=== PATIENT | female | born 1935 | race Caucasian/White ===

== ENCOUNTER 2022-11-02 18:20 | Inpatient (IN) | payer MEDICARE, MEDICAID, SELFPAY ==
--- NOTE | ~2022-11-02 | XR_ITS ---
EXAMINATION: XR CHEST CLINICAL INFORMATION: Mental status change. Elevated white blood cell count. COMPARISON: None available. TECHNIQUE: Frontal view of the chest was obtained. FINDINGS: The cardiac and mediastinal contours are normal. There is biapical pleural thickening and calcification. Increased density projecting over the right upper lobe. Probably related to right first rib costochondral cartilage. The lungs are otherwise clear. No evidence of pneumonia. No pleural effusion or pneumothorax. Old left proximal humerus fracture. XR/XR chest 1V IMPRESSION: No evidence of pneumonia.
--- NOTE | ~2022-11-02 | CT_ITS ---
EXAMINATION: CT ABDOMEN AND PELVIS WITHOUT CONTRAST CLINICAL INFORMATION: Fever. Recent urinary tract infection. Rule out pyelonephritis. COMPARISON: None available. TECHNIQUE: Multidetector volumetric imaging was performed from the superior aspect of the liver through the pubic symphysis. Sagittal and coronal reformatted images were obtained on the technologist's workstation. This CT examination was performed using dose optimization techniques as appropriate, variously including the following: *Automated exposure control *Adjustment of mA and/or kV according to patient size (this includes techniques or standardized protocols for targeted exams where dose is matched to indication/reason for exam; i.e. extremities or head) *Use of iterative reconstruction technique DLP: 646 mGy-cm FINDINGS: LUNG BASES: The visualized lung bases are unremarkable. LIVER, GALLBLADDER, AND BILIARY TREE: The liver is normal in size, shape, and attenuation. No focal hepatic lesion or biliary ductal dilatation is present. The gallbladder is unremarkable with no evidence of radiopaque gallstones, gallbladder wall thickening, or obvious pericholecystic inflammatory changes. PANCREAS: Unremarkable. SPLEEN: Unremarkable. ADRENAL GLANDS: Unremarkable. KIDNEYS AND URETERS: The kidneys are normal in size, shape, and attenuation. No hydronephrosis, hydroureter, or calculi seen. No perinephric stranding. 1.5 x 2.5 cm cyst in the upper pole of the right kidney. No imaging follow-up recommended BLADDER: Not optimally distended and not well evaluated. GASTROINTESTINAL TRACT: Stool throughout the colon suggestive of constipation. Diverticulosis. No evidence of diverticulitis. Small and large bowel are otherwise normal. Normal appendix. Small hiatal hernia. ABDOMINAL WALL: No significant hernia is appreciated. Left suprapubic bulge containing small bowel. LYMPH NODES: Shotty small bowel mesentery lymphadenopathy and fat stranding. No enlarged lymph nodes. VASCULAR: Atherosclerotic disease. No aneurysm. PELVIC VISCERA: Uterus may been removed. No pelvic mass. OSSEOUS STRUCTURES: Degenerative changes of the spine. Intramedullary william and compression/lag screw transfixing a old right femoral intertrochanteric fracture. CT/CT abdomen pelvis wo IV con IMPRESSION: No renal stone or hydronephrosis. Pyelonephritis difficult to assess without IV contrast. Bladder underdistended and difficult to evaluate. Constipation. Diverticulosis. Shotty small bowel mesentery lymphadenopathy in fat stranding. This probably represents mesenteritis. Fleischner guidelines were followed.
[2022-11-02 18:27] VITALS: BP 134/76; BP 141/54; PULSE 102; PULSE 98; RESP 18; O2SAT 96; O2SAT 97; BMI 25.5
--- NOTE | 2022-11-02 18:44 | ED_ITS ---
HPI - Altered Mental Status General Chief Complaint: Altered Mental Status Stated Complaint: Weakness & AMS Time Seen by Provider: 11/02/22 18:43 Source: family and RN notes reviewed Mode of arrival: EMS Limitations: altered mental status History of Present Illness HPI narrative: Patient with history of severe dementia came from group home for increased lethargy and weakness for last few days apparently patient had UTI 2 weeks ago was admitted in [facility] received IV antibiotics for 3 days and 7 days of p.o. antibiotics patient went back to group home and was at her baseline for few days and then started having increased weakness and more lethargic last 2 days patient noted to have fever of 101.7 rectally in the ER no vomiting Related Data Home Medications Medication Instructions Recorded Confirmed budesonide 90 mcg/actuation breath 2 inh inhalation BID 11/02/22 activated powder inhaler (Pulmicort Flexhaler) fluticasone 500 mcg-salmeterol 50 1 ea inhalation BID 11/02/22 mcg/dose blistr powdr for inhalation (Advair Diskus) ipratropium 0.5 mg-albuterol 3 mg 3 ml inhalation QID 11/02/22 (2.5 mg base)/3 mL nebulization soln montelukast 10 mg tablet 10 mg PO DAILY 11/02/22 nystatin 100,000 unit/gram topical 1 appl topical BID 11/02/22 cream sertraline 50 mg tablet 50 mg PO DAILY 11/02/22 Allergies Allergy/AdvReac Type Severity Reaction Status Date / Time No Known Allergies Allergy Verified 11/02/22 18:48 Review of Systems 2 Review of Systems: Yes all other systems are reviewed and are negative PMFSH Past Medical History Medical History GERD (gastroesophageal reflux disease) Cholelithiasis Vitamin D deficiency Mild persistent asthma Unspecified dementia, unspecified severity, with mood disturbance Chronic kidney disease, stage 3 Chronic anemia Social History Social History Advance Directives: No Advance Directives Information Provided: No Physical Exam ED Vital Signs: Vital Signs - 24 hr 11/02/22 18:27 11/02/22 18:48 11/02/22 20:47 Temperature 101.7 F H 100 F Pulse Rate 102 H 93 Respiratory Rate 18 17 Blood Pressure 141/54 H 132/53 L Pulse Oximetry 96 Oxygen Delivery Method Room Air BMI result Body Mass Index 25.5 Appearance: Lethargic demented Eyes: PERRLA, No Nystagmus ENT: Pharynx normal. Oral Mucosa moist Neck: Normal inspection. Neck supple. CVS: Normal heart rate and rhythm. Pulses normal. Respiratory: No respiratory distress. Equal air entry bilateral, no wheezing/rales/rhonchi Abdomen: Soft and nontender. Bowel sounds are present, no mass palpable, no CVA tenderness Skin: Skin warm and dry. Normal skin color. Normal skin turgor. Extremities: No lower extremity edema. No calf tenderness Neuro: Significant dementia no focal deficit Medications Administered Generic Name Dose Route Start Last Admin Trade Name Freq PRN Reason Stop Dose Admin Enoxaparin Sodium 40 mg 11/02/22 22:00 11/02/22 22:07 Enoxaparin Sodium 40 Mg/0.4 Ml Syringe SUBCUT 40 mg Q24H PADMAJA Administration Cefepime HCl 2 gm/ Sodium 50 mls @ 100 mls/hr 11/02/22 23:00 11/02/22 23:52 Chloride IV Infused Q12H PADMAJA Infusion Discontinued Medications Generic Name Dose Route Start Last Admin Trade Name Freq PRN Reason Stop Dose Admin Acetaminophen 650 mg 11/02/22 18:52 11/02/22 19:18 Acetaminophen 325 Mg Tablet PO 11/02/22 18:53 650 mg ONCE ONE Administration Sodium Chloride 1,000 mls @ 999 mls/hr 11/02/22 18:52 11/02/22 20:48 Ns IV 11/02/22 19:52 Infused .Q1H1M ONE Infusion Ceftriaxone Sodium 1 gm/ 50 mls @ 100 mls/hr 11/02/22 21:09 11/02/22 22:02 Sodium Chloride IV 11/02/22 21:38 Infused ONCE ONE Infusion Vancomycin HCl 1,500 mg/ 500 mls @ 333.333 mls/hr 11/02/22 22:15 11/02/22 23:41 Sodium Chloride IV 11/02/22 23:44 333.33 mls/hr ONCE ONE Administration Medical Decision Making Medical Decision Making [facility] Narrative: Patient with fever elevated white count etiology not very kidney chest x-ray negative COVID negative urine is negative for UTI no signs of meningitis, will admit patient and give empirically Rocephin Differential Diagnosis Differential Diagnoses: The differential diagnosis associated with the presentation includes Metabolic encephalopathy/sepsis/UTI/pneumonia Admission/Observation Consideration of admission/observation: Escalation of care including admission/observation considered Consult Healthcare Provider Management of the patient was discussed with: Hospitalist Lab Data [facility] Lab Attestation statement: I reviewed the patient's lab results. 11/02/22 19:11 11/02/22 20:02 Labs: Lab Results 11/02/22 11/02/22 11/02/22 Range/Units 19:11 19:30 20:02 WBC 19.7 H (4.8-10.8) X10*3/uL RBC 4.80 (4.20-5.50) X10*6/uL Hgb 13.0 (12.0-16.0) g/dl Hct 40.1 (37.0-47.0) % MCV 83.5 (80.0-98.0) fL MCH 27.1 (27.0-33.0) pg MCHC 32.4 (31.0-35.0) g/dl RDW 15.1 (11.0-16.0) % Plt Count 371 (160-400) X10*3/uL MPV 9.7 (9.4-12.3) fL Immature Gran % (Auto) 0.5 H (0.0-0.4) % Neut % (Auto) 88.0 H (45-73) % Lymph % (Auto) 5.9 L (20-40) % [place] % (Auto) 4.5 (2-11) % Eos % (Auto) 0.8 (0-4) % Baso % (Auto) 0.3 (0-2) % Lymph # (Auto) 1.2 (1.2-4.9) X10*3/uL [place] # (Auto) 0.9 (0.1-1.2) X10*3/uL Eos # (Auto) 0.2 (0.0-0.4) X10*3/uL Baso # (Auto) 0.1 (0.0-0.2) X10*3/uL Abs Immat Gran (auto) 0.09 H (0.00-0.03) X10*3/uL Absolute Neuts (auto) 17.4 H (2.0-8.3) x10*3/uL Absolute Nucleated RBC 0.000 (0.0-0.012) X10*3/uL Nucleated RBC % (auto) 0.0 (0.0-0.2) /100WBC Sodium 135 (135-145) mmol/L Potassium 4.1 (3.3-5.1) mmol/L Chloride 103 (96-108) mmol/L Carbon Dioxide 24 (22-29) mmol/L Anion Gap 12 (12-20) BUN 17 H (9-16) mg/dL Creatinine 0.82 (0.5-1.4) mg/dL Estim Creat Clear Calc 44.7 Estimated GFR > 60 Random Glucose 140 H (60-115) mg/dL Lactic Acid 1.1 (0.5-2.0) mmol/L Calcium 9.2 (8.4-10.2) mg/dL Total Bilirubin 0.4 (0.0-1.0) mg/dL AST 14 (5-31) U/L ALT 13 (0-31) U/L Alkaline Phosphatase 70 (39-117) U/L Total Protein 6.9 (6.5-8.0) g/dL Albumin 3.3 L (3.5-5.0) g/dL Urine Color Yellow Urine Appearance Clear Urine pH 5.5 (5.0-9.0) Ur Specific [place] 1.020 (1.005-1.025) Urine Protein Negative (Neg-Trace) mg/dL Urine Glucose (UA) Negative (Negative) mg/dL Urine Ketones Negative (Negative) mg/dL Urine Blood Negative (Negative) Urine Nitrite Negative (Negative) Ur Leukocyte Esterase Negative (Negative) COVID-19 (ELOISE) Negative (Negative) COVID-19 Clin Com See Note Independent Interpretation I performed an independent interpretation of an: CT Scan Interpretation: RDER #: [id number] CT/CT abdomen pelvis wo IV con IMPRESSION: No renal stone or hydronephrosis. Pyelonephritis difficult to assess without IV contrast. Bladder underdistended and difficult to evaluate. Constipation. Diverticulosis. Shotty small bowel mesentery lymphadenopathy in fat stranding. This probably represents mesenteritis. Fleischner guidelines were followed. Discharge Plan Discharge Clinical Impression: Fever of unknown origin, SIRS (systemic inflammatory response syndrome) Patient Disposition: Admitted As Inpatient
[2022-11-02 18:48] VITALS: TEMP 38.7
--- NOTE | 2022-11-02 18:52 | PC.NURSE ---
Kay daughter contact [phone]
--- NOTE | 2022-11-02 18:57 | ECG_ITS ---
Test Reason : AMS Blood Pressure : / mmHG Vent. Rate : 100 BPM Atrial Rate : 100 BPM P-R Int : 160 ms QRS Dur : 076 ms QT Int : 348 ms P-R-T Axes : 061 -49 060 degrees QTc Int : 448 ms Normal sinus rhythm Left anterior fascicular block Cannot rule out Anterior infarct , age undetermined Abnormal ECG No previous ECGs available Referred By: Dylon Holder Electronically Signed By:RUBI SOOD
[2022-11-02 19:17] LABS: MANUAL DIFF FLAG NO
[2022-11-02] MEDS: Acetaminophen 325 MG TABLET 650 MG PO (19:18)
[2022-11-02] MEDS: 0.9 % Sodium Chloride 1,000 ML 999 ML IV (19:18)
[2022-11-02 19:25] LABS: Basophils Absolute Auto 0.1 X10*3/uL (0.0-0.2); Basophils Percent Auto 0.3 % (0-2); Eosinophils Absolute Auto 0.2 X10*3/uL (0.0-0.4); Eosinophils Percent Auto 0.8 % (0-4); Hematocrit 40.1 % (37.0-47.0); Imm Gran Abs Auto 0.09 X10*3/uL (0.00-0.03); Imm Gran Pct Auto 0.5 % (0.0-0.4); Lymphocytes Absolute Auto 1.2 X10*3/uL (1.2-4.9); Lymphocytes Percent Auto 5.9 % (20-40); Mean Corpuscular HGB Conc 32.4 g/dl (31.0-35.0); Mean Corpuscular Hemoglobin 27.1 pg (27.0-33.0); Mean Corpuscular Volume 83.5 fL (80.0-98.0); Mean Platelet Volume 9.7 fL (9.4-12.3); Monocytes Absolute Auto 0.9 X10*3/uL (0.1-1.2); Monocytes Percent Auto 4.5 % (2-11); Neutrophils Absolute Auto 17.4 x10*3/uL (2.0-8.3); Platelet Count 371 X10*3/uL (160-400); Red Cell Distribution Width 15.1 % (11.0-16.0); White Blood Count 19.7 X10*3/uL (4.8-10.8)
[2022-11-02 19:30] LABS: Lactic Acid 1.1 mmol/L (0.5-2.0)
[2022-11-02 19:32] LABS: COVID-19 Test Negative (Negative); IDNOW Serial# 08D9AD1C
[2022-11-02 19:48] LABS: Appearance Urine Clear; Color Urine Yellow; Glucose Urine UA Negative (Negative); Leukocyte Esterase Urine Negative (Negative); Nitrite Urine Negative (Negative); PH 5.5 (5.0-9.0); Urine Blood Negative (Negative); Urine Ketones Negative (Negative); Urine Protein Negative (Neg-Trace)
[2022-11-02 20:23] LABS: Anion Gap 12 (12-20)
[2022-11-02 20:27] LABS: Alanine Aminotransferase 13 U/L (0-31); Albumin Level 3.3 g/dL (3.5-5.0); Alkaline Phosphatase 70 U/L (39-117); Aspartate Amino Transferase 14 U/L (5-31); Bilirubin Total 0.4 mg/dL (0.0-1.0); Blood Urea Nitrogen 17 mg/dL (9-16); Calcium 9.2 mg/dL (8.4-10.2); Carbon Dioxide 24 mmol/L (22-29); Chloride 103 mmol/L (96-108); Creatinine Clr Calc Pharmacy 44.7; Estimated Glomerular Filt Rate > 60; Glucose Random 140 mg/dL (60-115); Potassium 4.1 mmol/L (3.3-5.1); Sodium 135 mmol/L (135-145); Total Protein 6.9 g/dL (6.5-8.0)
[2022-11-02 20:47] VITALS: BP 132/53; PULSE 93; RESP 17; TEMP 37.7
[2022-11-02] MEDS: cefTRIAXone sodium 1 GM in 0.9 % Sodium Chloride 50 ML IV (21:20)
--- NOTE | 2022-11-02 22:02 | P.HPHOSP_ITS ---
History of Present Illness Date of Service: 11/02/22 Attending physician on admission: Joel Santana Chief Complaint: weakness, lethargy 87-year-old female with history of chronic normocytic anemia, COPD, transaminitis, unspecified dementia with mood disturbance, mild persistent asthma, vitamin-D deficiency, cholelithiasis, GERD, hyperlipidemia presented to the ED earlier today from [facility] where she resides for evaluation of weakness and lethargy. Apparently, the patient was admitted to [facility] about 2 weeks ago treated with IV antibiotics for UTI and discharged back to [facility]. For the last 2 days, nursing staff has noted increased weakness and lethargy as well as fevers of 101.7 rectally. The patient is not a good historian secondary to her dementia at baseline. However there is no reported diarrhea, nausea, vomiting, hematuria, malodorous urine, abdominal pain, flank pain, shortness of breath, chest pain, near syncope. On arrival, patient febrile to 101.7, tachycardic to 102, vitals otherwise stable, no hypotension. She has a leukocytosis of 19.7 with left shift. Creatinine and BUN unremarkable, electrolyte levels normal. Urinalysis negative. Respiratory pathogen panel pending. Chest x-ray negative for pneumonia. CT abdomen pelvis negative for any renal stone or hydronephrosis. No perinephric fat stranding noted but per Radiology, pyelonephritis difficult to assess without IV contrast. Bladder is nondistended in difficult to evaluate. There is also constipation and shotty small bowel mesentery lymphadenopathy in fat stranding likely representing mesenteritis. Review of Systems 2 Review of Systems: Yes Unobtainable due to mental status [facility] Medical History GERD (gastroesophageal reflux disease) Cholelithiasis Vitamin D deficiency Mild persistent asthma Unspecified dementia, unspecified severity, with mood disturbance Chronic kidney disease, stage 3 Chronic anemia Social History Advance Directives: No Advance Directives Information Provided: No Meds Allergies Allergy/AdvReac Type Severity Reaction Status Date / Time No Known Allergies Allergy Verified 11/02/22 18:48 Active Medications: Current Medications Acetaminophen (Acetaminophen Supp 650 Mg Supp.Rect) 650 mg [place] Q6H PRN PRN Reason: Pain, Mild, fever Docusate Sodium (Docusate Sodium 100 Mg Capsule) 100 mg PO DAILY PRN PRN Reason: Constipation Enoxaparin Sodium (Enoxaparin Sodium 40 Mg/0.4 Ml Syringe) 40 mg SUBCUT Q24H PADMAJA Ondansetron HCl (Ondansetron Hcl 4 Mg/2 Ml Vial) 4 mg IVPUSH Q8H PRN PRN Reason: Nausea and Vomiting Sodium Chloride (0.9 % Sodium Chloride Flush 3 Ml Syringe) 3 ml IVFLUSH QSHIFT PADMAJA Physical Exam 2 Vital Signs and Narrative: Vital Signs: Last Vital Signs Temp 100 F 11/02/22 20:47 Pulse 93 11/02/22 20:47 Resp 17 11/02/22 20:47 BP 132/53 L 11/02/22 20:47 Pulse Ox 96 11/02/22 18:27 O2 Del Method Room Air 11/02/22 18:27 BMI result Body Mass Index 25.5 Constitutional - Awake and Alert, No apparent distress Eyes - PERRLA, EOMI Cardiovascular - S1S2, RRR, No edema Respiratory - Normal lung expansion, Normal respiratory effort, No respiratory distress, CTA bilaterally Gastrointestinal - NT / ND; +BS; No rebound or guarding Extremities - no calf tenderness bilaterally, no swelling Skin - Warm/Dry. Cutaneous candidiasis bilateral buttock Neurological - Alert & oriented to self only, answering simple questions selectively, CN II-XII in tact, 4/5 strength BUE and BLE Results Labs 11/02/22 19:11 11/02/22 20:02 Labs: Laboratory Results - last 24 hr 11/02/22 11/02/22 11/02/22 19:11 19:30 20:02 MCV 83.5 MCH 27.1 MCHC 32.4 RDW 15.1 Plt Count 371 MPV 9.7 Immature Gran % (Auto) 0.5 H Neut % (Auto) 88.0 H Lymph % (Auto) 5.9 L [place] % (Auto) 4.5 Eos % (Auto) 0.8 Baso % (Auto) 0.3 Lymph # (Auto) 1.2 [place] # (Auto) 0.9 Eos # (Auto) 0.2 Baso # (Auto) 0.1 Abs Immat Gran (auto) 0.09 H Absolute Neuts (auto) 17.4 H Absolute Nucleated RBC 0.000 Nucleated RBC % (auto) 0.0 Anion Gap 12 Estim Creat Clear Calc 44.7 Estimated GFR > 60 Random Glucose 140 H Lactic Acid 1.1 Calcium 9.2 Total Bilirubin 0.4 AST 14 ALT 13 Alkaline Phosphatase 70 Total Protein 6.9 Albumin 3.3 L Urine Color Yellow Urine Appearance Clear Urine pH 5.5 Ur Specific [place] 1.020 Urine Protein Negative Urine Glucose (UA) Negative Urine Ketones Negative Urine Blood Negative Urine Nitrite Negative Ur Leukocyte Esterase Negative COVID-19 (ELOISE) Negative COVID-19 Clin Com See Note Imaging Radiologist's Impressions: Impressions Chest X-Ray 11/02/22 20:14 IMPRESSION: No evidence of pneumonia. Abdomen/Pelvis CT 11/02/22 20:44 IMPRESSION: No renal stone or hydronephrosis. Pyelonephritis difficult to assess without IV contrast. Bladder underdistended and difficult to evaluate. Constipation. Diverticulosis. Shotty small bowel mesentery lymphadenopathy in fat stranding. This probably represents mesenteritis. Fleischner guidelines were followed. Assessment and Plan (1) SIRS (systemic inflammatory response syndrome): Status: Acute (2) Fever of unknown origin: Status: Acute Plan 87-year-old female with history of chronic normocytic anemia, COPD, transaminitis, unspecified dementia with mood disturbance, mild persistent asthma, vitamin-D deficiency, cholelithiasis, GERD, hyperlipidemia admitted for fever of known origin. #Fever unknown origin with SIRS criteria -febrile to 101.7, tachycardic, leukocytosis 19.7 -Recent hospitalization at [facility] for UTI treated with IV antibiotics -UA unremarkable. Urine culture ordered -CXR negative -CT abdomen/pelvis negative for any acute intra-abdominal abnormality except for shoddy lymphadenopathy suggestive of mesenteritis. Pyelonephritis cannot be excluded given absence of IV contrast. However, UA unremarkable -no evidence of cellulitis -given recent hospitalization, IV vancomycin and cefepime (initiated 11/02) -consider lumbar puncture if indicated a.m. -infectious disease consult -follow CBC, urine culture, blood cultures # asthma/COPD -no acute exacerbation -continue maintenance inhalers, albuterol p.r.n. # cutaneous candidiasis -buttock and groin -continue weekly fluconazole and nystatin # unspecified dementia with mood disturbance -mentation baseline -continue home meds # GERD -continue PPI DVT prophylaxis-Lovenox DNR/DNI Patient requires inpatient stay at least 2 midnights for management of the fever of unknown origin with SIRS criteria, infection suspected with unclear source requiring broad-spectrum antibiotics and dex for consultation Time Spent With Patient Time: Total time managing care of this patient today ____ minutes. Quality Stroke Does the patient have a stroke diagnosis?: No VTE Prior VTE?: No VTE Risk Level:: Medical - moderate - high VTE Device Contraindication: Treatment Not Indicated VTE Drug Contraindication: N/A - Med Ordered
[2022-11-02] MEDS: Enoxaparin Sodium 40 MG/0.4 ML SYRINGE SUBCUT (22:07)
[2022-11-02 22:08] VITALS: BP 122/80; PULSE 93; RESP 14; TEMP 37.2; O2SAT 95
[2022-11-02] MEDS: cefEPime HCl 2 GM in 0.9 % Sodium Chloride 50 ML IV (22:46)
[2022-11-02] MEDS: vancomycin HCL 1,500 MG in 0.9 % Sodium Chloride 500 ML 333.33 MG IV (23:41)
[2022-11-03] VITALS (8 sets, daily range): BP systolic 115–145; BP diastolic 44–74; PULSE 83–108; RESP 15–20; TEMP 36.5–38.4; O2SAT 94–98; BMI 25.5
[2022-11-03] MEDS: Acetaminophen Supp 650 MG SUPP.RECT PR (01:22)
[2022-11-03 05:56] LABS: Basophils Absolute Auto 0.1 X10*3/uL (0.0-0.2); Basophils Percent Auto 0.3 % (0-2); Eosinophils Absolute Auto 0.1 X10*3/uL (0.0-0.4); Eosinophils Percent Auto 0.3 % (0-4); Hematocrit 38.8 % (37.0-47.0); Hemoglobin 12.5 g/dl (12.0-16.0); Imm Gran Abs Auto 0.17 X10*3/uL (0.00-0.03); Imm Gran Pct Auto 0.7 % (0.0-0.4); Lymphocytes Absolute Auto 0.8 X10*3/uL (1.2-4.9); Lymphocytes Percent Auto 3.3 % (20-40); MANUAL DIFF FLAG SCAN; Mean Corpuscular HGB Conc 32.2 g/dl (31.0-35.0); Mean Corpuscular Hemoglobin 27.4 pg (27.0-33.0); Mean Corpuscular Volume 85.1 fL (80.0-98.0); Mean Platelet Volume 9.7 fL (9.4-12.3); Monocytes Absolute Auto 1.1 X10*3/uL (0.1-1.2); Monocytes Percent Auto 4.9 % (2-11); Neutrophils Absolute Auto 20.9 x10*3/uL (2.0-8.3); Neutrophils Percent Auto 90.5 % (45-73); Platelet Count 296 X10*3/uL (160-400); Red Blood Count 4.56 X10*6/uL (4.20-5.50); Red Cell Distribution Width 15.1 % (11.0-16.0); SCAN SMEAR FLAG 1; White Blood Count 23.1 X10*3/uL (4.8-10.8)
[2022-11-03 06:15] LABS: Anion Gap 15 (12-20); Blood Urea Nitrogen 15 mg/dL (9-16); Calcium 9.3 mg/dL (8.4-10.2); Carbon Dioxide 21 mmol/L (22-29); Chloride 103 mmol/L (96-108); Creatinine Clr Calc Pharmacy 47.6; Estimated Glomerular Filt Rate > 60; Glucose Random 122 mg/dL (60-115); Potassium 4.5 mmol/L (3.3-5.1); Sodium 134 mmol/L (135-145)
[2022-11-03 06:21] LABS: SLIDE REVIEW VERIFIED
--- NOTE | 2022-11-03 07:11 | PC.NURSE ---
Assumed care of patient at 0700. Patient resting quietly in bed at this time. No acute distress noted.
--- NOTE | 2022-11-03 07:43 | MHC.CM.PN ---
PATIENT IS IN FROM [facility] SHE IS NOT RESPONDING TO ATTEMPTS TO ROUSE FOR ASSESSMENT. REFERRAL PLACED TO FACILITY TO FOLLOW FOR HER RETURN. HCP FOUND IN FOUND IN EMS PACKET. SUZANNE, (DAUGHTER) SUZANNE STATES THAT RECENTLY THE PATIENT HAS BEEN HAVING DIFFICULTY FINDING WORDS. SHE IS PRIMARILY BED BOUND. CASE MANAGEMENT FOLLOWING. IMM 11/03 IN CHART.
[2022-11-03] MEDS: 0.9 % Sodium Chloride Flush 3 ML SYRINGE IVFLUSH ×3 (09:07→22:25)
--- NOTE | 2022-11-03 09:28 | PC.NURSE ---
Resting quietly in bed. easily arousable. bedside monitor remains on pt. No apparent distress.
--- NOTE | 2022-11-03 09:32 | PHA.MEDREC ---
Pharmacy Consult ? Medication Reconciliation Pharmacy has completed the medication reconciliation. Patient with list from [facility]
[2022-11-03] MEDS: cefEPime HCl 2 GM in 0.9 % Sodium Chloride 50 ML IV ×2 (11:33→22:25)
[2022-11-03] MEDS: vancomycin HCL 750 MG in 0.9 % Sodium Chloride 250 ML 265 MG IV (12:37)
[2022-11-03 13:13] LABS: Adenovirus PCR Not Detected (Not Detect.); Bordetella parapertussis PCR Not Detected (Not Detect.); Bordetella pertussis PCR Not Detected (Not Detect.); Chlamydia pneumoniae PCR Not Detected (Not Detect.); Coronavirus 229E PCR Not Detected (Not Detect.); Coronavirus HKU1 PCR Not Detected (Not Detect.); Coronavirus NL63 PCR Not Detected (Not Detect.); Coronavirus OC43 PCR Not Detected (Not Detect.); Human metapneumovirus PCR Not Detected (Not Detect.); Influenza A PCR Not Detected (Not Detect.); Influenza B PCR Not Detected (Not Detect.); Mycoplasma pneumoniae PCR Not Detected (Not Detect.); Parainfluenza 1 PCR Not Detected (Not Detect.); Parainfluenza 2 PCR Not Detected (Not Detect.); Parainfluenza 3 PCR Not Detected (Not Detect.); Parainfluenza 4 PCR Not Detected (Not Detect.); RSV PCR Not Detected (Not Detect.); Rhino/Enterovirus PCR Not Detected (Not Detect.); SARS-CoV-2 PCR Not Detected (Not Detect.)
--- NOTE | 2022-11-03 14:28 | P.PNIM_ITS ---
Subjective Subjective Date of Service: 11/03/22 Interval History: No acute issues overnight per staff Review of Systems Unable to obtain Physical Exam 2 Vital Signs: Vital Signs: Last Vital Signs Temp 98.7 F 11/03/22 11:31 Pulse 95 11/03/22 11:31 Resp 16 11/03/22 11:31 BP 131/58 L 11/03/22 11:31 Pulse Ox 94 11/03/22 11:31 O2 Del Method Room Air 11/03/22 11:31 BMI result Body Mass Index 25.5 Const: Other: Awake nonverbal Resp: Other: Clear to auscultation bilaterally no rales rhonchi or wheezes Cardio: Other: No S4; positive S1-S2; no S3 murmurs rubs or gallops GI: Other: Soft nontender nondistended normoactive bowel sounds Extrem: Other: No edema bilaterally Objective Data Active Medications Acetaminophen (Acetaminophen Supp 650 Mg Supp.Rect) 650 mg [place] Q6H PRN PRN Reason: Pain, Mild, fever Last Admin: 11/03/22 01:22 Dose: 650 mg Documented By: ANKUSH Docusate Sodium (Docusate Sodium 100 Mg Capsule) 100 mg PO DAILY PRN PRN Reason: Constipation Enoxaparin Sodium (Enoxaparin Sodium 40 Mg/0.4 Ml Syringe) 40 mg SUBCUT Q24H [facility] Last Admin: 11/02/22 22:07 Dose: 40 mg Documented By: ANKUSH Cefepime HCl 2 gm/ Sodium (Chloride) 50 mls @ 100 mls/hr IV Q12H [facility] Last Infusion: 11/03/22 12:37 Dose: Infused Documented By: RENAE Vancomycin HCl 750 mg/ Sodium (Chloride) 265 mls @ 265 mls/hr IV Q12H [facility] Last Admin: 11/03/22 12:37 Dose: 265 mls/hr Documented By: RENAE Ondansetron HCl (Ondansetron Hcl 4 Mg/2 Ml Vial) 4 mg IVPUSH Q8H PRN PRN Reason: Nausea and Vomiting Pharmacy Consult (Consult Rx Vancomycin Dosing) 1 each MISCELLANE DAILY PRN PRN Reason: Consult order Sodium Chloride (0.9 % Sodium Chloride Flush 3 Ml Syringe) 3 ml IVFLUSH QSHIFT [facility] Last Admin: 11/03/22 09:07 Dose: 3 ml Documented By: WHITLYE Labs 11/03/22 05:35 11/03/22 05:35 Labs: Laboratory Results - last 24 hr 11/02/22 11/02/22 11/02/22 19:11 19:30 20:02 MCV 83.5 MCH 27.1 MCHC 32.4 RDW 15.1 Plt Count 371 MPV 9.7 Immature Gran % (Auto) 0.5 H Neut % (Auto) 88.0 H Lymph % (Auto) 5.9 L [place] % (Auto) 4.5 Eos % (Auto) 0.8 Baso % (Auto) 0.3 Lymph # (Auto) 1.2 [place] # (Auto) 0.9 Eos # (Auto) 0.2 Baso # (Auto) 0.1 Abs Immat Gran (auto) 0.09 H Absolute Neuts (auto) 17.4 H Absolute Nucleated RBC 0.000 Nucleated RBC % (auto) 0.0 Smear Tech's Comments Anion Gap 12 Estim Creat Clear Calc 44.7 Estimated GFR > 60 Random Glucose 140 H Lactic Acid 1.1 Calcium 9.2 Total Bilirubin 0.4 AST 14 ALT 13 Alkaline Phosphatase 70 Total Protein 6.9 Albumin 3.3 L Urine Color Yellow Urine Appearance Clear Urine pH 5.5 Ur Specific [place] 1.020 Urine Protein Negative Urine Glucose (UA) Negative Urine Ketones Negative Urine Blood Negative Urine Nitrite Negative Ur Leukocyte Esterase Negative Respiratory Panel [place] Adenovirus (Rapid PCR) B.pert (TEM-PCR) B.parapertussis DNA PCR C. pneumoniae DNA (PCR) Coronavirus OC43 (PCR) Coronavirus HKU1 (PCR) Coronavirus 229E (PCR) COVID-19 (ELOISE) Negative COVID-19 Clin Com See Note Coronavirus NL63 (PCR) Human Metapneumovir PCR Influenza A (RT-PCR) Influenza B (RT-PCR) M. pneumoniae (PCR) Parainfluenza 1 (PCR) Parainfluenza 2 (PCR) Parainfluenza 3 (PCR) Parainfluenza 4 (PCR) RSV (PCR) Entero/Rhino (PCR) SARS-CoV-2 RNA (RT-PCR) 11/02/22 11/03/22 21:58 05:35 MCV 85.1 MCH 27.4 MCHC 32.2 RDW 15.1 Plt Count 296 MPV 9.7 Immature Gran % (Auto) 0.7 H Neut % (Auto) 90.5 H Lymph % (Auto) 3.3 L [place] % (Auto) 4.9 Eos % (Auto) 0.3 Baso % (Auto) 0.3 Lymph # (Auto) 0.8 L [place] # (Auto) 1.1 Eos # (Auto) 0.1 Baso # (Auto) 0.1 Abs Immat Gran (auto) 0.17 H Absolute Neuts (auto) 20.9 H Absolute Nucleated RBC 0.000 Nucleated RBC % (auto) 0.0 Smear Tech's Comments VERIFIED Anion Gap 15 Estim Creat Clear Calc 47.6 Estimated GFR > 60 Random Glucose 122 H Lactic Acid Calcium 9.3 Total Bilirubin AST ALT Alkaline Phosphatase Total Protein Albumin Urine Color Urine Appearance Urine pH Ur Specific [place] Urine Protein Urine Glucose (UA) Urine Ketones Urine Blood Urine Nitrite Ur Leukocyte Esterase Respiratory Panel [place] See Note Adenovirus (Rapid PCR) Not Detected B.pert (TEM-PCR) Not Detected B.parapertussis DNA PCR Not Detected C. pneumoniae DNA (PCR) Not Detected Coronavirus OC43 (PCR) Not Detected Coronavirus HKU1 (PCR) Not Detected Coronavirus 229E (PCR) Not Detected COVID-19 (ELOISE) COVID-19 Clin Com Coronavirus NL63 (PCR) Not Detected Human Metapneumovir PCR Not Detected Influenza A (RT-PCR) Not Detected Influenza B (RT-PCR) Not Detected M. pneumoniae (PCR) Not Detected Parainfluenza 1 (PCR) Not Detected Parainfluenza 2 (PCR) Not Detected Parainfluenza 3 (PCR) Not Detected Parainfluenza 4 (PCR) Not Detected RSV (PCR) Not Detected Entero/Rhino (PCR) Not Detected SARS-CoV-2 RNA (RT-PCR) Not Detected Assessment and Plan (1) Fever of unknown origin: Status: Acute Plan 87-year-old female with history of chronic normocytic anemia, COPD, transaminitis, unspecified dementia with mood disturbance, mild persistent asthma, vitamin-D deficiency, cholelithiasis, GERD, hyperlipidemia admitted for fever of known origin. 1.Fever unknown origin with SIRS criteria -Tmax 101.1 -recent hospitalization, IV vancomycin and cefepime (initiated 11/02); history of UTI. We culture -infectious disease consult -follow CBC, urine culture, blood cultures 2.Asthma/COPD -no acute exacerbation -continue maintenance inhalers, albuterol p.r.n. 3.Cutaneous candidiasis -buttock and groin -continue weekly fluconazole and nystatin 4.Unspecified dementia with mood disturbance -mentation baseline -continue home meds Lovenox DNR/DNI Requires ongoing hospitalization for IV antibiotics pending urine culture/id consult Time Spent With Patient Time: Total time managing care of this patient today ____ minutes. Quality Stroke Does the patient have a stroke diagnosis?: No VTE Prior VTE?: No VTE Risk Level:: Medical - moderate - high VTE Device Contraindication: Treatment Not Indicated VTE Drug Contraindication: N/A - Med Ordered
--- NOTE | 2022-11-03 15:33 | W.PM.IDCN ---
History of Present Illness Data of Consult Service Date: 11/03/22 Requesting physician: Himanshu Chiang Primary Care Provider: Isaias Canela MD [facility] Reason for consult: FUO [place] from [place] with fever to 101 and has this here with tachycardia. She was hospitalized at [facility] three weeks ago and felt to have urinary infection. She has no definite obstruction on CT scan abdomen and pelvis here. Review of Systems Review of Systems: Yes Unobtainable due to mental condition PMFSH Past Medical History Medical History GERD (gastroesophageal reflux disease) Cholelithiasis Vitamin D deficiency Mild persistent asthma Unspecified dementia, unspecified severity, with mood disturbance Chronic kidney disease, stage 3 Chronic anemia Family History Family history: reviewed and not pertinent Social History Social History Advance Directives: No Advance Directives Information Provided: No service: No Meds Allergies Allergy/AdvReac Type Severity Reaction Status Date / Time No Known Allergies Allergy Verified 11/02/22 18:48 Active Medications: Current Medications Acetaminophen (Acetaminophen Supp 650 Mg Supp.Rect) 650 mg [place] Q6H PRN PRN Reason: Pain, Mild, fever Last Admin: 11/03/22 01:22 Dose: 650 mg Docusate Sodium (Docusate Sodium 100 Mg Capsule) 100 mg PO DAILY PRN PRN Reason: Constipation Enoxaparin Sodium (Enoxaparin Sodium 40 Mg/0.4 Ml Syringe) 40 mg SUBCUT Q24H [facility] Last Admin: 11/02/22 22:07 Dose: 40 mg Cefepime HCl 2 gm/ Sodium (Chloride) 50 mls @ 100 mls/hr IV Q12H [facility] Last Infusion: 11/03/22 12:37 Dose: Infused Vancomycin HCl 750 mg/ Sodium (Chloride) 265 mls @ 265 mls/hr IV Q12H [facility] Last Infusion: 11/03/22 14:57 Dose: Infused Ondansetron HCl (Ondansetron Hcl 4 Mg/2 Ml Vial) 4 mg IVPUSH Q8H PRN PRN Reason: Nausea and Vomiting Pharmacy Consult (Consult Rx Vancomycin Dosing) 1 each MISCELLANE DAILY PRN PRN Reason: Consult order Sodium Chloride (0.9 % Sodium Chloride Flush 3 Ml Syringe) 3 ml IVFLUSH QSHIFT [facility] Last Admin: 11/03/22 09:07 Dose: 3 ml Home Medications Medication Instructions Recorded Confirmed Last Taken Type budesonide 90 mcg/actuation breath 2 inh inhalation BID 11/02/22 11/03/22 Unknown History activated powder inhaler (Pulmicort Flexhaler) fluticasone 500 mcg-salmeterol 50 1 ea inhalation BID 11/02/22 11/03/22 Unknown History mcg/dose blistr powdr for inhalation (Advair Diskus) ipratropium 0.5 mg-albuterol 3 mg 3 ml inhalation Q4H 11/02/22 11/03/22 Unknown History (2.5 mg base)/3 mL nebulization soln nystatin 100,000 unit/gram topical 1 appl topical BID PRN Rash 11/02/22 11/03/22 Unknown History cream sertraline 50 mg tablet 50 mg PO BEDTIME 11/02/22 11/03/22 Unknown History acetaminophen 325 mg tablet 650 mg PO Q6H PRN Pain 11/03/22 11/03/22 Unknown History acetaminophen 650 mg rectal 650 mg NC Q6H 11/03/22 11/03/22 Unknown History suppository bisacodyl 10 mg rectal suppository 10 mg NC DAILY PRN Constipation 11/03/22 11/03/22 Unknown History cholecalciferol (vitamin D3) 25 25 mcg PO DAILY 11/03/22 11/03/22 Unknown History mcg (1,000 unit) tablet (Vitamin D3) ferrous sulfate 325 mg (65 mg 325 mg PO DAILY 11/03/22 11/03/22 Unknown History iron) tablet fluconazole 200 mg tablet 200 mg PO DAILY 11/03/22 11/03/22 Unknown History ipratropium 20 mcg-albuterol 100 2 puff inhalation Q4H PRN 11/03/22 11/03/22 Unknown History mcg/actuation mist for inhalation Shortness Of Breath (Combivent Respimat) melatonin 10 mg tablet 10 mg PO BEDTIME PRN Insomnia 11/03/22 11/03/22 Unknown History montelukast 10 mg tablet 10 mg PO BEDTIME Allergy Symptoms 11/03/22 11/03/22 Unknown History nystatin 100,000 unit/gram topical 1 appl topical BID PRN Rash 11/03/22 11/03/22 Unknown History powder omeprazole 20 mg capsule,delayed 20 mg PO DAILY@0630 11/03/22 11/03/22 Unknown History release Physical Exam Vital Signs: Vital Signs: Last Vital Signs Temp 97.7 F 11/03/22 15:19 Pulse 83 11/03/22 15:19 Resp 20 11/03/22 15:19 BP 122/64 11/03/22 15:19 Pulse Ox 98 11/03/22 15:19 O2 Del Method Room Air 11/03/22 15:19 BMI result Body Mass Index 25.5 Const: General: cooperative HEENT: Head: Yes normal to inspection Face and sinus: Yes normal facial exam Mouth: Normal oral and palatal mucosa present Teeth and gingiva: dentition normal Eyes: General: appearance normal, both eyes and all related structures Pupils: Equal, round and reactive pupils present Resp: Effort & Inspection: normal respiratory effort Cardio: Rate: regular rate Rhythm: regular rhythm GI: Palpation (GI): Soft to palpation and nontender : General: Yes no CVA tenderness Back/Spine/Pelvis: Back: no CVA tenderness Skin: General skin exam: no rashes or lesions noted Neuro: General: moves all extremities Cranial nerves: Yes Equal, round and reactive pupils present Extrem: General: Yes normal to inspection Psych: Appearance: grossly normal Results Labs 11/03/22 05:35 11/03/22 05:35 Labs: Short CBC 11/02/22 11/03/22 Range/Units 19:11 05:35 WBC 19.7 H 23.1 H (4.8-10.8) X10*3/uL Hgb 13.0 12.5 (12.0-16.0) g/dl Hct 40.1 38.8 (37.0-47.0) % Plt Count 371 296 (160-400) X10*3/uL BMP 11/02/22 11/03/22 20:02 05:35 Sodium 135 134 L Potassium 4.1 4.5 Chloride 103 103 Carbon Dioxide 24 21 L BUN 17 H 15 Creatinine 0.82 0.77 Calcium 9.2 9.3 Liver Function 11/02/22 Range/Units 20:02 Total Bilirubin 0.4 (0.0-1.0) mg/dL AST 14 (5-31) U/L ALT 13 (0-31) U/L Alkaline Phosphatase 70 (39-117) U/L Albumin 3.3 L (3.5-5.0) g/dL Urine 11/02/22 Range/Units 19:30 Urine Color Yellow Urine Appearance Clear Urine pH 5.5 (5.0-9.0) Ur Specific [place] 1.020 (1.005-1.025) Urine Protein Negative (Neg-Trace) mg/dL Urine Glucose (UA) Negative (Negative) mg/dL Assessment and Plan (1) SIRS (systemic inflammatory response syndrome): Status: Acute (2) Fever of unknown origin: Status: Acute There is concern over recurrent urinary infection. Urinalysis is unremarkable and also has some mesenteric stranding on CT. There is no obvious neurologic signs Plan Await blood cultures. Continue Cefepime and Vancomycin for now. Consider further abdominal imaging such as U/S if not improving evaluate obstruction. Concern over collagen vascular disease such as vasculitis if not improving on antibiotics. Time Spent With Patient Time: Total time managing care of this patient today ____ minutes.
--- NOTE | 2022-11-03 16:24 | HO.SKINPHOTO ---
Location: perineal/ buttocks Category: Stage: Length: Width: Depth: cm
[2022-11-03 21:47] LABS: Vancomycin Random 16.2 mcg/mL (15-20)
--- NOTE | 2022-11-03 21:58 | HE.PHANOTE ---
RE: VANCO Patients level came back this evening at 16.2. This was after an appropriate loading dose and 1 dose of 750 mg. Will decrease dose as dose is showing to be supratherpeutic. Decreased dose to 500 mg Q12H. Next draw is 11/04 @2100.
[2022-11-03] MEDS: Enoxaparin Sodium 40 MG/0.4 ML SYRINGE SUBCUT (22:25)
[2022-11-03] MEDS: vancomycin HCL 500 MG in 0.9 % Sodium Chloride 100 ML 110 MG IV (23:33)
[2022-11-04 04:00] VITALS: BP 102/63; PULSE 84; RESP 18; TEMP 36.1; O2SAT 96
[2022-11-04 07:40] LABS: MANUAL DIFF FLAG NO
[2022-11-04 07:52] LABS: Basophils Absolute Auto 0.1 X10*3/uL (0.0-0.2); Basophils Percent Auto 0.4 % (0-2); Eosinophils Absolute Auto 0.2 X10*3/uL (0.0-0.4); Hematocrit 39.3 % (37.0-47.0); Hemoglobin 12.5 g/dl (12.0-16.0); Imm Gran Pct Auto 0.6 % (0.0-0.4); Lymphocytes Absolute Auto 0.8 X10*3/uL (1.2-4.9); Lymphocytes Percent Auto 5.3 % (20-40); Mean Corpuscular HGB Conc 31.8 g/dl (31.0-35.0); Mean Corpuscular Hemoglobin 27.1 pg (27.0-33.0); Mean Corpuscular Volume 85.1 fL (80.0-98.0); Mean Platelet Volume 10.3 fL (9.4-12.3); Monocytes Absolute Auto 0.6 X10*3/uL (0.1-1.2); Monocytes Percent Auto 3.8 % (2-11); Neutrophils Absolute Auto 13.9 x10*3/uL (2.0-8.3); Neutrophils Percent Auto 88.9 % (45-73); Platelet Count 278 X10*3/uL (160-400); Red Blood Count 4.62 X10*6/uL (4.20-5.50); Red Cell Distribution Width 15.3 % (11.0-16.0); White Blood Count 15.7 X10*3/uL (4.8-10.8)
[2022-11-04 08:00] VITALS: BP 113/54; PULSE 80; RESP 16; TEMP 36.6; O2SAT 95
[2022-11-04 08:03] LABS: Alanine Aminotransferase 15 U/L (0-31); Albumin Level 3.1 g/dL (3.5-5.0); Alkaline Phosphatase 68 U/L (39-117); Anion Gap 14 (12-20); Aspartate Amino Transferase 18 U/L (5-31); Bilirubin Total 0.2 mg/dL (0.0-1.0); Blood Urea Nitrogen 14 mg/dL (9-16); Calcium 9.3 mg/dL (8.4-10.2); Carbon Dioxide 22 mmol/L (22-29); Chloride 106 mmol/L (96-108); Creatinine Clr Calc Pharmacy 50.2; Estimated Glomerular Filt Rate > 60; Glucose Fasting 81 mg/dL (60-99); Potassium 3.8 mmol/L (3.3-5.1); Sodium 138 mmol/L (135-145); Total Protein 6.8 g/dL (6.5-8.0)
[2022-11-04] MEDS: 0.9 % Sodium Chloride Flush 3 ML SYRINGE IVFLUSH (09:38)
[2022-11-04] MEDS: cefEPime HCl 2 GM in 0.9 % Sodium Chloride 50 ML IV (11:29)
--- NOTE | 2022-11-04 11:40 | MHC.CM.PN ---
Pt is not yet medically cleared for d/c r/t 2 IV A/B, and pending lab results. Goal is to return to LTC at [place] [facility] to continue to follow.
[2022-11-04 12:00] VITALS: BP 135/61; PULSE 75; RESP 19; TEMP 36.7; O2SAT 97
[2022-11-04] MEDS: vancomycin HCL 500 MG in 0.9 % Sodium Chloride 100 ML 110 MG IV (14:08)
--- NOTE | 2022-11-04 15:23 | HO.PM.IMPN ---
Subjective Subjective Date of Service: 11/04/22 Interval History: Remains essentially nonverbal Review of Systems Unable to obtain Physical Exam Vital Signs: Vital Signs: Last Vital Signs Temp 98.0 F 11/04/22 12:00 Pulse 75 11/04/22 12:00 Resp 19 11/04/22 12:00 BP 135/61 11/04/22 12:00 Pulse Ox 97 11/04/22 12:00 O2 Del Method Room Air 11/04/22 12:00 BMI result Body Mass Index 25.5 Const: Other: Awake nonverbal Resp: Other: Clear to auscultation bilaterally no rales rhonchi or wheezes Cardio: Other: No S4; positive S1-S2; no S3 murmurs rubs or gallops GI: Other: Soft nontender nondistended normoactive bowel sounds Extrem: Other: No edema bilaterally Objective Data Active Medications Acetaminophen (Acetaminophen Supp 650 Mg Supp.Rect) 650 mg [place] Q6H PRN PRN Reason: Pain, Mild, fever Last Admin: 11/03/22 01:22 Dose: 650 mg Documented By: ANKUSH Bisacodyl (Bisacodyl 10 Mg Supp.Rect) 10 mg PA DAILY PRN PRN Reason: Constipation Docusate Sodium (Docusate Sodium 100 Mg Capsule) 100 mg PO DAILY PRN PRN Reason: Constipation Enoxaparin Sodium (Enoxaparin Sodium 40 Mg/0.4 Ml Syringe) 40 mg SUBCUT Q24H [facility] Last Admin: 11/03/22 22:25 Dose: 40 mg Documented By: ZOFIA Cefepime HCl 2 gm/ Sodium (Chloride) 50 mls @ 100 mls/hr IV Q12H [facility] Last Infusion: 11/04/22 13:58 Dose: Infused Documented By: KENYON Vancomycin HCl 500 mg/ Sodium (Chloride) 110 mls @ 110 mls/hr IV Q12H [facility] Last Infusion: 11/04/22 15:09 Dose: Infused Documented By: KENYON Montelukast Sodium (Montelukast Sodium 10 Mg Tablet) 10 mg PO BEDTIME PADMAJA Omeprazole (Omeprazole 20 Mg Capsule.Dr) 20 mg PO DAILY@0630 [facility] Ondansetron HCl (Ondansetron Hcl 4 Mg/2 Ml Vial) 4 mg IVPUSH Q8H PRN PRN Reason: Nausea and Vomiting Pharmacy Consult (Consult Rx Vancomycin Dosing) 1 each MISCELLANE DAILY PRN PRN Reason: Consult order Sertraline HCl (Sertraline Hcl 50 Mg Tablet) 50 mg PO BEDTIME [facility] Sodium Chloride (0.9 % Sodium Chloride Flush 3 Ml Syringe) 3 ml IVFLUSH QSHIFT [facility] Last Admin: 11/04/22 09:38 Dose: 3 ml Documented By: CTORRBarbara Vitamin D (Cholecalciferol (Vitamin D3) 25 Mcg Tablet) 25 mcg PO DAILY [facility] Labs 11/04/22 06:56 11/04/22 06:56 Labs: Laboratory Results - last 24 hr 11/03/22 11/04/22 21:20 06:56 MCV 85.1 MCH 27.1 MCHC 31.8 RDW 15.3 Plt Count 278 MPV 10.3 Immature Gran % (Auto) 0.6 H Neut % (Auto) 88.9 H Lymph % (Auto) 5.3 L [place] % (Auto) 3.8 Eos % (Auto) 1.0 Baso % (Auto) 0.4 Lymph # (Auto) 0.8 L [place] # (Auto) 0.6 Eos # (Auto) 0.2 Baso # (Auto) 0.1 Abs Immat Gran (auto) 0.10 H Absolute Neuts (auto) 13.9 H Absolute Nucleated RBC 0.000 Nucleated RBC % (auto) 0.0 Anion Gap 14 Estim Creat Clear Calc 50.2 Estimated GFR > 60 Fasting Glucose 81 Calcium 9.3 Total Bilirubin 0.2 AST 18 ALT 15 Alkaline Phosphatase 68 Total Protein 6.8 Albumin 3.1 L Random Vancomycin 16.2 Microbiology Microbiology Results: Microbiology 11/02/22 19:11 Blood Culture - Preliminary Blood - Venous No growth after 24 hours. 11/02/22 19:11 Blood Culture - Preliminary Blood - Venous No growth after 24 hours. Assessment and Plan (1) Fever of unknown origin: Status: Acute (2) Mild persistent asthma: Status: Acute Plan 87-year-old female with history of chronic normocytic anemia, COPD, transaminitis, unspecified dementia with mood disturbance, mild persistent asthma, vitamin-D deficiency, cholelithiasis, GERD, hyperlipidemia admitted for fever of known origin. 1.Fever unknown origin -Tmax 99 -vancomycin/cefepime(3); -infectious disease consult -blood cultures negative thus far -no IV access; will recheck white count in a.m. and discuss with ID then discuss with family 2.Asthma/COPD -no acute exacerbation -continue maintenance inhalers, albuterol p.r.n. 3.Cutaneous candidiasis -buttock and groin -continue weekly fluconazole and nystatin 4.Unspecified dementia with mood disturbance -mentation baseline -continue home meds Lovenox DNR/DNI Requires ongoing hospitalization for IV antibiotics pending urine culture/id consult Time Spent With Patient Time: Total time managing care of this patient today ____ minutes. Quality Stroke Does the patient have a stroke diagnosis?: No VTE Prior VTE?: No VTE Risk Level:: Medical - moderate - high VTE Device Contraindication: Treatment Not Indicated VTE Drug Contraindication: N/A - Med Ordered
[2022-11-04 15:52] VITALS: BP 116/57; PULSE 83; RESP 16; TEMP 36.3; O2SAT 97
--- NOTE | 2022-11-04 18:33 | PC.NURSE ---
Pt lost IV access. 3 Rns tried to get an IV access unsuccessfully. notified. Per Md orders hold Iv Abx.
--- NOTE | 2022-11-04 19:32 | PC.NURSE ---
Assumed care of patient @ 19:15, 11/04. Called pharmacy for newer order of nystatin. Per polysom tech hospital is currently out of nystatin. Covering MD notified.
[2022-11-04 20:00] VITALS: BP 129/69; PULSE 81; RESP 14; TEMP 36.1; O2SAT 96
[2022-11-04 21:29] LABS: Vancomycin Random 17.2 mcg/mL (15-20)
[2022-11-04] MEDS: Enoxaparin Sodium 40 MG/0.4 ML SYRINGE SUBCUT (21:30)
[2022-11-04] MEDS: Montelukast Sodium 10 MG TABLET PO (21:30)
[2022-11-04] MEDS: Sertraline HCL 50 MG TABLET PO (21:30)
--- NOTE | 2022-11-04 21:35 | HE.PHANOTE ---
RE: Thaoo Patients level came back this evening at 17.2. I did notice that the dose due for 1100 this morning was given at 1400. This could have caused a falsely high level. regardless, will keep dose the same as 750 mg Q12H will be supra therapeutic and 1000 mg Q24H will only produce a level of around 12. Will continue with this dose for 2 more doses and see what level is tomorrow. Next draw tomorrow 11/05 @2100. Predicted AUC 425, renal function improved today.
[2022-11-04 23:24] VITALS: BP 135/68; PULSE 85; RESP 18; TEMP 36.7; O2SAT 97
[2022-11-05] MEDS: 0.9 % Sodium Chloride Flush 3 ML SYRINGE IVFLUSH ×3 (00:55→20:02)
[2022-11-05] MEDS: cefEPime HCl 2 GM in 0.9 % Sodium Chloride 50 ML IV ×3 (00:57→22:04)
[2022-11-05] MEDS: vancomycin HCL 500 MG in 0.9 % Sodium Chloride 100 ML 110 MG IV ×3 (02:27→22:43)
[2022-11-05 04:00] VITALS: BP 122/82; PULSE 91; RESP 18; TEMP 36.5; O2SAT 95
[2022-11-05] MEDS: Omeprazole 20 MG CAPSULE.DR PO (05:19)
[2022-11-05 06:58] LABS: MANUAL DIFF FLAG NO
[2022-11-05 07:02] LABS: Basophils Absolute Auto 0.1 X10*3/uL (0.0-0.2); Basophils Percent Auto 0.5 % (0-2); Eosinophils Absolute Auto 0.3 X10*3/uL (0.0-0.4); Eosinophils Percent Auto 2.6 % (0-4); Hematocrit 37.4 % (37.0-47.0); Hemoglobin 12.2 g/dl (12.0-16.0); Imm Gran Abs Auto 0.09 X10*3/uL (0.00-0.03); Imm Gran Pct Auto 0.8 % (0.0-0.4); Lymphocytes Absolute Auto 1.2 X10*3/uL (1.2-4.9); Lymphocytes Percent Auto 10.6 % (20-40); Mean Corpuscular HGB Conc 32.6 g/dl (31.0-35.0); Mean Corpuscular Hemoglobin 27.1 pg (27.0-33.0); Mean Corpuscular Volume 82.9 fL (80.0-98.0); Mean Platelet Volume 9.9 fL (9.4-12.3); Monocytes Absolute Auto 0.8 X10*3/uL (0.1-1.2); Monocytes Percent Auto 6.8 % (2-11); Neutrophils Percent Auto 78.7 % (45-73); Platelet Count 273 X10*3/uL (160-400); Red Blood Count 4.51 X10*6/uL (4.20-5.50); White Blood Count 11.5 X10*3/uL (4.8-10.8)
[2022-11-05 07:31] VITALS: BP 141/63; PULSE 89; RESP 16; TEMP 36.2; O2SAT 97
[2022-11-05 07:43] LABS: Alanine Aminotransferase 19 U/L (0-31); Albumin Level 2.9 g/dL (3.5-5.0); Alkaline Phosphatase 70 U/L (39-117); Anion Gap 15 (12-20); Aspartate Amino Transferase 34 U/L (5-31); Bilirubin Total 0.2 mg/dL (0.0-1.0); Blood Urea Nitrogen 18 mg/dL (9-16); Calcium 8.9 mg/dL (8.4-10.2); Carbon Dioxide 17 mmol/L (22-29); Chloride 108 mmol/L (96-108); Creatinine Clr Calc Pharmacy 47.6; Estimated Glomerular Filt Rate > 60; Glucose Fasting 83 mg/dL (60-99); Potassium 4.9 mmol/L (3.3-5.1); Sodium 135 mmol/L (135-145); Total Protein 6.8 g/dL (6.5-8.0)
[2022-11-05] MEDS: Cholecalciferol (Vitamin D3) 25 MCG TABLET PO (08:52)
[2022-11-05 11:17] VITALS: BP 131/70; PULSE 74; RESP 20; TEMP 36.4; O2SAT 96
--- NOTE | 2022-11-05 15:42 | HO.PM.IMPN ---
Subjective Subjective Date of Service: 11/05/22 Interval History: Much more alert this a.m.. Taking p.o. when fed Review of Systems Unable to obtain Physical Exam Vital Signs: Vital Signs: Last Vital Signs Temp 97.6 F 11/05/22 11:17 Pulse 74 11/05/22 11:17 Resp 20 11/05/22 11:17 BP 131/70 11/05/22 11:17 Pulse Ox 96 11/05/22 11:17 O2 Del Method Room Air 11/05/22 11:17 BMI result Body Mass Index 25.5 Const: Other: Awake nonverbal Resp: Other: Clear to auscultation bilaterally no rales rhonchi or wheezes Cardio: Other: No S4; positive S1-S2; no S3 murmurs rubs or gallops GI: Other: Soft nontender nondistended normoactive bowel sounds Extrem: Other: No edema bilaterally Objective Data Active Medications Acetaminophen (Acetaminophen Supp 650 Mg Supp.Rect) 650 mg [place] Q6H PRN PRN Reason: Pain, Mild, fever Last Admin: 11/03/22 01:22 Dose: 650 mg Documented By: ANKUSH Bisacodyl (Bisacodyl 10 Mg Supp.Rect) 10 mg [place] DAILY PRN PRN Reason: Constipation Docusate Sodium (Docusate Sodium 100 Mg Capsule) 100 mg PO DAILY PRN PRN Reason: Constipation Enoxaparin Sodium (Enoxaparin Sodium 40 Mg/0.4 Ml Syringe) 40 mg SUBCUT Q24H [facility] Last Admin: 11/04/22 21:30 Dose: 40 mg Documented By: DOUGLAS Cefepime HCl 2 gm/ Sodium (Chloride) 50 mls @ 100 mls/hr IV Q12H [facility] Last Infusion: 11/05/22 12:51 Dose: Infused Documented By: ESTUARDO Vancomycin HCl 500 mg/ Sodium (Chloride) 110 mls @ 110 mls/hr IV Q12H [facility] Last Infusion: 11/05/22 14:15 Dose: Infused Documented By: ESTUARDO Montelukast Sodium (Montelukast Sodium 10 Mg Tablet) 10 mg PO BEDTIME [facility] Last Admin: 11/04/22 21:30 Dose: 10 mg Documented By: DOUGLAS Nystatin (Nystatin Powder 15 Gm Bottle) 1 appl TOPICAL TID [facility]; Protocol Last Admin: 11/05/22 14:59 Dose: Not Given Documented By: ESTUARDO Non-Admin Reason: Med Not Available Omeprazole (Omeprazole 20 Mg Maria G.) 20 mg PO DAILY@0630 [facility] Last Admin: 11/05/22 05:19 Dose: 20 mg Documented By: DOUGLAS Ondansetron HCl (Ondansetron Hcl 4 Mg/2 Ml Vial) 4 mg IVPUSH Q8H PRN PRN Reason: Nausea and Vomiting Pharmacy Consult (Consult Rx Vancomycin Dosing) 1 each MISCELLANE DAILY PRN PRN Reason: Consult order Sertraline HCl (Sertraline Hcl 50 Mg Tablet) 50 mg PO BEDTIME [facility] Last Admin: 11/04/22 21:30 Dose: 50 mg Documented By: DOUGLAS Sodium Chloride (0.9 % Sodium Chloride Flush 3 Ml Syringe) 3 ml IVFLUSH QSHIFT [facility] Last Admin: 11/05/22 08:53 Dose: 3 ml Documented By: ESTUARDO Vitamin D (Cholecalciferol (Vitamin D3) 25 Mcg Tablet) 25 mcg PO DAILY [facility] Last Admin: 11/05/22 08:52 Dose: 25 mcg Documented By: ESTUARDO Labs 11/05/22 06:39 11/05/22 06:39 Labs: Laboratory Results - last 24 hr 11/04/22 11/05/22 21:12 06:39 MCV 82.9 MCH 27.1 MCHC 32.6 RDW 15.0 Plt Count 273 MPV 9.9 Immature Gran % (Auto) 0.8 H Neut % (Auto) 78.7 H Lymph % (Auto) 10.6 L [place] % (Auto) 6.8 Eos % (Auto) 2.6 Baso % (Auto) 0.5 Lymph # (Auto) 1.2 [place] # (Auto) 0.8 Eos # (Auto) 0.3 Baso # (Auto) 0.1 Abs Immat Gran (auto) 0.09 H Absolute Neuts (auto) 9.0 H Absolute Nucleated RBC 0.000 Nucleated RBC % (auto) 0.0 Anion Gap 15 Estim Creat Clear Calc 47.6 Estimated GFR > 60 Fasting Glucose 83 Calcium 8.9 Total Bilirubin 0.2 AST 34 H ALT 19 Alkaline Phosphatase 70 Total Protein 6.8 Albumin 2.9 L Random Vancomycin 17.2 Microbiology Microbiology Results: Microbiology 11/02/22 19:11 Blood Culture - Preliminary Blood - Venous No growth after 48 hours. 11/02/22 19:11 Blood Culture - Preliminary Blood - Venous No growth after 48 hours. Assessment and Plan (1) Fever of unknown origin: Status: Acute (2) Mild persistent asthma: Status: Acute Plan 87-year-old female with history of chronic normocytic anemia, COPD, transaminitis, unspecified dementia with mood disturbance, mild persistent asthma, vitamin-D deficiency, cholelithiasis, GERD, hyperlipidemia admitted for fever of known origin. 1.Fever unknown origin -afebrile greater than 24 hours -vancomycin/cefepime(4); -infectious disease consult -blood cultures negative thus far -will continue antibiotics IV 24 hrs -check CBC in a.m.. .. If white count has normalized DC back to [facility] 2.Asthma/COPD -no acute exacerbation -continue maintenance inhalers, albuterol p.r.n. 3.Cutaneous candidiasis -buttock and groin -continue weekly fluconazole and nystatin 4.Unspecified dementia with mood disturbance -mentation baseline -continue home meds Lovenox DNR/DNI Requires ongoing hospitalization for IV antibiotics pending urine culture/id consult Time Spent With Patient Time: Total time managing care of this patient today ____ minutes. Quality Stroke Does the patient have a stroke diagnosis?: No VTE Prior VTE?: No VTE Risk Level:: Medical - moderate - high VTE Device Contraindication: Treatment Not Indicated VTE Drug Contraindication: N/A - Med Ordered
[2022-11-05 16:00] VITALS: BP 122/54; PULSE 69; RESP 16; TEMP 36.3; O2SAT 97
[2022-11-05 19:45] VITALS: BP 136/61; PULSE 75; RESP 18; TEMP 36.2; O2SAT 97
[2022-11-05] MEDS: Montelukast Sodium 10 MG TABLET PO (20:02)
[2022-11-05] MEDS: Sertraline HCL 50 MG TABLET PO (20:02)
[2022-11-05 21:51] LABS: Vancomycin Random 15.3 mcg/mL (15-20)
[2022-11-05] MEDS: Enoxaparin Sodium 40 MG/0.4 ML SYRINGE SUBCUT (22:11)
[2022-11-06] VITALS: BP 134/60; PULSE 77; RESP 18; TEMP 36.2; O2SAT 96
[2022-11-06 04:00] VITALS: BP 139/63; PULSE 74; RESP 18; TEMP 36.1; O2SAT 98
[2022-11-06 07:15] LABS: MANUAL DIFF FLAG NO
[2022-11-06 07:24] LABS: Basophils Percent Auto 0.4 % (0-2); Eosinophils Absolute Auto 0.3 X10*3/uL (0.0-0.4); Eosinophils Percent Auto 3.4 % (0-4); Hematocrit 37.1 % (37.0-47.0); Hemoglobin 12.1 g/dl (12.0-16.0); Imm Gran Abs Auto 0.11 X10*3/uL (0.00-0.03); Imm Gran Pct Auto 1.5 % (0.0-0.4); Lymphocytes Absolute Auto 1.1 X10*3/uL (1.2-4.9); Lymphocytes Percent Auto 15.6 % (20-40); Mean Corpuscular HGB Conc 32.6 g/dl (31.0-35.0); Mean Corpuscular Hemoglobin 27.1 pg (27.0-33.0); Mean Corpuscular Volume 83.2 fL (80.0-98.0); Mean Platelet Volume 10.3 fL (9.4-12.3); Monocytes Absolute Auto 0.6 X10*3/uL (0.1-1.2); Monocytes Percent Auto 8.4 % (2-11); Neutrophils Absolute Auto 5.2 x10*3/uL (2.0-8.3); Neutrophils Percent Auto 70.7 % (45-73); Platelet Count 302 X10*3/uL (160-400); Red Blood Count 4.46 X10*6/uL (4.20-5.50); Red Cell Distribution Width 14.8 % (11.0-16.0); White Blood Count 7.3 X10*3/uL (4.8-10.8)
[2022-11-06 07:27] VITALS: BP 134/61; PULSE 71; RESP 16; TEMP 36.4; O2SAT 98
--- NOTE | 2022-11-06 07:28 | PC.NURSE ---
Assumed care of patient at this time.
[2022-11-06 08:11] LABS: Alanine Aminotransferase 16 U/L (0-31); Albumin Level 3.1 g/dL (3.5-5.0); Alkaline Phosphatase 67 U/L (39-117); Anion Gap 14 (12-20); Aspartate Amino Transferase 20 U/L (5-31); Bilirubin Total 0.2 mg/dL (0.0-1.0); Blood Urea Nitrogen 18 mg/dL (9-16); Carbon Dioxide 19 mmol/L (22-29); Chloride 107 mmol/L (96-108); Creatinine Clr Calc Pharmacy 50.2; Estimated Glomerular Filt Rate > 60; Glucose Fasting 102 mg/dL (60-99); Potassium 3.2 mmol/L (3.3-5.1); Sodium 137 mmol/L (135-145); Total Protein 6.7 g/dL (6.5-8.0)
--- NOTE | 2022-11-06 08:40 | HE.PHANOTE ---
JHONY DIXON CONTINUE CURRENT DOSE, NEXT LEVEL DUE 11/07 @0900 [facility]
[2022-11-06] MEDS: 0.9 % Sodium Chloride Flush 3 ML SYRINGE IVFLUSH (09:27)
[2022-11-06] MEDS: Cholecalciferol (Vitamin D3) 25 MCG TABLET PO (09:28)
[2022-11-06] MEDS: cefEPime HCl 2 GM in 0.9 % Sodium Chloride 50 ML IV (10:49)
[2022-11-06 11:14] VITALS: BP 133/58; PULSE 73; RESP 16; TEMP 36.9; O2SAT 97
[2022-11-06] MEDS: vancomycin HCL 500 MG in 0.9 % Sodium Chloride 100 ML 110 MG IV (11:39)
--- NOTE | 2022-11-06 13:16 | PM.DS ---
DS: Providers Provider Date of Service: 11/06/22 Date of admission: 11/02/22 21:52 Date of discharge: 11/06/22 Primary care physician: Isaias Canela MD Consults: 11/02/22 21:55 Consult to Infectious Diseases Routine Consulting Provider: [facility] Infectious Disease Reason for consultation: fever unknown origin DS: Diagnosis Discharge Diagnosis (1) Fever of unknown origin: Status: Acute (2) Mild persistent asthma: Status: Acute DS: Summary Hospital Course Hospital Course: 87-year-old female with history of chronic normocytic anemia, COPD, transaminitis, unspecified dementia with mood disturbance, mild persistent asthma, vitamin-D deficiency, cholelithiasis, GERD, hyperlipidemia presented to the ED earlier today from [facility] where she resides for evaluation of weakness and lethargy. Apparently, the patient was admitted to [facility] about 2 weeks ago treated with IV antibiotics for UTI and discharged back to [facility]. For the last 2 days, nursing staff has noted increased weakness and lethargy as well as fevers of 101.7 rectally. The patient is not a good historian secondary to her dementia at baseline. However there is no reported diarrhea, nausea, vomiting, hematuria, malodorous urine, abdominal pain, flank pain, shortness of breath, chest pain, near syncope. On arrival, patient febrile to 101.7, tachycardic to 102, vitals otherwise stable, no hypotension. She has a leukocytosis of 19.7 with left shift. Creatinine and BUN unremarkable, electrolyte levels normal. Urinalysis negative. Respiratory pathogen panel pending. Chest x-ray negative for pneumonia. [facility] Admitted to general medical floor and started on cefepime and vancomycin. Initial urine without active sediment and was not cultured. Blood cultures ultimately negative for pathogens. Infectious Disease consult placed; based on CT scan this was likely degree of pyelonephritis. Patient's white count initially 19.7 and tim to 23.1 however on the day of discharge was 7.3. The patient has remained afebrile times 72 hours. At this point in time she is medically acceptable to return to review care and complete oral course of Ceftin Time Spent with Patient Time attestation: Total time managing care of this patient today ____ minutes. Discharge coordination time: Greater than 30 minutes Quality: Safe Use of Opioids Does Pt have an Active Cancer Diagnosis on the Problem List?: No Quality: Stroke Does the patient have a stroke diagnosis?: No Physical Exam Vital Signs: Vital Signs: Last Vital Signs Temp 98.5 F 11/06/22 11:14 Pulse 73 11/06/22 11:14 Resp 16 11/06/22 11:14 BP 133/58 L 11/06/22 11:14 Pulse Ox 97 11/06/22 11:14 O2 Del Method Room Air 11/06/22 11:14 BMI result Body Mass Index 25.5 Const: Other: Awake nonverbal Resp: Other: Clear to auscultation bilaterally no rales rhonchi or wheezes Cardio: Other: No S4; positive S1-S2; no S3 murmurs rubs or gallops GI: Other: Soft nontender nondistended normoactive bowel sounds Extrem: Other: No edema bilaterally DS: Data Data Completed and Pending Labs on day of discharge: Laboratory Results - last 24 hr 11/05/22 11/06/22 21:20 06:18 WBC 7.3 RBC 4.46 Hgb 12.1 Hct 37.1 MCV 83.2 MCH 27.1 MCHC 32.6 RDW 14.8 Plt Count 302 MPV 10.3 Immature Gran % (Auto) 1.5 H Neut % (Auto) 70.7 Lymph % (Auto) 15.6 L [place] % (Auto) 8.4 Eos % (Auto) 3.4 Baso % (Auto) 0.4 Lymph # (Auto) 1.1 L [place] # (Auto) 0.6 Eos # (Auto) 0.3 Baso # (Auto) 0.0 Abs Immat Gran (auto) 0.11 H Absolute Neuts (auto) 5.2 Absolute Nucleated RBC 0.000 Nucleated RBC % (auto) 0.0 Sodium 137 Potassium 3.2 L D Chloride 107 Carbon Dioxide 19 L Anion Gap 14 BUN 18 H Creatinine 0.73 Estim Creat Clear Calc 50.2 Estimated GFR > 60 Fasting Glucose 102 H Calcium 9.0 Total Bilirubin 0.2 AST 20 ALT 16 Alkaline Phosphatase 67 Total Protein 6.7 Albumin 3.1 L Random Vancomycin 15.3 Preliminary micro results at discharge 11/02/22 19:11 Blood Culture - Preliminary Blood - Venous No growth after 48 hours. 11/02/22 19:11 Blood Culture - Preliminary Blood - Venous No growth after 48 hours. Discharge Plan Discharge Anticipated Discharge Date/Time: 11/06/22 13:13 Patient Disposition: Xfer [facility] Discharge Diagnosis: UTI Referrals: [facility] [Outside] - 1 Week Isaias Canela MD [Primary Care Provider] - 1 Week Discharge Medications: New cefuroxime axetil 250 mg tablet 250 mg PO Q12H 10 Days Qty: 20 0RF Continued ipratropium-albuterol 0.5 mg-3 mg(2.5 mg base)/3 mL solution for nebulization 3 ml inhalation Q4H nystatin 100,000 unit/gram cream 1 appl topical BID PRN (Reason: Rash) Rx Instructions: to buttocks fluticasone propion-salmeterol [Advair Diskus] 500-50 mcg/dose blister with device 1 ea inhalation BID sertraline 50 mg tablet 50 mg PO BEDTIME Pulmicort Flexhaler 90 mcg/actuation aerosol powdr breath activated 2 inh inhalation BID acetaminophen 325 mg Tablet 650 mg PO Q6H PRN (Reason: Pain) acetaminophen 650 mg Suppository 650 mg MA Q6H fluconazole 200 mg tablet 200 mg PO DAILY Rx Instructions: ENDING DATE- 11/09/2022 bisacodyl 10 mg Suppository 10 mg MA DAILY PRN (Reason: Constipation) Rx Instructions: daily for no BM if M.O.M INEFFECTIVE ferrous sulfate 325 mg (65 mg iron) Tablet 325 mg PO DAILY omeprazole 20 mg capsule,delayed release(DR/EC) 20 mg PO DAILY@0630 Rx Instructions: GIVE ONE TABLET BY MOUTH IN AM FOR PP1 montelukast 10 mg tablet 10 mg PO BEDTIME cholecalciferol (vitamin D3) [Vitamin D3] 25 mcg (1,000 unit) Tablet 25 mcg PO DAILY melatonin 10 mg Tablet 10 mg PO BEDTIME PRN (Reason: Insomnia) Combivent Respimat 20-100 mcg/actuation mist 2 puff inhalation Q4H PRN (Reason: Shortness Of Breath) nystatin 100,000 unit/gram Powder 1 appl TOPICAL BID PRN (Reason: Rash) Rx Instructions: to groin folds Discharge Orders: Discharge Order (Routine); Ordered 11/06/22 Ordered By: Himanshu Chiang Diet: Advance to usual diet Activity on Discharge: As tolerated Stand Alone Forms: Patient Portal Discharge page Care Plan Goals: Resume all previous medications and treatments Health Concerns: Ceftin 250 mg twice daily for 10 days Plan of Treatment: Further plans as per receiving facility Assessment: See discharge summary
--- NOTE | 2022-11-06 13:20 | MHC.CM.PN ---
Patient has been medically cleared for dc to SNF/LTC today. Patient will return to LTC @ [facility] today at 4 PM, via [facility]. IMM addressed.RAMONA spoke with Daughter/Kay @ [phone], who has been made aware of today's dc.
== END 2022-11-06 16:22 | DRG 690 ==
LOC: HO.ED 19:10 → HO.EDOVER 22:29 → HO.IMC 11-03 12:51
PROVIDERS: Admitting Provider Physician Assistant; Emergency Provider Internal Medicine; PCP Family Medicine; Visit Provider Hospitalist
DX: N12 Tubulo-interstitial nephritis, not specified as acute or chronic (principal); F03.93 Unspecified dementia, unspecified severity, with mood disturbance; J45.20 Mild intermittent asthma, uncomplicated; K21.9 Gastro-esophageal reflux disease without esophagitis; Z66 Do not resuscitate; J44.9 Chronic obstructive pulmonary disease, unspecified; D63.1 Anemia in chronic kidney disease; N18.30 Chronic kidney disease, stage 3 unspecified; B37.2 Candidiasis of skin and nail; Z20.822 Contact with and (suspected) exposure to COVID-19; Z87.440 Personal history of urinary (tract) infections; Z23 Encounter for immunization; Z79.51 Long term (current) use of inhaled steroids; Z79.899 Other long term (current) drug therapy
CPT/HCPCS: 36415; 71045; 74176; 80048; 80053; 80202; 81003; 83605; 85025; 87040; 87633; 87635; 90686; 93005; 99285; J0692; J0696; J1650; J3370; J3371

== ENCOUNTER → 2022-11-02 19:09 | Outpatient (BNV) | payer BC, MEDICAID, SELFPAY | PROVIDERS: Emergency Provider Internal Medicine; PCP Family Medicine; Visit Provider Physician Assistant | DX: J45.30 Mild persistent asthma, uncomplicated (principal); R50.9 Fever, unspecified | CPT/HCPCS: 99223; 99233; 99239 ==

== ENCOUNTER → 2022-11-02 21:52 | Outpatient (BNV) | payer MEDICARE, MEDICAID, SELFPAY | PROVIDERS: Admitting Provider Physician Assistant; Emergency Provider Internal Medicine; PCP Family Medicine; Visit Provider Internal Medicine | DX: R65.10 Systemic inflammatory response syndrome (SIRS) of non-infectious origin without acute organ dysfunction (principal); R50.9 Fever, unspecified | CPT/HCPCS: 99222 ==

== ENCOUNTER 2023-01-06 13:17 | Inpatient (IN) | payer MEDICARE, MEDICAID, SELFPAY ==
[2023-01-06] VITALS (8 sets, daily range): BP systolic 114–132; BP diastolic 44–74; PULSE 96–110; RESP 12–24; TEMP 36.7–37.3; O2SAT 87–97; BMI 23.8
--- NOTE | ~2023-01-06 | XR_ITS ---
EXAMINATION: XR CHEST CLINICAL INFORMATION: Hypoxia and sepsis COMPARISON: 11/02/2022 TECHNIQUE: Frontal view of the chest was obtained. FINDINGS: Biapical pleural thickening and calcification and slight nodularity is stable finding. Lungs otherwise clear. Heart and pulmonary vessels normal. No congestive change. Old left proximal humeral fracture again seen. XR/XR chest 1V IMPRESSION: Stable chronic changes.
--- NOTE | ~2023-01-06 | CT_ITS ---
EXAMINATION: CT HEAD WITHOUT CONTRAST CLINICAL INFORMATION: Constricted pupil. Rule out stroke. Rule out Marvin syndrome. COMPARISON: None available. TECHNIQUE: Contiguous axial imaging was performed from the skull base to vertex without intravenous administration of contrast. This CT examination was performed using dose optimization techniques as appropriate, variously including the following: *Automated exposure control *Adjustment of mA and/or kV according to patient size (this includes techniques or standardized protocols for targeted exams where dose is matched to indication/reason for exam; i.e. extremities or head) *Use of iterative reconstruction technique DLP: 686 mGy-cm FINDINGS: The brain parenchyma, the ventricles, cisterns and sulci are unremarkable. Mild diffuse prominent ventricles are however present with the bilateral near symmetric deep periventricular white matter hypodensities. Subtle focal hypodensities within the occipital lobes are also noted. Specifically, no evidence of any large territorial edema producing infarction or acute intraparenchymal hemorrhage, mass or mass effect is identified. Incidental note is made of bilateral large air-fluid level within the maxillary sinuses, may represent acute sinusitis versus intrasinus hemorrhage. Mild mucoperiosteal thickening of the ethmoidal and sphenoidal sinuses is also present, consistent with sinusitis. Bilateral mastoid air cells are partially opacified, consistent with mastoiditis. CT/CT head/brain wo IV con IMPRESSION: 1. No CT evidence of any acute intracranial pathology. Please note that neither stroke nor Marvin syndrome can be excluded based on this CT appearance. Alternative imaging modality as appropriate may be considered for further clarification. 2. Incidental note is made of pansinusitis except for relative sparing of the frontal sinuses. Presence of large air-fluid level within both maxillary sinuses likely represent acute sinusitis. In the presence of trauma, intrasinus hemorrhage may also have similar appearance and cannot be further differentiated.
--- NOTE | ~2023-01-06 | CT_ITS ---
EXAMINATION: CT CHEST WITHOUT CONTRAST CLINICAL INFORMATION: Fever, hypoxia and cough COMPARISON: Chest radiograph 01/06/2023 TECHNIQUE: Multidetector volumetric CT imaging of the chest was done. Axial MIP volume rendering provided. Sagittal and coronal reformatted images were obtained. This CT examination was performed using dose optimization techniques as appropriate, variously including the following: *Automated exposure control *Adjustment of mA and/or kV according to patient size (this includes techniques or standardized protocols for targeted exams where dose is matched to indication/reason for exam; i.e. extremities or head) *Use of iterative reconstruction technique DLP: 375 mGy-cm FINDINGS: LUNGS AND PLEURA: Biapical pleural-parenchymal scarring is present with peripheral calcification. Bilateral lower lobe atelectasis/infiltrates are present with small bilateral pleural effusions and associated lower lobe bronchial wall thickening with impaction and occlusion. No suspicious lung masses are seen. MEDIASTINUM: Small mediastinal lymph nodes are present but there is no adenopathy. Heart size is normal. No pericardial effusion. CORONARY ARTERY CALCIFICATION: Minimal AXILLA: No lymphadenopathy. UPPER ABDOMEN: A benign right upper pole Bosniak class I renal cyst is noted which requires no additional imaging or follow up. No other abnormality is seen. OSSEOUS STRUCTURES: Unremarkable. CT/CT chest wo IV con IMPRESSION: 1. Bilateral lower lobe atelectasis/infiltrate with small bilateral pleural effusions and associated lower lobe bronchial wall thickening with impaction and occlusion. Infection cannot be excluded. 2. Biapical pleural-parenchymal scarring. 3. Other incidental findings as described above. Fleischner guidelines were followed.
--- NOTE | 2023-01-06 13:52 | ECG_ITS ---
Test Reason : SEPSIS Blood Pressure : / mmHG Vent. Rate : 095 BPM Atrial Rate : 095 BPM P-R Int : 148 ms QRS Dur : 082 ms QT Int : 362 ms P-R-T Axes : 068 -29 052 degrees QTc Int : 454 ms Normal sinus rhythm Low voltage QRS Left axis deviation Abnormal ECG When compared with ECG of 02-NOV-2022 19:05, No significant change was found Referred By: Adrien Doev Electronically Signed By:CYNDEE RG MD
--- NOTE | 2023-01-06 13:54 | ED.GENADULT ---
HPI - General Adult General Chief complaint: Dyspnea Stated complaint: LOW SAT 86%,DUONEB 93% FROM SNF PER EMS Time Seen by Provider: 01/06/23 13:48 Source: patient, EMS and old records reviewed Mode of arrival: EMS Limitations: altered mental status History of Present Illness HPI narrative: 87-year-old female came in from a residential for evaluation of shortness of breath and hypoxia. Patient with a known history of COPD normally use supplemental oxygen if needed, patient found it to have difficulty breathing and becoming hypoxic 82% with no improvement after applying OxyMask with 4 L oxygen. Patient is a limited historian secondary to known history of dementia of unclear etiology. Patient met criteria for sepsis and sepsis protocol was activated. Related Data Home Medications Medication Instructions Recorded Confirmed budesonide 90 mcg/actuation breath 2 inh inhalation BID 11/02/22 11/03/22 activated powder inhaler (Pulmicort Flexhaler) fluticasone 500 mcg-salmeterol 50 1 ea inhalation BID 11/02/22 11/03/22 mcg/dose blistr powdr for inhalation (Advair Diskus) ipratropium 0.5 mg-albuterol 3 mg 3 ml inhalation Q4H 11/02/22 11/03/22 (2.5 mg base)/3 mL nebulization soln nystatin 100,000 unit/gram topical 1 appl topical BID PRN Rash 11/02/22 11/03/22 cream sertraline 50 mg tablet 50 mg PO BEDTIME 11/02/22 11/03/22 acetaminophen 325 mg tablet 650 mg PO Q6H PRN Pain 11/03/22 11/03/22 acetaminophen 650 mg rectal 650 mg CO Q6H 11/03/22 11/03/22 suppository bisacodyl 10 mg rectal suppository 10 mg CO DAILY PRN Constipation 11/03/22 11/03/22 cholecalciferol (vitamin D3) 25 25 mcg PO DAILY 11/03/22 11/03/22 mcg (1,000 unit) tablet (Vitamin D3) ferrous sulfate 325 mg (65 mg 325 mg PO DAILY 11/03/22 11/03/22 iron) tablet fluconazole 200 mg tablet 200 mg PO DAILY 11/03/22 11/03/22 ipratropium 20 mcg-albuterol 100 2 puff inhalation Q4H PRN 11/03/22 11/03/22 mcg/actuation mist for inhalation Shortness Of Breath (Combivent Respimat) melatonin 10 mg tablet 10 mg PO BEDTIME PRN Insomnia 11/03/22 11/03/22 montelukast 10 mg tablet 10 mg PO BEDTIME Allergy Symptoms 11/03/22 11/03/22 nystatin 100,000 unit/gram topical 1 appl topical BID PRN Rash 11/03/22 11/03/22 powder omeprazole 20 mg capsule,delayed 20 mg PO DAILY@0630 11/03/22 11/03/22 release Previous Rx's Medication Instructions Recorded cefuroxime axetil 250 mg tablet 250 mg PO Q12H 10 days #20 tabs 11/06/22 Allergies Allergy/AdvReac Type Severity Reaction Status Date / Time No Known Allergies Allergy Verified 01/06/23 13:36 Review of Systems Review of Systems: Yes Unobtainable due to mental condition PMFSH Past Medical History Medical History GERD (gastroesophageal reflux disease) Cholelithiasis Vitamin D deficiency Mild persistent asthma Unspecified dementia, unspecified severity, with mood disturbance Chronic kidney disease, stage 3 Chronic anemia Social History Household Members: Other Housing: Shelter Unable to assess alcohol history related to: Unknown Alcohol intake: never Patient Tobacco Use Status: Tobacco use Unknown Smoked in Last 30 Days: No Use of substances other than those prescribed or required for medical reasons: No Advance Directives: Yes Advance Directives on File: Yes Advance Directives Date on File: 11/09/22 service: No Physical Exam ED Vital Signs: Vital Signs - 24 hr 01/06/23 13:28 01/06/23 15:08 01/06/23 15:12 Temperature 99.2 F 99.2 F Pulse Rate 101 H 98 Respiratory Rate 24 H 20 24 H Blood Pressure 121/66 132/51 L Pulse Oximetry 89 L 87 L Oxygen Delivery Method Oxymask Oxymask Oxygen Flow Rate 4 BMI result Body Mass Index 23.8 Vital signs have been reviewed and appear to be correct. Blood pressure elevated. Heart rate elevated. Respiratory rate normal. Temperature normal. Oxygen saturation normal. Appearance: awake, alert, disoriented x3.. No acute distress. Head: Normal external exam. Normocephalic. Atraumatic. No Ambriz signs noted. No raccoon eyes noted Eyes: PERRLA. EOMI. Conjunctiva and sclera normal. Eyelids normal. ENT: TM's Normal. Pharynx normal. Uvula midline. Moist mucous membranes. No trismus noted. No drooling noted. No muffled voice noted. Neck: Normal inspection. Neck supple. FROM. No adenopathy. Thyroid Normal. No meningeal signs. No neck mass noted. CVS: Normal heart rate and rhythm. Heart sound normal. No murmurs noted. Pulses normal throughout. Respiratory: No respiratory distress. Painless inspiration. Breath sounds normal. No wheezes/rales/rhonchi noted. Chest nontender. No accessory muscle usage noted or decreased air movement noted. Abdomen: Soft and nontender. Bowel sounds normal in all 4 quadrants. No distention noted. No organomegaly noted. No visible injury noted. Back: No CVA tenderness. Full range of motion noted. Skin: Skin warm and dry. Normal skin color. Normal skin turgor. No rashes/lesions/lacerations noted. Extremities: No lower extremity edema. Extremities exhibit normal range of motion. Extremities nontender. Neuro: Disoriented x3. Cranial nerve exam: II-XII are grossly intact No motor deficit. No sensory deficit. Reflexes normal. Course Reevaluation(s) Reevaluation #1: 87-year-old female came in from residential for evaluation of shortness of breath, patient found to meet criteria for sepsis and COPD exacerbation patient was treated with Solu-Medrol/bronchodilator/ magnesium and a dose of Zosyn, patient is meeting criteria for SIRS. Awaiting for UA, labs, chest x-ray, case signed out to Dr. Collins. Time: 15:53 Medications Administered Discontinued Medications Generic Name Dose Route Start Last Admin Trade Name Freq PRN Reason Stop Dose Admin Sodium Chloride 1,000 mls @ 999 mls/hr 01/06/23 13:51 01/06/23 15:01 Ns IV 01/06/23 14:51 999 mls/hr .Q1H1M ONE Administration Piperacillin Sod/Tazobactam 50 mls @ 100 mls/hr 01/06/23 13:54 01/06/23 15:00 Sod 3.375 gm/ Sodium Chloride IV 01/06/23 14:23 100 mls/hr ONCE ONE Administration Medical Decision Making Differential Diagnosis Differential Diagnoses: The differential diagnosis associated with the presentation includes ( COPD exacerbation, pneumonia, UTI, sepsis, electrolyte abnormality, severe anemia.) Admission/Observation Consideration of admission/observation: Escalation of care including admission/observation considered Lab Data Labs: Lab Results 01/06/23 01/06/23 Range/Units 14:11 14:55 Lactic Acid 2.0 (0.5-2.0) mmol/L Influenza Type A (PCR) NEGATIVE (Negative) Influenza Type B (PCR) NEGATIVE (Negative) RSV RNA Qual (PCR) NEGATIVE (Negative) SARS-CoV-2 RNA (RT-PCR) NEGATIVE (Negative) Discharge Plan Discharge Clinical Impression: Acute exacerbation of chronic obstructive airways disease Patient Disposition: Admitted As Inpatient
--- NOTE | 2023-01-06 14:18 | PC.NURSE ---
waiting on second set of cultures to be drawn for abx admin.
[2023-01-06] MEDS: Piperacillin Sodium/Tazobactam 3.375 GM in 0.9 % Sodium Chloride 50 ML IV ×2 (15:00→22:33)
--- NOTE | 2023-01-06 15:00 | PC.NURSE ---
phleb called d/t multiple staff members attempting to get lab work, only able to get blood cultures, unable to get other labs at this time, phleb said they would try their best to come up to room
[2023-01-06] MEDS: 0.9 % Sodium Chloride 1,000 ML 999 ML IV (15:01)
[2023-01-06 15:43] LABS: Influenza A PCR NEGATIVE (Negative); Influenza B PCR NEGATIVE (Negative); Resp Syncy Virus RNA Qual PCR NEGATIVE (Negative); SARS COV2 PCR INHOUSE NEGATIVE (Negative)
[2023-01-06] MEDS: Magnesium Sulfate/H2O 2 GM/50 ML PIGGYBACK IV (16:30)
[2023-01-06] MEDS: methylPREDNISolone Sod Succ 125 MG/2 ML VIAL IVPUSH (16:30)
[2023-01-06 16:33] LABS: Appearance Urine Clear; Color Urine Yellow; Glucose Urine UA Negative (Negative); Leukocyte Esterase Urine Negative (Negative); Nitrite Urine Negative (Negative); PH 5.5 (5.0-9.0); Specific Gravity - Urine 1.025 (1.005-1.025); UMIC TRIGGER UACC YES; Urine Blood Negative (Negative); Urine Ketones Trace mg/dL (Negative); Urine Protein 30 (1+) mg/dL (Neg-Trace)
[2023-01-06] MEDS: Albuterol Sulfate 2.5 MG, Albuterol/Iprat 2.5/0.5MG 3 ML 3 ML INHALE (16:39)
[2023-01-06 17:02] LABS: Basophils Absolute Auto 0.1 X10*3/uL (0.0-0.2); Basophils Percent Auto 0.3 % (0-2); Eosinophils Percent Auto 0.2 % (0-4); Hematocrit 35.6 % (37.0-47.0); Hemoglobin 11.2 g/dl (12.0-16.0); Imm Gran Abs Auto 0.14 X10*3/uL (0.00-0.03); Imm Gran Pct Auto 0.7 % (0.0-0.4); Lymphocytes Absolute Auto 1.3 X10*3/uL (1.2-4.9); Lymphocytes Percent Auto 6.9 % (20-40); MANUAL DIFF FLAG SCAN; Mean Corpuscular HGB Conc 31.5 g/dl (31.0-35.0); Mean Corpuscular Volume 85.8 fL (80.0-98.0); Mean Platelet Volume 9.9 fL (9.4-12.3); Monocytes Absolute Auto 1.5 X10*3/uL (0.1-1.2); Monocytes Percent Auto 7.8 % (2-11); Neutrophils Absolute Auto 16.5 x10*3/uL (2.0-8.3); Neutrophils Percent Auto 84.1 % (45-73); Platelet Count 283 X10*3/uL (160-400); Red Blood Count 4.15 X10*6/uL (4.20-5.50); SCAN SMEAR FLAG 1; White Blood Count 19.5 X10*3/uL (4.8-10.8)
[2023-01-06 17:15] LABS: Bacteria Urine None Seen (None Seen); Hyaline Casts Urine 0-2 /LPF (0-2); RBC Urine 0-2 /HPF (0-2); Squamous Epithelial Cell Urine 0-2 /HPF (0-2); WBC Urine 0-5 /HPF (0-5)
--- NOTE | 2023-01-06 17:18 | PC.NURSE ---
PT NOW SATTING AT 95% RA S/P MAG, ABX, SOLUMEDROL, AND UPDRAFT TX.
[2023-01-06 17:20] LABS: Alanine Aminotransferase 20 U/L (0-31); Albumin Level 3.3 g/dL (3.5-5.0); Alkaline Phosphatase 77 U/L (39-117); Anion Gap 16 (12-20); Aspartate Amino Transferase 24 U/L (5-31); Bilirubin Direct 0.3 mg/dL (0.0-0.5); Bilirubin Total 0.7 mg/dL (0.0-1.0); Blood Urea Nitrogen 25 mg/dL (9-16); Calcium 9.2 mg/dL (8.4-10.2); Carbon Dioxide 17 mmol/L (22-29); Chloride 107 mmol/L (96-108); Creatinine Clr Calc Pharmacy 35.3; Estimated Glomerular Filt Rate 51; Glucose Random 132 mg/dL (60-115); Lipase 8 U/L (8-78); Potassium 3.8 mmol/L (3.3-5.1); Sodium 136 mmol/L (135-145); Total Protein 7.6 g/dL (6.5-8.0)
[2023-01-06 17:22] LABS: SLIDE REVIEW VERIFIED
[2023-01-06 17:24] LABS: B Type Natriuretic Peptide 44 pg/mL (<100)
[2023-01-06 17:30] LABS: Troponin-I High Sensitivity < 2.7 ng/L (<3.5-17.0)
[2023-01-06] MEDS: Albuterol/Iprat 2.5/0.5MG 3 ML AMPUL.NEB INHALE (17:37)
--- NOTE | 2023-01-06 19:38 | PC.NURSE ---
Pt resting comfortably in bed, no signs of distress. Plan of care ongoing.
[2023-01-06] MEDS: vancomycin HCL 1,000 MG, vancomycin HCL 750 MG in 0.9 % Sodium Chloride 500 ML 267.5 MG IV (20:06)
--- NOTE | 2023-01-06 20:19 | P.HPHOSP_ITS ---
History of Present Illness Date of Service: 01/06/23 Attending physician on admission: Gagandeep Estrada Chief Complaint: Hypoxia, dyspnea Pt is an 87-year-old female with a PMH significant for?COPD on home O2 prn, mild persistent asthma, unspecified dementia with mood disturbance, vitamin-D deficiency, cholelithiasis, GERD, and HLD who presents to the ED from SNF evaluation shortness of breath and hypoxia. Patient with dementia at baseline, incapable of providing accurate HPI, which is instead obtained from chart and provider review. According to SNF staff, patient has been having difficulty breathing the past few 1-2 days. She is not chronically on supplemental O2, but?was found at the facility to be satting at 82% on RA with little improvement after being placed on supplemental O2. Patient was then sent to ED for further evaluation. In the ED pt had low-grade fever 99.2, was tachycardic up to 110, tachypneic up to 22, with soft BP as low as 114/50, satting at 87% on 4 L OxyMask. Labs were significant for leukocytosis 19.5, H&H 11.2/35.6, BUN 25, creatinine 1.03. Electrolytes largely WNL. Hepatic function WNL. Troponin negative. BNP WNL at 44. UA negative for UTI. Patient tested negative for influenza type a and B, RSV, COVID. CXR showed stable chronic changes. CT?of chest with bilateral lower lobe atelectasis/infiltrate with small bilateral pleural effusions and associated lower lobe bronchial wall thickening with impaction and occlusion. EKG demonstrated normal sinus rhythm without evidence of ST elevations or depressions. Pt was treated with Zosyn and vancomycin, IVF, Solu-Medrol, Mag sulfate, and DuoNebs. Pt will be admitted to the hospital for treatment further evaluation of acute hypoxic respiratory failure in the setting of likely aspiration pneumonia. Review of Systems 2 Review of Systems: Unable to obtain due to patient's mentation [facility] Medical History (Updated 01/06/23 @ 21:27 by MARCI Santos) GERD (gastroesophageal reflux disease) Cholelithiasis Vitamin D deficiency Mild persistent asthma Unspecified dementia, unspecified severity, with mood disturbance Chronic kidney disease, stage 3 Chronic anemia Household Members: Other Household Members Other:: SNF Housing: Residential Do you presently have visiting nurse or other home services: No Unable to assess alcohol history related to: Unknown Alcohol intake: never Patient Tobacco Use Status: Tobacco use Unknown Smoked in Last 30 Days: No Use of substances other than those prescribed or required for medical reasons: Unknown Advance Directives: Yes Advance Directives on File: Yes Advance Directives Date on File: 11/09/22 Do you have thoughts of harming others: None Do you have a plan to hurt others: No Plan Recently lost weight without trying: Unsure How much weight loss: Unsure Nutrition Risks: On aspiration precautions Patient : No : No Poor oral hygiene: No service: No Meds Allergies Allergy/AdvReac Type Severity Reaction Status Date / Time No Known Allergies Allergy Verified 01/06/23 13:36 Active Medications: Current Medications Vancomycin HCl 1,000 mg/Vancomycin HCl 750 mg/ Sodium Chloride 535 mls @ 267.5 mls/hr IV ONCE ONE Stop: 01/06/23 21:15 Last Admin: 01/06/23 20:06 Dose: 267.5 mls/hr Home Medications Medication Instructions Recorded Confirmed Last Taken Type budesonide 90 mcg/actuation breath 2 inh inhalation BID 11/02/22 01/06/23 Unknown History activated powder inhaler (Pulmicort Flexhaler) fluticasone 500 mcg-salmeterol 50 1 ea inhalation BID 11/02/22 01/06/23 Unknown History mcg/dose blistr powdr for inhalation (Advair Diskus) ipratropium 0.5 mg-albuterol 3 mg 3 ml inhalation Q4H 11/02/22 01/06/23 Unknown History (2.5 mg base)/3 mL nebulization soln nystatin 100,000 unit/gram topical 1 appl topical BID 11/02/22 01/06/23 Unknown History cream sertraline 50 mg tablet 50 mg PO BEDTIME 11/02/22 01/06/23 Unknown History acetaminophen 325 mg tablet 650 mg PO Q6H PRN Pain 11/03/22 11/03/22 Unknown History acetaminophen 650 mg rectal 650 mg UT Q6H 11/03/22 01/06/23 Unknown History suppository bisacodyl 10 mg rectal suppository 10 mg UT DAILY PRN Constipation 11/03/22 01/06/23 Unknown History cholecalciferol (vitamin D3) 25 25 mcg PO DAILY 11/03/22 01/06/23 Unknown History mcg (1,000 unit) tablet (Vitamin D3) ferrous sulfate 325 mg (65 mg 325 mg PO DAILY 11/03/22 01/06/23 Unknown History iron) tablet ipratropium 20 mcg-albuterol 100 2 puff inhalation Q4H PRN 11/03/22 01/06/23 Unknown History mcg/actuation mist for inhalation Shortness Of Breath (Combivent Respimat) montelukast 10 mg tablet 10 mg PO BEDTIME Allergy Symptoms 11/03/22 01/06/23 Unknown History nystatin 100,000 unit/gram topical 1 appl topical BID PRN Rash 11/03/22 01/06/23 Unknown History powder omeprazole 20 mg capsule,delayed 20 mg PO DAILY@0630 11/03/22 01/06/23 Unknown History release mirtazapine 7.5 mg tablet 15 mg PO BEDTIME 01/06/23 01/06/23 Unknown History Physical Exam 2 Vital Signs and Narrative: Vital Signs: Last Vital Signs Temp 98.1 F 01/06/23 19:34 Pulse 110 H 01/06/23 19:34 Resp 22 H 01/06/23 19:34 BP 127/53 L 01/06/23 19:34 Pulse Ox 92 01/06/23 19:34 O2 Del Method Room Air 01/06/23 19:34 O2 Flow Rate 4 01/06/23 15:08 Oxygen Flow Rate 4 01/06/23 13:28 BMI result Body Mass Index 23.8 Constitutional: Somnolent, opens eyes to verbal stimuli but immediately goes back to sleep. Nonverbal, unable to follow commands. In no acute distress. Mental Status: Nonverbal. Eyes: Pupils are equal, round, and reactive to light. Ear, Nose, and Throat: Oropharynx clear, mucous membranes dry. Ears and nose without deformities. Trachea midline. Respiratory: Audibly rhonchorous. Diffuse rhonchi bilaterally. Cardiovascular: S1, S2, tachy. Gastrointestinal: Abdomen soft, non-tender, non-distended. Normal bowel sounds. Neurologic: Cranial nerves II-XII are grossly intact bilaterally. Moves all extremities spontaneously. Skin: Warm, dry. Musculoskeletal: No cyanosis or clubbing. Extremities: Trace bilateral pitting edema. Results Labs 01/06/23 16:56 01/06/23 16:56 Labs: Laboratory Results - last 24 hr 01/06/23 01/06/23 01/06/23 14:11 14:55 16:23 MCV MCH MCHC RDW Plt Count MPV Immature Gran % (Auto) Neut % (Auto) Lymph % (Auto) [place] % (Auto) Eos % (Auto) Baso % (Auto) Lymph # (Auto) [place] # (Auto) Eos # (Auto) Baso # (Auto) Abs Immat Gran (auto) Absolute Neuts (auto) Absolute Nucleated RBC Nucleated RBC % (auto) Smear Tech's Comments Anion Gap Estim Creat Clear Calc Estimated GFR Random Glucose Lactic Acid 2.0 Calcium Total Bilirubin Direct Bilirubin AST ALT Alkaline Phosphatase B-Natriuretic Peptide Total Protein Albumin Lipase Urine Color Yellow Urine Appearance Clear Urine pH 5.5 Ur Specific [place] 1.025 Urine Protein 30 (1+) H Urine Glucose (UA) Negative Urine Ketones Trace Urine Blood Negative Urine Nitrite Negative Ur Leukocyte Esterase Negative Urine RBC 0-2 Urine WBC 0-5 Ur Squamous Epith Cells 0-2 Urine Bacteria None Seen Hyaline Casts 0-2 Influenza Type A (PCR) NEGATIVE Influenza Type B (PCR) NEGATIVE RSV RNA Qual (PCR) NEGATIVE SARS-CoV-2 RNA (RT-PCR) NEGATIVE 01/06/23 16:56 MCV 85.8 MCH 27.0 MCHC 31.5 RDW 18.0 H Plt Count 283 MPV 9.9 Immature Gran % (Auto) 0.7 H Neut % (Auto) 84.1 H Lymph % (Auto) 6.9 L [place] % (Auto) 7.8 Eos % (Auto) 0.2 Baso % (Auto) 0.3 Lymph # (Auto) 1.3 [place] # (Auto) 1.5 H Eos # (Auto) 0.0 Baso # (Auto) 0.1 Abs Immat Gran (auto) 0.14 H Absolute Neuts (auto) 16.5 H Absolute Nucleated RBC 0.000 Nucleated RBC % (auto) 0.0 Smear Tech's Comments VERIFIED Anion Gap 16 Estim Creat Clear Calc 35.3 Estimated GFR 51 Random Glucose 132 H Lactic Acid Calcium 9.2 Total Bilirubin 0.7 Direct Bilirubin 0.3 AST 24 ALT 20 Alkaline Phosphatase 77 B-Natriuretic Peptide 44 Total Protein 7.6 Albumin 3.3 L Lipase 8 Urine Color Urine Appearance Urine pH Ur Specific [place] Urine Protein Urine Glucose (UA) Urine Ketones Urine Blood Urine Nitrite Ur Leukocyte Esterase Urine RBC Urine WBC Ur Squamous Epith Cells Urine Bacteria Hyaline Casts Influenza Type A (PCR) Influenza Type B (PCR) RSV RNA Qual (PCR) SARS-CoV-2 RNA (RT-PCR) Imaging Radiologist's Impressions: Impressions Chest X-Ray 01/06/23 15:37 IMPRESSION: Stable chronic changes. Chest CT 01/06/23 18:27 IMPRESSION: 1. Bilateral lower lobe atelectasis/infiltrate with small bilateral pleural effusions and associated lower lobe bronchial wall thickening with impaction and occlusion. Infection cannot be excluded. 2. Biapical pleural-parenchymal scarring. 3. Other incidental findings as described above. Fleischner guidelines were followed. Assessment and Plan (1) Aspiration pneumonia: Status: Acute Plan Pt is an 87-year-old female with a PMH significant for?COPD on home O2 prn, mild persistent asthma, unspecified dementia with mood disturbance, vitamin-D deficiency, cholelithiasis, and GERD who presents to the ED from SNF evaluation shortness of breath and hypoxia. Pt will be admitted to the hospital for treatment further evaluation of acute hypoxic respiratory failure in the setting of likely aspiration pneumonia. Acute hypoxic respiratory failure in the setting of likely aspiration pneumonia Patient desatting as low as 82% on RA at SNF, 84% on 4L OxyMask in ED Patient with SOB, dyspnea, diffusely rhonchorous on exam, CT of chest with evidence of possible bilateral lower lobe infiltrate Pt meets sepsis criteria: Pneumonia, tachycardia, tachypnea, leukocytosis; lactic acid WNL at 2.0 Received IVF and started on broad-spectrum antibiotics in ED Continue Zosyn 3.375g q6, started 01/06/2023 Solu-Medrol 40mg bid IVF: lactated ringers Titrate supplemental O2>92, wean as tolerated NPO pending swallow eval Aspiration precautions Follow blood cultures Monitor respiration Diet NPO pending nurse swallow screen Patient on chopped diet with thin liquids, supplemented with clear Ensure and Magic cup at SNF GERD Continue PPI Mood disorder Continue home meds DNR/DNI Attending:?Dr. Estrada DVT Prophylaxis: Lovenox Pt will require a hospitalization of at least two nights for treatment of?acute hypoxic respiratory failure in the setting of aspiration pneumonia with IV antibiotics, IV fluids, and close monitoring. Quality Stroke Does the patient have a stroke diagnosis?: No VTE Prior VTE?: No VTE Risk Level:: Medical - moderate - high VTE Device Contraindication: Treatment Not Indicated VTE Drug Contraindication: N/A - Med Ordered
--- NOTE | 2023-01-06 22:08 | PHA.MEDREC ---
Pharmacy Consult ? Medication Reconciliation Pharmacy has completed the medication reconciliation.
[2023-01-06] MEDS: Enoxaparin Sodium 40 MG/0.4 ML SYRINGE SUBCUT (22:33)
[2023-01-06] MEDS: Lactated Ringers 1,000 ML 100 ML IVCONT (22:41)
--- NOTE | 2023-01-06 23:10 | PC.NURSE ---
Pt medicated per apr. Plan of care ongoing.
[2023-01-07] VITALS (8 sets, daily range): BP systolic 105–123; BP diastolic 54–61; PULSE 63–89; RESP 16–20; TEMP 36–36.7; O2SAT 90–96; BMI 24.4
--- NOTE | 2023-01-07 00:51 | HO.SKINPHOTO ---
Location: right buttock Category: pressure injury Stage: I Length: Width: Depth: cm Location: Category: Stage: Length: Width: Depth: cm Location: Category: Stage: Length: Width: Depth: cm Location: Category: Stage: Length: Width: Depth: cm Location: Category: Stage: Length: Width: Depth: cm Location: Category: Stage: Length: Width: Depth: cm
[2023-01-07] MEDS: methylPREDNISolone Sod Succ 40 MG/ML VIAL IVPUSH ×2 (03:31→16:53)
[2023-01-07] MEDS: Piperacillin Sodium/Tazobactam 3.375 GM in 0.9 % Sodium Chloride 50 ML IV ×4 (03:35→21:07)
[2023-01-07 06:25] LABS: Hematocrit 29.5 % (37.0-47.0); Hemoglobin 9.6 g/dl (12.0-16.0); Mean Corpuscular HGB Conc 32.5 g/dl (31.0-35.0); Mean Corpuscular Hemoglobin 27.1 pg (27.0-33.0); Mean Corpuscular Volume 83.3 fL (80.0-98.0); Mean Platelet Volume 10.2 fL (9.4-12.3); Platelet Count 259 X10*3/uL (160-400); Red Blood Count 3.54 X10*6/uL (4.20-5.50); Red Cell Distribution Width 17.7 % (11.0-16.0); White Blood Count 17.1 X10*3/uL (4.8-10.8)
[2023-01-07 06:42] LABS: Anion Gap 15 (12-20); Blood Urea Nitrogen 21 mg/dL (9-16); Calcium 8.8 mg/dL (8.4-10.2); Carbon Dioxide 17 mmol/L (22-29); Chloride 111 mmol/L (96-108); Creatinine Clr Calc Pharmacy 41.8; Estimated Glomerular Filt Rate > 60; Glucose Random 176 mg/dL (60-115); Sodium 139 mmol/L (135-145)
[2023-01-07] MEDS: Lactated Ringers 1,000 ML 100 ML IVCONT ×2 (07:42→16:53)
[2023-01-07] MEDS: Albuterol/Iprat 2.5/0.5MG 3 ML AMPUL.NEB INHALE ×4 (08:09→19:49)
[2023-01-07] MEDS: Nystatin Cream 15 GM TUBE 1 APPL TOPICAL ×2 (10:26→21:11)
--- NOTE | 2023-01-07 11:25 | P.PNIM_ITS ---
Subjective Subjective Date of Service: 01/07/23 Interval History: seen and examined this morning follow up respiratory failure has underlying dementia, awake but confused, not able to provide any history, unable to obtain full ROS Neurologic Neurologic: Reports confusion Psychiatric Psychiatric: Reports confusion Physical Exam 2 Vital Signs: Vital Signs: Last Vital Signs Temp 96.8 F 01/07/23 00:38 Pulse 71 01/07/23 08:13 Resp 18 01/07/23 08:13 BP 118/56 L 01/07/23 07:56 Pulse Ox 91 L 01/07/23 07:56 O2 Del Method Nasal Cannula 01/07/23 07:56 O2 Flow Rate 2.0 01/07/23 07:56 Oxygen Flow Rate 4 01/06/23 13:28 BMI result Body Mass Index 24.4 Const: General: cooperative, comfortable, no acute distress, alert, awake and confusion Nutritional Appearance: average body habitus O rientation/consciousness: confusion Resp: Effort & Inspection: normal respiratory effort, able to speak in complete sentences, no respiratory distress and no use of accessory muscles Cardio: Rate: regular rate GI: Inspection: No distended Palpation (GI): Soft to palpation Neuro: Other: difficult to assess, not really following commands. resists both upper extremities General: confusion Extrem: General: Yes no pedal edema Objective Data Active Medications Acetaminophen (Acetaminophen 325 Mg Tablet) 650 mg PO Q6H PRN PRN Reason: Pain, Mild (Pain Scale 1-3) Albuterol/Ipratropium (Albuterol/Iprat 2.5/0.5mg 3 Ml Ampul.Neb) 3 ml INHALE RQ4H WHILE AWAKE [facility] Last Admin: 01/07/23 08:09 Dose: 3 ml Documented By: CORNELIUS Albuterol/Ipratropium (Albuterol/Iprat 2.5/0.5mg 3 Ml Ampul.Neb) 3 ml INHALE RQ4H WHILE AWAKE PRN PRN Reason: Shortness of Breath/Wheezing Bisacodyl (Bisacodyl 10 Mg Supp.Rect) 10 mg MA DAILY PRN PRN Reason: Constipation Budesonide (Budesonide 180 Mcg Aer.Pow.Ba) 1 puff INHALE RBID [facility] Last Admin: 01/07/23 08:26 Dose: Not Given Documented By: CORNELIUS Non-Admin Reason: See Note Docusate Sodium (Docusate Sodium 100 Mg Capsule) 100 mg PO DAILY PRN PRN Reason: Constipation Enoxaparin Sodium (Enoxaparin Sodium 40 Mg/0.4 Ml Syringe) 40 mg SUBCUT Q24H [facility] Last Admin: 01/06/23 22:33 Dose: 40 mg Documented By: GUERRERO Fluticasone/Vilanterol (Fluticasone/Vilanterol 200/25 Blst.W.Dev) 1 puff INHALE RDAILY [facility] Last Admin: 01/07/23 08:27 Dose: Not Given Documented By: CORNELIUS Non-Admin Reason: See Note Piperacillin Sod/Tazobactam (Sod 3.375 gm/ Sodium Chloride) 50 mls @ 100 mls/hr IV Q6H [facility] Last Infusion: 01/07/23 11:02 Dose: Infused Documented By: MICAELA Lactated Ringer's (Lr) 1,000 mls @ 100 mls/hr IVCONT .Q10H [facility] Last Admin: 01/07/23 07:42 Dose: 100 mls/hr Documented By: MICAELA Methylprednisolone Sodium Succinate (Methylprednisolone Sod Succ 40 Mg/Ml Vial) 40 mg IVPUSH Q12H [facility] Last Admin: 01/07/23 03:31 Dose: 40 mg Documented By: NORBERT Mirtazapine (Mirtazapine 15 Mg Tablet) 15 mg PO BEDTIME [facility] Nystatin (Nystatin Cream 15 Gm Tube) 1 appl TOPICAL BID [facility]; Protocol Last Admin: 01/07/23 10:26 Dose: 1 appl Documented By: MICAELA Omeprazole (Omeprazole 20 Mg Capsule.Dr) 20 mg PO DAILY@0630 [facility] Ondansetron HCl (Ondansetron Hcl 4 Mg/2 Ml Vial) 4 mg IVPUSH Q8H PRN PRN Reason: Nausea and Vomiting Sertraline HCl (Sertraline Hcl 50 Mg Tablet) 50 mg PO BEDTIME [facility] Sodium Chloride (0.9 % Sodium Chloride Flush 3 Ml Syringe) 3 ml IVFLUSH QSHIFT [facility] Last Admin: 01/07/23 07:37 Dose: Not Given Documented By: MICAELA Non-Admin Reason: IV Running Labs 01/07/23 06:01 01/07/23 06:01 Labs: Laboratory Results - last 24 hr 01/06/23 01/06/23 01/06/23 14:11 14:55 16:23 MCV MCH MCHC RDW Plt Count MPV Immature Gran % (Auto) Neut % (Auto) Lymph % (Auto) [place] % (Auto) Eos % (Auto) Baso % (Auto) Lymph # (Auto) [place] # (Auto) Eos # (Auto) Baso # (Auto) Abs Immat Gran (auto) Absolute Neuts (auto) Absolute Nucleated RBC Nucleated RBC % (auto) Smear Tech's Comments Anion Gap Estim Creat Clear Calc Estimated GFR Random Glucose Lactic Acid 2.0 Calcium Total Bilirubin Direct Bilirubin AST ALT Alkaline Phosphatase B-Natriuretic Peptide Total Protein Albumin Lipase Urine Color Yellow Urine Appearance Clear Urine pH 5.5 Ur Specific [place] 1.025 Urine Protein 30 (1+) H Urine Glucose (UA) Negative Urine Ketones Trace Urine Blood Negative Urine Nitrite Negative Ur Leukocyte Esterase Negative Urine RBC 0-2 Urine WBC 0-5 Ur Squamous Epith Cells 0-2 Urine Bacteria None Seen Hyaline Casts 0-2 Influenza Type A (PCR) NEGATIVE Influenza Type B (PCR) NEGATIVE RSV RNA Qual (PCR) NEGATIVE SARS-CoV-2 RNA (RT-PCR) NEGATIVE 01/06/23 01/07/23 16:56 06:01 MCV 85.8 83.3 MCH 27.0 27.1 MCHC 31.5 32.5 RDW 18.0 H 17.7 H Plt Count 283 259 MPV 9.9 10.2 Immature Gran % (Auto) 0.7 H Neut % (Auto) 84.1 H Lymph % (Auto) 6.9 L [place] % (Auto) 7.8 Eos % (Auto) 0.2 Baso % (Auto) 0.3 Lymph # (Auto) 1.3 [place] # (Auto) 1.5 H Eos # (Auto) 0.0 Baso # (Auto) 0.1 Abs Immat Gran (auto) 0.14 H Absolute Neuts (auto) 16.5 H Absolute Nucleated RBC 0.000 0.000 Nucleated RBC % (auto) 0.0 0.0 Smear Tech's Comments VERIFIED Anion Gap 16 15 Estim Creat Clear Calc 35.3 41.8 Estimated GFR 51 > 60 Random Glucose 132 H 176 H Lactic Acid Calcium 9.2 8.8 Total Bilirubin 0.7 Direct Bilirubin 0.3 AST 24 ALT 20 Alkaline Phosphatase 77 B-Natriuretic Peptide 44 Total Protein 7.6 Albumin 3.3 L Lipase 8 Urine Color Urine Appearance Urine pH Ur Specific [place] Urine Protein Urine Glucose (UA) Urine Ketones Urine Blood Urine Nitrite Ur Leukocyte Esterase Urine RBC Urine WBC Ur Squamous Epith Cells Urine Bacteria Hyaline Casts Influenza Type A (PCR) Influenza Type B (PCR) RSV RNA Qual (PCR) SARS-CoV-2 RNA (RT-PCR) Assessment and Plan (1) Aspiration pneumonia: Status: Acute (2) Acute exacerbation of chronic obstructive airways disease: Status: Acute Plan Pt is an 87-year-old female with a PMH significant for?COPD on home O2 prn, mild persistent asthma, unspecified dementia with mood disturbance, vitamin-D deficiency, cholelithiasis, and GERD who presents to the ED from SNF evaluation shortness of breath and hypoxia. Pt will be admitted to the hospital for treatment further evaluation of acute hypoxic respiratory failure in the setting of likely aspiration pneumonia. Acute hypoxic respiratory failure due to sepsis due to presumed aspiration pneumonia Patient desatting as low as 82% on RA at SNF, 84% on 4L OxyMask in ED met sepsis criteria with tachycardia, tachypnea, leukocytosis;improving Continue Zosyn 3.375g q6, started 01/06/2023 Solu-Medrol 40mg bid Titrate supplemental O2>92, wean as tolerated NPO pending swallow eval, speech consult pending Aspiration precautions Blood cultures pending pulm consult for ?impaction and occlusion on CT but given age and dementia likely not candidate for further workup Diet NPO pending speech eval Patient on chopped diet with thin liquids, supplemented with clear Ensure and Magic cup at SNF GERD Continue PPI Mood disorder Continue home meds DNR/DNI Attending:?Dr. Michel DVT Prophylaxis: Lovenox Requires ongoing inpatient stay due to acute hypoxic respiratory failure in the setting of aspiration pneumonia with IV antibiotics, IV fluids, and close monitoring. Quality Stroke Does the patient have a stroke diagnosis?: No VTE Prior VTE?: No VTE Risk Level:: Medical - moderate - high VTE Device Contraindication: Treatment Not Indicated VTE Drug Contraindication: N/A - Med Ordered
--- NOTE | 2023-01-07 11:40 | PM.CNPUL ---
History of Present Illness History of Present Illness Consult date: 01/07/23 Chief complaint: SOB,Aspiration,pneumonia Narrative: 87-year-old lady with underlying history of COPD on as needed supplemental oxygen at care home facility, dementia, GERD, in DNR DNI code status admitted on 01/06/2023 with worsening hypoxemia. On initial evaluation CT chest with bibasilar infiltrates consistent with chronic aspiration. Patient was started on empiric antibiotics and admitted to the inpatient service. On my examination, patient is significantly demented and is unable to provide additional history or appropriate review of symptoms. Review of Systems Review of Systems: Yes Unobtainable due to mental condition PMFSH Past Medical History Medical History (Updated 01/07/23 @ 11:46 by Fredi Barbour MD) GERD (gastroesophageal reflux disease) Cholelithiasis Vitamin D deficiency Mild persistent asthma Unspecified dementia, unspecified severity, with mood disturbance Chronic kidney disease, stage 3 Chronic anemia Social History Household Members: Other Household Members Other:: SNF Housing: Long-Term Do you presently have visiting nurse or other home services: No Unable to assess alcohol history related to: Unknown Alcohol intake: never Patient Tobacco Use Status: Tobacco use Unknown Smoked in Last 30 Days: No Use of substances other than those prescribed or required for medical reasons: Unknown Advance Directives: Yes Advance Directives on File: Yes Advance Directives Date on File: 11/09/22 Do you have thoughts of harming others: None Do you have a plan to hurt others: No Plan Recently lost weight without trying: Unsure How much weight loss: Unsure Nutrition Risks: On aspiration precautions Patient : No : No Poor oral hygiene: No service: No Meds Allergies Allergy/AdvReac Type Severity Reaction Status Date / Time No Known Allergies Allergy Verified 01/06/23 13:36 Active Medications: Current Medications Acetaminophen (Acetaminophen 325 Mg Tablet) 650 mg PO Q6H PRN PRN Reason: Pain, Mild (Pain Scale 1-3) Albuterol/Ipratropium (Albuterol/Iprat 2.5/0.5mg 3 Ml Ampul.Neb) 3 ml INHALE RQ4H WHILE AWAKE PADMAJA Last Admin: 01/07/23 08:09 Dose: 3 ml Albuterol/Ipratropium (Albuterol/Iprat 2.5/0.5mg 3 Ml Ampul.Neb) 3 ml INHALE RQ4H WHILE AWAKE PRN PRN Reason: Shortness of Breath/Wheezing Bisacodyl (Bisacodyl 10 Mg Supp.Rect) 10 mg SC DAILY PRN PRN Reason: Constipation Docusate Sodium (Docusate Sodium 100 Mg Capsule) 100 mg PO DAILY PRN PRN Reason: Constipation Enoxaparin Sodium (Enoxaparin Sodium 40 Mg/0.4 Ml Syringe) 40 mg SUBCUT Q24H [facility] Last Admin: 01/06/23 22:33 Dose: 40 mg Piperacillin Sod/Tazobactam (Sod 3.375 gm/ Sodium Chloride) 50 mls @ 100 mls/hr IV Q6H [facility] Last Infusion: 01/07/23 11:02 Dose: Infused Lactated Ringer's (Lr) 1,000 mls @ 100 mls/hr IVCONT .Q10H [facility] Last Admin: 01/07/23 07:42 Dose: 100 mls/hr Methylprednisolone Sodium Succinate (Methylprednisolone Sod Succ 40 Mg/Ml Vial) 40 mg IVPUSH Q12H [facility] Last Admin: 01/07/23 03:31 Dose: 40 mg Mirtazapine (Mirtazapine 15 Mg Tablet) 15 mg PO BEDTIME [facility] Nystatin (Nystatin Cream 15 Gm Tube) 1 appl TOPICAL BID [facility]; Protocol Last Admin: 01/07/23 10:26 Dose: 1 appl Omeprazole (Omeprazole 20 Mg Capsule.Dr) 20 mg PO DAILY@0630 [facility] Ondansetron HCl (Ondansetron Hcl 4 Mg/2 Ml Vial) 4 mg IVPUSH Q8H PRN PRN Reason: Nausea and Vomiting Sertraline HCl (Sertraline Hcl 50 Mg Tablet) 50 mg PO BEDTIME [facility] Sodium Chloride (0.9 % Sodium Chloride Flush 3 Ml Syringe) 3 ml IVFLUSH QSHIFT [facility] Last Admin: 01/07/23 07:37 Dose: Not Given Home Medications Medication Instructions Recorded Confirmed Last Taken Type budesonide 90 mcg/actuation breath 2 inh inhalation BID 11/02/22 01/06/23 Unknown History activated powder inhaler (Pulmicort Flexhaler) fluticasone 500 mcg-salmeterol 50 1 ea inhalation BID 11/02/22 01/06/23 Unknown History mcg/dose blistr powdr for inhalation (Advair Diskus) ipratropium 0.5 mg-albuterol 3 mg 3 ml inhalation Q4H 11/02/22 01/06/23 Unknown History (2.5 mg base)/3 mL nebulization soln nystatin 100,000 unit/gram topical 1 appl topical BID 11/02/22 01/06/23 Unknown History cream sertraline 50 mg tablet 50 mg PO BEDTIME 11/02/22 01/06/23 Unknown History acetaminophen 325 mg tablet 650 mg PO Q6H PRN Pain 11/03/22 11/03/22 Unknown History acetaminophen 650 mg rectal 650 mg SC Q6H 11/03/22 01/06/23 Unknown History suppository bisacodyl 10 mg rectal suppository 10 mg SC DAILY PRN Constipation 11/03/22 01/06/23 Unknown History cholecalciferol (vitamin D3) 25 25 mcg PO DAILY 11/03/22 01/06/23 Unknown History mcg (1,000 unit) tablet (Vitamin D3) ferrous sulfate 325 mg (65 mg 325 mg PO DAILY 11/03/22 01/06/23 Unknown History iron) tablet ipratropium 20 mcg-albuterol 100 2 puff inhalation Q4H PRN 11/03/22 01/06/23 Unknown History mcg/actuation mist for inhalation Shortness Of Breath (Combivent Respimat) montelukast 10 mg tablet 10 mg PO BEDTIME Allergy Symptoms 11/03/22 01/06/23 Unknown History nystatin 100,000 unit/gram topical 1 appl topical BID PRN Rash 11/03/22 01/06/23 Unknown History powder omeprazole 20 mg capsule,delayed 20 mg PO DAILY@0630 11/03/22 01/06/23 Unknown History release mirtazapine 7.5 mg tablet 15 mg PO BEDTIME 01/06/23 01/06/23 Unknown History Physical Exam Vital Signs: Vital Signs: Last Vital Signs Temp 96.8 F 01/07/23 00:38 Pulse 71 01/07/23 08:13 Resp 18 01/07/23 08:13 BP 118/56 L 01/07/23 07:56 Pulse Ox 91 L 01/07/23 07:56 O2 Del Method Nasal Cannula 01/07/23 07:56 O2 Flow Rate 2.0 01/07/23 07:56 Oxygen Flow Rate 4 01/06/23 13:28 BMI result Body Mass Index 24.4 Const: General: no acute distress, alert and awake Eyes: Sclerae: sclerae normal EOM: EOMs intact bilaterally Neck: Neck: Yes no lymphadenopathy, Yes trachea midline and Yes supple Resp: Effort & Inspection: normal respiratory effort and no respiratory distress Auscultation: rales (Bibasilar) Cardio: Rate: regular rate Rhythm: regular rhythm Heart sounds: no gallops, no murmurs and no rubs GI: Palpation (GI): Soft to palpation and Other GI palpation findings present ( Nontender) Auscultation: normal bowel sounds Extrem: General: No clubbing, No cyanosis and Yes edema (2+ bilateral) Results Laboratory Findings 01/07/23 06:01 01/07/23 06:01 Abnormal lab findings: Abnormal Labs 01/06/23 01/06/23 01/07/23 16:23 16:56 06:01 WBC 19.5 H 17.1 H RBC 4.15 L 3.54 L Hgb 11.2 L 9.6 L Hct 35.6 L 29.5 L RDW 18.0 H 17.7 H Immature Gran % (Auto) 0.7 H Neut % (Auto) 84.1 H Lymph % (Auto) 6.9 L Whitman # (Auto) 1.5 H Abs Immat Gran (auto) 0.14 H Absolute Neuts (auto) 16.5 H Chloride 111 H Carbon Dioxide 17 L 17 L BUN 25 H 21 H Random Glucose 132 H 176 H Albumin 3.3 L Urine Protein 30 (1+) H Assessment and Plan (1) Aspiration pneumonia: Status: Acute (2) Acute on chronic hypoxic respiratory failure: Status: Acute Plan Impression: 87-year-old lady with underlying dementia and COPD on as needed supplemental oxygen admitted with acute on chronic hypoxic respiratory failure secondary to acute on chronic pulmonary aspiration, now with aspiration pneumonia versus pneumonitis. Patient is in DNR/DNI code status. Recommendations: Suggest empiric coverage of aspiration pneumonia with Unasyn, swallow evaluation, and chest physiotherapy. No indication for bronchoscopy. Continue to titrate off supplemental oxygen as tolerated. Procedures Date of Service Date of Service: 01/07/23
--- NOTE | 2023-01-07 15:01 | MHC.CM.PN ---
CM CALLED PTS DAUGHTER/HCP, SUZANNE PENA [phone] SHE REPORTS THE PT IS A LTC RESIDENT OF [facility] SHE SAYS THE PT IS MOSTLY BED BOUND ALTHOUGH THEY OCCASIONALLY GET HER INTO A W/C PT HAS A HCP ON FILE SHE SEES THE PROVIDER AT [facility], CESAR PATEL IMM DELIVERED, COPY TO BE MAILED TO SUZANNE AT THE ADDRESS PROVIDED: [address] [facility] [id number] DCP: RETURN TO [facility] VIA BLS
--- NOTE | 2023-01-07 17:10 | PC.NURSE ---
Noticed pt had unequal pupils. Right larger than left. Right pupil is responsive. Did neuro check. Equal call center trainer strength. Positive pain response. I notified Dr. Brasher and had him come to bedside to assess patient. Dr. Brasher checked patient thoroughly at 1705. Physician to consult and will continue to monitor closely.
--- NOTE | 2023-01-07 18:27 | PM.EVENT ---
Event Note Date of Service: 01/07/23 Event Note: I was contacted by the nurse around 6 PM to evaluate the patient for abnormal pupil. The right pupil larger than the left but both were reactive to light , normal vision test and vision field. The patient had no complaints. cranial nerves 2-12 were tested and within normal because the patient very difficult to hear. Unclear if this is a new problem or chronic. patient has dementia and could not confirm any previous eye surgery. To get a CT scan to rule out Marvin syndrome Time Spent With Patient Time: Total time managing care of this patient today ____ minutes.
[2023-01-07] MEDS: 0.9 % Sodium Chloride Flush 3 ML SYRINGE IVFLUSH (21:07)
[2023-01-07] MEDS: Enoxaparin Sodium 40 MG/0.4 ML SYRINGE SUBCUT (21:07)
[2023-01-08] VITALS (7 sets, daily range): BP systolic 106–141; BP diastolic 53–82; PULSE 62–78; RESP 15–16; TEMP 36–37; O2SAT 90–96
[2023-01-08] MEDS: methylPREDNISolone Sod Succ 40 MG/ML VIAL IVPUSH (03:37)
[2023-01-08] MEDS: Lactated Ringers 1,000 ML 100 ML IVCONT (03:37)
[2023-01-08] MEDS: Piperacillin Sodium/Tazobactam 3.375 GM in 0.9 % Sodium Chloride 50 ML IV (03:37)
[2023-01-08 08:47] LABS: Hematocrit 28.8 % (37.0-47.0); Hemoglobin 9.4 g/dl (12.0-16.0); Mean Corpuscular HGB Conc 32.6 g/dl (31.0-35.0); Mean Corpuscular Hemoglobin 27.2 pg (27.0-33.0); Mean Corpuscular Volume 83.5 fL (80.0-98.0); PLT CLUMP 1; Red Blood Count 3.45 X10*6/uL (4.20-5.50)
[2023-01-08 09:02] LABS: Anion Gap 15 (12-20); Blood Urea Nitrogen 29 mg/dL (9-16); Calcium 8.7 mg/dL (8.4-10.2); Carbon Dioxide 18 mmol/L (22-29); Chloride 114 mmol/L (96-108); Creatinine Clr Calc Pharmacy 42.8; Estimated Glomerular Filt Rate > 60; Glucose Random 131 mg/dL (60-115); Potassium 3.6 mmol/L (3.3-5.1); Sodium 143 mmol/L (135-145)
[2023-01-08 09:08] LABS: Platelet Count 277 X10*3/uL (160-400)
[2023-01-08] MEDS: 0.9 % Sodium Chloride Flush 3 ML SYRINGE IVFLUSH (09:21)
[2023-01-08] MEDS: Nystatin Cream 15 GM TUBE 1 APPL TOPICAL ×2 (09:21→19:59)
[2023-01-08] MEDS: Albuterol/Iprat 2.5/0.5MG 3 ML AMPUL.NEB INHALE ×3 (11:11→19:13)
--- NOTE | 2023-01-08 12:16 | MHC.SL.SWA ---
Speech Pathologist Impression: Risk of Aspiration Due to: History of Pneumonia Reduced Cognition Dysphasia Diet Status: Liquid Consistency and Strategies for Safe Swallow: Liquid Intake Recommendation: Thin Liquid Intake Strategies: No Straws Solid Food Consistency: Dietary Recommendations: Grnd/Mech Altered (NDD2) Additional Modifications to Solid Foods: Patient can feed self, but requires full supervision at meals to assure safety, making sure patient is oriented to food items on tray, all containers are opened and available, and patient is progressing, due to level of confusion and HX aspiration. Due to hx GERD, Maintain patient in upright seated position for at leas 30 minutes after meal. Oral Medication Intake: Crushed with Puree Please contact the pharmacy regarding appropriate crushable or liquid drug formulations that are available whenever modified delivery is recommended. Compensatory Strategies and Precautions to be Taken for Safe Swallow: Sitting Upright (90 deg) No Straw Liquids from Cup Small Bites and Sips Alternate Liquids/Solids Supervision While Eating and Drinking for Safe Swallow: Total Supervision (1:1) Foods to Avoid: Mixed consistencies, difficult to chew solids. Swallowing Recommended Treatments: Compens. Strategy Educat. Recommendation for Speech: Inpatient Speech Therapy Comment: Patient presents with a mild to moderate oral pharyngeal dysphagia, due to involuntary oral movements (tongue is tremulous) and reduced laryngeal elevation on swallow. Patient additionally has HX GERD. Recommend START diet of Ground/Mechanical Altered (NDD2) with THIN liquids, pills crushed in puree. As patient tolerates diet, may likely be able to advance to baseline of Chopped/Advanced. SHILO IZAGUIRRE made aware of diet recommendation by secure text, RN in person, white board in room altered with diet recommendations. NURSE OB will continue to follow. Frequency/Duration: M-F while inpatient Date Range for Service Req: Timeline to reassess: Pad Hand Clinican/Clinical Fellow: No Supervisory Statement: I have reviewed and agree with the student/clinical fellow's documentation: N/A Speech Language Pathologist: Merly Jackson M.A., [facility]-NURSE OB
--- NOTE | 2023-01-08 13:09 | MHC.CLN ---
NUTRITION CONSULT FOR SKIN INTEGRITY. PATIENT WITH STAGE I TO RIGHT BUTTOCK AND REDNESS TO TIGHT HEEL. NO OPEN AREAS. SEEN BY SECURITY MANAGER. DIET=GROUND WITH THIN LIQUIDS. NO ADDITIONAL NUTRITION INTERVENTIONS AT THIS TIME.
--- NOTE | 2023-01-08 14:07 | P.PNIM_ITS ---
Subjective Subjective Date of Service: 01/08/23 Interval History: seen and examined this morning follow up for pneumonia last evening noted to have unequal pupils, brain CT negative for stroke. daughter states she has had cataract surgery more awake and alert this morning difficulty hearing - daughter says this is new. if you speak loudly she can hear you and is able to answer more questions today no sob, or abdominal pain Review of Systems Review of Systems: Yes all other systems are reviewed and are negative Constitutional Constitutional: Reports fever(s) Cardiovascular Cardiovascular: Denies chest pain Gastrointestinal Gastrointestinal: Denies abdominal pain Physical Exam 2 Vital Signs: Vital Signs: Last Vital Signs Temp 98.6 F 01/08/23 07:42 Pulse 64 01/08/23 11:15 Resp 16 01/08/23 11:15 BP 141/62 H 01/08/23 07:42 Pulse Ox 93 01/08/23 07:42 O2 Del Method Nasal Cannula 01/08/23 07:42 O2 Flow Rate 2 01/08/23 07:42 Oxygen Flow Rate 4 01/06/23 13:28 BMI result Body Mass Index 24.4 Const: General: cooperative, comfortable, no acute distress, alert and awake Nutritional Appearance: average body habitus Resp: Effort & Inspection: normal respiratory effort, able to speak in complete sentences, no respiratory distress and no use of accessory muscles Cardio: Rate: regular rate GI: Inspection: No distended Palpation (GI): Soft to palpation and nontender Neuro: Other: uneven pupils noted (daughter reports cataract surgery b/l in past) General: moves all extremities Extrem: General: Yes no pedal edema Objective Data Active Medications Acetaminophen (Acetaminophen 325 Mg Tablet) 650 mg PO Q6H PRN PRN Reason: Pain, Mild (Pain Scale 1-3) Albuterol/Ipratropium (Albuterol/Iprat 2.5/0.5mg 3 Ml Ampul.Neb) 3 ml INHALE RQ4H WHILE AWAKE PADMAJA Last Admin: 01/08/23 11:11 Dose: 3 ml Documented By: ANA Albuterol/Ipratropium (Albuterol/Iprat 2.5/0.5mg 3 Ml Ampul.Neb) 3 ml INHALE RQ4H WHILE AWAKE PRN PRN Reason: Shortness of Breath/Wheezing Bisacodyl (Bisacodyl 10 Mg Supp.Rect) 10 mg [place] DAILY PRN PRN Reason: Constipation Docusate Sodium (Docusate Sodium 100 Mg Capsule) 100 mg PO DAILY PRN PRN Reason: Constipation Enoxaparin Sodium (Enoxaparin Sodium 40 Mg/0.4 Ml Syringe) 40 mg SUBCUT Q24H [facility] Last Admin: 01/07/23 21:07 Dose: 40 mg Documented By: NORBERT Piperacillin Sod/Tazobactam (Sod 3.375 gm/ Sodium Chloride) 50 mls @ 100 mls/hr IV Q6H [facility] Last Admin: 01/08/23 13:34 Dose: Not Given Documented By: PATRICIA Non-Admin Reason: No Access Lactated Ringer's (Lr) 1,000 mls @ 100 mls/hr IVCONT .Q10H [facility] Last Infusion: 01/08/23 04:11 Dose: 100 mls/hr Documented By: NORBERT Methylprednisolone Sodium Succinate (Methylprednisolone Sod Succ 40 Mg/Ml Vial) 40 mg IVPUSH DAILY [facility] Mirtazapine (Mirtazapine 15 Mg Tablet) 15 mg PO BEDTIME [facility] Last Admin: 01/07/23 20:28 Dose: Not Given Documented By: NORBERT Non-Admin Reason: NPO Nystatin (Nystatin Cream 15 Gm Tube) 1 appl TOPICAL BID [facility]; Protocol Last Admin: 01/08/23 09:21 Dose: 1 appl Documented By: PATRICIA Omeprazole (Omeprazole 20 Mg Capsule.Dr) 20 mg PO DAILY@0630 [facility] Last Admin: 01/08/23 05:31 Dose: Not Given Documented By: NORBERT Non-Admin Reason: NPO Ondansetron HCl (Ondansetron Hcl 4 Mg/2 Ml Vial) 4 mg IVPUSH Q8H PRN PRN Reason: Nausea and Vomiting Sertraline HCl (Sertraline Hcl 50 Mg Tablet) 50 mg PO BEDTIME [facility] Last Admin: 01/07/23 20:28 Dose: Not Given Documented By: NORBERT Non-Admin Reason: NPO Sodium Chloride (0.9 % Sodium Chloride Flush 3 Ml Syringe) 3 ml IVFLUSH QSHIFT [facility] Last Admin: 01/08/23 09:21 Dose: 3 ml Documented By: PATRICIA Labs 01/08/23 08:24 01/08/23 08:24 Labs: Laboratory Results - last 24 hr 01/08/23 08:24 MCV 83.5 MCH 27.2 MCHC 32.6 RDW 18.0 H Plt Count 277 MPV 11.0 Absolute Nucleated RBC 0.000 Nucleated RBC % (auto) 0.0 Anion Gap 15 Estim Creat Clear Calc 42.8 Estimated GFR > 60 Random Glucose 131 H Calcium 8.7 Microbiology Microbiology Results: Microbiology 01/06/23 14:55 Blood Culture - Preliminary Blood - Venous No growth after 24 hours. 01/06/23 14:10 Blood Culture - Preliminary Blood - Venous No growth after 24 hours. Assessment and Plan (1) Acute on chronic hypoxic respiratory failure: Status: Acute (2) Aspiration pneumonia: Status: Acute Plan Pt is an 87-year-old female with a PMH significant for?COPD on home O2 prn, mild persistent asthma, unspecified dementia with mood disturbance, vitamin-D deficiency, cholelithiasis, and GERD who presents to the ED from SNF evaluation shortness of breath and hypoxia. Pt will be admitted to the hospital for treatment further evaluation of acute hypoxic respiratory failure in the setting of likely aspiration pneumonia. Acute hypoxic respiratory failure due to sepsis due to presumed aspiration pneumonia met sepsis criteria with tachycardia, tachypnea, leukocytosis;improving Continue Zosyn, started 01/06/2023 wean Solu-Medrol on 3L, wean as tolerated, goal to keep o2 above 90% seen by speech, rec NDD2 diet with 1;1 feeds Aspiration precautions Blood cultures negative pulm consult for ?impaction and occlusion on CT -given age and dementia likely not candidate for further workup; pulm rec chest PT and ongoing treatment decreased hearing exam c/w cerumen impaction will order debrox dementia awake, alert and confused at baseline mostly bedbound, sometimes gets up into wheelchair nearly back to baseline per daughter GERD Continue PPI Mood disorder Continue home meds DNR/DNI Attending:?Dr. 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
--- NOTE | 2023-01-08 15:00 | PC.NURSE ---
Pt IV infiltrated. Several attempts at IV access but no success. IR unavailable today. Provier aware. Antibiotics changed to PO.
[2023-01-08] MEDS: Amoxicillin/Potassium Clav 875 MG TABLET PO (18:14)
[2023-01-08] MEDS: Mirtazapine 15 MG TABLET PO (19:59)
[2023-01-08] MEDS: Sertraline HCL 50 MG TABLET PO (19:59)
[2023-01-08] MEDS: Carbamide Peroxide 6.5% Otic 15 ML DRPBTL 5 DROP EAR-BOTH (19:59)
[2023-01-08] MEDS: Enoxaparin Sodium 40 MG/0.4 ML SYRINGE SUBCUT (19:59)
[2023-01-09 04:05] VITALS: BP 123/57; PULSE 60; RESP 20; TEMP 36.6; O2SAT 95
[2023-01-09] MEDS: Amoxicillin/Potassium Clav 875 MG TABLET PO (06:37)
[2023-01-09] MEDS: Omeprazole 20 MG CAPSULE.DR PO (06:37)
[2023-01-09] MEDS: Carbamide Peroxide 6.5% Otic 15 ML DRPBTL 5 DROP EAR-BOTH (07:57)
[2023-01-09] MEDS: Nystatin Cream 15 GM TUBE 1 APPL TOPICAL (07:57)
[2023-01-09 08:00] VITALS: BP 133/62; PULSE 59; RESP 18; TEMP 36; O2SAT 97
--- NOTE | 2023-01-09 09:27 | PC.NURSE ---
NO IV Access, difficult stick, VEGETABLE HARVEST MACHINE OPERATOR notified, will switch steroids to PO
[2023-01-09 11:40] VITALS: PULSE 77; RESP 20; O2SAT 99
[2023-01-09] MEDS: Albuterol/Iprat 2.5/0.5MG 3 ML AMPUL.NEB INHALE (11:40)
--- NOTE | 2023-01-09 12:41 | P.DS_ITS ---
DS: Providers Provider Date of Service: 01/09/23 Date of admission: 01/06/23 21:09 Primary care physician: Unknown Physician Consults: 01/07/23 00:40 Consult to Wound Care Routine Reason for consultation: pressure injury to right buttock 01/07/23 08:05 Consult to Pulmonology Routine Consulting Provider: [facility] [place] Pulmonology Services Reason for consultation: respiratory failure, CT w/bronchial wall thicking, impaction/occlusion Has provider been notified: No DS: Diagnosis Discharge Diagnosis (1) Acute on chronic hypoxic respiratory failure: Status: Acute (2) Aspiration pneumonia: Status: Acute DS: Summary Hospital Course Hospital Course: Pt is an 87-year-old female with a PMH significant for?COPD on home O2 prn, mild persistent asthma, unspecified dementia with mood disturbance, vitamin-D deficiency, cholelithiasis, GERD, and HLD who presents to the ED from SNF evaluation shortness of breath and hypoxia. Patient with dementia at baseline, incapable of providing accurate HPI, which is instead obtained from chart and provider review. According to SNF staff, patient has been having difficulty breathing the past few 1-2 days. She is not chronically on supplemental O2, but?was found at the facility to be satting at 82% on RA with little improvement after being placed on supplemental O2. Patient was then sent to ED for further evaluation. In the ED pt had low-grade fever 99.2, was tachycardic up to 110, tachypneic up to 22, with soft BP as low as 114/50, satting at 87% on 4 L OxyMask. Labs were significant for leukocytosis 19.5, H&H 11.2/35.6, BUN 25, creatinine 1.03. Electrolytes largely WNL. Hepatic function WNL. Troponin negative. BNP WNL at 44. UA negative for UTI. Patient tested negative for influenza type a and B, RSV, COVID. CXR showed stable chronic changes. CT?of chest with bilateral lower lobe atelectasis/infiltrate with small bilateral pleural effusions and associated lower lobe bronchial wall thickening with i mpaction and occlusion. EKG demonstrated normal sinus rhythm without evidence of ST elevations or depressions. Pt was treated with Zosyn and vancomycin, IVF, Solu-Medrol, Mag sulfate, and DuoNebs. Pt will be admitted to the hospital for treatment further evaluation of acute hypoxic respiratory failure in the setting of likely aspiration pneumonia. 87 year old women treated for acute hypoxic respiratory failure secondary to aspiration pneumonia, initially treated with IV Zosyn then transition to Augmentin, will continue 2 more days to complete total of 5 day therapy. Also treated with IV Solu-Medrol, transitioned or prednisone to complete 4 more days. Weaned off of oxygen, seen by speech therapist who recommend ground diet with aspiration precautions. Blood cultures remain negative. Seen evaluated by pulmonology with recommendation for pulmonary chest PT in ongoing support as given patient's age and comorbidity she is likely not a candidate for more aggressive workup. She was also noted to have cerumen impaction in both ears and was started on Debrox, she can continue this twice daily for 4 days to help with dislodgement. Plan is to transfer back to long-term care facility. Dementia. Remained at baseline GERD. Continue PPI Mental health. Continue medications Time Attestation Discharge coordination time: Greater than 30 minutes Quality: Safe Use of Opioids Does Pt have an Active Cancer Diagnosis on the Problem List?: No Quality: Stroke Does the patient have a stroke diagnosis?: No Physical Exam Vital Signs: Vital Signs: Last Vital Signs Temp 96.8 F 01/09/23 08:00 Pulse 77 01/09/23 11:40 Resp 20 01/09/23 11:40 BP 133/62 01/09/23 08:00 Pulse Ox 97 01/09/23 08:00 O2 Del Method Nasal Cannula 01/09/23 08:00 O2 Flow Rate 3 01/09/23 08:00 Oxygen Flow Rate 4 01/06/23 13:28 BMI result Body Mass Index 24.4 Appearing in no acute distress, hard of hearing using assistive devices head is normocephalic atraumatic eyes pupils are PERRLA sclera is anicteric mouth throat mucous membranes are intact and moist neck is supple no lymphadenopathy, no JVD noted lung sounds are clear to auscultation heart regular rate rhythm, clear S1, S2 positive bowel sounds, abdomen is soft, nontender neuro patient is alert, confused DS: Data Data Completed and Pending Labs on day of discharge: Preliminary micro results at discharge 01/06/23 14:55 Blood Culture - Preliminary Blood - Venous No growth after 48 hours. 01/06/23 14:10 Blood Culture - Preliminary Blood - Venous No growth after 48 hours. Discharge Plan Discharge Anticipated Discharge Date/Time: 01/09/23 12:36 Patient Disposition: Xfer [facility] Discharge Diagnosis: Hypoxic respiratory failure Sepsis Aspiration pneumonia Discharge Medications: New Debrox 6.5 % drops 5 drp otic (ears) DAILY 4 Days Qty: 15 0RF prednisone 10 mg tablet 40 mg PO DIRECTED Qty: 4 0RF Rx Instructions: see taper instructions amoxicillin-pot clavulanate 875-125 mg tablet 1 tab PO BID Qty: 4 0RF Continued ipratropium-albuterol 0.5 mg-3 mg(2.5 mg base)/3 mL solution for nebulization 3 ml inhalation Q4H nystatin 100,000 unit/gram cream 1 appl topical BID Rx Instructions: to buttocks fluticasone propion-salmeterol [Advair Diskus] 500-50 mcg/dose blister with device 1 ea inhalation BID sertraline 50 mg tablet 50 mg PO BEDTIME Pulmicort Flexhaler 90 mcg/actuation aerosol powdr breath activated 2 inh inhalation BID acetaminophen 325 mg Tablet 650 mg PO Q6H PRN (Reason: Pain) acetaminophen 650 mg Suppository 650 mg [place] Q6H bisacodyl 10 mg Suppository 10 mg [place] DAILY PRN (Reason: Constipation) Rx Instructions: daily for no BM if M.O.M INEFFECTIVE ferrous sulfate 325 mg (65 mg iron) Tablet 325 mg PO DAILY omeprazole 20 mg capsule,delayed release(DR/EC) 20 mg PO DAILY@0630 Rx Instructions: GIVE ONE TABLET BY MOUTH IN AM FOR PP1 montelukast 10 mg tablet 10 mg PO BEDTIME cholecalciferol (vitamin D3) [Vitamin D3] 25 mcg (1,000 unit) Tablet 25 mcg PO DAILY Combivent Respimat 20-100 mcg/actuation mist 2 puff inhalation Q4H PRN (Reason: Shortness Of Breath) nystatin 100,000 unit/gram Powder 1 appl TOPICAL BID PRN (Reason: Rash) Rx Instructions: to groin folds mirtazapine 7.5 mg tablet 15 mg PO BEDTIME Discharge Orders: Discharge Order (Routine); Ordered 01/09/23 Ordered By: Farzana Bauer Diet: Ground mechanical soft Activity on Discharge: As tolerated Stand Alone Forms: Patient Portal Discharge page Care Plan Goals: Use Debrox for impacted cerumen Health Concerns: Hypoxic respiratory failure Sepsis Aspiration pneumonia Plan of Treatment: Follow-up with primary care as needed Take all medications as prescribed Assessment: See discharge summary
--- NOTE | 2023-01-09 13:12 | MHC.CM.PN ---
PT CLEARED TO RETURN TO LTC AT [facility] CM SPOKE TO [facility] LIAISON, DONATO [phone] PER DISCUSSION, BLS TRANSPORT WAS BOOKED WITH JOSE FOR 1500 HOURS CM CALLED PTS DAUGHTER, SUZANNE [phone], SHE IS AWARE OF DC PLAN/TIME, AND AGREEABLE DCS SENT TO [facility] VIA [facility]
[2023-01-09 14:12] VITALS: O2SAT 96
== END 2023-01-09 15:15 | DRG 871 ==
LOC: HO.ED 15:56 → HO.EDOVER 21:26 → HO.S3 23:11
PROVIDERS: Emergency Medicine; Admitting Provider Student in an Organized Health Care Education/Training Program; Emergency Provider Emergency Medicine; PCP Family Medicine; Visit Provider Nurse Practitioner Acute Care
DX: A41.9 Sepsis, unspecified organism (principal); J69.0 Pneumonitis due to inhalation of food and vomit; J96.01 Acute respiratory failure with hypoxia; J44.1 Chronic obstructive pulmonary disease with (acute) exacerbation; F03.90 Unspecified dementia, unspecified severity, without behavioral disturbance, psychotic disturbance, mood disturbance, and anxiety; H61.23 Impacted cerumen, bilateral; Z66 Do not resuscitate; F39 Unspecified mood [affective] disorder; J45.30 Mild persistent asthma, uncomplicated; Z20.822 Contact with and (suspected) exposure to COVID-19; Z99.81 Dependence on supplemental oxygen; Z79.51 Long term (current) use of inhaled steroids; Z79.899 Other long term (current) drug therapy
CPT/HCPCS: 0241U; 36415; 70450; 71045; 71250; 80048; 80076; 81001; 83605; 83690; 83880; 84484; 85025; 85027; 87040; 92610; 93005; 94640; 99285; J1650; J2543; J2920; J2930; J3370; J3475; J7120

== ENCOUNTER → 2023-01-06 21:09 | Outpatient (BNV) | payer MEDICARE, MEDICAID, SELFPAY | PROVIDERS: Admitting Provider Student in an Organized Health Care Education/Training Program; Emergency Provider Emergency Medicine; Visit Provider Internal Medicine Pulmonary Disease | DX: J69.0 Pneumonitis due to inhalation of food and vomit (principal); J96.21 Acute and chronic respiratory failure with hypoxia | CPT/HCPCS: 99232 ==

== ENCOUNTER → 2023-01-06 21:09 | Outpatient (BNV) | payer MEDICARE, MEDICAID, SELFPAY | PROVIDERS: Admitting Provider Student in an Organized Health Care Education/Training Program; Emergency Provider Emergency Medicine; Visit Provider Student in an Organized Health Care Education/Training Program | DX: J96.21 Acute and chronic respiratory failure with hypoxia (principal); J69.0 Pneumonitis due to inhalation of food and vomit | CPT/HCPCS: 99223; 99232; 99239; 99499 ==

== ENCOUNTER 2023-01-25 14:53 | Emergency (ER) | payer MEDICARE, MEDICAID, SELFPAY ==
--- NOTE | ~2023-01-25 | XR_ITS ---
EXAMINATION: XR HAND, RIGHT CLINICAL INFORMATION: Evaluate for fifth finger fracture. COMPARISON: None available. TECHNIQUE: PA, lateral, and oblique views of the right hand. FINDINGS: Chronic-appearing deformity at the distal aspect of the fourth and fifth metacarpals which could represent remote, healed fractures. Mild osteopenia. Evaluation for a nondisplaced fracture is somewhat limited. No dislocation. Normal carpal alignment. Joint space narrowing with marginal osteophytes at the triscaphe and first carpometacarpal joint as well as scattered throughout the metacarpophalangeal and interphalangeal joints. Findings are most prominent at the second and third proximal and distal interphalangeal joints. No osseous erosion. No abnormal soft tissue calcification. XR/XR hand RT 2V IMPRESSION: 1. Chronic-appearing deformity at the distal aspect of the fourth and fifth metacarpals which could represent remote, healed fractures. Evaluation for a nondisplaced fracture is somewhat limited due to osteopenia. No dislocation. 2. 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
[2023-01-25 14:58] VITALS: BP 148/68; PULSE 84; O2SAT 94
--- NOTE | 2023-01-25 15:00 | ED.GENADULT ---
HPI - General Adult General Chief complaint: Extremity Injury, Upper Stated complaint: R PINKY FINGER FX,NEEDS SPINTING FROM SNF PER EMS Time Seen by Provider: 01/25/23 14:54 Source: patient and EMS Mode of arrival: EMS Limitations: other (Dementia) History of Present Illness HPI narrative: Patient comes to the emergency room via ambulance from a assisted facility. Chief complaint is that the patient has a fracture of her 5th digit on the left hand. EMS crew reports that the staff at the assisted facility reported that the patient had a 5th digit fracture 4 days ago on the left hand which occurred while they were helping transfer the patient. Patient states that her finger looks purple but it does not hurt. Per EMS, they took x-ray 4 days ago and patient was diagnosed with a fracture. Unclear why 4 days went by before they decided to send the patient to the ED. patient states her finger does not hurt and declines any pain medication. Related Data Home Medications Medication Instructions Recorded Confirmed budesonide 90 mcg/actuation breath 2 inh inhalation BID 11/02/22 01/06/23 activated powder inhaler (Pulmicort Flexhaler) fluticasone 500 mcg-salmeterol 50 1 ea inhalation BID 11/02/22 01/06/23 mcg/dose blistr powdr for inhalation (Advair Diskus) ipratropium 0.5 mg-albuterol 3 mg 3 ml inhalation Q4H 11/02/22 01/06/23 (2.5 mg base)/3 mL nebulization soln nystatin 100,000 unit/gram topical 1 appl topical BID 11/02/22 01/06/23 cream sertraline 50 mg tablet 50 mg PO BEDTIME 11/02/22 01/06/23 acetaminophen 325 mg tablet 650 mg PO Q6H PRN Pain 11/03/22 11/03/22 acetaminophen 650 mg rectal 650 mg [place] Q6H 11/03/22 01/06/23 suppository bisacodyl 10 mg rectal suppository 10 mg [place] DAILY PRN Constipation 11/03/22 01/06/23 cholecalciferol (vitamin D3) 25 25 mcg PO DAILY 11/03/22 01/06/23 mcg (1,000 unit) tablet (Vitamin D3) ferrous sulfate 325 mg (65 mg 325 mg PO DAILY 11/03/22 01/06/23 iron) tablet ipratropium 20 mcg-albuterol 100 2 puff inhalation Q4H PRN 11/03/22 01/06/23 mcg/actuation mist for inhalation Shortness Of Breath (Combivent Respimat) montelukast 10 mg tablet 10 mg PO BEDTIME Allergy Symptoms 11/03/22 01/06/23 nystatin 100,000 unit/gram topical 1 appl topical BID PRN Rash 11/03/22 01/06/23 powder omeprazole 20 mg capsule,delayed 20 mg PO DAILY@0630 11/03/22 01/06/23 release mirtazapine 7.5 mg tablet 15 mg PO BEDTIME 01/06/23 01/06/23 Previous Rx's Medication Instructions Recorded amoxicillin 875 mg-potassium 1 tab PO BID #4 tabs 01/09/23 clavulanate 125 mg tablet carbamide peroxide 6.5 % ear drops 5 drp otic (ears) DAILY 4 days #15 01/09/23 (Debrox) mL prednisone 10 mg tablet 40 mg (4 x 10 mg) PO DIRECTED 01/09/23 #4 tabs Allergies Allergy/AdvReac Type Severity Reaction Status Date / Time No Known Allergies Allergy Verified 01/25/23 15:34 Review of Systems Review of Systems: Constitutional : No Weight loss, No Fever, No Chills, No Night Sweats, No Fatigue, No Malaise ENT/Mouth : No Hearing loss, No Ear Pain, No Nasal Congestion, No Sinus Pain, No Hoarseness, No sore throat, No Rhinorrhea, No Swallowing Difficulty Eyes: No Eye Pain, No Swelling, No Redness, No Foreign Body, No Discharge, No Vision Changes Cardiovascular : No Chest Pain, No SOB, No Dyspnea on Exertion, No Orthopnea, No Edema, No Palpitations Respiratory : No Cough, No Sputum, No Wheezing, No Smoke Exposure, No Dyspnea Gastrointestinal : No Nausea, No Vomiting, No Diarrhea, No Constipation, No abdominal Pain, No Hematochezia, No Melena Genitourinary : no irregular bleeding, No Dysuria, No Urinary Frequency, No Hematuria, No Urinary Incontinence, No Urgency, No Flank Pain, No Urinary Flow Changes, No Hesitancy Musculoskeletal : No joint pain, No Myalgias, No Joint Swelling Skin : Complaining of right hand ecchymosis, no pain Neuro : No Weakness, No Numbness, No Paresthesias, No Loss of Consciousness, No Dizziness, No Headache Psych : No Anxiety/Panic, No Depression, No SI/HI/AH/VH, No Social Issues, Heme/Lymph: No Bruising, No Bleeding,No Lymphadenopathy Endocrine : No Polyuria, No Polydipsia, No Temperature Intolerance [facility] Past Medical History Medical History (Updated 01/25/23 @ 15:44 by Jessenia Marin MD) GERD (gastroesophageal reflux disease) Cholelithiasis Vitamin D deficiency Mild persistent asthma Unspecified dementia, unspecified severity, with mood disturbance Chronic kidney disease, stage 3 Chronic anemia Social History Social History Household Members: Other Household Members Other:: SNF Housing: Care Home Do you presently have visiting nurse or other home services: No Unable to assess alcohol history related to: Unknown Alcohol intake: never Patient Tobacco Use Status: Tobacco use Unknown Advance Directives: Yes Advance Directives on File: Yes Advance Directives Date on File: 11/09/22 service: No Physical Exam ED Vital Signs: Vital Signs - 24 hr 01/25/23 15:28 Temperature 98.9 F Pulse Rate 78 Respiratory Rate 16 Blood Pressure 136/56 L Pulse Oximetry 92 Oxygen Delivery Method Room Air BMI result Body Mass Index 25.7 Const Other: Appearance: Alert. Oriented X3. No acute distress. Eyes: Pupils equal, round and reactive to light. ENT: Pharynx normal. Neck: Normal inspection. Neck supple. No lymph nodes noted. No crepitus CVS: Normal heart rate and rhythm. Pulses normal. Normal S1 and S2 Respiratory: No respiratory distress. Breath sounds normal. No Wheezing. No rales Abdomen: Soft and nontender. No rigidity. No distention. Skin: Skin warm and dry. Normal skin color. Normal skin turgor. Extremities: No lower extremity edema. No Lacerations. No Rash. On the right hand, patient has ecchymosis on the dorsum of the hand above the 4th and 5th digits. Patient able to flex and extend all fingers. Patient states this is painless. Neuro: Oriented X 3. No motor deficit. No sensory deficit. Moving all extremities. No slurred speech. CN 2 through 12 grossly intact Psych: calm, cooperative, normal affect Course Course Course Narrative: -per EMS, patient was already diagnosed with a fracture. We will go ahead and repeat overall on x-rays. Medical Decision Making Medical Decision Making [facility] Narrative: -my interpretation of x-ray: No obvious fracture -radiology report, chronic healing fractures, no obvious acute fractures. -patient has full flexion and extension of all fingers, no pain. At this time, there is no indication for splinting/taya taping Differential Diagnosis Differential Diagnoses: The differential diagnosis associated with the presentation includes (Hand contusion, finger fracture, dislocation) Discharge Plan Discharge Clinical Impression: Contusion of hand Patient Disposition: Home, Self-Care Instructions: Contusion in Adults (ED) Additional Instructions: Patient's hand/finger x-rays do not show any acute fracture, only remote, healed fractures. Patient has full range of motion with all the fingers in her hand and no pain. Splinting/taya-taping not indicated. Prescriptions: No Action ipratropium-albuterol 0.5 mg-3 mg(2.5 mg base)/3 mL solution for nebulization 3 ml inhalation Q4H nystatin 100,000 unit/gram cream 1 appl topical BID Rx Instructions: to buttocks fluticasone propion-salmeterol [Advair Diskus] 500-50 mcg/dose blister with device 1 ea inhalation BID sertraline 50 mg tablet 50 mg PO BEDTIME Pulmicort Flexhaler 90 mcg/actuation aerosol powdr breath activated 2 inh inhalation BID acetaminophen 325 mg Tablet 650 mg PO Q6H PRN (Reason: Pain) acetaminophen 650 mg Suppository 650 mg [place] Q6H bisacodyl 10 mg Suppository 10 mg [place] DAILY PRN (Reason: Constipation) Rx Instructions: daily for no BM if M.O.M INEFFECTIVE ferrous sulfate 325 mg (65 mg iron) Tablet 325 mg PO DAILY omeprazole 20 mg capsule,delayed release(DR/EC) 20 mg PO DAILY@0630 Rx Instructions: GIVE ONE TABLET BY MOUTH IN AM FOR PP1 montelukast 10 mg tablet 10 mg PO BEDTIME cholecalciferol (vitamin D3) [Vitamin D3] 25 mcg (1,000 unit) Tablet 25 mcg PO DAILY Combivent Respimat 20-100 mcg/actuation mist 2 puff inhalation Q4H PRN (Reason: Shortness Of Breath) nystatin 100,000 unit/gram Powder 1 appl TOPICAL BID PRN (Reason: Rash) Rx Instructions: to groin folds mirtazapine 7.5 mg tablet 15 mg PO BEDTIME Debrox 6.5 % drops 5 drp otic (ears) DAILY 4 Days Qty: 15 0RF prednisone 10 mg tablet 40 mg PO DIRECTED Qty: 4 0RF Rx Instructions: see taper instructions amoxicillin-pot clavulanate 875-125 mg tablet 1 tab PO BID Qty: 4 0RF
[2023-01-25 15:28] VITALS: BP 136/56; PULSE 78; RESP 16; TEMP 37.2; O2SAT 92; BMI 25.7
--- NOTE | 2023-01-25 16:24 | PC.NURSE ---
report given to RHONDA Hui at [facility]
== END 2023-01-25 20:36 | disposition home or self-care (01) ==
PROVIDERS: Emergency Provider Emergency Medicine; PCP Family Medicine
DX: S60.221A Contusion of right hand, initial encounter (principal); S67.196A Crushing injury of right little finger, initial encounter; X58.XXXA Exposure to other specified factors, initial encounter; Y93.9 Activity, unspecified; Y92.129 Unspecified place in nursing home as the place of occurrence of the external cause; Y99.9 Unspecified external cause status
CPT/HCPCS: 73120; 99281; 99283

== ENCOUNTER 2023-02-12 21:53 | Inpatient (IN) | payer MEDICARE, MEDICAID, SELFPAY ==
--- NOTE | ~2023-02-12 | CT_ITS ---
EXAMINATION: CT CHEST WITHOUT CONTRAST CLINICAL INFORMATION: Fever and cough. COMPARISON: 02/05/2023 TECHNIQUE: Multidetector volumetric CT imaging of the chest was done. Axial MIP volume rendering provided. Sagittal and coronal reformatted images were obtained. This CT examination was performed using dose optimization techniques as appropriate, variously including the following: *Automated exposure control *Adjustment of mA and/or kV according to patient size (this includes techniques or standardized protocols for targeted exams where dose is matched to indication/reason for exam; i.e. extremities or head) *Use of iterative reconstruction technique DLP: 301 mGy-cm FINDINGS: SPOOLER: Unremarkable. LUNGS: Minimal dependent atelectatic change and/or scarring at the lung bases. The lungs are otherwise clear. MEDIASTINUM: The mediastinum is normal. CORONARY ARTERY CALCIFICATION: Minimal. PLEURA: There is no pleural effusion. No pleural mass or thickening. AXILLA: No lymphadenopathy. UPPER ABDOMEN: Unremarkable. OSSEOUS STRUCTURES: Unremarkable. CT/CT chest wo IV con IMPRESSION: Minimal dependent atelectatic change and/or scarring at the lung bases improved compared to prior. The lungs are otherwise clear. Fleischner guidelines were followed.
--- NOTE | ~2023-02-12 | XR_ITS ---
EXAMINATION: XR CHEST CLINICAL INFORMATION: Fever. Rhonchi. COMPARISON: 01/06/2023. TECHNIQUE: Frontal view of the chest was obtained. FINDINGS: The cardiomediastinal silhouette is stable. There is no focal lung consolidation or pleural effusion. The bony structures and soft tissues are unremarkable. XR/XR chest 1V IMPRESSION: No evidence for active cardiopulmonary disease
[2023-02-12 22:02] VITALS: BP 118/57; BP 130/72; PULSE 102; PULSE 107; RESP 20; TEMP 38.1; O2SAT 95; BMI 32.1
--- NOTE | 2023-02-12 22:07 | PHA.MEDREC ---
Pharmacy Consult ? Medication Reconciliation Pharmacy has completed the medication reconciliation. Patient came from [facility] with med list. Ranjana Cordero, DipeshD
--- NOTE | 2023-02-12 22:16 | ECG_ITS ---
Test Reason : AMS Blood Pressure : / mmHG Vent. Rate : 098 BPM Atrial Rate : 098 BPM P-R Int : 158 ms QRS Dur : 080 ms QT Int : 344 ms P-R-T Axes : 052 -26 059 degrees QTc Int : 439 ms Normal sinus rhythm Possible Anterior infarct (cited on or before 12-FEB-2023) Abnormal ECG When compared with ECG of 06-JAN-2023 14:14, No significant change was found Referred By: Jessenia Marin Electronically Signed By:SHAYY DIAMOND
[2023-02-12 22:18] VITALS: TEMP 39.4
--- NOTE | 2023-02-12 22:21 | ED_ITS ---
HPI - Altered Mental Status General Chief Complaint: Altered Mental Status Stated Complaint: failure to thrive, dementia, refusing to take meds Time Seen by Provider: 02/12/23 22:08 Source: EMS Mode of arrival: EMS Limitations: altered mental status History of Present Illness HPI narrative: Patient comes to the emergency room from [facility]. According to EMS, the staff reported that they have never work with the patient before, they know what her baseline is, they do know her past medical history and day on think she is not at baseline although they do not know the patient in additionally feels warm to touch. Patient seems to have history of dementia. Patient is awake and alert but is unable to speak, cannot give any history. Related Data Home Medications Medication Instructions Recorded Confirmed budesonide 90 mcg/actuation breath 2 inh inhalation BID 11/02/22 02/12/23 activated powder inhaler (Pulmicort Flexhaler) fluticasone 500 mcg-salmeterol 50 1 ea inhalation BID 11/02/22 02/12/23 mcg/dose blistr powdr for inhalation (Advair Diskus) ipratropium 0.5 mg-albuterol 3 mg 3 ml inhalation Q4H PRN SOB 11/02/22 02/12/23 (2.5 mg base)/3 mL nebulization soln nystatin 100,000 unit/gram topical 1 appl topical BID 11/02/22 02/12/23 cream sertraline 50 mg tablet 50 mg PO BEDTIME 11/02/22 02/12/23 acetaminophen 650 mg rectal 650 mg MT Q6H 11/03/22 02/12/23 suppository bisacodyl 10 mg rectal suppository 10 mg MT DAILY PRN Constipation 11/03/22 02/12/23 cholecalciferol (vitamin D3) 25 25 mcg PO DAILY 11/03/22 02/12/23 mcg (1,000 unit) tablet (Vitamin D3) ferrous sulfate 325 mg (65 mg 325 mg PO DAILY 11/03/22 02/12/23 iron) tablet ipratropium 20 mcg-albuterol 100 2 puff inhalation Q4H PRN 11/03/22 02/12/23 mcg/actuation mist for inhalation Shortness Of Breath (Combivent Respimat) montelukast 10 mg tablet 10 mg PO BEDTIME Allergy Symptoms 11/03/22 02/12/23 nystatin 100,000 unit/gram topical 1 appl topical BID Rash 11/03/22 02/12/23 powder omeprazole 20 mg capsule,delayed 20 mg PO DAILY@0630 11/03/22 02/12/23 release mirtazapine 7.5 mg tablet 15 mg PO BEDTIME 01/06/23 02/12/23 acetaminophen 500 mg tablet 500 mg PO BID 02/12/23 02/12/23 diclofenac sodium 1 % topical gel 4 g topical TID NECK PAIN 02/12/23 02/12/23 (Voltaren Arthritis Pain) Allergies Allergy/AdvReac Type Severity Reaction Status Date / Time No Known Allergies Allergy Verified 01/25/23 15:34 Review of Systems 2 Review of Systems: Yes Unobtainable due to mental status and Other (Dementia) [facility]LY [facility] Past Medical History Medical History (Updated 02/13/23 @ 01:09 by Jessenia Marin MD) COPD (chronic obstructive pulmonary disease) Dementia GERD (gastroesophageal reflux disease) Cholelithiasis Vitamin D deficiency Mild persistent asthma Unspecified dementia, unspecified severity, with mood disturbance Chronic kidney disease, stage 3 Chronic anemia Social History Social History Household Members: Other Household Members Other:: SNF Housing: Longterm Do you presently have visiting nurse or other home services: No Unable to assess alcohol history related to: Unknown Alcohol intake: never Patient Tobacco Use Status: Tobacco use Unknown Advance Directives: Yes Advance Directives on File: Yes Advance Directives Date on File: 11/09/22 service: No Physical Exam ED Vital Signs: Vital Signs - 24 hr 02/12/23 22:02 02/12/23 22:18 02/13/23 00:00 Temperature 100.6 F H 102.9 F H Pulse Rate 102 H 91 Respiratory Rate 20 27 H Blood Pressure 118/57 L 105/37 L Pulse Oximetry 95 92 Oxygen Delivery Method Nasal Cannula Room Air 02/13/23 01:02 Temperature Pulse Rate 86 Respiratory Rate 27 H Blood Pressure 106/42 L Pulse Oximetry Oxygen Delivery Method BMI result Body Mass Index 32.1 Const Other: Appearance: Alert. Awake, no acute distress Eyes: Pupils equal, round and reactive to light. ENT: Pharynx normal. Neck: Normal inspection. Neck supple. No lymph nodes noted. No crepitus CVS: Normal heart rate and rhythm. Pulses normal. Normal S1 and S2 Respiratory: No respiratory distress. Rales and pleuritic rub sounds on the left, no wheezing Abdomen: Soft and nontender. No rigidity. No distention. Skin: Very warm to touch Extremities: No lower extremity edema. No Lacerations. No Rash Neuro: Unable to participating cranial nerve assessment Psych: calm, cooperative Course Course Course Narrative: -patient is very warm to touch, we did a rectal temperature on arrival, it is 102.9. Patient receiving per rectum Tylenol, patient does not seem to be able to swallow. Patient is receiving IV fluids based on ideal weight of 48 kg, patient is obese. Patient has a strong UTI urine smell. Also, it was noted patient is coughing. At this time of arrival, all of patient's labs and imaging are pending. Patient is empirically being treated with IV fluids as mentioned above and levofloxacin to cover both respiratory and UTI Medications Administered Discontinued Medications Generic Name Dose Route Start Last Admin Trade Name Freq PRN Reason Stop Dose Admin Acetaminophen 650 mg 02/12/23 22:30 02/12/23 22:44 Acetaminophen Supp 650 Mg Supp.Rect MT 02/12/23 22:31 650 mg ONCE ONE Administration Sodium Chloride 2,000 mls @ 999 mls/hr 02/12/23 22:15 02/13/23 01:01 Ns IVCONT 02/13/23 00:15 Infused .Q2H1M ONE Infusion Levofloxacin 500 mg in 100 mls @ 100 mls/hr 02/12/23 22:15 02/13/23 01:01 Levaquin IV 02/12/23 23:14 Infused ONCE ONE Infusion Sodium Chloride 2,000 mls @ 999 mls/hr 02/12/23 22:42 02/12/23 22:57 Ns IVCONT 02/13/23 00:42 Not Given .Q2H1M ONE Medical Decision Making Medical Decision Making [facility] Narrative: -my interpretation of labs, patient's white blood cell count 12, patient has chronic leukocytosis. Chemistry at baseline, urine negative for UTI, serology negative -patient's temperature 102.9 degrees, patient's blood pressure 105/37 -my interpretation of chest x-ray: No obvious signs of pneumonia -source of infection unclear, patient is coughing quite a bit, likely to be pneumonia Differential Diagnosis Differential Diagnoses: The differential diagnosis associated with the presentation includes (Pneumonia, COPD, COVID, viral illness) Admission/Observation Consideration of admission/observation: Escalation of care including admission/observation considered Consult Healthcare Provider Management of the patient was discussed with: Hospitalist Lab Data MDM Lab Attestation statement: I reviewed the patient's lab results. 02/12/23 22:27 02/12/23 22:27 Labs: Lab Results 02/12/23 02/12/23 02/12/23 Range/Units 22:27 22:51 23:09 WBC 12.0 H (4.8-10.8) X10*3/uL RBC 4.08 L (4.20-5.50) X10*6/uL Hgb 11.4 L D (12.0-16.0) g/dl Hct 34.6 L D (37.0-47.0) % MCV 84.8 (80.0-98.0) fL MCH 27.9 (27.0-33.0) pg MCHC 32.9 (31.0-35.0) g/dl RDW 18.0 H (11.0-16.0) % Plt Count 179 D (160-400) X10*3/uL MPV 9.0 L (9.4-12.3) fL Immature Gran % (Auto) 2.2 H (0.0-0.4) % Neut % (Auto) 81.0 H (45-73) % Lymph % (Auto) 7.6 L (20-40) % [place] % (Auto) 8.6 (2-11) % Eos % (Auto) 0.4 (0-4) % Baso % (Auto) 0.2 (0-2) % Lymph # (Auto) 0.9 L (1.2-4.9) X10*3/uL [place] # (Auto) 1.0 (0.1-1.2) X10*3/uL Eos # (Auto) 0.1 (0.0-0.4) X10*3/uL Baso # (Auto) 0.0 (0.0-0.2) X10*3/uL Abs Immat Gran (auto) 0.26 H (0.00-0.03) X10*3/uL Absolute Neuts (auto) 9.7 H (2.0-8.3) x10*3/uL Absolute Nucleated RBC 0.000 (0.0-0.012) X10*3/uL Nucleated RBC % (auto) 0.0 (0.0-0.2) /100WBC PT 12.9 (11.1-13.3) SEC INR 1.1 (0.9-1.1) Sodium 139 (135-145) mmol/L Potassium 4.1 (3.3-5.1) mmol/L Chloride 106 (96-108) mmol/L Carbon Dioxide 23 (22-29) mmol/L Anion Gap 14 (12-20) BUN 17 H (9-16) mg/dL Creatinine 0.90 (0.5-1.4) mg/dL Estim Creat Clear Calc 40.5 Estimated GFR 59 Random Glucose 129 H (60-115) mg/dL Lactic Acid 1.0 (0.5-2.0) mmol/L Calcium 9.2 (8.4-10.2) mg/dL Total Bilirubin 0.3 (0.0-1.0) mg/dL Direct Bilirubin 0.1 (0.0-0.5) mg/dL AST 20 (5-31) U/L ALT 17 (0-31) U/L Alkaline Phosphatase 69 (39-117) U/L Troponin I High Sens 20.7 H D (<3.5-17.0) ng/L Total Protein 7.0 (6.5-8.0) g/dL Albumin 3.5 (3.5-5.0) g/dL Urine Color Yellow Urine Appearance Clear Urine pH 5.5 (5.0-9.0) Ur Specific [place] 1.025 (1.005-1.025) Urine Protein 30 (1+) H (Neg-Trace) mg/dL Urine Glucose (UA) Negative (Negative) mg/dL Urine Ketones Negative (Negative) mg/dL Urine Blood Negative (Negative) Urine Nitrite Negative (Negative) Ur Leukocyte Esterase Negative (Negative) Urine RBC 0-2 (0-2) /HPF Urine WBC 0-5 (0-5) /HPF Ur Squamous Epith Cells 0-2 (0-2) /HPF Urine Bacteria None Seen (None Seen) Hyaline Casts 0-2 (0-2) /LPF Influenza Type A (PCR) NEGATIVE (Negative) Influenza Type B (PCR) NEGATIVE (Negative) RSV RNA Qual (PCR) NEGATIVE (Negative) SARS-CoV-2 RNA (RT-PCR) NEGATIVE (Negative) Independent Interpretation I performed an independent interpretation of an: Plain X-Ray Radiology Impression Discussion of test interpretation with radiology: I have reviewed the radiologist's reading. Radiologist Impression: The cardiomediastinal silhouette is stable. There is no focal lung consolidation or pleural effusion. The bony structures and soft tissues are unremarkable. XR/XR chest 1V IMPRESSION: No evidence for active cardiopulmonary disease Independent Historian Clinical information obtained from an independent historian. History obtained from or confirmed by: EMS Critical Care Time Critical Care Time Critical Care Time: Yes Total Critical Care Time: 60 Attestation: I have personally provided critical care time. Time includes review of lab data, radiology results, discussion with consultants, and monitoring for potential decompensation. Intervention performed as documented. Discharge Plan Discharge Clinical Impression: Altered mental status, Pneumonia Patient Disposition: Admitted As Inpatient Prescriptions: No Action ipratropium-albuterol 0.5 mg-3 mg(2.5 mg base)/3 mL solution for nebulization 3 ml inhalation Q4H PRN (Reason: SOB) nystatin 100,000 unit/gram cream 1 appl topical BID Rx Instructions: to buttocks fluticasone propion-salmeterol [Advair Diskus] 500-50 mcg/dose blister with device 1 ea inhalation BID sertraline 50 mg tablet 50 mg PO BEDTIME Pulmicort Flexhaler 90 mcg/actuation aerosol powdr breath activated 2 inh inhalation BID acetaminophen 650 mg Suppository 650 mg MT Q6H bisacodyl 10 mg Suppository 10 mg MT DAILY PRN (Reason: Constipation) Rx Instructions: daily for no BM if M.O.M INEFFECTIVE ferrous sulfate 325 mg (65 mg iron) Tablet 325 mg PO DAILY omeprazole 20 mg capsule,delayed release(DR/EC) 20 mg PO DAILY@0630 Rx Instructions: GIVE ONE TABLET BY MOUTH IN AM FOR PP1 montelukast 10 mg tablet 10 mg PO BEDTIME cholecalciferol (vitamin D3) [Vitamin D3] 25 mcg (1,000 unit) Tablet 25 mcg PO DAILY Combivent Respimat 20-100 mcg/actuation mist 2 puff inhalation Q4H PRN (Reason: Shortness Of Breath) nystatin 100,000 unit/gram Powder 1 appl TOPICAL BID Rx Instructions: to groin folds mirtazapine 7.5 mg tablet 15 mg PO BEDTIME acetaminophen 500 mg Tablet 500 mg PO BID diclofenac sodium [Voltaren Arthritis Pain] 1 % Gel 4 g TOPICAL TID
[2023-02-12 22:34] LABS: MANUAL DIFF FLAG NO
[2023-02-12 22:36] LABS: Basophils Percent Auto 0.2 % (0-2); Eosinophils Absolute Auto 0.1 X10*3/uL (0.0-0.4); Eosinophils Percent Auto 0.4 % (0-4); Hematocrit 34.6 % (37.0-47.0); Hemoglobin 11.4 g/dl (12.0-16.0); Imm Gran Abs Auto 0.26 X10*3/uL (0.00-0.03); Imm Gran Pct Auto 2.2 % (0.0-0.4); Lymphocytes Absolute Auto 0.9 X10*3/uL (1.2-4.9); Lymphocytes Percent Auto 7.6 % (20-40); Mean Corpuscular HGB Conc 32.9 g/dl (31.0-35.0); Mean Corpuscular Hemoglobin 27.9 pg (27.0-33.0); Mean Corpuscular Volume 84.8 fL (80.0-98.0); Monocytes Percent Auto 8.6 % (2-11); Neutrophils Absolute Auto 9.7 x10*3/uL (2.0-8.3); Platelet Count 179 X10*3/uL (160-400); Red Blood Count 4.08 X10*6/uL (4.20-5.50)
[2023-02-12 22:42] LABS: INTERNATIONAL NORM RATIO 1.1 (0.9-1.1); Prothrombin Time 12.9 SEC (11.1-13.3)
[2023-02-12] MEDS: Acetaminophen Supp 650 MG SUPP.RECT PR (22:44)
[2023-02-12] MEDS: levoFLOXacin/D5W 500 MG/100 ML PIGGYBACK 100 MG IV (22:44)
[2023-02-12 22:50] LABS: Alanine Aminotransferase 17 U/L (0-31); Albumin Level 3.5 g/dL (3.5-5.0); Alkaline Phosphatase 69 U/L (39-117); Anion Gap 14 (12-20); Aspartate Amino Transferase 20 U/L (5-31); Bilirubin Direct 0.1 mg/dL (0.0-0.5); Bilirubin Total 0.3 mg/dL (0.0-1.0); Blood Urea Nitrogen 17 mg/dL (9-16); Calcium 9.2 mg/dL (8.4-10.2); Carbon Dioxide 23 mmol/L (22-29); Chloride 106 mmol/L (96-108); Creatinine Clr Calc Pharmacy 40.5; Estimated Glomerular Filt Rate 59; Glucose Random 129 mg/dL (60-115); Potassium 4.1 mmol/L (3.3-5.1); Sodium 139 mmol/L (135-145)
[2023-02-12] MEDS: 0.9 % Sodium Chloride 2,000 ML 999 ML IVCONT (22:55)
[2023-02-12 22:58] LABS: Troponin-I High Sensitivity 20.7 ng/L (<3.5-17.0)
--- NOTE | 2023-02-12 23:15 | PC.NURSE ---
this rn assumed care of pt from ems. dr beverly to bedside rectal temp taken. pt placed on hospital monitor line placed labs obtained this rn and two ed techs attempts to get second set of blood cultures per dr beverly pt okay to receive iv antibiotics with only 1 set of blood cultures. straight cath placed urine sample sent down to lab pt tolerated well
[2023-02-12 23:18] LABS: Appearance Urine Clear; Color Urine Yellow; Glucose Urine UA Negative (Negative); Leukocyte Esterase Urine Negative (Negative); Nitrite Urine Negative (Negative); PH 5.5 (5.0-9.0); Specific Gravity - Urine 1.025 (1.005-1.025); UMIC TRIGGER UACC YES; Urine Blood Negative (Negative); Urine Ketones Negative (Negative); Urine Protein 30 (1+) mg/dL (Neg-Trace)
[2023-02-12 23:20] LABS: Bacteria Urine None Seen (None Seen); Hyaline Casts Urine 0-2 /LPF (0-2); RBC Urine 0-2 /HPF (0-2); Squamous Epithelial Cell Urine 0-2 /HPF (0-2); WBC Urine 0-5 /HPF (0-5)
--- NOTE | 2023-02-12 23:20 | PC.NURSE ---
per dr beverly will not be calling sepsis alert on pt. pt medicated according to mar supercharge repair supervisor made aware
[2023-02-12 23:34] LABS: Influenza A PCR NEGATIVE (Negative); Influenza B PCR NEGATIVE (Negative); Resp Syncy Virus RNA Qual PCR NEGATIVE (Negative); SARS COV2 PCR INHOUSE NEGATIVE (Negative)
[2023-02-13] VITALS (9 sets, daily range): BP systolic 100–128; BP diastolic 37–60; PULSE 80–91; RESP 14–27; TEMP 36.6–37.7; O2SAT 91–94
--- NOTE | 2023-02-13 01:05 | PC.NURSE ---
bp 106/[address] beverly aware of low bp. no new orders at this time per md
[2023-02-13 02:52] LABS: Troponin-I High Sensitivity 16.4 ng/L (<3.5-17.0)
[2023-02-13] MEDS: Heparin Sodium,Porcine 5,000 UNIT/ML VIAL 5000 UNIT SUBCUT ×3 (03:06→22:00)
[2023-02-13] MEDS: Piperacillin Sodium/Tazobactam 3.375 GM in 0.9 % Sodium Chloride 50 ML IV ×4 (03:06→23:56)
--- NOTE | 2023-02-13 05:44 | PM.IMHP ---
History of Present Illness Date of Service: 02/13/23 Attending physician on admission: Tevin Mcclure Chief Complaint: Altered mental status 87 year old white female resident of [facility] who has a history of of dementia and asthma/COPD was brought to the emergency room by ambulance for evaluation of altered mental status. I am not able to obtain any history from her right now since she is not answering my questions and I could not reach staff at the facility. However, on review of the triage nurse notes, she (patient) was reportedly not acting like her usual self plus was refusing medications prompting the staff there to send her in. She also reportedly had a junky dry cough and her SpO2 was low at 89-90% on room air. However since arrival to the emergency room, her SpO2 has been fairly stable at >93 on room air but she was noted to be febrile with a temperature of 102.9 F, tachycardic at 102 bpm and tachypneic at 27 br/min. Blood work done was notable for a leukocytosis of 12.0 k/mm3 and mildly elevated HSTnI at 20.7 ng/L. a CXR and CT chest were both unremarkable. Urinalysis was clean. A clear foci of infection could not be identified at this time. Review of Systems Review of Systems: Yes Unobtainable due to mental status PMFSH Medical History COPD (chronic obstructive pulmonary disease) Dementia GERD (gastroesophageal reflux disease) Cholelithiasis Vitamin D deficiency Mild persistent asthma Unspecified dementia, unspecified severity, with mood disturbance Chronic kidney disease, stage 3 Chronic anemia Social History Household Members: Other Household Members Other:: SNF Housing: [facility] Do you presently have visiting nurse or other home services: No Unable to assess alcohol history related to: Unknown Alcohol intake: never Patient Tobacco Use Status: Tobacco use Unknown Smoked in Last 30 Days: No Use of substances other than those prescribed or required for medical reasons: No Advance Directives: Yes Advance Directives on File: Yes Advance Directives Date on File: 11/09/22 service: No Meds Allergies Allergy/AdvReac Type Severity Reaction Status Date / Time No Known Allergies Allergy Verified 01/25/23 15:34 Active Medications: Home Medications Medication Instructions Recorded Confirmed Last Taken Type budesonide 90 mcg/actuation breath 2 inh inhalation BID 11/02/22 02/12/23 Unknown History activated powder inhaler (Pulmicort Flexhaler) fluticasone 500 mcg-salmeterol 50 1 ea inhalation BID 11/02/22 02/12/23 Unknown History mcg/dose blistr powdr for inhalation (Advair Diskus) ipratropium 0.5 mg-albuterol 3 mg 3 ml inhalation Q4H PRN SOB 11/02/22 02/12/23 Unknown History (2.5 mg base)/3 mL nebulization soln nystatin 100,000 unit/gram topical 1 appl topical BID 11/02/22 02/12/23 Unknown History cream sertraline 50 mg tablet 50 mg PO BEDTIME 11/02/22 02/12/23 Unknown History acetaminophen 650 mg rectal 650 mg ME Q6H 11/03/22 02/12/23 Unknown History suppository bisacodyl 10 mg rectal suppository 10 mg ME DAILY PRN Constipation 11/03/22 02/12/23 Unknown History cholecalciferol (vitamin D3) 25 25 mcg PO DAILY 11/03/22 02/12/23 Unknown History mcg (1,000 unit) tablet (Vitamin D3) ferrous sulfate 325 mg (65 mg 325 mg PO DAILY 11/03/22 02/12/23 Unknown History iron) tablet ipratropium 20 mcg-albuterol 100 2 puff inhalation Q4H PRN 11/03/22 02/12/23 Unknown History mcg/actuation mist for inhalation Shortness Of Breath (Combivent Respimat) montelukast 10 mg tablet 10 mg PO BEDTIME Allergy Symptoms 11/03/22 02/12/23 Unknown History nystatin 100,000 unit/gram topical 1 appl topical BID Rash 11/03/22 02/12/23 Unknown History powder omeprazole 20 mg capsule,delayed 20 mg PO DAILY@0630 11/03/22 02/12/23 Unknown History release mirtazapine 7.5 mg tablet 15 mg PO BEDTIME 01/06/23 02/12/23 Unknown History acetaminophen 500 mg tablet 500 mg PO BID 02/12/23 02/12/23 Unknown History diclofenac sodium 1 % topical gel 4 g topical TID NECK PAIN 02/12/23 02/12/23 Unknown History (Voltaren Arthritis Pain) Physical Exam Vital Signs and Narrative: Vital Signs: Last Vital Signs Temp 98.2 F 02/13/23 03:09 Pulse 80 02/13/23 03:09 Resp 24 H 02/13/23 03:09 BP 106/44 L 02/13/23 03:09 Pulse Ox 93 02/13/23 03:09 O2 Del Method Room Air 02/13/23 03:09 Oxygen Flow Rate 2 02/12/23 22:02 BMI result Body Mass Index 32.1 General: Well nourished elderly WF in bed. Awake, alert but non-verbal. In no apparent distress Eyes: No pallor or jaundice. PERRLA, EOMI HENT: Moist oral mucus membranes. No oropharyngeal lesions.Neck is supple. Neck: Supple. No cervical adenopathy. No JVD Cardiovascular: Regular rate and rhythm. Normal heart sounds. No murmurs, rubs or gallops. No JVD. No peripheral edema. Respiratory: Normal respiratory effort with no accessory muscle use. CTAB. , CTA bilaterally Gastrointestinal: Abdomen is soft, non-tender, non-distended. NABS. No hepatosplenomegaly Genitourinary: Deferred Extremities: No edema. No calf tenderness. Good peripheral pulses Skin: Warm/Dry. No rashes. No mottling. Capillary refill is < 2 seconds Neurological: AAOx4. Intact speech & cognition. Normal gait & balance. CN II - XII grossly intact but not individually tested. No motor or sensory deficits Hematologic: No bleeding. No ecchymosis. No swollen or tender lymph nodes. Psychiatric: Cooperative. Appropriate mood and affect . Results Labs 02/12/23 22:27 02/12/23 22:27 Labs: Laboratory Results - last 24 hr 02/12/23 02/12/23 02/12/23 22:27 22:51 23:09 MCV 84.8 MCH 27.9 MCHC 32.9 RDW 18.0 H Plt Count 179 D MPV 9.0 L Immature Gran % (Auto) 2.2 H Neut % (Auto) 81.0 H Lymph % (Auto) 7.6 L [place] % (Auto) 8.6 Eos % (Auto) 0.4 Baso % (Auto) 0.2 Lymph # (Auto) 0.9 L [place] # (Auto) 1.0 Eos # (Auto) 0.1 Baso # (Auto) 0.0 Abs Immat Gran (auto) 0.26 H Absolute Neuts (auto) 9.7 H Absolute Nucleated RBC 0.000 Nucleated RBC % (auto) 0.0 PT 12.9 INR 1.1 Anion Gap 14 Estim Creat Clear Calc 40.5 Estimated GFR 59 Random Glucose 129 H Lactic Acid 1.0 Calcium 9.2 Total Bilirubin 0.3 Direct Bilirubin 0.1 AST 20 ALT 17 Alkaline Phosphatase 69 Total Protein 7.0 Albumin 3.5 Urine Color Yellow Urine Appearance Clear Urine pH 5.5 Ur Specific [place] 1.025 Urine Protein 30 (1+) H Urine Glucose (UA) Negative Urine Ketones Negative Urine Blood Negative Urine Nitrite Negative Ur Leukocyte Esterase Negative Urine RBC 0-2 Urine WBC 0-5 Ur Squamous Epith Cells 0-2 Urine Bacteria None Seen Hyaline Casts 0-2 Influenza Type A (PCR) NEGATIVE Influenza Type B (PCR) NEGATIVE RSV RNA Qual (PCR) NEGATIVE SARS-CoV-2 RNA (RT-PCR) NEGATIVE Imaging Radiologist's Impressions: Impressions Chest X-Ray 02/12/23 23:27 No evidence for active cardiopulmonary disease Chest CT 02/13/23 01:54 Minimal dependent atelectatic change and/or scarring at the lung bases improved compared to prior. The lungs are otherwise clear. Assessment and Plan (1) SIRS (systemic inflammatory response syndrome): Status: Resolved (2) Altered mental status: Qualifiers: Altered mental status type: delirium Qualified Code(s): R41.0 - Disorientation, unspecified Status: Acute Plan 87 year old white female resident of [facility] who has a history of of dementia and asthma/COPD here with 1. SIRS - she meets criteria for SIRS - however, no clear foci of infection - CT chest does not show any infiltrate and urinalysis is clean - Will cover empirically for possible bacteremia given very high fevers with no obvious foci of infection - follow up on blood cultures 2. Encephalopathy - Per SNF staff, patient was altered and was refusing her medications - I am not aware of her baseline mental status so difficult to determine if indeed altered - will continue to closely monitor - treat empirically as above. will resume the rest of her outpatient medications pending med reconciliation. DVT: SC Lovenox CODE STATUS: Full code Admission for at least 2 midnights for management of possible bacteremia. She has a high fever and leucocytosis and is still undergoing work up to determine foci of infection. She is currently on empiric broad spectrum antibiotics. Total time managing care of this patient today: 75 minutes. Quality Stroke Does the patient have a stroke diagnosis?: No VTE Prior VTE?: No VTE Risk Level:: Medical - moderate - high VTE Device Contraindication: N/A - Device Ordered VTE Drug Contraindication: N/A - Med Ordered
[2023-02-13 06:16] LABS: Procalcitonin 0.25 ng/mL
--- NOTE | 2023-02-13 06:48 | PC.NURSE ---
this rn contacted pharmacy regarding zosyn dose. last dose completed at 0350. per lead pharmacy technician pharmacist to retime med
--- NOTE | 2023-02-13 07:28 | PC.NURSE ---
Resumed care of patient, she is currently sleeping, call crowley within reach. All safety measures in place. Awaiting bed placement at this time
--- NOTE | 2023-02-13 09:09 | P.EN_ITS ---
Event Note Date of Service: 02/13/23 Event Note: 87 year old white female resident of [facility] who has a history of of dementia and asthma/COPD was brought to the emergency room by ambulance for evaluation of altered mental status. I am not able to obtain any history from her right now since she is not answering my questions and I could not reach staff at the facility. However, on review of the triage nurse notes, she (patient) was reportedly not acting like her usual self plus was refusing medications prompting the staff there to send her in. She also reportedly had a junky dry cough and her SpO2 was low at 89-90% on room air. However since arrival to the emergency room, her SpO2 has been fairly stable at >93 on room air but she was noted to be febrile with a temperature of 102.9 F, tachycardic at 102 bpm and tachypneic at 27 br/min. Blood work done was notable for a leukocytosis of 12.0 k/mm3 and mildly elevated HSTnI at 20.7 ng/L. a CXR and CT chest were both unremarkable. Urinalysis was clean. A clear foci of infection could not be identified at this time. [place] [id number] Internal Med History&Physical Signed Patient: Siobhan Souza MR#: [id number] : 1935 Acct:[id number] Age/Sex: 87 / F Loc: [place] [address]: Tevin Mcclure MD cc: Tevin Mcclure MD~ History of Present Illness Date of Service: 02/13/23 Attending physician on admission: Tevin Mcclure Chief Complaint: Altered mental status 87 year old white female resident of [facility] who has a history of of dementia and asthma/COPD was brought to the emergency room by ambulance for evaluation of altered mental status. I am not able to obtain any history from her right now since she is not answering my questions and I could not reach staff at the facility. However, on review of the triage nurse notes, she (patient) was reportedly not acting like her usual self plus was refusing medications prompting the staff there to send her in. She also reportedly had a junky dry cough and her SpO2 was low at 89-90% on room air. However since arrival to the emergency room, her SpO2 has been fairly stable at >93 on room air but she was noted to be febrile with a temperature of 102.9 F, tachycardic at 102 bpm and tachypneic at 27 br/min. Blood work done was notable for a leukocytosis of 12.0 k/mm3 and mildly elevated HSTnI at 20.7 ng/L. a CXR and CT chest were both unremarkable. Urinalysis was clean. A clear foci of infection could not be identified at this time. Meds Allergies Allergy/AdvReac Type Severity Reaction Status Date / Time No Known Allergies Allergy Verified 01/25/23 15:34 Active Medications: Home Medications Medication Instructions Recorded Confirmed Last Taken Type budesonide 90 mcg/actuation breath 2 inh inhalation BID 11/02/22 02/12/23 Unknown History activated powder inhaler (Pulmicort Flexhaler) fluticasone 500 mcg-salmeterol 50 1 ea inhalation BID 11/02/22 02/12/23 Unknown History mcg/dose blistr powdr for inhalation (Advair Diskus) ipratropium 0.5 mg-albuterol 3 mg 3 ml inhalation Q4H PRN SOB 11/02/22 02/12/23 Unknown History (2.5 mg base)/3 mL nebulization soln nystatin 100,000 unit/gram topical 1 appl topical BID 11/02/22 02/12/23 Unknown History cream sertraline 50 mg tablet 50 mg PO BEDTIME 11/02/22 02/12/23 Unknown History acetaminophen 650 mg rectal 650 mg OH Q6H 11/03/22 02/12/23 Unknown History suppository bisacodyl 10 mg rectal suppository 10 mg OH DAILY PRN Constipation 11/03/22 02/12/23 Unknown History cholecalciferol (vitamin D3) 25 25 mcg PO DAILY 11/03/22 02/12/23 Unknown History mcg (1,000 unit) tablet (Vitamin D3) ferrous sulfate 325 mg (65 mg 325 mg PO DAILY 11/03/22 02/12/23 Unknown History iron) tablet ipratropium 20 mcg-albuterol 100 2 puff inhalation Q4H PRN 11/03/22 02/12/23 Unknown History mcg/actuation mist for inhalation Shortness Of Breath (Combivent Respimat) montelukast 10 mg tablet 10 mg PO BEDTIME Allergy Symptoms 11/03/22 02/12/23 Unknown History nystatin 100,000 unit/gram topical 1 appl topical BID Rash 11/03/22 02/12/23 Unknown History powder omeprazole 20 mg capsule,delayed 20 mg PO DAILY@0630 11/03/22 02/12/23 Unknown History release mirtazapine 7.5 mg tablet 15 mg PO BEDTIME 01/06/23 02/12/23 Unknown History acetaminophen 500 mg tablet 500 mg PO BID 02/12/23 02/12/23 Unknown History diclofenac sodium 1 % topical gel 4 g topical TID NECK PAIN 02/12/23 02/12/23 Unknown History (Voltaren Arthritis Pain) Physical Exam Vital Signs and Narrative: Vital Signs: Last Vital Signs Temp 98.2 F 02/13/23 03:09 Pulse 80 02/13/23 03:09 Resp 24 H 02/13/23 03:09 BP 106/44 L 02/13/23 03:09 Pulse Ox 93 02/13/23 03:09 O2 Del Method Room Air 02/13/23 03:09 Oxygen Flow Rate 2 02/12/23 22:02 BMI result Body Mass Index 32.1 General: Well nourished elderly WF in bed. Awake, alert but non-verbal. In no apparent distress Eyes: No pallor or jaundice. PERRLA, EOMI HENT: Moist oral mucus membranes. No oropharyngeal lesions.Neck is supple. Neck: Supple. No cervical adenopathy. No JVD Cardiovascular: Regular rate and rhythm. Normal heart sounds. No murmurs, rubs or gallops. No JVD. No peripheral edema. Respiratory: Normal respiratory effort with no accessory muscle use. CTAB. , CTA bilaterally Gastrointestinal: Abdomen is soft, non-tender, non-distended. NABS. No hepatosplenomegaly Genitourinary: Deferred Extremities: No edema. No calf tenderness. Good peripheral pulses Skin: Warm/Dry. No rashes. No mottling. Capillary refill is < 2 seconds Neurological: AAOx4. Intact speech & cognition. Normal gait & balance. CN II - XII grossly intact but not individually tested. No motor or sensory deficits Hematologic: No bleeding. No ecchymosis. No swollen or tender lymph nodes. Psychiatric: Cooperative. Appropriate mood and affect . Results Labs 02/12/23 22:27 02/12/23 22:27 Labs: Laboratory Results - last 24 hr 02/12/23 02/12/23 02/12/23 22:27 22:51 23:09 MCV 84.8 MCH 27.9 MCHC 32.9 RDW 18.0 H Plt Count 179 D MPV 9.0 L Immature Gran % (Auto) 2.2 H Neut % (Auto) 81.0 H Lymph % (Auto) 7.6 L [place] % (Auto) 8.6 Eos % (Auto) 0.4 Baso % (Auto) 0.2 Lymph # (Auto) 0.9 L [place] # (Auto) 1.0 Eos # (Auto) 0.1 Baso # (Auto) 0.0 Abs Immat Gran (auto) 0.26 H Absolute Neuts (auto) 9.7 H Absolute Nucleated RBC 0.000 Nucleated RBC % (auto) 0.0 PT 12.9 INR 1.1 Anion Gap 14 Estim Creat Clear Calc 40.5 Estimated GFR 59 Random Glucose 129 H Lactic Acid 1.0 Calcium 9.2 Total Bilirubin 0.3 Direct Bilirubin 0.1 AST 20 ALT 17 Alkaline Phosphatase 69 Total Protein 7.0 Albumin 3.5 Urine Color Yellow Urine Appearance Clear Urine pH 5.5 Ur Specific [place] 1.025 Urine Protein 30 (1+) H Urine Glucose (UA) Negative Urine Ketones Negative Urine Blood Negative Urine Nitrite Negative Ur Leukocyte Esterase Negative Urine RBC 0-2 Urine WBC 0-5 Ur Squamous Epith Cells 0-2 Urine Bacteria None Seen Hyaline Casts 0-2 Influenza Type A (PCR) NEGATIVE Influenza Type B (PCR) NEGATIVE RSV RNA Qual (PCR) NEGATIVE SARS-CoV-2 RNA (RT-PCR) NEGATIVE Imaging Radiologist's Impressions: Impressions Chest X-Ray 02/12/23 23:27 No evidence for active cardiopulmonary disease Chest CT 02/13/23 01:54 Minimal dependent atelectatic change and/or scarring at the lung bases improved compared to prior. The lungs are otherwise clear. 1. SIRS - she meets criteria for SIRS - however, no clear foci of infection - CT chest does not show any infiltrate and urinalysis is clean - Will cover empirically for possible bacteremia given very high fevers with no obvious foci of infection - follow up on blood cultures 2. Encephalopathy - Per SNF staff, patient was altered and was refusing her medications - I am not aware of her baseline mental status so difficult to determine if indeed altered - will continue to closely monitor - treat empirically as above. will resume the rest of her outpatient medications pending med reconciliation. DVT: SC Lovenox CODE STATUS: Full code Admission for at least 2 midnights for management of possible bacteremia. She has a high fever and leucocytosis and is still undergoing work up to determine foci of infection. She is currently on empiric broad spectrum antibiotics. Time Spent With Patient Time: Total time managing care of this patient today ____ minutes.
[2023-02-13] MEDS: vancomycin HCL 1,000 MG, vancomycin HCL 750 MG in 0.9 % Sodium Chloride 500 ML 267.5 MG IV (09:19)
[2023-02-13] MEDS: 0.9 % Sodium Chloride Flush 3 ML SYRINGE IVFLUSH ×3 (09:20→23:56)
[2023-02-13 10:47] LABS: Creatinine Clr Calc Pharmacy 46.2; Estimated Glomerular Filt Rate > 60
--- NOTE | 2023-02-13 12:19 | PC.NURSE ---
Alert and responsive but slow to respond. incont of urine, changed and repositioned, daughter at bedside
--- NOTE | 2023-02-13 13:30 | PC.NURSE ---
Daughter updated on pending transfer to room 364
--- NOTE | 2023-02-13 16:06 | PM.EVENT ---
Event Note Date of Service: 02/13/23 Event Note: 87 year old white female resident of [facility] who has a history of of dementia and asthma/COPD here with on fluid mental status refusing medications 1. SIRS - she meets criteria for SIRS with leukocytosis, fever, no clear foci of infection - CT chest does not show any infiltrate and urinalysis is clean - on IV Zosyn empirically for possible bacteremia given very high fevers with no obvious foci of infection - follow up on blood cultures, WBC trending down 2. Acute toxic metabolic encephalopathy . - Per SNF staff, patient was altered and was refusing her medications, patient with baseline history of dementia - at present patient is answering questions awake, alert, I am not aware of her baseline mental status - will continue to closely monitor - treat empirically as above. 3. Unspecified dementia 4. Mood disorder will resume home mirtazapine and sertraline 5. GERD continue Prilosec DVT: SC heparin CODE STATUS: Full code Admission for at least 2 midnights for management of possible bacteremia. She has a high fever and leucocytosis and is still undergoing work up to determine foci of infection. She is currently on empiric broad spectrum antibiotics. Time Spent With Patient Time: Total time managing care of this patient today ____ minutes.
[2023-02-13] MEDS: Montelukast Sodium 10 MG TABLET PO (21:59)
[2023-02-13] MEDS: Sertraline HCL 50 MG TABLET PO (21:59)
[2023-02-13] MEDS: Mirtazapine 15 MG TABLET PO (21:59)
[2023-02-14 03:44] VITALS: BP 134/60; PULSE 77; RESP 16; TEMP 37; O2SAT 94
[2023-02-14] MEDS: Omeprazole 20 MG CAPSULE.DR PO (06:39)
[2023-02-14] MEDS: Piperacillin Sodium/Tazobactam 3.375 GM in 0.9 % Sodium Chloride 50 ML IV ×2 (06:40→12:39)
[2023-02-14 06:58] LABS: MANUAL DIFF FLAG NO
[2023-02-14] MEDS: 0.9 % Sodium Chloride Flush 3 ML SYRINGE IVFLUSH ×2 (07:22→15:57)
[2023-02-14 07:29] LABS: Basophils Percent Auto 0.6 % (0-2); Eosinophils Absolute Auto 0.1 X10*3/uL (0.0-0.4); Eosinophils Percent Auto 1.6 % (0-4); Hematocrit 36.9 % (37.0-47.0); Hemoglobin 11.8 g/dl (12.0-16.0); Imm Gran Abs Auto 0.16 X10*3/uL (0.00-0.03); Imm Gran Pct Auto 2.6 % (0.0-0.4); Lymphocytes Absolute Auto 0.9 X10*3/uL (1.2-4.9); Lymphocytes Percent Auto 14.4 % (20-40); Mean Corpuscular Hemoglobin 27.8 pg (27.0-33.0); Mean Corpuscular Volume 86.8 fL (80.0-98.0); Mean Platelet Volume 9.7 fL (9.4-12.3); Monocytes Absolute Auto 0.5 X10*3/uL (0.1-1.2); Monocytes Percent Auto 7.2 % (2-11); Neutrophils Absolute Auto 4.6 x10*3/uL (2.0-8.3); Neutrophils Percent Auto 73.6 % (45-73); Platelet Count 192 X10*3/uL (160-400); Red Blood Count 4.25 X10*6/uL (4.20-5.50); Red Cell Distribution Width 17.9 % (11.0-16.0); White Blood Count 6.2 X10*3/uL (4.8-10.8)
[2023-02-14 07:35] LABS: Anion Gap 16 (12-20); Blood Urea Nitrogen 15 mg/dL (9-16); Calcium 8.9 mg/dL (8.4-10.2); Carbon Dioxide 20 mmol/L (22-29); Chloride 109 mmol/L (96-108); Creatinine Clr Calc Pharmacy 43.4; Creatinine Clr Calc Pharmacy 43.9; Estimated Glomerular Filt Rate > 60; Glucose Random 74 mg/dL (60-115); Potassium 4.1 mmol/L (3.3-5.1); Sodium 141 mmol/L (135-145)
[2023-02-14 07:55] VITALS: BP 129/61; PULSE 78; RESP 18; TEMP 36.1; O2SAT 92
[2023-02-14] MEDS: Heparin Sodium,Porcine 5,000 UNIT/ML VIAL 5000 UNIT SUBCUT (08:34)
[2023-02-14] MEDS: Cholecalciferol (Vitamin D3) 25 MCG TABLET PO (08:34)
[2023-02-14] MEDS: Ferrous Sulfate 324 MG TABLET.DR PO (08:34)
[2023-02-14] MEDS: vancomycin HCL 1,250 MG in 0.9 % Sodium Chloride 250 ML 166.67 MG IV (08:34)
[2023-02-14] MEDS: Budesonide 180 MCG AER.POW.BA 1 PUFF INHALE (08:50)
[2023-02-14 08:52] VITALS: PULSE 64; RESP 16; O2SAT 93
--- NOTE | 2023-02-14 12:46 | MHC.CM.PN ---
Addendum entered by Lalita Jaramillo 02/14/23 13:10: SUZANNE IS AWARE OF DC TIME SHE ALSO INFORMED CM SHE TOOK THE PTS BELONGINGS (CLOTHES AND BLANKET) WITH HER TO ENSURE THEY WERE NOT LOST IN TRANSIT Original Note: CM MET WITH PT AND DAUGHTER/HCP, SUZANNE, AT BEDSIDE PT IS A LTC RESIDENT OF [facility] [place] PT IS MOSTLY BED BOUND, HOWEVER THEY DO GET HER TO A W/C OCCASIONALLY PT HAS A HCP ON FILE PCP: CESAR PATEL IMM DELIVERED PT WILL DC TODAY, BACK TO [facility] VIA BLS
--- NOTE | 2023-02-14 13:09 | PM.DS ---
DS: Providers Provider Date of Service: 02/14/23 Date of admission: 02/13/23 02:31 Primary care physician: Isaias Canela MD DS: Diagnosis Discharge Diagnosis (1) SIRS (systemic inflammatory response syndrome): Status: Resolved (2) Altered mental status: Status: Acute DS: Summary Hospital Course Hospital Course: Date of Service: 02/13/23 Attending physician on admission: Tevin Mcclure Chief Complaint: Altered mental status 87 year old white female resident of [facility] who has a history of of dementia and asthma/COPD was brought to the emergency room by ambulance for evaluation of altered mental status. I am not able to obtain any history from her right now since she is not answering my questions and I could not reach staff at the facility. However, on review of the triage nurse notes, she (patient) was reportedly not acting like her usual self plus was refusing medications prompting the staff there to send her in. She also reportedly had a junky dry cough and her SpO2 was low at 89-90% on room air. However since arrival to the emergency room, her SpO2 has been fairly stable at >93 on room air but she was noted to be febrile with a temperature of 102.9 F, tachycardic at 102 bpm and tachypneic at 27 br/min. Blood work done was notable for a leukocytosis of 12.0 k/mm3 and mildly elevated HSTnI at 20.7 ng/L. a CXR and CT chest were both unremarkable. Urinalysis was clean. A clear foci of infection could not be identified at this time. Hospital course: 87 year old white female resident of [facility] with history of of dementia and asthma/COPD admitted to medical floor due to mental status change, refusing medications, decreased by mouth intake and noted to have junky dry cough at nursing facility , patient diagnosed to have sirs with leukocytosis, fever no clear focus of infection was found CT chest showed no acute infiltrate, urinalysis was unremarkable, patient was empirically treated with IV Zosyn IV vancomycin, blood cultures x2 came back negative, patient remains afebrile since admission, and all studies are negative ,will DC antibiotics and will discharge patient back to nursing facility, since acute toxic metabolic encephalopathy has resolved, patient seems to be at baseline answering questions appropriately, daughter at bedside agreed that patient is at baseline mental status, patient will be continued on nectar thick liquids and mechanical altered diet recommend continued speech therapy follow-up, in regard to cough , use as needed cough medication oxygenation stable on room air.. 1. SIRS all features of SIRS including leukocytosis and fever resolved 2. Acute toxic metabolic encephalopathy . Question related to fever resolved 3. Unspecified dementia 4. Mood disorder continue home medications mirtazapine and sertraline 5. GERD continue Prilosec Time Attestation Discharge coordination time: Greater than 30 minutes Quality: Safe Use of Opioids Does Pt have an Active Cancer Diagnosis on the Problem List?: No Quality: Stroke Does the patient have a stroke diagnosis?: No Physical Exam Vital Signs: Vital Signs: Last Vital Signs Temp 97.0 F 02/14/23 07:55 Pulse 64 02/14/23 08:52 Resp 16 02/14/23 08:52 BP 129/61 02/14/23 07:55 Pulse Ox 92 02/14/23 07:55 O2 Del Method Room Air 02/14/23 07:55 Oxygen Flow Rate 2 02/12/23 22:02 BMI result Body Mass Index 32.1 Const: Other: General awake alert , resting comfortably in no acute distress. Neck no JVD. CVS regular rate rhythm, Respiratory lungs clear to auscultation, no respiratory distress, no wheeze, no rhonchi. Gastrointestinal abdomen soft, non tender, bowel sounds audible, no guarding , no rigidity. Extremities no edema. Neuro nonfocal , moving all 4 extremity speech clear. Skin no rash Psych appropriate affect DS: Data Data Completed and Pending Labs on day of discharge: Laboratory Results - last 24 hr 02/14/23 02/14/23 02/14/23 06:20 06:20 06:20 WBC 6.2 RBC 4.25 Hgb 11.8 L Hct 36.9 L MCV 86.8 MCH 27.8 MCHC 32.0 RDW 17.9 H Plt Count 192 MPV 9.7 Immature Gran % (Auto) 2.6 H Neut % (Auto) 73.6 H Lymph % (Auto) 14.4 L [place] % (Auto) 7.2 Eos % (Auto) 1.6 Baso % (Auto) 0.6 Lymph # (Auto) 0.9 L [place] # (Auto) 0.5 Eos # (Auto) 0.1 Baso # (Auto) 0.0 Abs Immat Gran (auto) 0.16 H Absolute Neuts (auto) 4.6 Absolute Nucleated RBC 0.000 Nucleated RBC % (auto) 0.0 Sodium 141 Potassium 4.1 Chloride 109 H Carbon Dioxide 20 L Anion Gap 16 BUN 15 Creatinine 0.83 0.84 Estim Creat Clear Calc 43.9 43.4 Estimated GFR > 60 Random Glucose Calcium 02/14/23 06:20 WBC RBC Hgb Hct MCV MCH MCHC RDW Plt Count MPV Immature Gran % (Auto) Neut % (Auto) Lymph % (Auto) [place] % (Auto) Eos % (Auto) Baso % (Auto) Lymph # (Auto) [place] # (Auto) Eos # (Auto) Baso # (Auto) Abs Immat Gran (auto) Absolute Neuts (auto) Absolute Nucleated RBC Nucleated RBC % (auto) Sodium Potassium Chloride Carbon Dioxide Anion Gap BUN Creatinine Estim Creat Clear Calc Estimated GFR > 60 Random Glucose 74 Calcium 8.9 Preliminary micro results at discharge 02/13/23 03:49 Blood Culture - Preliminary Blood - Venous No growth after 24 hours. 02/12/23 22:27 Blood Culture - Preliminary Blood - Venous No growth after 24 hours. Discharge Plan Discharge Anticipated Discharge Date/Time: 02/14/23 12:58 Patient Disposition: Xfer [facility] Discharge Diagnosis: Acute toxic metabolic encephalopathy Sirs with no source of infection [facility] Isaias Canela MD [Primary Care Provider] - 1 Week Discharge Medications: New dextromethorphan-guaifenesin 10-100 mg/5 mL syrup 10 ml PO Q6H PRN (Reason: cough) Qty: 237 0RF Continued ipratropium-albuterol 0.5 mg-3 mg(2.5 mg base)/3 mL solution for nebulization 3 ml inhalation Q4H PRN (Reason: SOB) nystatin 100,000 unit/gram cream 1 appl topical BID Rx Instructions: to buttocks fluticasone propion-salmeterol [Advair Diskus] 500-50 mcg/dose blister with device 1 ea inhalation BID sertraline 50 mg tablet 50 mg PO BEDTIME Pulmicort Flexhaler 90 mcg/actuation aerosol powdr breath activated 2 inh inhalation BID acetaminophen 650 mg Suppository [address] Q6H bisacodyl 10 mg Suppository [address] DAILY PRN (Reason: Constipation) Rx Instructions: daily for no BM if M.O.M INEFFECTIVE ferrous sulfate 325 mg (65 mg iron) Tablet 325 mg PO DAILY omeprazole 20 mg capsule,delayed release(DR/EC) 20 mg PO DAILY@0630 Rx Instructions: GIVE ONE TABLET BY MOUTH IN AM FOR PP1 montelukast 10 mg tablet 10 mg PO BEDTIME cholecalciferol (vitamin D3) [Vitamin D3] 25 mcg (1,000 unit) Tablet 25 mcg PO DAILY Combivent Respimat 20-100 mcg/actuation mist 2 puff inhalation Q4H PRN (Reason: Shortness Of Breath) nystatin 100,000 unit/gram Powder 1 appl TOPICAL BID Rx Instructions: to groin folds mirtazapine 7.5 mg tablet 15 mg PO BEDTIME acetaminophen 500 mg Tablet 500 mg PO BID diclofenac sodium [Voltaren Arthritis Pain] 1 % Gel 4 g TOPICAL TID Discharge Orders: Discharge Order (Routine); Ordered 02/14/23 Ordered By: Paul Biggs Diet: Regular diet Activity on Discharge: As tolerated Stand Alone Forms: Patient Portal Discharge page Care Plan Goals: Sirs resolved no source of infection found, no further antibiotic recommended Confusion resolved Diet ground mechanical/nectar thick liquids Follow speech therapy eval Cough medication as needed Health Concerns: Continue all home medication Plan of Treatment: Follow-up with primary care physician Assessment: as above
== END 2023-02-14 16:55 | disposition skilled nursing facility (03) | DRG 864 ==
LOC: HO.ED 02-13 01:09 → HO.EDOVER 02-13 02:49 → HO.S3 02-13 13:18
PROVIDERS: Admitting Provider Internal Medicine; Emergency Provider Emergency Medicine; PCP Family Medicine; Visit Provider Hospitalist
DX: R50.9 Fever, unspecified (principal); G92.8 Other toxic encephalopathy; R65.10 Systemic inflammatory response syndrome (SIRS) of non-infectious origin without acute organ dysfunction; F03.90 Unspecified dementia, unspecified severity, without behavioral disturbance, psychotic disturbance, mood disturbance, and anxiety; K21.9 Gastro-esophageal reflux disease without esophagitis; F39 Unspecified mood [affective] disorder; J45.30 Mild persistent asthma, uncomplicated; J44.9 Chronic obstructive pulmonary disease, unspecified; Z91.148 Patient's other noncompliance with medication regimen for other reason; Z20.822 Contact with and (suspected) exposure to COVID-19; Z79.51 Long term (current) use of inhaled steroids; Z79.899 Other long term (current) drug therapy
CPT/HCPCS: 0241U; 36415; 71045; 71250; 80048; 80076; 81001; 82565; 83605; 84145; 84484; 85025; 85610; 87040; 93005; 94640; 99285; J1644; J1956; J2543; J3370; J3371

== ENCOUNTER → 2023-02-12 22:16 | Outpatient (BNV) | payer MEDICARE, MEDICAID, SELFPAY | PROVIDERS: Admitting Provider Internal Medicine; Emergency Provider Emergency Medicine; PCP Family Medicine; Visit Provider Internal Medicine | DX: R41.82 Altered mental status, unspecified (principal) | CPT/HCPCS: 93010 ==

== ENCOUNTER → 2023-02-13 02:31 | Outpatient (BNV) | payer MEDICARE, MEDICAID, SELFPAY | PROVIDERS: Admitting Provider Internal Medicine; Emergency Provider Emergency Medicine; PCP Family Medicine; Visit Provider Internal Medicine | DX: R65.10 Systemic inflammatory response syndrome (SIRS) of non-infectious origin without acute organ dysfunction (principal); R41.0 Disorientation, unspecified | CPT/HCPCS: 99223; 99239; 99499 ==

== ENCOUNTER 2023-06-02 11:01 | Inpatient (IN) | payer MEDICARE, MEDICAID, SELFPAY ==
[2023-06-02] VITALS (7 sets, daily range): BP systolic 120–139; BP diastolic 53–70; PULSE 85–98; RESP 16–20; TEMP 36.8; O2SAT 85–95; BMI 28.8
--- NOTE | ~2023-06-02 | XR_ITS ---
EXAMINATION: XR chest 1V CLINICAL INFORMATION: Wheezing COMPARISON: No prior chest x-ray available in our system for comparison at the time of this dictation. TECHNIQUE: XR chest 1V, 2 Views Lungs and Kaur: Mild diffuse bilateral peribronchial cuffing chronic or recurrent suggests probably small airway disease such as bronchiolitis. No dense focal consolidation focal infiltrates pneumonia. Pleura: Blunting of left costophrenic angle suggesting small effusion. Heart: The heart is normal in size. Mediastinum: The mediastinum is within normal limits.. Bones: Skeletal structures included are normal for patient's age. XR/XR chest 1V IMPRESSION: * Mild diffuse bilateral peribronchial cuffing suggesting small airway disease such as bronchiolitis. * No dense focal consolidation pneumonia. * Blunting of left costophrenic angle suggesting small effusion.
--- NOTE | 2023-06-02 11:31 | ECG_ITS ---
Test Reason : DYSPNEA Blood Pressure : / mmHG Vent. Rate : 089 BPM Atrial Rate : 089 BPM P-R Int : 174 ms QRS Dur : 078 ms QT Int : 374 ms P-R-T Axes : 065 -62 068 degrees QTc Int : 455 ms Normal sinus rhythm Left axis deviation Low voltage QRS Inferior infarct , age undetermined Cannot rule out Anterior infarct (cited on or before 12-FEB-2023) Abnormal ECG When compared with ECG of 12-FEB-2023 23:11, No significant changes seen Referred By: Nighat Collins Electronically Signed By:SHAYY DIAMOND
--- NOTE | 2023-06-02 11:38 | ED.SOB ---
HPI - SOB/Dyspnea General Chief Complaint: Dyspnea Stated Complaint: INCR WHEEZING FROM SNF PER EMS Time Seen by Provider: 06/02/23 11:32 Source: patient and old records reviewed Mode of arrival: EMS Limitations: other (dementia) History of Present Illness HPI Narrative: 87 yo female with PMH of COPD not on home O2, dementia, GERD, asthma, CKD, anemia coming from [facility] DNR/DNI here with c/o cough and wheezing this AM - was reportedly 86% prior to arrival and given 2 duonebs by EMS. Some relief. The patient has no complaints and thinks she is at [facility]. She thinks she might remember feeling short of breath this AM. MD elicited complaint: shortness of breath and asthma attack Pertinent past history: asthma Onset (ago): hour(s) (few hours this AM ) Timing: improved Severity: moderate Exacerbating factors: nothing Relieving factors: oxygen and bronchodilators Known history of: COPD Associated symptoms: cough, wheezing and sputum production Treatment prior to arrival: oxygen and bronchodilator Related Data Home Medications ?Medication ?Instructions ?Recorded ?Confirmed budesonide 90 mcg/actuation breath 2 inh inhalation BID 11/02/22 02/12/23 activated powder inhaler (Pulmicort Flexhaler) fluticasone 500 mcg-salmeterol 50 1 ea inhalation BID 11/02/22 02/12/23 mcg/dose blistr powdr for inhalation (Advair Diskus) ipratropium 0.5 mg-albuterol 3 mg 3 ml inhalation Q4H PRN SOB 11/02/22 02/12/23 (2.5 mg base)/3 mL nebulization soln nystatin 100,000 unit/gram topical 1 appl topical BID 11/02/22 02/12/23 cream sertraline 50 mg tablet 50 mg PO BEDTIME 11/02/22 02/12/23 acetaminophen 650 mg rectal 650 mg NV Q6H 11/03/22 02/12/23 suppository bisacodyl 10 mg rectal suppository 10 mg NV DAILY PRN Constipation 11/03/22 02/12/23 cholecalciferol (vitamin D3) 25 25 mcg PO DAILY 11/03/22 02/12/23 mcg (1,000 unit) tablet (Vitamin D3) ferrous sulfate 325 mg (65 mg 325 mg PO DAILY 11/03/22 02/12/23 iron) tablet ipratropium 20 mcg-albuterol 100 2 puff inhalation Q4H PRN 11/03/22 02/12/23 mcg/actuation mist for inhalation Shortness Of Breath (Combivent Respimat) montelukast 10 mg tablet 10 mg PO BEDTIME Allergy Symptoms 11/03/22 02/12/23 nystatin 100,000 unit/gram topical 1 appl topical BID Rash 11/03/22 02/12/23 powder omeprazole 20 mg capsule,delayed 20 mg PO DAILY@0630 11/03/22 02/12/23 release mirtazapine 7.5 mg tablet 15 mg PO BEDTIME 01/06/23 02/12/23 acetaminophen 500 mg tablet 500 mg PO BID 02/12/23 02/12/23 diclofenac sodium 1 % topical gel 4 g topical TID NECK PAIN 02/12/23 02/12/23 (Voltaren Arthritis Pain) Previous Rx's ?Medication ?Instructions ?Recorded dextromethorphan-guaifenesin 10 10 ml PO Q6H PRN cough #237 mL 02/14/23 mg-100 mg/5 mL oral syrup Allergies Allergy/AdvReac Type Severity Reaction Status Date / Time No Known Allergies Allergy Verified 06/02/23 11:16 Review of Systems Review of Systems: Constitutional : No Fever, No Chills ENT/Mouth : No sore throat, No Rhinorrhea, No Swallowing Difficulty Eyes: No Eye Pain, No Swelling, No Redness Cardiovascular : No Chest Pain, positive SOB, No Orthopnea, positive Edema Respiratory : pos Cough, No Sputum, pos Wheezing, positive dyspnea Gastrointestinal : No Nausea, No Vomiting, No Diarrhea, No abdominal Pain, No Hematochezia, No Melena Genitourinary : No Dysuria, No Urinary Frequency, No Hematuria Musculoskeletal : No joint pain, No Myalgias Skin : No Skin Lesions, No rash Neuro : No Weakness, No Numbness, No Dizziness, No Headache Psych : No Anxiety/Panic, No Depression All other systems reviewed and are negative PMFSH Past Medical History Source: old records reviewed Medical History COPD (chronic obstructive pulmonary disease) Dementia GERD (gastroesophageal reflux disease) Cholelithiasis Vitamin D deficiency Mild persistent asthma Unspecified dementia, unspecified severity, with mood disturbance Chronic kidney disease, stage 3 Chronic anemia Social History Social History Household Members: Unknown / Unable to assess Household Members Other:: From [facility] Housing: [facility] Unable to assess alcohol history related to: Unknown Alcohol intake: never Patient Tobacco Use Status: Tobacco use Unknown Advance Directives: Yes Advance Directives on File: Yes Advance Directives Date on File: 11/09/22 service: No Physical Exam Vital Signs: Vital Signs: Last Vital Signs Temp 98.2 F 06/02/23 11:14 Pulse 98 06/02/23 11:14 Resp 18 06/02/23 11:14 BP 139/53 L 06/02/23 11:14 Pulse Ox 86 L 06/02/23 12:51 O2 Del Method Room Air 06/02/23 12:51 Oxygen Flow Rate 2 06/02/23 11:14 BMI result Body Mass Index 28.8 Appearance: Alert. Oriented x 2. No acute distress. Eyes: Pupils equal, round and reactive to light. ENT: Pharynx normal. Neck: Normal inspection. Neck supple. CVS: Normal heart rate and rhythm. Pulses normal. Respiratory: No respiratory distress. Breath sounds mild exp wheezes heard rhonchi noted anteriorly as well Abdomen: Soft and nontender. Skin: Skin warm and dry. Normal skin color. Normal skin turgor. Extremities: No lower extremity edema. No calf ttp Neuro: Oriented X 2. No motor deficit. No sensory deficit. Course Course Course Narrative: + desaturation off O2 will admit for COPD Medications Administered Discontinued Medications Generic Name Dose Route Start Last Admin Trade Name Freq PRN Reason Stop Dose Admin Ceftriaxone Sodium 1 gm/ 50 mls @ 100 mls/hr 06/02/23 11:32 06/02/23 12:14 Sodium Chloride IV 06/02/23 12:01 100 mls/hr ONCE ONE Administration Methylprednisolone Sodium Succinate 60 mg 06/02/23 11:31 06/02/23 12:14 Methylprednisolone Sod Succ 125 Mg/2 Ml Vial IVPUSH 06/02/23 11:32 60 mg ONCE ONE Administration Medical Decision Making Medical Decision Making MDM Narrative: 87 yo female with PMH of COPD not on home O2, dementia, GERD, asthma, CKD, anemia coming from [facility] DNR/DNI here with cough wheezing reportedly 86% at [facility] at this time will obtain labs, VBG, CXR, viral panel - give IV steroids, start on IV ceftriaxone if she still needs O2 will need admission. Differential Diagnosis Differential Diagnoses: The differential diagnosis associated with the presentation includes viral syndrome, COPD exacerbation Admission/Observation Consideration of admission/observation: Escalation of care including admission/observation considered will admit given hypoxia Consult Healthcare Provider Management of the patient was discussed with: Hospitalist (will admit) Lab Data MDM Lab Attestation statement: I reviewed the patient's lab results. 06/02/23 12:04 06/02/23 12:04 Labs: Lab Results 06/02/23 06/02/23 06/02/23 Range/Units 11:25 12:04 12:07 WBC 11.5 H (4.8-10.8) X10*3/uL RBC 4.92 (4.20-5.50) X10*6/uL Hgb 13.5 (12.0-16.0) g/dl Hct 42.1 (37.0-47.0) % MCV 85.6 (80.0-98.0) fL MCH 27.4 (27.0-33.0) pg MCHC 32.1 (31.0-35.0) g/dl RDW 15.7 (11.0-16.0) % Plt Count 309 D (160-400) X10*3/uL MPV 10.2 (9.4-12.3) fL Immature Gran % (Auto) 0.5 H (0.0-0.4) % Neut % (Auto) 68.9 (45-73) % Lymph % (Auto) 16.3 L (20-40) % [place] % (Auto) 6.0 (2-11) % Eos % (Auto) 7.6 H (0-4) % Baso % (Auto) 0.7 (0-2) % Lymph # (Auto) 1.9 (1.2-4.9) X10*3/uL [place] # (Auto) 0.7 (0.1-1.2) X10*3/uL Eos # (Auto) 0.9 H (0.0-0.4) X10*3/uL Baso # (Auto) 0.1 (0.0-0.2) X10*3/uL Abs Immat Gran (auto) 0.06 H (0.00-0.03) X10*3/uL Absolute Neuts (auto) 7.9 (2.0-8.3) x10*3/uL Absolute Nucleated RBC 0.000 (0.0-0.012) X10*3/uL Nucleated RBC % (auto) 0.0 (0.0-0.2) /100WBC VBG pH 7.50 H (7.32-7.43) VBG pCO2 28 mmHg VBG pO2 64 mmHg VBG HCO3 22 (22-26) mmol/L VBG O2 Saturation 94.0 % VBG Base Excess 0.7 mmol/L Sodium 138 (135-145) mmol/L Potassium 4.4 (3.3-5.1) mmol/L Chloride 109 H (96-108) mmol/L Carbon Dioxide 19 L (22-29) mmol/L Anion Gap 14 (12-20) BUN 20 H (9-16) mg/dL Creatinine 0.90 (0.5-1.4) mg/dL Estim Creat Clear Calc 43.1 Estimated GFR 59 Random Glucose 116 H (60-115) mg/dL Lactic Acid 1.2 (0.5-2.0) mmol/L Calcium 10.0 D (8.4-10.2) mg/dL Magnesium 2.0 (1.6-2.6) mg/dL Total Bilirubin 0.3 (0.0-1.0) mg/dL Direct Bilirubin 0.1 (0.0-0.5) mg/dL AST 22 (5-31) U/L ALT 14 (0-31) U/L Alkaline Phosphatase 65 (39-117) U/L Troponin I High Sens < 2.7 D (<3.5-17.0) ng/L B-Natriuretic Peptide 11 (<100) pg/mL Total Protein 7.8 (6.5-8.0) g/dL Albumin 3.7 (3.5-5.0) g/dL Lipase 12 (8-78) U/L Procalcitonin 0.04 ng/mL Influenza Type A (PCR) NEGATIVE (Negative) Influenza Type B (PCR) NEGATIVE (Negative) RSV RNA Qual (PCR) NEGATIVE (Negative) SARS-CoV-2 RNA (RT-PCR) NEGATIVE (Negative) ABG Data Attestation ABG: I personally reviewed and interpreted this ABG as follows: Interpretation: no retention Independent Interpretation I performed an independent interpretation of an: EKG and Plain X-Ray (no pneumonia) Interpretation: Rate: 89 Rhythm: NSR Shubert: left Normal P waves. Normal JUWAN. Normal QRS complex. Poor R wave progression ST T wave : no FILIBERTO, flat t waves aVL qTC: 455 prior studies: no acute ischemia The study has been interpreted contemporaneously by me. . Radiology Impression Discussion of test interpretation with radiology: I have reviewed the radiologist's reading. Independent Historian Clinical information obtained from an independent historian. History obtained from or confirmed by: EMS External Record Review External record reviewed: Inpatient record Discharge Plan Discharge Clinical Impression: Acute exacerbation of chronic obstructive pulmonary disease, Hypoxia Patient Disposition: Admitted As Inpatient Print Language: Kosovan
[2023-06-02 12:09] LABS: MANUAL DIFF FLAG NO
[2023-06-02 12:11] LABS: Basophils Absolute Auto 0.1 X10*3/uL (0.0-0.2); Basophils Percent Auto 0.7 % (0-2); Eosinophils Absolute Auto 0.9 X10*3/uL (0.0-0.4); Eosinophils Percent Auto 7.6 % (0-4); Hematocrit 42.1 % (37.0-47.0); Hemoglobin 13.5 g/dl (12.0-16.0); Imm Gran Abs Auto 0.06 X10*3/uL (0.00-0.03); Imm Gran Pct Auto 0.5 % (0.0-0.4); Lymphocytes Absolute Auto 1.9 X10*3/uL (1.2-4.9); Lymphocytes Percent Auto 16.3 % (20-40); Mean Corpuscular HGB Conc 32.1 g/dl (31.0-35.0); Mean Corpuscular Hemoglobin 27.4 pg (27.0-33.0); Mean Corpuscular Volume 85.6 fL (80.0-98.0); Mean Platelet Volume 10.2 fL (9.4-12.3); Monocytes Absolute Auto 0.7 X10*3/uL (0.1-1.2); Neutrophils Absolute Auto 7.9 x10*3/uL (2.0-8.3); Neutrophils Percent Auto 68.9 % (45-73); Platelet Count 309 X10*3/uL (160-400); Red Blood Count 4.92 X10*6/uL (4.20-5.50); Red Cell Distribution Width 15.7 % (11.0-16.0); White Blood Count 11.5 X10*3/uL (4.8-10.8)
[2023-06-02 12:13] LABS: VBG Base Excess 0.7 mmol/L; VBG HCO3 22 mmol/L (22-26); VBG pCO2 28 mmHg; VBG pO2 64 mmHg
[2023-06-02] MEDS: methylPREDNISolone Sod Succ 125 MG/2 ML VIAL 60 MG IVPUSH (12:14)
[2023-06-02] MEDS: cefTRIAXone sodium 1 GM in 0.9 % Sodium Chloride 50 ML IV (12:14)
[2023-06-02 12:17] LABS: Venous Blood Gas Refer to POC result
[2023-06-02 12:24] LABS: Lactic Acid 1.2 mmol/L (0.5-2.0)
--- NOTE | 2023-06-02 12:24 | PC.NURSE ---
Portable Xray complete.
[2023-06-02 12:32] LABS: B Type Natriuretic Peptide 11 pg/mL (<100)
[2023-06-02 12:37] LABS: Troponin-I High Sensitivity < 2.7 ng/L (<3.5-17.0)
[2023-06-02 12:50] LABS: Alanine Aminotransferase 14 U/L (0-31); Albumin Level 3.7 g/dL (3.5-5.0); Alkaline Phosphatase 65 U/L (39-117); Anion Gap 14 (12-20); Aspartate Amino Transferase 22 U/L (5-31); Bilirubin Direct 0.1 mg/dL (0.0-0.5); Bilirubin Total 0.3 mg/dL (0.0-1.0); Blood Urea Nitrogen 20 mg/dL (9-16); Carbon Dioxide 19 mmol/L (22-29); Chloride 109 mmol/L (96-108); Creatinine Clr Calc Pharmacy 43.1; Estimated Glomerular Filt Rate 59; Glucose Random 116 mg/dL (60-115); Lipase 12 U/L (8-78); Potassium 4.4 mmol/L (3.3-5.1); Sodium 138 mmol/L (135-145); Total Protein 7.8 g/dL (6.5-8.0)
[2023-06-02 12:53] LABS: Procalcitonin 0.04 ng/mL
[2023-06-02 13:07] LABS: Influenza A PCR NEGATIVE (Negative); Influenza B PCR NEGATIVE (Negative); Resp Syncy Virus RNA Qual PCR NEGATIVE (Negative); SARS COV2 PCR INHOUSE NEGATIVE (Negative)
[2023-06-02] MEDS: Azithromycin 500 MG in 0.9 % Sodium Chloride 250 ML 125 MG IV (13:45)
--- NOTE | 2023-06-02 14:15 | P.HPHOSP_ITS ---
History of Present Illness Date of Service: 06/02/23 Attending physician on admission: Zackary Pulido Chief Complaint: SOB Pt is an 87-year-old female with a PMH significant for?the COPD and home O2 p.r.n., mild persistent asthma, unspecified dementia with mood disturbance, GERD, CKD 3, and HLD who presents to the ED from [facility] for evaluation of SOB and hypoxia at facility. EMS reports patient was satting at 86% on RA, was given 2 DuoNebs by EMS patient is alert and oriented to person and place, but not to time or situation. Patient states that she overall feels fine in his uncertain why she is in the hospital. Denies shortness of breath, but states she has been coughing for an unknown period of time. Denies any pain. In the ED pt was tachycardic up to 98, and hypoxic as low as 86% on RA. Labs were significant for leukocytosis 11.5, otherwise grossly unremarkable. Stable H& H. No significant electrolyte. Renal and hepatic function baseline. Troponin negative. BNP negative. Procalcitonin 0.04. CXR showed mild diffuse bilateral peribronchial cuffing suggestive of small airway disease such as bronchiolitis and possible small left pleural effusion. Did not find any dense focal consolidations or pneumonia. EKG demonstrated normal sinus rhythm without evidence of significant ST elevations. Pt was treated with Solu-Medrol, ceftriaxone, and azithromycin. Pt will be admitted to the hospital for acute hypoxic respiratory failure in the setting of COPD exacerbation. Review of Systems 2 Review of Systems: Unable to obtain due to patient's mentation [facility] Medical History COPD (chronic obstructive pulmonary disease) Dementia GERD (gastroesophageal reflux disease) Cholelithiasis Vitamin D deficiency Mild persistent asthma Unspecified dementia, unspecified severity, with mood disturbance Chronic kidney disease, stage 3 Chronic anemia Social History Household Members: Unknown / Unable to assess Household Members Other:: From [facility] Housing: Long Term Unable to assess alcohol history related to: Unknown Alcohol intake: never Patient Tobacco Use Status: Tobacco use Unknown Advance Directives: Yes Advance Directives on File: Yes Advance Directives Date on File: 11/09/22 Nutrition Risks: No Nutritional Risk service: No Meds Allergies Allergy/AdvReac Type Severity Reaction Status Date / Time No Known Allergies Allergy Verified 06/02/23 11:16 Active Medications: Current Medications Azithromycin 500 mg/ Sodium (Chloride) 250 mls @ 125 mls/hr IV ONCE ONE Stop: 06/02/23 15:03 Last Admin: 06/02/23 13:45 Dose: 125 mls/hr Home Medications ?Medication ?Instructions ?Recorded ?Confirmed ?Last Taken ?Type budesonide 90 mcg/actuation breath 2 inh inhalation BID 11/02/22 06/02/23 Unknown History activated powder inhaler (Pulmicort Flexhaler) fluticasone 500 mcg-salmeterol 50 1 ea inhalation BID 11/02/22 06/02/23 Unknown History mcg/dose blistr powdr for inhalation (Advair Diskus) ipratropium 0.5 mg-albuterol 3 mg 3 ml inhalation Q4H PRN SOB 11/02/22 06/02/23 Unknown History (2.5 mg base)/3 mL nebulization soln sertraline 50 mg tablet 50 mg PO BEDTIME 11/02/22 06/02/23 Unknown History acetaminophen 650 mg rectal 650 mg [place] Q6H PRN pain or fever 11/03/22 06/02/23 Unknown History suppository bisacodyl 10 mg rectal suppository 10 mg [place] DAILY PRN Constipation 11/03/22 06/02/23 Unknown History cholecalciferol (vitamin D3) 25 25 mcg PO DAILY 11/03/22 06/02/23 Unknown History mcg (1,000 unit) tablet (Vitamin D3) ferrous sulfate 325 mg (65 mg 325 mg PO DAILY 11/03/22 06/02/23 Unknown History iron) tablet montelukast 10 mg tablet 10 mg PO BEDTIME Allergy Symptoms 11/03/22 06/02/23 Unknown History omeprazole 20 mg capsule,delayed 20 mg PO DAILY@0630 11/03/22 06/02/23 Unknown History release mirtazapine 7.5 mg tablet 15 mg PO BEDTIME 01/06/23 06/02/23 Unknown History acetaminophen 500 mg tablet 500 mg PO BID 02/12/23 06/02/23 Unknown History diclofenac sodium 1 % topical gel 4 g topical TID NECK PAIN 02/12/23 06/02/23 Unknown History (Voltaren Arthritis Pain) ipratropium 18 mcg-albuterol 103 2 spray inhalation Q4H PRN SOB 06/02/23 06/02/23 Unknown History mcg/actuation aerosol inhaler magnesium hydroxide 400 mg/5 mL 30 ml PO DAILY PRN Constipation 06/02/23 06/02/23 Unknown History oral suspension (Milk of Magnesia) Physical Exam 2 Vital Signs and Narrative: Vital Signs: Last Vital Signs Temp 98.2 F 06/02/23 11:14 Pulse 98 06/02/23 11:14 Resp 18 06/02/23 11:14 BP 139/53 L 06/02/23 11:14 Pulse Ox 94 06/02/23 13:45 O2 Del Method Nasal Cannula 06/02/23 13:45 O2 Flow Rate 2 06/02/23 13:45 Oxygen Flow Rate 2 06/02/23 11:14 BMI result Body Mass Index 28.8 Constitutional: Alert, pleasantly confused, in no acute distress. Mental Status: Oriented to person, place and time. Eyes: Pupils are equal, round, and reactive to light. Ear, Nose, and Throat: Oropharynx clear, mucous membranes moist. Ears and nose without deformities. Trachea midline. Respiratory: Diffuse wheezing and rhonchi. Cardiovascular: S1, S2, tachy No murmurs, rubs, or gallops. Gastrointestinal: Abdomen soft, non-tender, non-distended. Normal bowel sounds. Neurologic: Cranial nerves II-XII are grossly intact bilaterally. No focal neurological deficits. Moves all extremities spontaneously. Skin: Warm, dry. Musculoskeletal: No cyanosis or clubbing. Extremities: 1+ bilateral pitting edema. Psychiatric: Pleasantly confused. Results Labs 06/02/23 12:04 06/02/23 12:04 Labs: Laboratory Results - last 24 hr 06/02/23 06/02/23 06/02/23 11:25 12:04 12:07 MCV 85.6 MCH 27.4 MCHC 32.1 RDW 15.7 Plt Count 309 D MPV 10.2 Immature Gran % (Auto) 0.5 H Neut % (Auto) 68.9 Lymph % (Auto) 16.3 L [place] % (Auto) 6.0 Eos % (Auto) 7.6 H Baso % (Auto) 0.7 Lymph # (Auto) 1.9 [place] # (Auto) 0.7 Eos # (Auto) 0.9 H Baso # (Auto) 0.1 Abs Immat Gran (auto) 0.06 H Absolute Neuts (auto) 7.9 Absolute Nucleated RBC 0.000 Nucleated RBC % (auto) 0.0 VBG pH 7.50 H VBG pCO2 28 VBG pO2 64 VBG HCO3 22 VBG O2 Saturation 94.0 VBG Base Excess 0.7 Anion Gap 14 Estim Creat Clear Calc 43.1 Estimated GFR 59 Random Glucose 116 H Lactic Acid 1.2 Calcium 10.0 D Magnesium 2.0 Total Bilirubin 0.3 Direct Bilirubin 0.1 AST 22 ALT 14 Alkaline Phosphatase 65 Troponin I High Sens < 2.7 D B-Natriuretic Peptide 11 Total Protein 7.8 Albumin 3.7 Lipase 12 Procalcitonin 0.04 Influenza Type A (PCR) NEGATIVE Influenza Type B (PCR) NEGATIVE RSV RNA Qual (PCR) NEGATIVE SARS-CoV-2 RNA (RT-PCR) NEGATIVE Imaging Radiologist's Impressions: Impressions Chest X-Ray 06/02/23 12:23 IMPRESSION: * Mild diffuse bilateral peribronchial cuffing suggesting small airway disease such as bronchiolitis. * No dense focal consolidation pneumonia. * Blunting of left costophrenic angle suggesting small effusion. Assessment and Plan (1) Acute exacerbation of chronic obstructive pulmonary disease: Status: Acute (2) Hypoxia: Status: Acute Plan Pt is an 87-year-old female with a PMH significant for?the COPD and home O2 p.r.n., mild persistent asthma, unspecified dementia with mood disturbance, GERD, CKD 3, and HLD who presents to the ED from [facility] for evaluation of SOB and hypoxia at facility. Pt will be admitted to the hospital for acute hypoxic respiratory failure in the setting of COPD exacerbation. Acute hypoxic respiratory failure in the setting of COPD exacerbation Patient with SOB, cough, wheezing, and desatting to 86% on RA CXR with mild diffuse bilateral peribronchial cuffing but no dense focal consolidation/pneumonia Patient does not meet sepsis criteria: Tachycardia, but no tachypnea, fever, or leukocytosis; lactic acid WNL at 1.2 Will empirically treat with ceftriaxone and azithromycin, started 06/02/2023 Will treat with DuoNebs, Solu-Medrol, guaifenesin Continue home inhalers Titrate supplemental O2 >92, wean as tolerated Monitor respiratory status Fluid overload Patient with possible small pleural effusions on CXR, 1+ bilateral pitting edema BNP negative, no history of CHF Will give a 1 time dose of Lasix 20 mg IV HLD Statin GERD Omeprazole Dementia/mood disorder Continue home meds DNR/DNI Attending:?Dr. Pulido DVT Prophylaxis: Lovenox Pt will require a hospitalization of at least two nights for treatment further evaluation of acute hypoxic respiratory failure in the setting of COPD exacerbation. Patient will require hospitalization for administration of supplemental O2, IV steroids, breathing treatments, and IV antibiotics, as well as close monitoring of labs and respiratory status. Quality Stroke Does the patient have a stroke diagnosis?: No VTE Prior VTE?: No VTE Risk Level:: Medical - moderate - high VTE Device Contraindication: Treatment Not Indicated VTE Drug Contraindication: N/A - Med Ordered
--- NOTE | 2023-06-02 15:00 | PC.NURSE ---
Resumed care of patient at 1500, she is currently resting in bed 2L NC remains in place. Pt states she feels like she is still having a hard time breathing but it is not getting worse. Pt appears to be breathing evenly, no distress noted. Awaiting bed placement at this time
[2023-06-02] MEDS: Albuterol/Iprat 2.5/0.5MG 3 ML AMPUL.NEB INHALE ×2 (15:10→20:37)
[2023-06-02] MEDS: Furosemide 20 MG/2 ML VIAL IVPUSH (15:18)
[2023-06-02] MEDS: Enoxaparin Sodium 40 MG/0.4 ML SYRINGE SUBCUT (15:21)
[2023-06-02] MEDS: 0.9 % Sodium Chloride Flush 3 ML SYRINGE IVFLUSH (15:21)
[2023-06-02 16:04] LABS: Adenovirus PCR Not Detected (Not Detect.); Bordetella parapertussis PCR Not Detected (Not Detect.); Bordetella pertussis PCR Not Detected (Not Detect.); Chlamydia pneumoniae PCR Not Detected (Not Detect.); Coronavirus 229E PCR Not Detected (Not Detect.); Coronavirus HKU1 PCR Not Detected (Not Detect.); Coronavirus NL63 PCR Not Detected (Not Detect.); Coronavirus OC43 PCR Not Detected (Not Detect.); Human metapneumovirus PCR Not Detected (Not Detect.); Influenza A PCR Not Detected (Not Detect.); Influenza B PCR Not Detected (Not Detect.); Mycoplasma pneumoniae PCR Not Detected (Not Detect.); Parainfluenza 1 PCR Not Detected (Not Detect.); Parainfluenza 2 PCR Not Detected (Not Detect.); Parainfluenza 3 PCR Not Detected (Not Detect.); Parainfluenza 4 PCR Not Detected (Not Detect.); RSV PCR Not Detected (Not Detect.); Rhino/Enterovirus PCR Not Detected (Not Detect.)
[2023-06-02 16:38] LABS: Appearance Urine Clear; Color Urine Yellow; Glucose Urine UA Negative (Negative); Leukocyte Esterase Urine Moderate (2+) (Negative); Nitrite Urine Negative (Negative); PH 5.5 (5.0-9.0); UMIC TRIGGER UACC YES; Urine Blood Negative (Negative); Urine Ketones Negative (Negative); Urine Protein Negative (Neg-Trace)
[2023-06-02 16:40] LABS: Bacteria Urine Trace (None Seen); RBC Urine 0-2 /HPF (0-2); Squamous Epithelial Cell Urine 0-2 /HPF (0-2); UACC Culture Trigger YES; WBC Urine 21-50 /HPF (0-5)
[2023-06-02 17:01] LABS: SARS-CoV-2 PCR Not Detected (Not Detect.)
--- NOTE | 2023-06-02 17:50 | PHA.MEDREC ---
Pharmacy Consult ? Medication Reconciliation Pharmacy has completed the medication reconciliation, listed provided from Katty garcia [place].
--- NOTE | 2023-06-02 19:07 | PC.NURSE ---
Assumed care of pt. Pt lying on stretcher, no acute distress at this time. Pt pleasantly confused. Placed on O2 for desaturation on assessment. No other complaints at this time.
[2023-06-02] MEDS: methylPREDNISolone Sod Succ 40 MG/ML VIAL IVPUSH (23:14)
[2023-06-03] VITALS (10 sets, daily range): BP systolic 111–126; BP diastolic 50–64; PULSE 75–96; RESP 16–22; TEMP 36.4–36.8; O2SAT 92–97
--- NOTE | 2023-06-03 05:53 | MHC.EDTECH ---
Pt found to be incontinent of stool. Pt cleaned, repositioned and new purewick placed.
--- NOTE | 2023-06-03 07:15 | PC.NURSE ---
patient resting quietly in bed, appears to be sleeping off and on, patient VSS, breakfast at bedside, patient stated she is not hungry yet, patient fell back asleep. currently on 2l NC, skin dry and intact, IV in place.
[2023-06-03] MEDS: Albuterol/Iprat 2.5/0.5MG 3 ML AMPUL.NEB INHALE ×3 (07:30→14:55)
[2023-06-03] MEDS: methylPREDNISolone Sod Succ 40 MG/ML VIAL IVPUSH ×2 (11:10→23:00)
[2023-06-03] MEDS: Azithromycin 500 MG TABLET PO (14:14)
--- NOTE | 2023-06-03 14:15 | PC.NURSE ---
patient sitting up in bed, given lunch tray, patient not very hungry at moment, daughter gave her snack when she came to visit. patient encouraged to eat, this RN offering to feed her. patient medicated per APR, VSS.
--- NOTE | 2023-06-03 14:17 | PC.NURSE ---
patient now sitting up eating handheld turkey wrap.
--- NOTE | 2023-06-03 14:31 | P.PNIM_ITS ---
Subjective Subjective Date of Service: 06/03/23 Interval History: copd excerebation Review of Systems sob seems somewhat improving but still sob with excersion ? desat sec to she removed her oxygen generalised weak no fever or cough Physical Exam 2 Vital Signs: Vital Signs: Last Vital Signs Temp 98.1 F 06/03/23 14:12 Pulse 89 06/03/23 14:12 Resp 18 06/03/23 14:12 BP 126/51 L 06/03/23 14:12 Pulse Ox 94 06/03/23 14:12 O2 Del Method Nasal Cannula 06/03/23 14:12 O2 Flow Rate 2 06/03/23 14:12 Oxygen Flow Rate 2 06/02/23 11:14 BMI result Body Mass Index 28.8 Appearance: Alert.? Oriented X3.?sob cvs: rrr, [id number] , no murmur res: clear to auscultation ,no rhonchii or wheezing abd: no rebound or guarding ,nt, bs present. ext pulses present , no cyanosis ,Gait well balanced well coordinated. neuro: axo3 , nonfocal. Objective Data Active Medications Acetaminophen (Acetaminophen 325 Mg Tablet) 650 mg PO Q6H PRN PRN Reason: Pain, Mild (Pain Scale 1-3) Albuterol/Ipratropium (Albuterol/Iprat 2.5/0.5mg 3 Ml Ampul.Neb) 3 ml INHALE RQ4H WHILE AWAKE [facility] Last Admin: 06/03/23 10:41 Dose: 3 ml Documented By: CORNELIUS Azithromycin (Azithromycin 500 Mg Tablet) 500 mg PO Q24H [facility] Last Admin: 06/03/23 14:14 Dose: 500 mg Documented By: BRISA Docusate Sodium (Docusate Sodium 100 Mg Capsule) 100 mg PO DAILY PRN PRN Reason: Constipation Enoxaparin Sodium (Enoxaparin Sodium 40 Mg/0.4 Ml Syringe) 40 mg SUBCUT Q24H [facility] Last Admin: 06/02/23 15:21 Dose: 40 mg Documented By: DERRELL Guaifenesin/Dextromethorphan (Guaifenesin Dm 200/20/10 Ml 10 Ml Syrup) 10 ml PO Q4H PRN PRN Reason: Cough Ceftriaxone Sodium 1 gm/ (Sodium Chloride) 50 mls @ 100 mls/hr IV Q24H [facility] Melatonin (Melatonin 3 Mg Tablet) 6 mg PO BEDTIME PRN PRN Reason: Insomnia Methylprednisolone Sodium Succinate (Methylprednisolone Sod Succ 40 Mg/Ml Vial) 40 mg IVPUSH Q12H [facility] Last Admin: 06/03/23 11:10 Dose: 40 mg Documented By: BRISA Sodium Chloride (0.9 % Sodium Chloride Flush 3 Ml Syringe) 3 ml IVFLUSH QSHIFT [facility] Last Admin: 06/03/23 07:11 Dose: Not Given Documented By: BRISA Non-Admin Reason: See Note Labs 06/02/23 12:04 06/02/23 12:04 Labs: Laboratory Results - last 24 hr 06/02/23 06/02/23 14:42 16:32 Urine Color Yellow Urine Appearance Clear Urine pH 5.5 Ur Specific Friona 1.020 Urine Protein Negative Urine Glucose (UA) Negative Urine Ketones Negative Urine Blood Negative Urine Nitrite Negative Ur Leukocyte Esterase Moderate (2+) H Urine RBC 0-2 Urine WBC 21-50 H Ur Squamous Epith Cells 0-2 Urine Bacteria Trace Hyaline Casts 3-5 Respiratory Panel Greenberg See Note Adenovirus (Rapid PCR) Not Detected B.pert (TEM-PCR) Not Detected B.parapertussis DNA PCR Not Detected C. pneumoniae DNA (PCR) Not Detected Coronavirus OC43 (PCR) Not Detected Coronavirus HKU1 (PCR) Not Detected Coronavirus 229E (PCR) Not Detected Coronavirus NL63 (PCR) Not Detected Human Metapneumovir PCR Not Detected Influenza A (RT-PCR) Not Detected Influenza B (RT-PCR) Not Detected M. pneumoniae (PCR) Not Detected Parainfluenza 1 (PCR) Not Detected Parainfluenza 2 (PCR) Not Detected Parainfluenza 3 (PCR) Not Detected Parainfluenza 4 (PCR) Not Detected RSV (PCR) Not Detected Entero/Rhino (PCR) Not Detected SARS-CoV-2 RNA (RT-PCR) Not Detected Microbiology Microbiology Results: Microbiology 06/02/23 12:10 Blood Culture - Preliminary Blood - Venous No growth after 24 hours. 06/02/23 12:10 Blood Culture - Preliminary Blood - Venous No growth after 24 hours. 06/02/23 16:41 Urine Culture - Preliminary Urine clean catch - Urine mccracken top Culture too young to evaluate. Assessment and Plan (1) Hypoxia: Status: Acute (2) Acute exacerbation of chronic obstructive pulmonary disease: Status: Acute Assessment and Plan: 87-year-old female with a PMH significant for?the COPD and home O2 p.r.n., mild persistent asthma, unspecified dementia with mood disturbance, GERD, CKD 3, and HLD who presents to the ED from [facility] for evaluation of SOB and hypoxia at facility. Pt will be admitted to the hospital for acute hypoxic respiratory failure in the setting of COPD exacerbation. Acute hypoxic respiratory failure in the setting of COPD exacerbation sob some what improving ,still hypoxic Patient with SOB, cough, wheezing,CXR with mild diffuse bilateral peribronchial cuffing but no dense focal consolidation/pneumonia continue ceftriaxone and azithromycin, started 06/02/2023, DuoNebs, Solu-Medrol, guaifenesin,nebs Titrate supplemental O2 >92, wean as tolerated,Monitor respiratory status HLD Statin GERD Omeprazole Dementia/mood disorder Continue home meds. Generalised weak -added PT. DNR/DNI DVT Prophylaxis: Lovenox ongoing hospitlisation need for 48-72 hrs for treatment of acute hypoxic respiratory failure in the setting of COPD exacerbation. Patient will require hospitalization for administration of supplemental O2, IV steroids, breathing treatments, and IV antibiotics, as well as close monitoring of labs and respiratory status. Quality Stroke Does the patient have a stroke diagnosis?: No VTE Prior VTE?: No VTE Risk Level:: Medical - moderate - high VTE Device Contraindication: Treatment Not Indicated VTE Drug Contraindication: N/A - Med Ordered
--- NOTE | 2023-06-03 15:23 | MHC.CM.PN ---
CM CALLED PTS DAUGHTER, SUZANNE PENA [phone] SHE CONFIRMS PT IS LTC AT [facility] SHE SAYS PT IS BED BOUND AT [facility] SHE ALSO NOTES, PTS LEFT UE DOES NOT WORK WELL AND SHE HAS DIFFICULTY FEEDING HERSELF HCP ON FILE PCP: CESAR PATEL IMM DELIVERED, A COPY WILL BE MAILED TO SUZANNE AT THE ADDRESS PROVIDED: [address], [place] [facility] [address] DCP: RETURN TO [facility] [place] VIA BLS
[2023-06-03] MEDS: Enoxaparin Sodium 40 MG/0.4 ML SYRINGE SUBCUT (15:42)
[2023-06-03] MEDS: Omeprazole 20 MG CAPSULE.DR PO (15:43)
--- NOTE | 2023-06-03 15:50 | PC.NURSE ---
patient ate half of her turkey wrap, finished her pudding and juice. patient is now reading the news paper. shows no signs of distress
--- NOTE | 2023-06-03 19:05 | PC.NURSE ---
patient moved into hospital bed for comfort. patient sitting up in bed, given dinner trray, food cut into bite size pieces. patient did not like pork chop, requested tuna sandwich. patient given tuna sandwich with dinner.
--- NOTE | 2023-06-03 19:07 | PC.NURSE ---
assumed care of the pt at 1900.
[2023-06-03] MEDS: Acetaminophen 325 MG TABLET PO (21:13)
[2023-06-03] MEDS: Mirtazapine 15 MG TABLET PO (21:13)
[2023-06-03] MEDS: Sertraline HCL 50 MG TABLET PO (21:13)
[2023-06-03] MEDS: Montelukast Sodium 10 MG TABLET PO (21:13)
[2023-06-03] MEDS: cefTRIAXone sodium 1 GM in 0.9 % Sodium Chloride 50 ML IV (23:00)
[2023-06-04] VITALS (7 sets, daily range): BP systolic 123–150; BP diastolic 62–66; PULSE 81–94; RESP 16–19; TEMP 36–36.6; O2SAT 94–96; BMI 28.8
--- NOTE | 2023-06-04 01:39 | MHC.EDTECH ---
patient belongings list complete.
[2023-06-04] MEDS: Albuterol/Iprat 2.5/0.5MG 3 ML AMPUL.NEB INHALE ×4 (07:35→19:59)
[2023-06-04] MEDS: Ferrous Sulfate 324 MG TABLET.DR PO (07:49)
[2023-06-04] MEDS: Acetaminophen 325 MG TABLET PO ×2 (07:49→22:41)
[2023-06-04] MEDS: Cholecalciferol (Vitamin D3) 25 MCG TABLET PO (07:50)
[2023-06-04] MEDS: Omeprazole 20 MG CAPSULE.DR PO (07:50)
[2023-06-04] MEDS: 0.9 % Sodium Chloride Flush 3 ML SYRINGE IVFLUSH ×3 (07:53→22:42)
--- NOTE | 2023-06-04 08:17 | PC.NURSE ---
Alert and responsive, denies pain or discomfort, medicated per mar, denies pain or discomfort, states does not want to eat breakfast right now
[2023-06-04] MEDS: methylPREDNISolone Sod Succ 40 MG/ML VIAL IVPUSH ×2 (11:12→22:42)
--- NOTE | 2023-06-04 13:01 | HO.PM.IMPN ---
Subjective Subjective Date of Service: 06/04/23 Interval History: copd excerebation Review of Systems sob seems similar ,minimal improvement has cough no fever Physical Exam Vital Signs: Vital Signs: Last Vital Signs Temp 96.8 F 06/04/23 09:53 Pulse 94 06/04/23 11:43 Resp 18 06/04/23 11:43 BP 142/62 H 06/04/23 09:53 Pulse Ox 94 06/04/23 09:53 O2 Del Method Nasal Cannula 06/04/23 09:53 O2 Flow Rate 2 06/04/23 09:53 Oxygen Flow Rate 2 06/02/23 11:14 BMI result Body Mass Index 28.8 Appearance: Alert.? Oriented X3.?sob cvs: rrr, [id number] , no murmur res: air enrty dimished ,has b/l exp wheezing abd: no rebound or guarding ,nt, bs present. ext pulses present , no cyanosis . neuro: axo3 , nonfocal. Objective Data Active Medications Acetaminophen (Acetaminophen 325 Mg Tablet) 650 mg PO Q6H PRN PRN Reason: Pain, Mild (Pain Scale 1-3) Acetaminophen (Acetaminophen 325 Mg Tablet) 325 mg PO BID [facility] Last Admin: 06/04/23 07:49 Dose: 325 mg Documented By: KADEN Albuterol/Ipratropium (Albuterol/Iprat 2.5/0.5mg 3 Ml Ampul.Neb) 3 ml INHALE RQ4H WHILE AWAKE [facility] Last Admin: 06/04/23 11:42 Dose: 3 ml Documented By: ADY Azithromycin (Azithromycin 500 Mg Tablet) 500 mg PO Q24H [facility] Last Admin: 06/03/23 14:14 Dose: 500 mg Documented By: BRISA Bisacodyl (Bisacodyl 10 Mg Supp.Rect) 10 mg HI DAILY PRN PRN Reason: Constipation Docusate Sodium (Docusate Sodium 100 Mg Capsule) 100 mg PO DAILY PRN PRN Reason: Constipation Enoxaparin Sodium (Enoxaparin Sodium 40 Mg/0.4 Ml Syringe) 40 mg SUBCUT Q24H [facility] Last Admin: 06/03/23 15:42 Dose: 40 mg Documented By: BRISA Ferrous Sulfate (Ferrous Sulfate 324 Mg Tablet.Dr) 324 mg PO DAILY [facility] Last Admin: 06/04/23 07:49 Dose: 324 mg Documented By: KADEN Guaifenesin/Dextromethorphan (Guaifenesin Dm 200/20/10 Ml 10 Ml Syrup) 10 ml PO Q4H PRN PRN Reason: Cough Ceftriaxone Sodium 1 gm/ (Sodium Chloride) 50 mls @ 100 mls/hr IV Q24H [facility] Last Infusion: 06/03/23 23:37 Dose: Infused Documented By: FRANK Magnesium Hydroxide (Milk Of Magnesia 30 Ml Oral.Susp) 30 ml PO DAILY PRN PRN Reason: Constipation Melatonin (Melatonin 3 Mg Tablet) 6 mg PO BEDTIME PRN PRN Reason: Insomnia Methylprednisolone Sodium Succinate (Methylprednisolone Sod Succ 40 Mg/Ml Vial) 40 mg IVPUSH Q12H [facility] Last Admin: 06/04/23 11:12 Dose: 40 mg Documented By: JED Mirtazapine (Mirtazapine 15 Mg Tablet) 15 mg PO BEDTIME [facility] Last Admin: 06/03/23 21:13 Dose: 15 mg Documented By: FRANK Montelukast Sodium (Montelukast Sodium 10 Mg Tablet) 10 mg PO BEDTIME [facility] Last Admin: 06/03/23 21:13 Dose: 10 mg Documented By: FRANK Omeprazole (Omeprazole 20 Mg Capsule.) 20 mg PO DAILY@0630 [facility] Last Admin: 06/04/23 07:50 Dose: 20 mg Documented By: KADEN Sertraline HCl (Sertraline Hcl 50 Mg Tablet) 50 mg PO BEDTIME [facility] Last Admin: 06/03/23 21:13 Dose: 50 mg Documented By: FRANK Sodium Chloride (0.9 % Sodium Chloride Flush 3 Ml Syringe) 3 ml IVFLUSH QSHIFT [facility] Last Admin: 06/04/23 07:53 Dose: 3 ml Documented By: KADEN Vitamin D (Cholecalciferol (Vitamin D3) 25 Mcg Tablet) 25 mcg PO DAILY [facility] Last Admin: 06/04/23 07:50 Dose: 25 mcg Documented By: KADEN Labs 06/02/23 12:04 06/02/23 12:04 Microbiology Microbiology Results: Microbiology 06/02/23 16:41 Urine Culture - Final Urine clean catch - Urine mccracken top 06/02/23 12:10 Blood Culture - Preliminary Blood - Venous No growth after 24 hours. 06/02/23 12:10 Blood Culture - Preliminary Blood - Venous No growth after 24 hours. Assessment and Plan (1) Hypoxia: Status: Acute (2) Acute exacerbation of chronic obstructive pulmonary disease: Status: Acute Assessment and Plan: 87-year-old female with a PMH significant for?the COPD and home O2 p.r.n., mild persistent asthma, unspecified dementia with mood disturbance, GERD, CKD 3, and HLD who presents to the ED from [facility] for evaluation of SOB and hypoxia at facility. Pt will be admitted to the hospital for acute hypoxic respiratory failure in the setting of COPD exacerbation. Acute hypoxic respiratory failure in the setting of COPD exacerbation sob some what improving ,still hypoxic Patient with SOB, cough, wheezing,CXR with mild diffuse bilateral peribronchial cuffing but no dense focal consolidation/pneumonia continue ceftriaxone and azithromycin, started 06/02/2023, DuoNebs, Solu-Medrol, guaifenesin,nebs Titrate supplemental O2 >92, wean as tolerated,Monitor respiratory status HLD Statin GERD Omeprazole Dementia/mood disorder Continue home meds. Generalised weak -added PT. DNR/DNI DVT Prophylaxis: Lovenox ongoing hospitlisation need for 48-72 hrs for treatment of acute hypoxic respiratory failure in the setting of COPD exacerbation. Patient will require hospitalization for administration of supplemental O2, IV steroids, breathing treatments, and IV antibiotics, as well as close monitoring of labs and respiratory status. Quality Stroke Does the patient have a stroke diagnosis?: No VTE Prior VTE?: No VTE Risk Level:: Medical - moderate - high VTE Device Contraindication: Treatment Not Indicated VTE Drug Contraindication: N/A - Med Ordered
[2023-06-04] MEDS: Azithromycin 500 MG TABLET PO (13:35)
[2023-06-04] MEDS: Enoxaparin Sodium 40 MG/0.4 ML SYRINGE SUBCUT (14:37)
[2023-06-04] MEDS: Montelukast Sodium 10 MG TABLET PO (22:41)
[2023-06-04] MEDS: Sertraline HCL 50 MG TABLET PO (22:42)
[2023-06-04] MEDS: Mirtazapine 15 MG TABLET PO (22:42)
[2023-06-04] MEDS: cefTRIAXone sodium 1 GM in 0.9 % Sodium Chloride 50 ML IV (22:42)
[2023-06-05] VITALS (10 sets, daily range): BP systolic 118–143; BP diastolic 60–68; PULSE 67–93; RESP 14–18; TEMP 36.1–36.6; O2SAT 90–96
[2023-06-05] MEDS: guaiFENesin DM 200/20/10 ML 10 ML SYRUP PO (06:15)
[2023-06-05] MEDS: Omeprazole 20 MG CAPSULE.DR PO (06:16)
[2023-06-05] MEDS: Albuterol/Iprat 2.5/0.5MG 3 ML AMPUL.NEB INHALE ×4 (08:11→21:01)
[2023-06-05] MEDS: Acetaminophen 325 MG TABLET PO ×2 (10:19→20:49)
[2023-06-05] MEDS: Ferrous Sulfate 324 MG TABLET.DR PO (10:19)
[2023-06-05] MEDS: Cholecalciferol (Vitamin D3) 25 MCG TABLET PO (10:20)
[2023-06-05] MEDS: methylPREDNISolone Sod Succ 40 MG/ML VIAL IVPUSH ×2 (10:40→22:47)
--- NOTE | 2023-06-05 13:45 | HO.PM.IMPN ---
Subjective Subjective Date of Service: 06/05/23 Interval History: Acute hypoxic respiratory failure in the setting of COPD exacerbation Review of Systems sob somewhat improving no cough or fevers Physical Exam Vital Signs: Vital Signs: Last Vital Signs Temp 96.9 F 06/05/23 07:37 Pulse 74 06/05/23 11:35 Resp 16 06/05/23 11:35 BP 132/62 06/05/23 07:37 Pulse Ox 93 06/05/23 09:36 O2 Del Method Room Air 06/05/23 09:36 O2 Flow Rate 2 06/05/23 03:12 Oxygen Flow Rate 2 06/02/23 11:14 BMI result Body Mass Index 28.8 Appearance: Alert.? Oriented X3.?sob cvs: rrr, [id number] , no murmur res: air enrty dimished ,has b/l exp wheezing abd: no rebound or guarding ,nt, bs present. ext pulses present , no cyanosis . neuro: axo3 , nonfocal. Objective Data Active Medications Acetaminophen (Acetaminophen 325 Mg Tablet) 650 mg PO Q6H PRN PRN Reason: Pain, Mild (Pain Scale 1-3) Acetaminophen (Acetaminophen 325 Mg Tablet) 325 mg PO BID [facility] Last Admin: 06/05/23 10:19 Dose: 325 mg Documented By: RAHEEM Albuterol/Ipratropium (Albuterol/Iprat 2.5/0.5mg 3 Ml Ampul.Neb) 3 ml INHALE RQ4H WHILE AWAKE [facility] Last Admin: 06/05/23 11:32 Dose: 3 ml Documented By: VENTURA Azithromycin (Azithromycin 500 Mg Tablet) 500 mg PO Q24H [facility] Last Admin: 06/04/23 13:35 Dose: 500 mg Documented By: JED Bisacodyl (Bisacodyl 10 Mg Supp.Rect) 10 mg AR DAILY PRN PRN Reason: Constipation Docusate Sodium (Docusate Sodium 100 Mg Capsule) 100 mg PO DAILY PRN PRN Reason: Constipation Enoxaparin Sodium (Enoxaparin Sodium 40 Mg/0.4 Ml Syringe) 40 mg SUBCUT Q24H [facility] Last Admin: 06/04/23 14:37 Dose: 40 mg Documented By: JED Ferrous Sulfate (Ferrous Sulfate 324 Mg Tablet.Dr) 324 mg PO DAILY [facility] Last Admin: 06/05/23 10:19 Dose: 324 mg Documented By: RAHEEM Guaifenesin/Dextromethorphan (Guaifenesin Dm 200/20/10 Ml 10 Ml Syrup) 10 ml PO Q4H PRN PRN Reason: Cough Last Admin: 06/05/23 06:15 Dose: 10 ml Documented By: LOUISE Comments: congested cough Ceftriaxone Sodium 1 gm/ (Sodium Chloride) 50 mls @ 100 mls/hr IV Q24H [facility] Last Infusion: 06/04/23 23:30 Dose: Infused Documented By: LOUISE Magnesium Hydroxide (Milk Of Magnesia 30 Ml Oral.Susp) 30 ml PO DAILY PRN PRN Reason: Constipation Melatonin (Melatonin 3 Mg Tablet) 6 mg PO BEDTIME PRN PRN Reason: Insomnia Methylprednisolone Sodium Succinate (Methylprednisolone Sod Succ 40 Mg/Ml Vial) 40 mg IVPUSH Q12H [facility] Last Admin: 06/05/23 10:40 Dose: 40 mg Documented By: ANDERSON Mirtazapine (Mirtazapine 15 Mg Tablet) 15 mg PO BEDTIME [facility] Last Admin: 06/04/23 22:42 Dose: 15 mg Documented By: LOUISE Montelukast Sodium (Montelukast Sodium 10 Mg Tablet) 10 mg PO BEDTIME [facility] Last Admin: 06/04/23 22:41 Dose: 10 mg Documented By: LOUISE Omeprazole (Omeprazole 20 Mg Capsule.Dr) 20 mg PO DAILY@0630 [facility] Last Admin: 06/05/23 06:16 Dose: 20 mg Documented By: LOUISE Sertraline HCl (Sertraline Hcl 50 Mg Tablet) 50 mg PO BEDTIME [facility] Last Admin: 06/04/23 22:42 Dose: 50 mg Documented By: LOUISE Sodium Chloride (0.9 % Sodium Chloride Flush 3 Ml Syringe) 3 ml IVFLUSH QSHIFT [facility] Last Admin: 06/05/23 10:10 Dose: Not Given Documented By: ANDERSON Non-Admin Reason: Previously Administered Vitamin D (Cholecalciferol (Vitamin D3) 25 Mcg Tablet) 25 mcg PO DAILY [facility] Last Admin: 06/05/23 10:20 Dose: 25 mcg Documented By: RAHEEM Labs 06/02/23 12:04 06/02/23 12:04 Microbiology Microbiology Results: Microbiology 06/02/23 12:10 Blood Culture - Preliminary Blood - Venous No growth after 48 hours. 06/02/23 12:10 Blood Culture - Preliminary Blood - Venous No growth after 48 hours. Assessment and Plan (1) Hypoxia: Status: Acute (2) Acute exacerbation of chronic obstructive pulmonary disease: Status: Acute Assessment and Plan: 87-year-old female with a PMH significant for?the COPD and home O2 p.r.n., mild persistent asthma, unspecified dementia with mood disturbance, GERD, CKD 3, and HLD who presents to the ED from [facility] for evaluation of SOB and hypoxia at facility. Pt will be admitted to the hospital for acute hypoxic respiratory failure in the setting of COPD exacerbation. Acute hypoxic respiratory failure in the setting of COPD exacerbation sob some what improving ,still hypoxic Patient with SOB, cough, wheezing,CXR with mild diffuse bilateral peribronchial cuffing but no dense focal consolidation/pneumonia continue ceftriaxone and azithromycin, started 06/02/2023, DuoNebs, Solu-Medrol, guaifenesin,nebs Titrate supplemental O2 >92, wean as tolerated,Monitor respiratory status HLD Statin GERD Omeprazole Dementia/mood disorder Continue home meds. Generalised weak -added PT. DNR/DNI DVT Prophylaxis: Lovenox ongoing hospitlisation need for treatment of acute hypoxic respiratory failure in the setting of COPD exacerbation. Patient will require hospitalization for administration of supplemental O2, IV steroids, breathing treatments, and IV antibiotics, as well as close monitoring of labs and respiratory status. Quality Stroke Does the patient have a stroke diagnosis?: No VTE Prior VTE?: No VTE Risk Level:: Medical - moderate - high VTE Device Contraindication: Treatment Not Indicated VTE Drug Contraindication: N/A - Med Ordered
[2023-06-05] MEDS: Azithromycin 500 MG TABLET PO (13:52)
[2023-06-05] MEDS: Enoxaparin Sodium 40 MG/0.4 ML SYRINGE SUBCUT (13:53)
[2023-06-05] MEDS: 0.9 % Sodium Chloride Flush 3 ML SYRINGE IVFLUSH ×2 (15:14→20:50)
[2023-06-05] MEDS: Docusate Sodium 100 MG CAPSULE PO (20:49)
[2023-06-05] MEDS: Sertraline HCL 50 MG TABLET PO (20:49)
[2023-06-05] MEDS: Montelukast Sodium 10 MG TABLET PO (20:50)
[2023-06-05] MEDS: Mirtazapine 15 MG TABLET PO (20:50)
[2023-06-05] MEDS: cefTRIAXone sodium 1 GM in 0.9 % Sodium Chloride 50 ML IV (22:47)
[2023-06-06] MEDS: guaiFENesin DM 200/20/10 ML 10 ML SYRUP PO (02:54)
[2023-06-06 04:00] VITALS: BP 148/67; PULSE 84; RESP 18; TEMP 36.1; O2SAT 93
[2023-06-06] MEDS: Omeprazole 20 MG CAPSULE.DR PO (05:46)
[2023-06-06 07:48] VITALS: BP 142/65; PULSE 81; PULSE 82; RESP 18; TEMP 36.1; O2SAT 90
[2023-06-06] MEDS: Albuterol/Iprat 2.5/0.5MG 3 ML AMPUL.NEB INHALE ×2 (07:48→11:19)
[2023-06-06] MEDS: 0.9 % Sodium Chloride Flush 3 ML SYRINGE IVFLUSH (08:11)
[2023-06-06] MEDS: Ferrous Sulfate 324 MG TABLET.DR PO (08:12)
[2023-06-06] MEDS: Cholecalciferol (Vitamin D3) 25 MCG TABLET PO (08:12)
[2023-06-06] MEDS: Acetaminophen 325 MG TABLET PO (08:12)
--- NOTE | 2023-06-06 10:38 | PM.DS ---
DS: Providers Provider Date of Service: 06/06/23 Date of admission: 06/02/23 14:47 Date of discharge: 06/06/23 Primary care physician: Isaias Canela MD Consults: 06/05/23 09:49 Consult to Wound Care Routine Reason for consultation: stg 1 R buttocks Attending physician on discharge: Zackary Pulido Discharging clinician: Zackary Pulido DS: Diagnosis Discharge Diagnosis (1) Hypoxia: Status: Acute (2) Acute exacerbation of chronic obstructive pulmonary disease: Status: Acute DS: Summary Hospital Course Hospital Course: Hospital course: Patient was admitted for acute hypoxemic respiratory failure secondary to COPD exacerbation, possible component of acute bronchiolitis: cxr -no pneumonia , Started on nebs, steroids, antibiotics seems to be improved significantly, off oxygen sats are in 90s on room air, shortness of breaths resolved. Patient will complete prednisone 40 mg for 2 more days, also azithromycin 500 mg p.o. daily,ceftin 500 mg po bid for 3 days. Further management outpatient. plan: complete prednisone 40 mg for 2 more days, also azithromycin 500 mg p.o. daily,ceftin 500 mg po bid for 3 days. Repeat chest imaging in 3-4 weeks to see resolution of bronchiolitis. follow up outpatient with pcp. Assessment plan coordination time spent 40 minute. Time Attestation Total time managing care of this patient today: 40 mintues. Discharge Coordination Time (in mins): 40 minute Quality: Safe Use of Opioids Does Pt have an Active Cancer Diagnosis on the Problem List?: No Quality: Stroke Does the patient have a stroke diagnosis?: No Physical Exam Vital Signs: Vital Signs: Last Vital Signs Temp 97.0 F 06/06/23 07:48 Pulse 81 06/06/23 07:48 Resp 18 06/06/23 07:48 BP 142/65 H 06/06/23 07:48 Pulse Ox 90 L 06/06/23 07:48 O2 Del Method Room Air 06/06/23 07:48 O2 Flow Rate 2 06/05/23 03:12 Oxygen Flow Rate 2 06/02/23 11:14 BMI result Body Mass Index 28.8 Appearance: Alert.? Oriented X3. cvs: rrr, [id number] , no murmur res: clear to auscultation ,no rhonchii or wheezing abd: no rebound or guarding ,nt, bs present. ext pulses present , no cyanosis . neuro: axo3 , nonfocal. DS: Data Data Completed and Pending Labs on day of discharge: Preliminary micro results at discharge 06/02/23 12:10 Blood Culture - Preliminary Blood - Venous No growth after 48 hours. 06/02/23 12:10 Blood Culture - Preliminary Blood - Venous No growth after 48 hours. Imaging Chest x-ray: Radiologist's impression: ITS Impressions Chest X-Ray 06/02/23 12:23 IMPRESSION: * Mild diffuse bilateral peribronchial cuffing suggesting small airway disease such as bronchiolitis. * No dense focal consolidation pneumonia. * Blunting of left costophrenic angle suggesting small effusion. Discharge Plan Discharge Anticipated Discharge Date/Time: 06/06/23 10:28 Patient Disposition: er [facility] Discharge Diagnosis: copd excerebation Referrals: Isaias Canela MD [Primary Care Provider] - 1 Week Discharge Medications: New docusate sodium 100 mg Capsule 100 mg PO DAILY PRN (Reason: Constipation) Qty: 30 0RF prednisone 20 mg Tablet 40 mg PO DAILY Qty: 4 0RF azithromycin 500 mg tablet 500 mg PO DAILY 3 Days Qty: 3 0RF cefuroxime axetil 500 mg tablet 500 mg PO BID Qty: 6 0RF Continued ipratropium-albuterol 0.5 mg-3 mg(2.5 mg base)/3 mL solution for nebulization 3 ml inhalation Q4H PRN (Reason: SOB) fluticasone propion-salmeterol [Advair Diskus] 500-50 mcg/dose blister with device 1 ea inhalation BID Rx Instructions: rinse mouth after use sertraline 50 mg tablet 50 mg PO BEDTIME Pulmicort Flexhaler 90 mcg/actuation aerosol powdr breath activated 2 inh inhalation BID acetaminophen 650 mg Suppository 650 mg TN Q6H PRN (Reason: pain or fever) bisacodyl 10 mg Suppository 10 mg TN DAILY PRN (Reason: Constipation) Rx Instructions: daily for no BM if M.O.M INEFFECTIVE ferrous sulfate 325 mg (65 mg iron) Tablet 325 mg PO DAILY omeprazole 20 mg capsule,delayed release(DR/EC) 20 mg PO DAILY@0630 Rx Instructions: GIVE ONE TABLET BY MOUTH IN AM FOR PP1 montelukast 10 mg tablet 10 mg PO BEDTIME cholecalciferol (vitamin D3) [Vitamin D3] 25 mcg (1,000 unit) Tablet 25 mcg PO DAILY magnesium hydroxide [Milk of Magnesia] 400 mg/5 mL Suspension 30 ml PO DAILY PRN (Reason: Constipation) Rx Instructions: prn for no BM in 9 shifts (3 days), do not administer with dialysis ipratropium-albuterol 18-103 mcg/actuation Aerosol 2 spray INHALATION Q4H PRN (Reason: SOB) Rx Instructions: rinse mouth with water and spit after treatment mirtazapine 7.5 mg tablet 15 mg PO BEDTIME acetaminophen 500 mg Tablet 500 mg PO BID diclofenac sodium [Voltaren Arthritis Pain] 1 % Gel 4 g TOPICAL TID Discharge Orders: Discharge Order (Routine); Ordered 06/06/23 Ordered By: Zackary Pulido Diet: Advance to usual diet Activity on Discharge: As tolerated Stand Alone Forms: Patient Portal Discharge page Print Language: Ghanaian Care Plan Goals: Patient was admitted for acute hypoxemic respiratory failure secondary to COPD exacerbation, possible component of acute bronchiolitis: cxr -no pneumonia , Started on nebs, steroids, antibiotics seems to be improved significantly, off oxygen sats are in 90s on room air, shortness of breaths resolved. Patient will complete prednisone 40 mg for 2 more days, also azithromycin 500 mg p.o. daily,ceftin 500 mg po bid for 3 days. Further management outpatient. Health Concerns: As above. Plan of Treatment: As above. Assessment: As above.
[2023-06-06] MEDS: predniSONE 20 MG TABLET 40 MG PO (10:54)
[2023-06-06] MEDS: Azithromycin 500 MG TABLET PO (10:54)
[2023-06-06 11:19] VITALS: PULSE 84; RESP 18; O2SAT 93
--- NOTE | 2023-06-06 11:23 | MHC.CM.PN ---
PATIENT IS DC BACK TO [facility] TODAY FOR 12:15 DAUGHTER, SUZANNE, AWARE OF PLAN. RN AND UNIT AWARE OF PLANS. IMM 06/05 IN CHART
== END 2023-06-06 12:39 | disposition skilled nursing facility (03) | DRG 190 ==
LOC: HO.ED 13:05 → HO.EDOVER 14:55 → HO.S3 06-04 08:32
PROVIDERS: Admitting Provider Student in an Organized Health Care Education/Training Program; Emergency Provider Emergency Medicine; PCP Family Medicine; Visit Provider Internal Medicine
DX: J44.1 Chronic obstructive pulmonary disease with (acute) exacerbation (principal); J96.01 Acute respiratory failure with hypoxia; J21.9 Acute bronchiolitis, unspecified; J44.0 Chronic obstructive pulmonary disease with (acute) lower respiratory infection; N18.30 Chronic kidney disease, stage 3 unspecified; Z66 Do not resuscitate; F03.90 Unspecified dementia, unspecified severity, without behavioral disturbance, psychotic disturbance, mood disturbance, and anxiety; E78.5 Hyperlipidemia, unspecified; K21.9 Gastro-esophageal reflux disease without esophagitis; Z20.822 Contact with and (suspected) exposure to COVID-19; Z79.51 Long term (current) use of inhaled steroids; Z79.899 Other long term (current) drug therapy
CPT/HCPCS: 0241U; 36415; 71045; 80048; 80076; 81001; 82803; 83605; 83690; 83735; 83880; 84145; 84484; 85025; 87040; 87086; 87633; 93005; 94640; 99285; J0456; J0696; J1650; J1940; J2919

== ENCOUNTER → 2023-06-02 11:31 | Outpatient (BNV) | payer MEDICARE, MEDICAID, SELFPAY | PROVIDERS: Admitting Provider Student in an Organized Health Care Education/Training Program; Emergency Provider Emergency Medicine; PCP Family Medicine; Visit Provider Internal Medicine | DX: R94.31 Abnormal electrocardiogram [ECG] [EKG] (principal) | CPT/HCPCS: 93010 ==

== ENCOUNTER → 2023-06-02 14:47 | Outpatient (BNV) | payer MEDICARE, MEDICAID, SELFPAY | PROVIDERS: Admitting Provider Student in an Organized Health Care Education/Training Program; Emergency Provider Emergency Medicine; PCP Family Medicine; Visit Provider Student in an Organized Health Care Education/Training Program | DX: J96.01 Acute respiratory failure with hypoxia (principal); J44.1 Chronic obstructive pulmonary disease with (acute) exacerbation | CPT/HCPCS: 99223; 99232; 99239 ==

== ENCOUNTER 2023-08-02 18:13 | Inpatient (IN) | payer MEDICARE, MEDICAID, SELFPAY ==
[2023-08-02] VITALS (12 sets, daily range): BP systolic 82–142; BP diastolic 28–72; PULSE 93–118; RESP 15–26; TEMP 37.7–38.8; O2SAT 85–96; BMI 25.6
--- NOTE | ~2023-08-02 | XR_ITS ---
EXAMINATION: XR CHEST CLINICAL INFORMATION: Shortness of breath COMPARISON: Chest x-ray June 02, 2023. CT chest February 13, 2023 TECHNIQUE: Frontal portable view of the chest was obtained. 1939 hours FINDINGS: Stable mild diffuse chronic peribronchial cuffing consistent with small airways disease. This remains similar prior chest x-ray. No acute abnormality. No focal consolidation. No pleural effusion. No pulmonary vascular congestion. Heart size is normal. Cardiac and mediastinal contours are normal. XR/XR chest 1V IMPRESSION: No acute abnormality of chest.
--- NOTE | ~2023-08-02 | XR_ITS ---
EXAMINATION: XR CHEST CLINICAL INFORMATION: Dyspnea. Hypoxia. COMPARISON: Chest radiograph 08/02/2023, CT chest 02/13/2023. TECHNIQUE: Frontal view of the chest was obtained. FINDINGS: Normal appearance of the cardiomediastinal structures. Mild blunting of the left right costophrenic sulci. Mild diffuse vascular indistinctness. No focal pulmonary consolidation. Diffuse osteopenia. 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 XR/XR chest 1V IMPRESSION: 1. Trace bilateral pleural effusions. 2. Pulmonary vascular congestion. No focal pulmonary consolidation.
--- NOTE | 2023-08-02 18:19 | ECG_ITS ---
Test Reason : TACHYCARDIA Blood Pressure : / mmHG Vent. Rate : 113 BPM Atrial Rate : 113 BPM P-R Int : 182 ms QRS Dur : 080 ms QT Int : 330 ms P-R-T Axes : 063 -45 049 degrees QTc Int : 452 ms Sinus tachycardia Low voltage QRS Left anterior fascicular block Cannot rule out Inferior infarct (cited on or before 12-FEB-2023) Cannot rule out Anterior infarct (cited on or before 12-FEB-2023) Abnormal ECG When compared with ECG of 02-JUN-2023 11:43, No significant change was found Referred By: Johanny Perry Electronically Signed By:Brian Martini
[2023-08-02] MEDS: levalbuterol HCL 3.75 MG, Ipratropium Bromide 0.5 MG INHALE (18:34)
--- NOTE | 2023-08-02 18:50 | ED.SOB ---
HPI - SOB/Dyspnea General Chief Complaint: Altered Mental Status Stated Complaint: LETHARGIC LOW O2 Time Seen by Provider: 08/02/23 18:15 Source: EMS Mode of arrival: EMS History of Present Illness ED Provider: Dr Perry HPI Narrative: 87-year-old female is brought in from [facility] by EMS for lethargy and low oxygen levels. She has an extensive past medical history of COPD and is on as-needed oxygen, unspecified dementia and mood disturbance as well as CKD. Patient is unable to provide any other history at this time. Related Data Home Medications ?Medication ?Instructions ?Recorded ?Confirmed budesonide 90 mcg/actuation breath 2 inh inhalation BID 11/02/22 06/02/23 activated powder inhaler (Pulmicort Flexhaler) fluticasone 500 mcg-salmeterol 50 1 ea inhalation BID 11/02/22 06/02/23 mcg/dose blistr powdr for inhalation (Advair Diskus) ipratropium 0.5 mg-albuterol 3 mg 3 ml inhalation Q4H PRN SOB 11/02/22 06/02/23 (2.5 mg base)/3 mL nebulization soln sertraline 50 mg tablet 50 mg PO BEDTIME 11/02/22 06/02/23 acetaminophen 650 mg rectal 650 mg RI Q6H PRN pain or fever 11/03/22 06/02/23 suppository bisacodyl 10 mg rectal suppository 10 mg RI DAILY PRN Constipation 11/03/22 06/02/23 cholecalciferol (vitamin D3) 25 25 mcg PO DAILY 11/03/22 06/02/23 mcg (1,000 unit) tablet (Vitamin D3) ferrous sulfate 325 mg (65 mg 325 mg PO DAILY 11/03/22 06/02/23 iron) tablet montelukast 10 mg tablet 10 mg PO BEDTIME Allergy Symptoms 11/03/22 06/02/23 omeprazole 20 mg capsule,delayed 20 mg PO DAILY@0630 11/03/22 06/02/23 release mirtazapine 7.5 mg tablet 15 mg PO BEDTIME 01/06/23 06/02/23 acetaminophen 500 mg tablet 500 mg PO BID 02/12/23 06/02/23 diclofenac sodium 1 % topical gel 4 g topical TID NECK PAIN 02/12/23 06/02/23 (Voltaren Arthritis Pain) ipratropium 18 mcg-albuterol 103 2 spray inhalation Q4H PRN SOB 06/02/23 06/02/23 mcg/actuation aerosol inhaler magnesium hydroxide 400 mg/5 mL 30 ml PO DAILY PRN Constipation 06/02/23 06/02/23 oral suspension (Milk of Magnesia) Previous Rx's ?Medication ?Instructions ?Recorded azithromycin 500 mg tablet 500 mg PO DAILY 3 days #3 tabs 06/06/23 cefuroxime axetil 500 mg tablet 500 mg PO BID #6 tabs 06/06/23 docusate sodium 100 mg capsule 100 mg PO DAILY PRN Constipation 06/06/23 #30 caps prednisone 20 mg tablet 40 mg (2 x 20 mg) PO DAILY #4 tabs 06/06/23 Allergies Allergy/AdvReac Type Severity Reaction Status Date / Time No Known Allergies Allergy Verified 08/02/23 18:58 Review of Systems Review of Systems: Yes Unobtainable due to mental condition PMFSH Past Medical History Source: nursing notes reviewed Medical History COPD (chronic obstructive pulmonary disease) Dementia GERD (gastroesophageal reflux disease) Cholelithiasis Vitamin D deficiency Mild persistent asthma Unspecified dementia, unspecified severity, with mood disturbance Chronic kidney disease, stage 3 Chronic anemia Social History Social History Household Members: None Household Members Other:: From [facility] Housing: Jail Do you presently have visiting nurse or other home services: No Unable to assess alcohol history related to: Unknown Alcohol intake: never Patient Tobacco Use Status: Tobacco use Unknown Advance Directives: Yes Advance Directives on File: Yes Advance Directives Date on File: 11/09/22 service: No Physical Exam Vital Signs: Vital Signs: Last Vital Signs Temp 99.8 F 08/02/23 21:44 Pulse 99 08/02/23 21:55 Resp 22 H 08/02/23 21:55 BP 90/32 L 08/02/23 21:55 Pulse Ox 96 08/02/23 21:55 O2 Del Method Nasal Cannula 08/02/23 21:55 O2 Flow Rate 4 08/02/23 21:55 BMI result Body Mass Index 25.6 VITAL SIGNS: Reviewed. GENERAL: Well developed, well nourished, in no acute distress. HEAD: Normocephalic/atraumatic EYES: PERRLA, EOMI EARS: Ext canals without abnormality NOSE: Nares patent bilateral OROPHARYNX: no oral lesions noted, posterior pharynx clear NECK: Supple, no adenopathy LUNGS: Tachypnea is present, increased work of breathing, bibasilar decreased breath sounds (left greater than right) with associated crackles SpO2<89> on 4 L via nasal cannula CARDIOVASCULAR: Regular rate and rhythm without noted murmurs, no JVD or lower extremity edema. ABDOMEN: Soft, non-tender, non-distended with bowel sounds. MUSCULOSKELETAL: No tenderness, deformities, or effusions noted on gross inspection. EXTREMITIES: No cyanosis, clubbing or edema. SKIN: Inspection of the skin reveals no rashes NEUROLOGIC: Drowsy but arousable, Strength and sensation to light touch were grossly intact x 4. Medications Administered Generic Name Dose Route Start Last Admin Trade Name Freq PRN Reason Stop Dose Admin Dexamethasone Sodium Phosphate 6 mg 08/02/23 20:15 08/02/23 20:30 Dexamethasone Sod Phosphate 4 Mg/Ml Vial IVPUSH 6 mg DAILY PADMAJA Administration Enoxaparin Sodium 40 mg 08/02/23 20:15 08/02/23 20:30 Enoxaparin Sodium 40 Mg/0.4 Ml Syringe SUBCUT 40 mg Q24H PADMAJA Administration Sodium Chloride 1,000 mls @ 100 mls/hr 08/02/23 20:15 08/02/23 20:29 Ns IVCONT 100 mls/hr .Q10H PADMAJA Administration Azithromycin 500 mg/ Sodium 250 mls @ 125 mls/hr 08/02/23 21:00 08/02/23 21:05 Chloride IV 125 mls/hr Q24H PADMAJA Administration Discontinued Medications Generic Name Dose Route Start Last Admin Trade Name Freq PRN Reason Stop Dose Admin Acetaminophen 650 mg 08/02/23 19:05 08/02/23 19:23 Acetaminophen Supp 650 Mg Supp.Rect RI 08/02/23 19:06 650 mg ONCE ONE Administration Levalbuterol HCl 3.75 mg/ 0 mg 08/02/23 18:32 08/02/23 18:34 Ipratropium [place] 0.5 mg INHALE 08/02/23 18:33 1 dose ONCE ONE Administration Sodium Chloride 500 mls @ 999 mls/hr 08/02/23 19:15 08/02/23 20:17 Ns IV 08/02/23 19:45 Infused .Q31M PADMAJA Infusion Cefepime HCl 2 gm/ Sodium 50 mls @ 100 mls/hr 08/02/23 19:06 08/02/23 20:17 Chloride IV 08/02/23 19:35 Infused ONCE ONE Infusion Ketorolac Tromethamine 15 mg 08/02/23 19:36 08/02/23 20:29 Ketorolac Tromethamine 30 Mg/Ml Vial IVPUSH 08/02/23 19:37 15 mg ONCE ONE Administration Medical Decision Making Medical Decision Making [facility] Narrative: 1814: 87-year-old female with history and clinical presentation, DDX: COPD bronchitis, pneumonia, lower clinical suspicion for ACS. 1904: Notified by nursing that patient stool is dark, will send stool guaiac. I reviewed all investigations and there is a noted leukocytosis with a left shift but no anemia or thrombocytopenia. Coagulation studies are within normal limits. VBG does not demonstrate any hypercapnia or evidence to suggest respiratory acidosis. Chemistry indices are negative for TRINA/electrolyte/liver enzyme derangements. Urinalysis is significant for urinary tract infection/pyelonephritis. Stool guaiac is negative. Viral testing is positive for COVID-19. Chest x-ray negative for infiltrate or venous congestion. My interpretation is that patient has sepsis secondary to urinary tract infection, no evidence to suggest acute exacerbation of underlying COPD urine suspect that the initial respiratory difficulty is secondary to patient's COVID-19. 1930: I discussed case with inpatient hospitalist who accepts admission. Differential Diagnosis Differential Diagnoses: The differential diagnosis associated with the presentation includes Please see the discussion Admission/Observation Consideration of admission/observation: Escalation of care including admission/observation considered Please see the discussion above Consult Healthcare Provider Management of the patient was discussed with: Hospitalist Please see the discussion above Lab Data [facility] Lab Attestation statement: I reviewed the patient's lab results. Please see the discussion above 08/02/23 18:50 08/02/23 18:50 Labs: Lab Results 08/02/23 08/02/23 08/02/23 Range/Units 18:50 18:56 19:12 WBC 16.4 H (4.8-10.8) X10*3/uL RBC 4.84 (4.20-5.50) X10*6/uL Hgb 13.5 (12.0-16.0) g/dl Hct 40.6 (37.0-47.0) % MCV 83.9 (80.0-98.0) fL MCH 27.9 (27.0-33.0) pg MCHC 33.3 (31.0-35.0) g/dl RDW 15.5 (11.0-16.0) % Plt Count 283 (160-400) X10*3/uL MPV 10.0 (9.4-12.3) fL Immature Gran % (Auto) 0.9 H (0.0-0.4) % Neut % (Auto) 91.3 H (45-73) % Lymph % (Auto) 2.6 L (20-40) % [place] % (Auto) 4.5 (2-11) % Eos % (Auto) 0.3 (0-4) % Baso % (Auto) 0.4 (0-2) % Lymph # (Auto) 0.4 L (1.2-4.9) X10*3/uL [place] # (Auto) 0.7 (0.1-1.2) X10*3/uL Eos # (Auto) 0.1 (0.0-0.4) X10*3/uL Baso # (Auto) 0.1 (0.0-0.2) X10*3/uL Abs Immat Gran (auto) 0.15 H (0.00-0.03) X10*3/uL Absolute Neuts (auto) 15.0 H (2.0-8.3) x10*3/uL Absolute Nucleated RBC 0.000 (0.0-0.012) X10*3/uL Nucleated RBC % (auto) 0.0 (0.0-0.2) /100WBC Smear Tech's Comments VERIFIED PT 13.3 (11.1-13.3) SEC INR 1.1 (0.9-1.1) VBG pH 7.49 H (7.32-7.43) VBG pCO2 26 mmHg VBG pO2 146 mmHg VBG HCO3 20 L (22-26) mmol/L VBG O2 Saturation 100.0 % VBG Base Excess -1.4 mmol/L Sodium 141 (135-145) mmol/L Potassium 4.0 (3.3-5.1) mmol/L Chloride 108 (96-108) mmol/L Carbon Dioxide 20 L (22-29) mmol/L Anion Gap 17 (12-20) BUN 20 H (9-16) mg/dL Creatinine 1.09 (0.5-1.4) mg/dL Estim Creat Clear Calc 37.2 Estimated GFR 47 Random Glucose 165 H (60-115) mg/dL Lactic Acid 1.6 (0.5-2.0) mmol/L Calcium 10.1 (8.4-10.2) mg/dL Total Bilirubin 0.3 (0.0-1.0) mg/dL AST 20 (5-31) U/L ALT 12 (0-31) U/L Alkaline Phosphatase 71 (39-117) U/L Total Protein 8.0 (6.5-8.0) g/dL Albumin 4.1 (3.5-5.0) g/dL Urine Color Dark Yellow Urine Appearance Cloudy Urine pH 5.0 (5.0-9.0) Ur Specific [place] >= 1.030 H (1.005-1.025) Urine Protein 30 (1+) H (Neg-Trace) mg/dL Urine Glucose (UA) Negative (Negative) mg/dL Urine Ketones 15 (Negative) mg/dL Urine Blood Trace H (Negative) Urine Nitrite Positive H (Negative) Ur Leukocyte Esterase Moderate (2+) H (Negative) Urine RBC 3-5 H (0-2) /HPF Urine WBC >50 H (0-5) /HPF Ur Squamous Epith Cells 6-10 (0-2) /HPF Urine Bacteria 1+ (None Seen) Hyaline Casts 6-10 (0-2) /LPF Stool Occult Blood NEGATIVE (NEGATIVE) Influenza Type A (PCR) NEGATIVE (Negative) Influenza Type B (PCR) NEGATIVE (Negative) RSV RNA Qual (PCR) NEGATIVE (Negative) SARS-CoV-2 RNA (RT-PCR) POSITIVE A (Negative) Independent Interpretation I performed an independent interpretation of an: EKG Interpretation: Sinus tachycardia, HR-113, no STEMI, RI/QRS/QTC is within normal limits. Radiology Impression Discussion of test interpretation with radiology: I have reviewed the radiologist's reading. Radiologist Impression: Please see the discussion above External Record Review External record reviewed: Inpatient record, Outpatient record, Prior outpatient labs and Prior outpatient radiology Chronic Conditions Patient?s care impacted by: Other COPD, dementia Critical Care Time Critical Care Time Critical Care Time: Yes Total Critical Care Time: 60 Attestation: I personally attest to this time spent taking care of the patient. Discharge Plan Discharge Clinical Impression: Acute hypoxemic respiratory failure, SIRS (systemic inflammatory response syndrome), Acute UTI, Lab test positive for detection of COVID-19 virus Patient Disposition: Admitted As Inpatient Interventions: Admission Worksheet (ED) Last Done: 08/02/23 21:09
[2023-08-02 19:05] LABS: Basophils Absolute Auto 0.1 X10*3/uL (0.0-0.2); Basophils Percent Auto 0.4 % (0-2); Eosinophils Absolute Auto 0.1 X10*3/uL (0.0-0.4); Eosinophils Percent Auto 0.3 % (0-4); Hematocrit 40.6 % (37.0-47.0); Hemoglobin 13.5 g/dl (12.0-16.0); Imm Gran Abs Auto 0.15 X10*3/uL (0.00-0.03); Imm Gran Pct Auto 0.9 % (0.0-0.4); Lymphocytes Absolute Auto 0.4 X10*3/uL (1.2-4.9); Lymphocytes Percent Auto 2.6 % (20-40); MANUAL DIFF FLAG SCAN; Mean Corpuscular HGB Conc 33.3 g/dl (31.0-35.0); Mean Corpuscular Hemoglobin 27.9 pg (27.0-33.0); Mean Corpuscular Volume 83.9 fL (80.0-98.0); Monocytes Absolute Auto 0.7 X10*3/uL (0.1-1.2); Monocytes Percent Auto 4.5 % (2-11); Neutrophils Percent Auto 91.3 % (45-73); Platelet Count 283 X10*3/uL (160-400); Red Blood Count 4.84 X10*6/uL (4.20-5.50); Red Cell Distribution Width 15.5 % (11.0-16.0); SCAN SMEAR FLAG 1
[2023-08-02 19:09] LABS: VBG Base Excess -1.4 mmol/L; VBG HCO3 20 mmol/L (22-26); VBG pCO2 26 mmHg; VBG pH 7.49 (7.32-7.43); VBG pO2 146 mmHg
[2023-08-02 19:11] LABS: INTERNATIONAL NORM RATIO 1.1 (0.9-1.1); Prothrombin Time 13.3 SEC (11.1-13.3); Venous Blood Gas Refer to POC result
[2023-08-02 19:17] LABS: Lactic Acid 1.6 mmol/L (0.5-2.0)
[2023-08-02 19:22] LABS: Alanine Aminotransferase 12 U/L (0-31); Albumin Level 4.1 g/dL (3.5-5.0); Alkaline Phosphatase 71 U/L (39-117); Anion Gap 17 (12-20); Aspartate Amino Transferase 20 U/L (5-31); Bilirubin Total 0.3 mg/dL (0.0-1.0); Blood Urea Nitrogen 20 mg/dL (9-16); Calcium 10.1 mg/dL (8.4-10.2); Carbon Dioxide 20 mmol/L (22-29); Chloride 108 mmol/L (96-108); Creatinine Clr Calc Pharmacy 37.2; Estimated Glomerular Filt Rate 47; Glucose Random 165 mg/dL (60-115); Sodium 141 mmol/L (135-145)
[2023-08-02] MEDS: 0.9 % Sodium Chloride 500 ML 999 ML IV (19:23)
[2023-08-02] MEDS: cefEPime HCl 2 GM in 0.9 % Sodium Chloride 50 ML IV (19:23)
[2023-08-02] MEDS: Acetaminophen Supp 650 MG SUPP.RECT PR (19:23)
[2023-08-02 19:26] LABS: OBS Int Ctl Valid YES; OBS1 NEGATIVE (NEGATIVE)
[2023-08-02 19:27] LABS: Appearance Urine Cloudy; Color Urine Dark Yellow; Glucose Urine UA Negative (Negative); Leukocyte Esterase Urine Moderate (2+) (Negative); Nitrite Urine Positive (Negative); Specific Gravity - Urine >= 1.030 (1.005-1.025); UMIC TRIGGER UACC YES; Urine Blood Trace (Negative); Urine Ketones 15 mg/dL (Negative); Urine Protein 30 (1+) mg/dL (Neg-Trace)
[2023-08-02 19:30] LABS: SLIDE REVIEW VERIFIED; White Blood Count 16.4 X10*3/uL (4.8-10.8)
[2023-08-02 19:38] LABS: Bacteria Urine 1+ (None Seen); UACC Culture Trigger YES; WBC Urine >50 /HPF (0-5)
[2023-08-02 20:06] LABS: Influenza A PCR NEGATIVE (Negative); Influenza B PCR NEGATIVE (Negative); Resp Syncy Virus RNA Qual PCR NEGATIVE (Negative); SARS COV2 PCR INHOUSE POSITIVE (Negative)
--- NOTE | 2023-08-02 20:09 | PM.IMHP ---
History of Present Illness Date of Service: 08/02/23 Attending physician on admission: Joel Santana Chief Complaint: lethargy, hypoxia 87-year-old female with a PMH significant for?the COPD and home O2 p.r.n., mild persistent asthma, unspecified dementia with mood disturbance, GERD, CKD 3, and HLD who presents to the ED from [facility] due to lethargy and hypoxia. The patient is disoriented at baseline, but is nonverbal at time of exam which is different from her baseline. Per triage nurse report, patient was COVID+ at facility and hypoxic (unknown sat at facility however arrived on 15L via nonrebreather). On arrival, febrile to 102, tachcyardic to 116, tachypneic, and 85% on room air placed on 5 L supplemental O2 maintain oximetry 92%. She has a leukocytosis of 16.4. Creatinine slightly increased from baseline at 1.09, baseline around 0.9, no TRINA. Electrolyte levels normal except for CO2 20. Subsequent VBG showed pH 7.49, pCO2 26, bicarb 20. Urinalysis significant for 2+ leukocytes, positive nitrites, trace blood, positive urinary sediment, 1+ bacteria. RN noted dark stool but stool occult blood was negative and there is no anemia. She is positive for COVID-19, negative for influenza and RSV. Chest x-ray radiology report pending but does appear to be negative for any focal consolidation. In the ED, given Tylenol, 2 g cefepime, 500 mL NS, and levalbuterol. Review of Systems Review of Systems: Yes Unobtainable due to mental status [facility] Medical History COPD (chronic obstructive pulmonary disease) Dementia GERD (gastroesophageal reflux disease) Cholelithiasis Vitamin D deficiency Mild persistent asthma Unspecified dementia, unspecified severity, with mood disturbance Chronic kidney disease, stage 3 Chronic anemia Social History Household Members: None Household Members Other:: From [facility] Housing: Alf Do you presently have visiting nurse or other home services: No Unable to assess alcohol history related to: Unknown Alcohol intake: never Patient Tobacco Use Status: Tobacco use Unknown Advance Directives: Yes Advance Directives on File: Yes Advance Directives Date on File: 11/09/22 service: No Meds Allergies Allergy/AdvReac Type Severity Reaction Status Date / Time No Known Allergies Allergy Verified 08/02/23 18:58 Active Medications: Current Medications Acetaminophen (Acetaminophen Supp 650 Mg Supp.Rect) 650 mg UT Q6H PRN PRN Reason: Pain, Mild (Pain Scale 1-3), fever or headache Albuterol/Ipratropium (Albuterol/Iprat 2.5/0.5mg 3 Ml Ampul.Neb) 3 ml INHALE RQ4H WHILE AWAKE PADMAJA Enoxaparin Sodium (Enoxaparin Sodium 40 Mg/0.4 Ml Syringe) 40 mg SUBCUT Q24H PADMAJA Sodium Chloride (Ns) 1,000 mls @ 100 mls/hr IVCONT .Q10H PADMAJA Ceftriaxone Sodium 1 gm/ (Sodium Chloride) 50 mls @ 100 mls/hr IV Q24H PADMAJA Magnesium Hydroxide (Milk Of Magnesia 30 Ml Oral.Susp) 30 ml PO DAILY PRN PRN Reason: Constipation Methylprednisolone Sodium Succinate (Methylprednisolone Sod Succ 40 Mg/Ml Vial) 40 mg IVPUSH Q12H PADMAJA Ondansetron HCl (Ondansetron Hcl 4 Mg/2 Ml Vial) 4 mg IVPUSH Q8H PRN PRN Reason: Nausea and Vomiting Home Medications ?Medication ?Instructions ?Recorded ?Confirmed ?Last Taken ?Type budesonide 90 mcg/actuation breath 2 inh inhalation BID 11/02/22 06/02/23 Unknown History activated powder inhaler (Pulmicort Flexhaler) fluticasone 500 mcg-salmeterol 50 1 ea inhalation BID 11/02/22 06/02/23 Unknown History mcg/dose blistr powdr for inhalation (Advair Diskus) ipratropium 0.5 mg-albuterol 3 mg 3 ml inhalation Q4H PRN SOB 11/02/22 06/02/23 Unknown History (2.5 mg base)/3 mL nebulization soln sertraline 50 mg tablet 50 mg PO BEDTIME 11/02/22 06/02/23 Unknown History acetaminophen 650 mg rectal 650 mg UT Q6H PRN pain or fever 11/03/22 06/02/23 Unknown History suppository bisacodyl 10 mg rectal suppository 10 mg UT DAILY PRN Constipation 11/03/22 06/02/23 Unknown History cholecalciferol (vitamin D3) 25 25 mcg PO DAILY 11/03/22 06/02/23 Unknown History mcg (1,000 unit) tablet (Vitamin D3) ferrous sulfate 325 mg (65 mg 325 mg PO DAILY 11/03/22 06/02/23 Unknown History iron) tablet montelukast 10 mg tablet 10 mg PO BEDTIME Allergy Symptoms 11/03/22 06/02/23 Unknown History omeprazole 20 mg capsule,delayed 20 mg PO DAILY@0630 11/03/22 06/02/23 Unknown History release mirtazapine 7.5 mg tablet 15 mg PO BEDTIME 01/06/23 06/02/23 Unknown History acetaminophen 500 mg tablet 500 mg PO BID 02/12/23 06/02/23 Unknown History diclofenac sodium 1 % topical gel 4 g topical TID NECK PAIN 02/12/23 06/02/23 Unknown History (Voltaren Arthritis Pain) ipratropium 18 mcg-albuterol 103 2 spray inhalation Q4H PRN SOB 06/02/23 06/02/23 Unknown History mcg/actuation aerosol inhaler magnesium hydroxide 400 mg/5 mL 30 ml PO DAILY PRN Constipation 06/02/23 06/02/23 Unknown History oral suspension (Milk of Magnesia) Physical Exam Vital Signs and Narrative: Vital Signs: Last Vital Signs Temp 102 F H 08/02/23 18:57 Pulse 116 H 08/02/23 18:57 Resp 24 H 08/02/23 18:57 BP 118/50 L 08/02/23 18:57 Pulse Ox 85 L 08/02/23 18:57 O2 Del Method Room Air 08/02/23 18:57 BMI result Body Mass Index 25.6 Constitutional - somnolent but arousable, No apparent distress Eyes - PERRLA, EOMI Cardiovascular - S1S2, RRR, No edema Respiratory - Normal lung expansion, Normal respiratory effort, No respiratory distress on 5L, bilateral rhonchi, scattered expiratory wheezes Gastrointestinal - NT / ND; +BS; No rebound or guarding Extremities - no calf tenderness bilaterally, no swelling Skin - Warm/Dry Neurological - somnolent but arousable, lethargic, nonverbal, not following commands Results Labs 08/02/23 18:50 08/02/23 18:50 Labs: Laboratory Results - last 24 hr 08/02/23 08/02/23 08/02/23 18:50 18:56 19:12 MCV 83.9 MCH 27.9 MCHC 33.3 RDW 15.5 Plt Count 283 MPV 10.0 Immature Gran % (Auto) 0.9 H Neut % (Auto) 91.3 H Lymph % (Auto) 2.6 L [place] % (Auto) 4.5 Eos % (Auto) 0.3 Baso % (Auto) 0.4 Lymph # (Auto) 0.4 L [place] # (Auto) 0.7 Eos # (Auto) 0.1 Baso # (Auto) 0.1 Abs Immat Gran (auto) 0.15 H Absolute Neuts (auto) 15.0 H Absolute Nucleated RBC 0.000 Nucleated RBC % (auto) 0.0 Smear Tech's Comments VERIFIED PT 13.3 INR 1.1 VBG pH 7.49 H VBG pCO2 26 VBG pO2 146 VBG HCO3 20 L VBG O2 Saturation 100.0 VBG Base Excess -1.4 Anion Gap 17 Estim Creat Clear Calc 37.2 Estimated GFR 47 Random Glucose 165 H Lactic Acid 1.6 Calcium 10.1 Total Bilirubin 0.3 AST 20 ALT 12 Alkaline Phosphatase 71 Total Protein 8.0 Albumin 4.1 Urine Color Dark Yellow Urine Appearance Cloudy Urine pH 5.0 Ur Specific [place] >= 1.030 H Urine Protein 30 (1+) H Urine Glucose (UA) Negative Urine Ketones 15 Urine Blood Trace H Urine Nitrite Positive H Ur Leukocyte Esterase Moderate (2+) H Urine RBC 3-5 H Urine WBC >50 H Ur Squamous Epith Cells 6-10 Urine Bacteria 1+ Hyaline Casts 6-10 Stool Occult Blood NEGATIVE Influenza Type A (PCR) NEGATIVE Influenza Type B (PCR) NEGATIVE RSV RNA Qual (PCR) NEGATIVE SARS-CoV-2 RNA (RT-PCR) POSITIVE A Assessment and Plan (1) Acute UTI: Status: Acute (2) COVID-19: Status: Acute (3) Sepsis: Status: Acute (4) Acute hypoxemic respiratory failure: Status: Acute (5) Acute exacerbation of chronic obstructive pulmonary disease: Status: Acute Plan 87-year-old female with a PMH significant for?the COPD and home O2 p.r.n., mild persistent asthma, unspecified dementia with mood disturbance, GERD, CKD 3, and HLD admitted for further management of UTI with sepsis and COVID-19 with acute hypoxic respiratory failure with acute metabolic encephalopathy. #Acute UTI with sepsis -leukocytosis, fevers, tachypnea, tachycardia. No lactic acidosis or end-organ damage. No severe sepsis or shock -UA with 3+ leukocytes, positive nitrites, trace blood, positive urinary sediment, 1+ bacteria -IV ceftriaxone (initiated 08/01) -monitor CBC, cultures # acute COVID-19 infection with acute hypoxemic respiratory failure -positive for COVID-19. Chest x-ray radiology report pending but appears negative for focal consolidation -IV Decadron (initiated 08/01) -continue supplemental O2 to maintain oximetry 90-92%, wean as tolerated per protocol -guaifenesin p.r.n. -DuoNebs q.4h, prn -airborne/contact precautions # acute metabolic encephalopathy -likely related to above -patient lethargic, falling asleep during exam. VBG reassuring without hypercapnia. Keep NPO for now, advance diet as mentation improves #COPD with acute exacerbation 2/2 covid 19 infection -decadron as above -duonebs as above -azithromycin for pleiotropic effect -continue home inhalers #HLD -statin #GERD -ppi #Unspecified dementia with behavioral disturbance -baseline mentation confused but verbal -continue home meds dvt prophylaxis- lovenox dnr/dni pt requires inpt stay at least 2 midnights for management of acute uti wtih sepsis necessitating IV antibiotics as well as acute COVID-19 infection with hypoxemic respiratory failure currently requiring 5 L supplemental O2 and IV Decadron and will require close monitoring of mentation and hemodynamics to monitor for and prevent decompensation Quality Stroke Does the patient have a stroke diagnosis?: No VTE Prior VTE?: No VTE Risk Level:: Medical - moderate - high VTE Device Contraindication: Treatment Not Indicated VTE Drug Contraindication: N/A - Med Ordered
[2023-08-02] MEDS: 0.9 % Sodium Chloride 1,000 ML 100 ML IVCONT (20:29)
[2023-08-02] MEDS: Ketorolac Tromethamine 30 MG/ML VIAL 15 MG IVPUSH (20:29)
[2023-08-02] MEDS: dexAMETHasone sod phosphate 4 MG/ML VIAL 6 MG IVPUSH (20:30)
[2023-08-02] MEDS: Enoxaparin Sodium 40 MG/0.4 ML SYRINGE SUBCUT (20:30)
[2023-08-02] MEDS: Azithromycin 500 MG in 0.9 % Sodium Chloride 250 ML 125 MG IV (21:05)
[2023-08-02] MEDS: Albumin Human 25 % 100 ML 133.33 ML IV (22:46)
[2023-08-02] MEDS: Albumin Human 25 % 100 ML 133 ML IV (23:09)
[2023-08-02] MEDS: 0.9 % Sodium Chloride 500 ML IV (23:10)
[2023-08-03] VITALS (13 sets, daily range): BP systolic 98–115; BP diastolic 51–67; PULSE 71–88; RESP 16–20; TEMP 36.2–37; O2SAT 93–95; BMI 27.0
--- NOTE | 2023-08-03 00:36 | PC.NURSE ---
Patient presented to the ED via EMS due to hypoxia and lethargy. Patient was initially in the mid 80s for EMS and is now 94% on 5L NC. Patient remains lethargic and unable to converse or respond to questions. She does respond to painful stimuli at this time. Diana catheter was placed for strict Intake and Output. Patient received 1L NS bolus, 2 bags of 25% albumin, azithromycin, tylenol for iniital rectal temp of 102, now currently down to 98.6 core via bladder temp., ketorlac, and dexamethasone. Patient has two patent IVs. 20g in Right Hand and 20g in Right upper extremity placed via ultrasound.
[2023-08-03] MEDS: 0.9 % Sodium Chloride 1,000 ML 100 ML IVCONT ×2 (06:09→20:35)
[2023-08-03 06:23] LABS: Basophils Percent Auto 0.2 % (0-2); Hematocrit 30.9 % (37.0-47.0); Lymphocytes Absolute Auto 0.6 X10*3/uL (1.2-4.9); Lymphocytes Percent Auto 6.2 % (20-40); MANUAL DIFF FLAG SCAN; Mean Corpuscular HGB Conc 32.4 g/dl (31.0-35.0); Mean Corpuscular Hemoglobin 28.2 pg (27.0-33.0); Mean Corpuscular Volume 87.3 fL (80.0-98.0); Mean Platelet Volume 10.1 fL (9.4-12.3); Monocytes Absolute Auto 0.2 X10*3/uL (0.1-1.2); Monocytes Percent Auto 1.8 % (2-11); Neutrophils Percent Auto 90.8 % (45-73); Platelet Count 198 X10*3/uL (160-400); Red Blood Count 3.54 X10*6/uL (4.20-5.50); Red Cell Distribution Width 15.5 % (11.0-16.0); SCAN SMEAR FLAG 1; White Blood Count 9.9 X10*3/uL (4.8-10.8)
[2023-08-03 06:26] LABS: Anion Gap 14 (12-20); Blood Urea Nitrogen 24 mg/dL (9-16); Calcium 8.9 mg/dL (8.4-10.2); Carbon Dioxide 20 mmol/L (22-29); Chloride 114 mmol/L (96-108); Creatinine Clr Calc Pharmacy 38.6; Estimated Glomerular Filt Rate 44; Glucose Random 158 mg/dL (60-115); Potassium 3.9 mmol/L (3.3-5.1); Sodium 144 mmol/L (135-145)
[2023-08-03 07:06] LABS: SLIDE REVIEW VERIFIED
[2023-08-03] MEDS: cefTRIAXone sodium 1 GM in 0.9 % Sodium Chloride 50 ML IV (07:35)
[2023-08-03] MEDS: dexAMETHasone sod phosphate 4 MG/ML VIAL 6 MG IVPUSH (07:35)
[2023-08-03] MEDS: Albuterol/Iprat 2.5/0.5MG 3 ML AMPUL.NEB INHALE ×4 (08:09→21:08)
--- NOTE | 2023-08-03 08:25 | PC.NURSE ---
buitrago cath removed at 08:25. pt tolerated well. Due to void at 14:25.
--- NOTE | 2023-08-03 09:18 | MHC.CM.PN ---
IMM 08/03/23, sent to HCP due to pt has Dementia, is confused at baseline. Pt resides nub card tender at [facility]. She will return there via BLS at [place]. HCP is daughter, Kay. PCP is Dr. Canela. CM to follow and assist with DC plans.
--- NOTE | 2023-08-03 09:33 | P.PNIM_ITS ---
Subjective Subjective Date of Service: 08/03/23 Interval History: lethargic Physical Exam 2 Vital Signs: Vital Signs: Last Vital Signs Temp 97.2 F 08/03/23 07:46 Pulse 71 08/03/23 08:14 Resp 20 08/03/23 08:14 BP 115/56 L 08/03/23 07:46 Pulse Ox 94 08/03/23 07:46 O2 Del Method Nasal Cannula 08/03/23 07:46 O2 Flow Rate 4 08/03/23 07:46 BMI result Body Mass Index 27.0 lethargic, ill appearing, lungs diminished Objective Data Active Medications Acetaminophen (Acetaminophen Supp 650 Mg Supp.Rect) 650 mg [place] Q6H PRN PRN Reason: Pain, Mild (Pain Scale 1-3), fever or headache Albuterol/Ipratropium (Albuterol/Iprat 2.5/0.5mg 3 Ml Ampul.Neb) 3 ml INHALE RQ4H WHILE AWAKE [facility] Last Admin: 08/03/23 08:09 Dose: 3 ml Documented By: CORNELIUS Albuterol/Ipratropium (Albuterol/Iprat 2.5/0.5mg 3 Ml Ampul.Neb) 3 ml INHALE RQ4H WHILE AWAKE PRN PRN Reason: Shortness of Breath/Wheezing Dexamethasone Sodium Phosphate (Dexamethasone Sod Phosphate 4 Mg/Ml Vial) 6 mg IVPUSH DAILY [facility] Last Admin: 08/03/23 07:35 Dose: 6 mg Documented By: JAYLEEN Enoxaparin Sodium (Enoxaparin Sodium 40 Mg/0.4 Ml Syringe) 40 mg SUBCUT Q24H [facility] Last Admin: 08/02/23 20:30 Dose: 40 mg Documented By: LIZZY Guaifenesin (Guaifenesin 200 Mg/10 Ml 10 Ml Liquid) 10 ml PO Q4H PRN PRN Reason: Cough Sodium Chloride (Ns) 1,000 mls @ 100 mls/hr IVCONT .Q10H [facility] Last Admin: 08/03/23 06:09 Dose: 100 mls/hr Documented By: ALLIE Ceftriaxone Sodium 1 gm/ (Sodium Chloride) 50 mls @ 100 mls/hr IV Q24H [facility] Last Admin: 08/03/23 07:35 Dose: 100 mls/hr Documented By: JAYLEEN Azithromycin 500 mg/ Sodium (Chloride) 250 mls @ 125 mls/hr IV Q24H [facility] Last Infusion: 08/02/23 23:10 Dose: Infused Documented By: LIZZY Magnesium Hydroxide (Milk Of Magnesia 30 Ml Oral.Susp) 30 ml PO DAILY PRN PRN Reason: Constipation Ondansetron HCl (Ondansetron Hcl 4 Mg/2 Ml Vial) 4 mg IVPUSH Q8H PRN PRN Reason: Nausea and Vomiting Labs 08/03/23 05:43 08/03/23 05:43 Labs: Laboratory Results - last 24 hr 08/02/23 08/02/23 08/02/23 18:50 18:56 19:12 MCV 83.9 MCH 27.9 MCHC 33.3 RDW 15.5 Plt Count 283 MPV 10.0 Immature Gran % (Auto) 0.9 H Neut % (Auto) 91.3 H Lymph % (Auto) 2.6 L Franklin % (Auto) 4.5 Eos % (Auto) 0.3 Baso % (Auto) 0.4 Lymph # (Auto) 0.4 L Franklin # (Auto) 0.7 Eos # (Auto) 0.1 Baso # (Auto) 0.1 Abs Immat Gran (auto) 0.15 H Absolute Neuts (auto) 15.0 H Absolute Nucleated RBC 0.000 Nucleated RBC % (auto) 0.0 Smear Tech's Comments VERIFIED PT 13.3 INR 1.1 VBG pH 7.49 H VBG pCO2 26 VBG pO2 146 VBG HCO3 20 L VBG O2 Saturation 100.0 VBG Base Excess -1.4 Anion Gap 17 Estim Creat Clear Calc 37.2 Estimated GFR 47 Random Glucose 165 H Lactic Acid 1.6 Calcium 10.1 Total Bilirubin 0.3 AST 20 ALT 12 Alkaline Phosphatase 71 Total Protein 8.0 Albumin 4.1 Urine Color Dark Yellow Urine Appearance Cloudy Urine pH 5.0 Ur Specific Leland >= 1.030 H Urine Protein 30 (1+) H Urine Glucose (UA) Negative Urine Ketones 15 Urine Blood Trace H Urine Nitrite Positive H Ur Leukocyte Esterase Moderate (2+) H Urine RBC 3-5 H Urine WBC >50 H Ur Squamous Epith Cells 6-10 Urine Bacteria 1+ Hyaline Casts 6-10 Stool Occult Blood NEGATIVE Influenza Type A (PCR) NEGATIVE Influenza Type B (PCR) NEGATIVE RSV RNA Qual (PCR) NEGATIVE SARS-CoV-2 RNA (RT-PCR) POSITIVE A 08/03/23 05:43 MCV 87.3 MCH 28.2 MCHC 32.4 RDW 15.5 Plt Count 198 D MPV 10.1 Immature Gran % (Auto) 1.0 H Neut % (Auto) 90.8 H Lymph % (Auto) 6.2 L Franklin % (Auto) 1.8 L Eos % (Auto) 0.0 Baso % (Auto) 0.2 Lymph # (Auto) 0.6 L Franklin # (Auto) 0.2 Eos # (Auto) 0.0 Baso # (Auto) 0.0 Abs Immat Gran (auto) 0.10 H Absolute Neuts (auto) 9.0 H Absolute Nucleated RBC 0.000 Nucleated RBC % (auto) 0.0 Smear Tech's Comments VERIFIED PT INR VBG pH VBG pCO2 VBG pO2 VBG HCO3 VBG O2 Saturation VBG Base Excess Anion Gap 14 Estim Creat Clear Calc 38.6 Estimated GFR 44 Random Glucose 158 H Lactic Acid Calcium 8.9 D Total Bilirubin AST ALT Alkaline Phosphatase Total Protein Albumin Urine Color Urine Appearance Urine pH Ur Specific Leland Urine Protein Urine Glucose (UA) Urine Ketones Urine Blood Urine Nitrite Ur Leukocyte Esterase Urine RBC Urine WBC Ur Squamous Epith Cells Urine Bacteria Hyaline Casts Stool Occult Blood Influenza Type A (PCR) Influenza Type B (PCR) RSV RNA Qual (PCR) SARS-CoV-2 RNA (RT-PCR) Assessment and Plan (1) Lab test positive for detection of COVID-19 virus: Status: Acute Plan 87F PMH chronic hypoxic respiratory failure, COPD, mild persistent asthma, unspecified dementia with mood disturbance, GERD, CKD 3, and HLD presented with altered mental status found to have UTI with sepsis and COVID-19 with acute hypoxic respiratory failure with acute metabolic encephalopathy. Sepsis and acute metabolic encephalopathy due to urinary tract infection and COVID complicated by COPD with acute decompensation and acute hypoxic respiratory failure Continue Rocephin, follow up cultures, IV Decadron, wean O2 as tolerated, bronchodilators NPO for now as still too lethargic to eat, can advance diet as patient wakes up HLD statin GERD -ppi Unspecified dementia with behavioral disturbance -baseline mentation confused but verbal dvt prophylaxis- lovenox dnr/dni reason for continued hospitalization: Lethargic, febrile Quality Stroke Does the patient have a stroke diagnosis?: No VTE Prior VTE?: No VTE Risk Level:: Medical - moderate - high VTE Device Contraindication: Treatment Not Indicated VTE Drug Contraindication: N/A - Med Ordered
--- NOTE | 2023-08-03 10:29 | PHA.MEDREC ---
Pharmacy Consult ? Medication Reconciliation Pharmacy has completed the medication reconciliation. List from [facility]
[2023-08-03] MEDS: Azithromycin 500 MG in 0.9 % Sodium Chloride 250 ML 125 MG IV (20:35)
[2023-08-03] MEDS: Enoxaparin Sodium 40 MG/0.4 ML SYRINGE SUBCUT (20:36)
[2023-08-04] VITALS (9 sets, daily range): BP systolic 100–126; BP diastolic 50–59; PULSE 67–98; RESP 18–22; TEMP 36.1–37.2; O2SAT 92–97
[2023-08-04] MEDS: 0.9 % Sodium Chloride 1,000 ML 100 ML IVCONT ×2 (06:00→16:30)
[2023-08-04] MEDS: Albuterol/Iprat 2.5/0.5MG 3 ML AMPUL.NEB INHALE ×4 (07:35→19:59)
[2023-08-04] MEDS: dexAMETHasone sod phosphate 4 MG/ML VIAL 6 MG IVPUSH (08:40)
[2023-08-04] MEDS: cefTRIAXone sodium 1 GM in 0.9 % Sodium Chloride 50 ML IV (08:40)
--- NOTE | 2023-08-04 10:17 | P.PNIM_ITS ---
Subjective Subjective Date of Service: 08/04/23 Interval History: improving Physical Exam 2 Vital Signs: Vital Signs: Last Vital Signs Temp 97.1 F 08/04/23 07:30 Pulse 67 08/04/23 07:38 Resp 18 08/04/23 07:38 BP 100/59 L 08/04/23 07:30 Pulse Ox 93 08/04/23 07:30 O2 Del Method Nasal Cannula 08/04/23 07:30 O2 Flow Rate 4 08/04/23 07:30 BMI result Body Mass Index 27.0 alert, no acute distress, bilateral crackles, abd soft non tender Objective Data Active Medications Acetaminophen (Acetaminophen Supp 650 Mg Supp.Rect) 650 mg [place] Q6H PRN PRN Reason: Pain, Mild (Pain Scale 1-3), fever or headache Albuterol/Ipratropium (Albuterol/Iprat 2.5/0.5mg 3 Ml Ampul.Neb) 3 ml INHALE RQ4H WHILE AWAKE [facility] Last Admin: 08/04/23 07:35 Dose: 3 ml Documented By: CORNELIUS Albuterol/Ipratropium (Albuterol/Iprat 2.5/0.5mg 3 Ml Ampul.Neb) 3 ml INHALE RQ4H WHILE AWAKE PRN PRN Reason: Shortness of Breath/Wheezing Dexamethasone Sodium Phosphate (Dexamethasone Sod Phosphate 4 Mg/Ml Vial) 6 mg IVPUSH DAILY [facility] Last Admin: 08/04/23 08:40 Dose: 6 mg Documented By: JAYSON Enoxaparin Sodium (Enoxaparin Sodium 40 Mg/0.4 Ml Syringe) 40 mg SUBCUT Q24H [facility] Last Admin: 08/03/23 20:36 Dose: 40 mg Documented By: NOEL Guaifenesin (Guaifenesin 200 Mg/10 Ml 10 Ml Liquid) 10 ml PO Q4H PRN PRN Reason: Cough Sodium Chloride (Ns) 1,000 mls @ 100 mls/hr IVCONT .Q10H [facility] Last Admin: 08/04/23 06:00 Dose: 100 mls/hr Documented By: ALLIE Ceftriaxone Sodium 1 gm/ (Sodium Chloride) 50 mls @ 100 mls/hr IV Q24H [facility] Last Infusion: 08/04/23 09:14 Dose: Infused Documented By: JAYSON Azithromycin 500 mg/ Sodium (Chloride) 250 mls @ 125 mls/hr IV Q24H [facility] Last Infusion: 08/03/23 22:51 Dose: Infused Documented By: NOEL Magnesium Hydroxide (Milk Of Magnesia 30 Ml Oral.Susp) 30 ml PO DAILY PRN PRN Reason: Constipation Ondansetron HCl (Ondansetron Hcl 4 Mg/2 Ml Vial) 4 mg IVPUSH Q8H PRN PRN Reason: Nausea and Vomiting Labs 08/03/23 05:43 08/03/23 05:43 Microbiology Microbiology Results: Microbiology 08/02/23 19:38 Urine Culture - Preliminary Urine Catheterized - Diana Catheter Escherichia coli 08/02/23 18:53 Blood Culture - Preliminary Blood - Venous No growth after 24 hours. 08/02/23 18:50 Blood Culture - Preliminary Blood - Venous No growth after 24 hours. Assessment and Plan (1) Lab test positive for detection of COVID-19 virus: Status: Acute Plan 87F PMH chronic hypoxic respiratory failure, COPD, mild persistent asthma, unspecified dementia with mood disturbance, GERD, CKD 3, and HLD presented with altered mental status found to have UTI with sepsis and COVID-19 with acute hypoxic respiratory failure with acute metabolic encephalopathy. Sepsis and acute metabolic encephalopathy due to urinary tract infection and COVID complicated by COPD with acute decompensation and acute hypoxic respiratory failure Continue Rocephin, follow up cultures, IV Decadron, now on room air, bronchodilators encephalopathy resolved HLD statin GERD -ppi Unspecified dementia with behavioral disturbance -baseline mentation confused but verbal dvt prophylaxis- lovenox dnr/dni reason for continued hospitalization: awaiting cultures Quality Stroke Does the patient have a stroke diagnosis?: No VTE Prior VTE?: No VTE Risk Level:: Medical - moderate - high VTE Device Contraindication: Treatment Not Indicated VTE Drug Contraindication: N/A - Med Ordered
--- NOTE | 2023-08-04 12:28 | MHC.CM.PN ---
EMR REVIEWED, PT W/SEPSIS/UTI/COPD EXAC, PT IMPROVING HOWEVER NOT READY FOR DC, PLAN FOR PT TO RETURN TO LTC AT [facility] ONCE MEDICALLY CLEARED, CM WILL CONT TO FOLLOW DC NEEDS.
[2023-08-04] MEDS: Enoxaparin Sodium 40 MG/0.4 ML SYRINGE SUBCUT (21:04)
--- NOTE | 2023-08-04 23:58 | P.CNID_ITS ---
History of Present Illness Data of Consult Service Date: 08/04/23 Requesting physician: Catracho Fischer Primary Care Provider: Isaias Canela MD HPI Reason for consult: hypoxia,sepsis resistant UTI She presents with lethargy and hypoxia from [facility] for a day. She has dementia and COPD. She has positive COVID test. Review of Systems 2 Review of Systems: Yes all other systems are reviewed and are negative [facility] Past Medical History Medical History (Updated 08/05/23 @ 00:05 by Shannon Negro MD) UTI (urinary tract infection) COVID COPD (chronic obstructive pulmonary disease) Dementia GERD (gastroesophageal reflux disease) Cholelithiasis Vitamin D deficiency Mild persistent asthma Unspecified dementia, unspecified severity, with mood disturbance Chronic kidney disease, stage 3 Chronic anemia Family History Family history: reviewed and not pertinent Social History Social History Household Members: Other Household Members Other:: From [facility] Housing: Longterm Do you presently have visiting nurse or other home services: No Unable to assess alcohol history related to: Unable to respond Alcohol intake: never Patient Tobacco Use Status: Tobacco use Unknown Advance Directives Date on File: 11/09/22 service: No Meds Allergies Allergy/AdvReac Type Severity Reaction Status Date / Time No Known Allergies Allergy Verified 08/02/23 18:58 Active Medications: Current Medications Acetaminophen (Acetaminophen Supp 650 Mg Supp.Rect) 650 mg [place] Q6H PRN PRN Reason: Pain, Mild (Pain Scale 1-3), fever or headache Albuterol/Ipratropium (Albuterol/Iprat 2.5/0.5mg 3 Ml Ampul.Neb) 3 ml INHALE RQ4H WHILE AWAKE [facility] Last Admin: 08/04/23 19:59 Dose: 3 ml Albuterol/Ipratropium (Albuterol/Iprat 2.5/0.5mg 3 Ml Ampul.Neb) 3 ml INHALE RQ4H WHILE AWAKE PRN PRN Reason: Shortness of Breath/Wheezing Dexamethasone Sodium Phosphate (Dexamethasone Sod Phosphate 4 Mg/Ml Vial) 6 mg IVPUSH DAILY [facility] Last Admin: 08/04/23 08:40 Dose: 6 mg Enoxaparin Sodium (Enoxaparin Sodium 40 Mg/0.4 Ml Syringe) 40 mg SUBCUT Q24H [facility] Last Admin: 08/04/23 21:04 Dose: 40 mg Guaifenesin (Guaifenesin 200 Mg/10 Ml 10 Ml Liquid) 10 ml PO Q4H PRN PRN Reason: Cough Meropenem 1 gm/ Sodium (Chloride) 100 mls @ 200 mls/hr IV Q8H [facility] Last Infusion: 08/04/23 16:58 Dose: Infused Magnesium Hydroxide (Milk Of Magnesia 30 Ml Oral.Susp) 30 ml PO DAILY PRN PRN Reason: Constipation Ondansetron HCl (Ondansetron Hcl 4 Mg/2 Ml Vial) 4 mg IVPUSH Q8H PRN PRN Reason: Nausea and Vomiting Home Medications ?Medication ?Instructions ?Recorded ?Confirmed ?Last Taken ?Type fluticasone 500 mcg-salmeterol 50 1 ea inhalation BID 11/02/22 08/03/23 Unknown History mcg/dose blistr powdr for inhalation (Advair Diskus) ipratropium 0.5 mg-albuterol 3 mg 3 ml inhalation Q4H PRN SOB 11/02/22 08/03/23 Unknown History (2.5 mg base)/3 mL nebulization soln sertraline 50 mg tablet 50 mg PO BEDTIME 11/02/22 08/03/23 Unknown History acetaminophen 650 mg rectal 650 mg MA Q6H PRN pain or fever 11/03/22 08/03/23 Unknown History suppository bisacodyl 10 mg rectal suppository 10 mg MA DAILY PRN Constipation 11/03/22 08/03/23 Unknown History cholecalciferol (vitamin D3) 25 25 mcg PO DAILY 11/03/22 08/03/23 Unknown History mcg (1,000 unit) tablet (Vitamin D3) ferrous sulfate 325 mg (65 mg 325 mg PO DAILY 11/03/22 08/03/23 Unknown History iron) tablet montelukast 10 mg tablet 10 mg PO BEDTIME Allergy Symptoms 11/03/22 08/03/23 Unknown History omeprazole 20 mg capsule,delayed 20 mg PO DAILY@0630 11/03/22 08/03/23 Unknown History release mirtazapine 7.5 mg tablet 15 mg PO BEDTIME 01/06/23 08/03/23 Unknown History acetaminophen 500 mg tablet 500 mg PO BID 02/12/23 08/03/23 Unknown History diclofenac sodium 1 % topical gel 4 g topical TID NECK PAIN 02/12/23 08/03/23 Unknown History (Voltaren Arthritis Pain) ipratropium 18 mcg-albuterol 103 2 spray inhalation Q4H PRN SOB 06/02/23 08/03/23 Unknown History mcg/actuation aerosol inhaler magnesium hydroxide 400 mg/5 mL 30 ml PO DAILY PRN Constipation 06/02/23 08/03/23 Unknown History oral suspension (Milk of Magnesia) budesonide 90 mcg/actuation breath 2 inh inhalation BID 08/02/23 08/03/23 Unknown History activated powder inhaler (Pulmicort Flexhaler) Physical Exam 2 Vital Signs: Vital Signs: Last Vital Signs Temp 98.9 F 08/04/23 20:00 Pulse 82 08/04/23 20:00 Resp 20 08/04/23 20:00 BP 110/53 L 08/04/23 20:00 Pulse Ox 95 08/04/23 20:00 O2 Del Method Nasal Cannula 08/04/23 20:00 O2 Flow Rate 4 08/04/23 20:00 BMI result Body Mass Index 27.0 Const: General: cooperative HEENT: Head: Yes normal to inspection Face and sinus: Yes normal facial exam Mouth: Normal oral and palatal mucosa present Teeth and gingiva: d entition normal Eyes: General: appearance normal, both eyes and all related structures P upils: Equal, round and reactive pupils present Resp: Other: shortness of breath, 2 liters Cardio: Rate: regular rate Rhythm: regular rhythm GI: Palpation (GI): Soft to palpation and nontender : General: Yes no CVA tenderness Back/Spine/Pelvis: Back: no CVA tenderness Skin: General skin exam: no rashes or lesions noted Neuro: General: moves all extremities Cranial nerves: Yes Equal, round and reactive pupils present Extrem: General: Yes normal to inspection Psych: Appearance: grossly normal Results Labs 08/03/23 05:43 08/03/23 05:43 Microbiology Microbiology Results: Microbiology 08/02/23 18:53 Blood - Venous Blood Culture - Preliminary No growth after 48 hours. 08/02/23 18:50 Blood - Venous Blood Culture - Preliminary No growth after 48 hours. 08/02/23 19:38 Urine Catheterized - Diana Catheter Urine Culture - Preliminary Escherichia coli Assessment and Plan (1) COVID: Status: Acute No idea how long patient had so no Remdesivir. Steroid Dexamethasone 6 mg daily until not hypoxic. (2) UTI (urinary tract infection): Status: Acute I think has resistant UTI Merem and then Ertapenem since leukocytosis for 10 days
[2023-08-05] VITALS (13 sets, daily range): BP systolic 114–161; BP diastolic 58–85; PULSE 73–96; RESP 18–20; TEMP 36.3–36.8; O2SAT 92–97
[2023-08-05] MEDS: Albuterol/Iprat 2.5/0.5MG 3 ML AMPUL.NEB INHALE ×4 (05:03→23:40)
--- NOTE | 2023-08-05 06:15 | PM.EVENT ---
Event Note Date of Service: 08/05/23 Event Note: Nurse reported dyspnea. Patient with expiratory wheezing. Respiratory to administer DuoNeb. Obtaining chest x-ray and VBG. Time Spent With Patient Time: Total time managing care of this patient today ____ minutes.
[2023-08-05 06:46] LABS: VBG Base Excess -4.8 mmol/L; VBG HCO3 18 mmol/L (22-26); VBG pCO2 27 mmHg; VBG pH 7.42 (7.32-7.43); VBG pO2 112 mmHg
[2023-08-05 06:50] LABS: Venous Blood Gas Refer to POC result
[2023-08-05 07:14] LABS: B Type Natriuretic Peptide 264 pg/mL (<100)
[2023-08-05] MEDS: Furosemide 40 MG/4 ML VIAL IVPUSH (09:18)
[2023-08-05] MEDS: dexAMETHasone sod phosphate 4 MG/ML VIAL 6 MG IVPUSH (09:18)
[2023-08-05 10:40] LABS: Hematocrit 37.4 % (37.0-47.0); Hemoglobin 11.9 g/dl (12.0-16.0); Mean Corpuscular HGB Conc 31.8 g/dl (31.0-35.0); Mean Corpuscular Hemoglobin 27.7 pg (27.0-33.0); Mean Corpuscular Volume 87.2 fL (80.0-98.0); Mean Platelet Volume 10.5 fL (9.4-12.3); Platelet Count 204 X10*3/uL (160-400); Red Blood Count 4.29 X10*6/uL (4.20-5.50); Red Cell Distribution Width 16.4 % (11.0-16.0); White Blood Count 10.2 X10*3/uL (4.8-10.8)
[2023-08-05 10:51] LABS: Anion Gap 12 (12-20); Blood Urea Nitrogen 21 mg/dL (9-16); Calcium 8.5 mg/dL (8.4-10.2); Carbon Dioxide 19 mmol/L (22-29); Chloride 117 mmol/L (96-108); Creatinine Clr Calc Pharmacy 58.8; Estimated Glomerular Filt Rate > 60; Glucose Random 84 mg/dL (60-115); Potassium 3.6 mmol/L (3.3-5.1); Sodium 144 mmol/L (135-145)
--- NOTE | 2023-08-05 11:40 | MHC.CM.PN ---
CM contacted pt.'s dtr at request of pt.'s nurse, to address dtr's concern that when her mother goes back to [facility], she may give her father (with whom she shares a room, COVID. CM encouraged dtr to address this with the SNF, and let her know that the message that we have received from the SNF is that they are finding out about the room which may mean that they have another room that pt can go in temporarily. Updates to be sent to SNF today, anticipate DC 08/06/23.
--- NOTE | 2023-08-05 13:03 | P.PNIM_ITS ---
Subjective Subjective Date of Service: 08/05/23 Interval History: seen and evaluated alert and interactive on O2 supplement, reporting dyspnea no other overnight events Review of Systems Review of Systems: Yes all other systems are reviewed and are negative Physical Exam 2 Vital Signs: Vital Signs: Last Vital Signs Temp 97.4 F 08/05/23 11:13 Pulse 90 08/05/23 11:13 Resp 20 08/05/23 11:13 BP 140/64 H 08/05/23 11:13 Pulse Ox 95 08/05/23 11:13 O2 Del Method Nasal Cannula 08/05/23 11:13 O2 Flow Rate 4 08/05/23 11:13 BMI result Body Mass Index 27.0 Const: Other: Constitutional : Awake, interactive, not in distress Neck : Normal inspection, Supple Cardiovascular : RRR, no JVP, trace bilateral lower extremity edema Respiratory : good bilateral air entry, no crackles, expiratory wheezes Gastrointestinal: soft, lax, Normal bowel sounds, Non tender Skin : Warm, Dry Neurological : Alert & oriented to self and place, No focal deficit Objective Data Active Medications Acetaminophen (Acetaminophen Supp 650 Mg Supp.Rect) 650 mg [place] Q6H PRN PRN Reason: Pain, Mild (Pain Scale 1-3), fever or headache Albuterol/Ipratropium (Albuterol/Iprat 2.5/0.5mg 3 Ml Ampul.Neb) 3 ml INHALE RQ4H WHILE AWAKE [facility] Last Admin: 08/05/23 11:12 Dose: 3 ml Documented By: ANA Albuterol/Ipratropium (Albuterol/Iprat 2.5/0.5mg 3 Ml Ampul.Neb) 3 ml INHALE RQ4H WHILE AWAKE PRN PRN Reason: Shortness of Breath/Wheezing Last Admin: 08/05/23 05:03 Dose: 3 ml Documented By: DINESH Dexamethasone Sodium Phosphate (Dexamethasone Sod Phosphate 4 Mg/Ml Vial) 6 mg IVPUSH DAILY [facility] Last Admin: 08/05/23 09:18 Dose: 6 mg Documented By: NEO Enoxaparin Sodium (Enoxaparin Sodium 40 Mg/0.4 Ml Syringe) 40 mg SUBCUT Q24H [facility] Last Admin: 08/04/23 21:04 Dose: 40 mg Documented By: PAT Furosemide (Furosemide 40 Mg/4 Ml Vial) 40 mg IVPUSH DAILY [facility]; Protocol Last Admin: 08/05/23 09:18 Dose: 40 mg Documented By: NEO Guaifenesin (Guaifenesin 200 Mg/10 Ml 10 Ml Liquid) 10 ml PO Q4H PRN PRN Reason: Cough Meropenem 1 gm/ Sodium (Chloride) 100 mls @ 200 mls/hr IV Q8H [facility] Last Infusion: 08/05/23 10:19 Dose: Infused Documented By: JAYSON Magnesium Hydroxide (Milk Of Magnesia 30 Ml Oral.Susp) 30 ml PO DAILY PRN PRN Reason: Constipation Ondansetron HCl (Ondansetron Hcl 4 Mg/2 Ml Vial) 4 mg IVPUSH Q8H PRN PRN Reason: Nausea and Vomiting Labs 08/05/23 10:24 08/05/23 09:28 Labs: Laboratory Results - last 24 hr 08/05/23 08/05/23 08/05/23 06:28 06:32 06:33 MCV MCH MCHC RDW Plt Count MPV Absolute Nucleated RBC Nucleated RBC % (auto) Hold Purple Top SEE NOTE VBG pH 7.42 VBG pCO2 27 VBG pO2 112 VBG HCO3 18 L VBG O2 Saturation 99.0 VBG Base Excess -4.8 Anion Gap Estim Creat Clear Calc Estimated GFR Random Glucose Calcium B-Natriuretic Peptide 264 H 08/05/23 08/05/23 09:28 10:24 MCV 87.2 MCH 27.7 MCHC 31.8 RDW 16.4 H Plt Count 204 MPV 10.5 Absolute Nucleated RBC 0.000 Nucleated RBC % (auto) 0.0 Hold Purple Top VBG pH VBG pCO2 VBG pO2 VBG HCO3 VBG O2 Saturation VBG Base Excess Anion Gap 12 Estim Creat Clear Calc 58.8 Estimated GFR > 60 Random Glucose 84 Calcium 8.5 B-Natriuretic Peptide Microbiology Microbiology Results: Microbiology 08/02/23 19:38 Urine Culture - Final Urine Catheterized - Diana Catheter Escherichia coli 08/02/23 18:53 Blood Culture - Preliminary Blood - Venous No growth after 48 hours. 08/02/23 18:50 Blood Culture - Preliminary Blood - Venous No growth after 48 hours. Assessment and Plan (1) UTI (urinary tract infection): Status: Acute (2) COVID: Status: Acute (3) Infection due to ESBL-producing Escherichia coli: Status: Acute Plan 87F PMH chronic hypoxic respiratory failure, COPD, mild persistent asthma, unspecified dementia with mood disturbance, GERD, CKD 3, and HLD presented with altered mental status found to have UTI with sepsis and COVID-19 with acute hypoxic respiratory failure with acute metabolic encephalopathy. Sepsis and acute metabolic encephalopathy due to ESBL E.Coli UTI Improving mentation Start Meropenem Place Midline Acute hypxic resp failure with acute COPD exacerbation 2/2 Covid19 infx Increase O2 supplement and dyspnea IV Decadrone Duonebs ATC and PRN ID input appreciated Wean down as tolerated HLD statin GERD ppi Unspecified dementia with behavioral disturbance baseline mentation confused but verbal dvt prophylaxis- lovenox dnr/dni reason for continued hospitalization: Pending clinical improvement Quality Stroke Does the patient have a stroke diagnosis?: No VTE Prior VTE?: No VTE Risk Level:: Medical - moderate - high VTE Device Contraindication: Treatment Not Indicated VTE Drug Contraindication: N/A - Med Ordered
--- NOTE | 2023-08-05 14:51 | HO.MIDLINE_ITS ---
Midline Insertion MIDLINE INSERTION Diagnosis: UTI Sepsis Hypoxia Indication: ABT x 10days Pertinent Labs: reviewed . Pt has hx of CKD; Dr Brasher cleared placement with nephrology Technique: Using sterile technique including cap and mask, glove and drape, the right arm was prepped and draped in the usual sterile fashion of full barrier technique with G. Using ultrasound guidance, right brachial vein access was obtained . 4Fr single lumen non PASV trimmed to 7cm was positioned. The procedure was performed in rm [id number]. Ultrasound was used to document vein patency and for needle entry. A formal ultrasound picture was recorded. Vascular Cogeneration Operator has released the line for use and it is currently dressed with a StatLock, Tegaderm, and CHG disc. Verification has been performed for blood return and line patency. Arm Circumference: 32 cm Equipment: [employer] PowerMidline catheter Catheter Type: 4 fr single lumen nonPASV midline catheter Lot #: [id number]
[2023-08-05] MEDS: Furosemide 20 MG/2 ML VIAL IVPUSH (17:44)
[2023-08-05] MEDS: Heparin Sodium,Porcine Flush 50 UNITS, 0.9 % Sodium Chloride Flush 5 ML IVFLUSH (17:44)
[2023-08-05] MEDS: Enoxaparin Sodium 40 MG/0.4 ML SYRINGE SUBCUT (22:49)
[2023-08-06] VITALS (8 sets, daily range): BP systolic 110–155; BP diastolic 60–87; PULSE 73–95; RESP 18–20; TEMP 36.2–37.1; O2SAT 89–96
[2023-08-06] MEDS: Albuterol/Iprat 2.5/0.5MG 3 ML AMPUL.NEB INHALE ×3 (05:39→11:28)
[2023-08-06 09:08] LABS: Anion Gap 17 (12-20); Blood Urea Nitrogen 21 mg/dL (9-16); Calcium 9.2 mg/dL (8.4-10.2); Carbon Dioxide 24 mmol/L (22-29); Chloride 107 mmol/L (96-108); Creatinine Clr Calc Pharmacy 55.9; Estimated Glomerular Filt Rate > 60; Glucose Random 82 mg/dL (60-115); Sodium 145 mmol/L (135-145)
[2023-08-06 09:14] LABS: B Type Natriuretic Peptide 51 pg/mL (<100)
[2023-08-06] MEDS: Furosemide 40 MG/4 ML VIAL IVPUSH (09:33)
[2023-08-06] MEDS: dexAMETHasone sod phosphate 4 MG/ML VIAL 6 MG IVPUSH (09:33)
--- NOTE | 2023-08-06 11:17 | P.DS_ITS ---
DS: Providers Provider Date of Service: 08/06/23 Date of admission: 08/02/23 20:03 Primary care physician: Isaias Canela MD Consults: 08/03/23 04:10 Consult to Wound Care Routine Reason for consultation: blanchable redness to buttobks Has provider been notified: No 08/04/23 14:38 Consult to Infectious Diseases Routine Consulting Provider: [facility] Reason for consultation: esbl uti DS: Diagnosis Discharge Diagnosis (1) UTI (urinary tract infection): Status: Acute (2) COVID: Status: Acute (3) Infection due to ESBL-producing Escherichia coli: Status: Acute (4) Sepsis: Status: Acute (5) Hypoxia: Status: Acute (6) Acute exacerbation of chronic obstructive pulmonary disease: Status: Acute DS: Summary Hospital Course Hospital Course: Admission note HPI 87-year-old female with a PMH significant for?the COPD and home O2 p.r.n., mild persistent asthma, unspecified dementia with mood disturbance, GERD, CKD 3, and HLD who presents to the ED from [facility] due to lethargy and hypoxia. The patient is disoriented at baseline, but is nonverbal at time of exam which is different from her baseline. Per triage nurse report, patient was COVID+ at facility and hypoxic (unknown sat at facility however arrived on 15L via nonrebreather). On arrival, febrile to 102, tachcyardic to 116, tachypneic, and 85% on room air placed on 5 L supplemental O2 maintain oximetry 92%. She has a leukocytosis of 16.4. Creatinine slightly increased from baseline at 1.09, baseline around 0.9, no TRINA. Electrolyte levels normal except for CO2 20. Subsequent VBG showed pH 7.49, pCO2 26, bicarb 20. Urinalysis significant for 2+ leukocytes, positive nitrites, trace blood, positive urinary sediment, 1+ bacteria. RN noted dark stool but stool occult blood was negative and there is no anemia. She is positive for COVID-19, negative for influenza and RSV. Chest x-ray radiology report pending but does appear to be negative for any focal consolidation. In the ED, given Tylenol, 2 g cefepime, 500 mL NS, and levalbuterol. Hospital course # Sepsis and acute metabolic encephalopathy due to ESBL E.Coli UTI She was treated primarly with Ceftriaxone until urine cultures grew ESBL E.Coli and she was Started on Meropenem with significant improvement in her mentation back to baseline. She was evaluated by ID who recommended 10 days of Antibiotics. Placed Midline to finish treatment at nursing facility. # Acute on chronic hypxic respiratory failure with acute COPD exacerbation secondary to Covid19 infx Treated mainly with IV Decadrone and Duonebs ATC and PRN as ID evaluated the patient and did not feel an antiviral is needed. she was weaned down to 2L of O2 which seems to be her baseline. Will continue Dexamethasone for 7 more days. Discharge plan Continue Ertapenem for 7 more days Continue Dexamethasone for 7 more days Wean O2 down as tolerated Increase physical activity as tolerated Time Attestation Discharge Coordination Time (in mins): 43 Quality: Safe Use of Opioids Does Pt have an Active Cancer Diagnosis on the Problem List?: No Quality: Stroke Does the patient have a stroke diagnosis?: No Physical Exam Vital Signs: Vital Signs: Last Vital Signs Temp 97.2 F 08/06/23 07:11 Pulse 82 08/06/23 07:36 Resp 18 08/06/23 07:36 BP 134/87 08/06/23 09:33 Pulse Ox 93 08/06/23 07:11 O2 Del Method Nasal Cannula 08/06/23 07:11 O2 Flow Rate 3 08/06/23 07:11 BMI result Body Mass Index 27.0 Const: Other: Constitutional : Awake, interactive, not in distress Neck : Normal inspection, Supple Cardiovascular : RRR, no JVP, no lower extremity edema Respiratory : good bilateral air entry, no crackles, no wheezes Gastrointestinal: soft, lax, Normal bowel sounds, Non tender Skin : Warm, Dry Neurological : Alert & oriented to self , No focal deficit DS: Data Data Completed and Pending Labs on day of discharge: Laboratory Results - last 24 hr 08/06/23 08:17 Sodium 145 Potassium 3.0 L Chloride 107 Carbon Dioxide 24 Anion Gap 17 BUN 21 H Creatinine 0.80 Estim Creat Clear Calc 55.9 Estimated GFR > 60 Random Glucose 82 Calcium 9.2 D B-Natriuretic Peptide 51 Preliminary micro results at discharge 08/02/23 18:53 Blood Culture - Preliminary Blood - Venous No growth after 48 hours. 08/02/23 18:50 Blood Culture - Preliminary Blood - Venous No growth after 48 hours. Imaging Chest x-ray: Radiologist's impression: ITS Impressions Chest X-Ray 08/02/23 19:40 IMPRESSION: No acute abnormality of chest. Chest X-Ray 08/05/23 05:23 IMPRESSION: 1. Trace bilateral pleural effusions. 2. Pulmonary vascular congestion. No focal pulmonary consolidation. Discharge Plan Discharge Anticipated Discharge Date/Time: 08/06/23 10:38 Patient Disposition: Home Health Service Discharge Diagnosis: E.Coli UTI Covid 19 infection Referrals: Isaias Canela MD [Primary Care Provider] - 1 Week Discharge Medications: New ertapenem 1 gram recon soln 1 g IV Q24H Qty: 7 0RF dexamethasone 4 mg tablet 4 mg PO DAILY Qty: 7 0RF Continued ipratropium-albuterol 0.5 mg-3 mg(2.5 mg base)/3 mL solution for nebulization 3 ml inhalation Q4H PRN (Reason: SOB) Rx Instructions: Rinse mouth with water and spit after treatment. fluticasone propion-salmeterol [Advair Diskus] 500-50 mcg/dose blister with device 1 ea inhalation BID Rx Instructions: rinse mouth after use sertraline 50 mg tablet 50 mg PO BEDTIME acetaminophen 650 mg Suppository 650 mg DC Q6H PRN (Reason: pain or fever) Rx Instructions: For general discomfort/ temp 101 or greater ( max daily dose not to exceed 3 gm daily bisacodyl 10 mg Suppository 10 mg DC DAILY PRN (Reason: Constipation) Rx Instructions: daily for no BM if M.O.M INEFFECTIVE ferrous sulfate 325 mg (65 mg iron) Tablet 325 mg PO DAILY omeprazole 20 mg capsule,delayed release(DR/EC) 20 mg PO DAILY@0630 Rx Instructions: GIVE ONE TABLET BY MOUTH IN AM FOR PP1 montelukast 10 mg tablet 10 mg PO BEDTIME cholecalciferol (vitamin D3) [Vitamin D3] 25 mcg (1,000 unit) Tablet 25 mcg PO DAILY magnesium hydroxide [Milk of Magnesia] 400 mg/5 mL Suspension 30 ml PO DAILY PRN (Reason: Constipation) Rx Instructions: prn for no BM in 9 shifts (3 days), do not administer with dialysis ipratropium-albuterol 18-103 mcg/actuation Aerosol 2 spray INHALATION Q4H PRN (Reason: SOB) Rx Instructions: rinse mouth with water and spit after treatment docusate sodium 100 mg Capsule 100 mg PO DAILY PRN (Reason: Constipation) Qty: 30 0RF Pulmicort Flexhaler 90 mcg/actuation aerosol powdr breath activated 2 inh inhalation BID Rx Instructions: Rinse mouth with water and spit after treatment. mirtazapine 7.5 mg tablet 15 mg PO BEDTIME acetaminophen 500 mg Tablet 500 mg PO BID Rx Instructions: do not exceed 3 gm in 24 hours diclofenac sodium [Voltaren Arthritis Pain] 1 % Gel 4 g TOPICAL TID Discharge Orders: Discharge Order (Routine); Ordered 08/06/23 Ordered By: Lisandra Brasher Diet: Low salt diet Activity on Discharge: As tolerated Stand Alone Forms: Patient Portal Discharge page Print Language: Azerbaijani Care Plan Goals: Continue Ertapenem for 7 more days Continue Dexamethasone for 7 more days Wean O2 down as tolerated Increase physical activity as tolerated Health Concerns: Read below Plan of Treatment: Read below Assessment: Read below
--- NOTE | 2023-08-06 11:35 | MHC.CM.PN ---
Second IMM sent to Dtr /HCP, pt has been medically cleared for DC, she will return to [facility] via BLS this afternoon.
[2023-08-06] MEDS: Ertapenem Sodium 1 GM in 0.9 % Sodium Chloride 50 ML IV (12:11)
== END 2023-08-06 15:49 | disposition skilled nursing facility (03) | DRG 871 ==
LOC: HO.ED 19:10 → HO.EDOVER 20:23 → HO.IMC 20:55
PROVIDERS: Internal Medicine; Student in an Organized Health Care Education/Training Program; Admitting Provider Physician Assistant; Emergency Provider Student in an Organized Health Care Education/Training Program; PCP Family Medicine; Visit Provider Student in an Organized Health Care Education/Training Program
DX: A41.9 Sepsis, unspecified organism (principal); G93.41 Metabolic encephalopathy; U07.1 COVID-19; J96.01 Acute respiratory failure with hypoxia; N39.0 Urinary tract infection, site not specified; F03.918 Unspecified dementia, unspecified severity, with other behavioral disturbance; J44.1 Chronic obstructive pulmonary disease with (acute) exacerbation; Z16.12 Extended spectrum beta lactamase (ESBL) resistance; Z66 Do not resuscitate; E78.5 Hyperlipidemia, unspecified; K21.9 Gastro-esophageal reflux disease without esophagitis; N18.30 Chronic kidney disease, stage 3 unspecified; B96.20 Unspecified Escherichia coli [E. coli] as the cause of diseases classified elsewhere; Z99.81 Dependence on supplemental oxygen; Z79.51 Long term (current) use of inhaled steroids; Z79.899 Other long term (current) drug therapy
CPT/HCPCS: 0241U; 36410; 36415; 71045; 80048; 80053; 81001; 82272; 82803; 83605; 83880; 85025; 85027; 85610; 87040; 87086; 87088; 87186; 92950; 93005; 94640; 99285; C1751; C1758; J0456; J0692; J0696; J1100; J1335; J1642; J1650; J1885; J1940; J2185; P9047

== ENCOUNTER → 2023-08-02 18:19 | Outpatient (BNV) | payer MEDICARE, MEDICAID, SELFPAY | PROVIDERS: Admitting Provider Physician Assistant; Emergency Provider Student in an Organized Health Care Education/Training Program; PCP Family Medicine; Visit Provider Internal Medicine Cardiovascular Disease | DX: R00.0 Tachycardia, unspecified (principal); R94.31 Abnormal electrocardiogram [ECG] [EKG] | CPT/HCPCS: 93010 ==

== ENCOUNTER → 2023-08-02 20:03 | Outpatient (BNV) | payer MEDICARE, MEDICAID, SELFPAY | PROVIDERS: Admitting Provider Physician Assistant; Emergency Provider Student in an Organized Health Care Education/Training Program; Visit Provider Physician Assistant | DX: U07.1 COVID-19 (principal) | CPT/HCPCS: 99223; 99232; 99233; 99239 ==

== ENCOUNTER → 2023-08-02 20:03 | Outpatient (BNV) | payer MEDICARE, MEDICAID, SELFPAY | PROVIDERS: Admitting Provider Physician Assistant; Emergency Provider Student in an Organized Health Care Education/Training Program; PCP Family Medicine; Visit Provider Internal Medicine | DX: U07.1 COVID-19 (principal); N39.0 Urinary tract infection, site not specified | CPT/HCPCS: 99222 ==

== ENCOUNTER 2023-10-06 12:13 | Inpatient (IN) | payer MEDICARE, MEDICAID, SELFPAY ==
--- NOTE | ~2023-10-06 | XR_ITS ---
EXAMINATION: XR CHEST CLINICAL INFORMATION: Fever COMPARISON: Chest x-ray on 08/05/2023 TECHNIQUE: Frontal view of the chest was obtained. FINDINGS: HEART & VASCULARITY: There are normal cardiac size and pulmonary vascularity. LUNGS: Asymmetric small flame-shaped airspace disease with air bronchograms is seen in the medial right upper lobe. Horizontal linear atelectasis is seen in the lateral left lung base.. No pneumothorax is seen. BONES: Bony skeleton is intact. Healed proximal left humeral shaft fracture with mild impaction is seen. XR/XR chest 1V IMPRESSION: 1. Interval resolution of small left pleural effusion and pulmonary venous congestion. 2. Interval development of small medial right upper lobe airspace disease. 3. Interval appearance of left lateral lung base horizontal plate like atelectasis. 4. Unchanged healed proximal left humeral shaft fracture with mild impaction. Electronically signed by: Stacey Panda MD 10/06/2023 04:55 PM EDT
--- NOTE | ~2023-10-06 | CT_ITS ---
EXAMINATION: CT HEAD WITHOUT CONTRAST CLINICAL INFORMATION: Altered mental status. COMPARISON: CT head from 01/07/2023. TECHNIQUE: Contiguous axial imaging was performed from the skull base to vertex without intravenous administration of contrast. This CT examination was performed using dose optimization techniques as appropriate, variously including the following: *Automated exposure control. *Adjustment of mA and/or kV according to patient size (this includes techniques or standardized protocols for targeted exams where dose is matched to indication/reason for exam; i.e. extremities or head). *Use of iterative reconstruction technique. DLP: 677 mGy-cm FINDINGS: There is no evidence of acute intracranial hemorrhage or edematous territorial infarction. Smith-white matter differentiation is preserved. Scattered and partially confluent hypoattenuation in the periventricular and deep white matter are consistent with moderate microangiopathy. There is a degree of generalized cerebral volume loss with prominence of both the ventricles and sulcal spaces. However, there appears to be mildly disproportionate prominence of the ventricles. The posterior callosal angle is decreased (46 degrees) when measured on a corrected coronal image, orthogonal to the anterior commissure-posterior commissure line. The third ventricle measures up to 1.3 cm in diameter. No abnormal mass effect or midline shift. No extra-axial fluid collections. Calcific atherosclerotic disease of the intracranial internal carotid arteries. No hyperdense vessel sign. No acute soft tissue or osseous abnormalities. Near-complete opacification of the visualized paranasal sinuses. Moderate bilateral mastoid effusions. Bilateral lens extractions. CT/CT head/brain wo IV con IMPRESSION: 1. No evidence of acute intracranial hemorrhage or edematous territorial infarction. 2. Moderate underlying microangiopathy. 3. There is a degree of generalized cerebral volume loss with prominence of both the ventricles and sulcal spaces. However, there appears to be mildly disproportionate prominence of the ventricles. This may be due to disproportionate central volume loss; however, correlation with symptoms of potential superimposed normal pressure hydrocephalus is recommended. 4. Extensive sinonasal disease. Moderate bilateral mastoid effusions. Electronically signed by: Allen Burns DO 10/06/2023 04:41 PM EDT
[2023-10-06 12:18] VITALS: BP 150/72; PULSE 88; O2SAT 94
[2023-10-06 12:20] VITALS: BP 153/73; PULSE 84; RESP 16; TEMP 37.8; O2SAT 89; BMI 28.1
[2023-10-06 12:35] LABS: Glucose, Whole Blood 88 mg/dL (60-115)
--- NOTE | 2023-10-06 12:42 | ECG_ITS ---
Test Reason : AMS Blood Pressure : / mmHG Vent. Rate : 085 BPM Atrial Rate : 085 BPM P-R Int : 170 ms QRS Dur : 078 ms QT Int : 378 ms P-R-T Axes : 029 -49 034 degrees QTc Int : 449 ms Normal sinus rhythm Low voltage QRS Left anterior fascicular block Cannot rule out Anterior infarct (cited on or before 12-FEB-2023) Abnormal ECG When compared with ECG of 02-AUG-2023 20:29, Heart rate has decreased Referred By: Generic ED Physician Electronically Signed By:RUBI SOOD
--- NOTE | 2023-10-06 12:55 | ED_ITS ---
HPI - General Adult General Chief complaint: General Medical Stated complaint: INCR AMS X2D,FEVER,NOT TALKING,FROM SNF PER EMS Time Seen by Provider: 10/06/23 12:55 History of Present Illness ED Provider: Alcides BOLANOS narrative: The patient is an 88-year-old woman who has been living at the [facility]. Over the last 2 days she has had a decreased level in her mentation and was apparently also found to have an elevated white count. Apparently the patient had a UA and a chest x-ray at the facility that were both negative. Today the patient seemed to be febrile and nonverbal. Apparently patient's mental status is usually much better. I attempted to reach staff at [facility] but could not get through to anybody. The patient is nonverbal and unable to give me any additional history. I spoke to the patient's daughter. The daughter says that she saw the patient 2 days ago on Wednesday. At that time the daughter already thought the patient seemed a little less responsive than she usually is. Allegedly outpatient labs at [facility] indicated an elevated white count but I do not have that information. Related Data Home Medications ?Medication ?Instructions ?Recorded ?Confirmed fluticasone 500 mcg-salmeterol 50 1 ea inhalation BID 11/02/22 10/06/23 mcg/dose blistr powdr for inhalation (Advair Diskus) ipratropium 0.5 mg-albuterol 3 mg 3 ml inhalation Q4H PRN SOB 11/02/22 10/06/23 (2.5 mg base)/3 mL nebulization soln sertraline 50 mg tablet 50 mg PO BEDTIME 11/02/22 10/06/23 acetaminophen 650 mg rectal 650 mg SD Q6H PRN pain or fever 11/03/22 10/06/23 suppository bisacodyl 10 mg rectal suppository 10 mg SD DAILY PRN Constipation 11/03/22 10/06/23 cholecalciferol (vitamin D3) 25 25 mcg PO DAILY 11/03/22 10/06/23 mcg (1,000 unit) tablet (Vitamin D3) ferrous sulfate 325 mg (65 mg 325 mg PO DAILY 11/03/22 10/06/23 iron) tablet montelukast 10 mg tablet 10 mg PO BEDTIME Allergy Symptoms 11/03/22 10/06/23 omeprazole 20 mg capsule,delayed 20 mg PO DAILY@0630 11/03/22 10/06/23 release mirtazapine 7.5 mg tablet 15 mg PO BEDTIME 01/06/23 10/06/23 acetaminophen 500 mg tablet 500 mg PO BID 02/12/23 10/06/23 diclofenac sodium 1 % topical gel 4 g topical TID NECK PAIN 02/12/23 10/06/23 (Voltaren Arthritis Pain) ipratropium 18 mcg-albuterol 103 2 spray inhalation Q4H PRN SOB 06/02/23 10/06/23 mcg/actuation aerosol inhaler magnesium hydroxide 400 mg/5 mL 30 ml PO DAILY PRN Constipation 06/02/23 10/06/23 oral suspension (Milk of Magnesia) budesonide 90 mcg/actuation breath 2 inh inhalation BID 08/02/23 10/06/23 activated powder inhaler (Pulmicort Flexhaler) Previous Rx's ?Medication ?Instructions ?Recorded docusate sodium 100 mg capsule 100 mg PO DAILY PRN Constipation 06/06/23 #30 caps Allergies Allergy/AdvReac Type Severity Reaction Status Date / Time No Known Allergies Allergy Verified 10/06/23 12:21 Review of Systems 2 Review of Systems: Yes Unobtainable due to mental status PMFSH Past Medical History Medical History (Updated 10/06/23 @ 18:31 by Tom Mcgrath MD) UTI (urinary tract infection) COVID COPD (chronic obstructive pulmonary disease) Dementia GERD (gastroesophageal reflux disease) Cholelithiasis Vitamin D deficiency Mild persistent asthma Unspecified dementia, unspecified severity, with mood disturbance Chronic kidney disease, stage 3 Chronic anemia Social History Social History Household Members: Other Household Members Other:: From [facility] Housing: Halfway Do you presently have visiting nurse or other home services: No Unable to assess alcohol history related to: Unable to respond Alcohol intake: never Patient Tobacco Use Status: Tobacco use Unknown Advance Directives: Yes Advance Directives on File: Yes Advance Directives Date on File: 11/09/22 service: No Physical Exam ED Vital Signs: Vital Signs - 24 hr 10/06/23 12:20 10/06/23 15:16 Temperature 100.1 F 99.1 F Pulse Rate 84 84 Respiratory Rate 16 16 Blood Pressure 153/73 H 122/50 L Pulse Oximetry 89 L 91 L Oxygen Delivery Method Nasal Cannula Room Air BMI result Body Mass Index 28.1 Const Other: The patient is an 88-year-old woman who looks chronically ill. She opened her eyes to loud verbal stimuli and made eye contact but would not speak. She moves her extremities very slightly in response to command. HENMT Other: Face is symmetrical. Mucous membranes not obviously dry. Eyes Other: Pupils are small, round, equal, conjunctivae are clear, extraocular movements seem intact. Neck Neck: Yes JVD Resp Effort & Inspection: normal respiratory effort Auscultation: clear to auscultation bilaterally Cardio Rate: regular rate Rhythm: regular rhythm Heart sounds: S1 normal heart sound present and S2 normal heart sound present Skin Other: Skin is pale and dry Neuro Other: Patient has a diminished level of consciousness and responsiveness. She lies on the stretcher with her eyes closed and doing little or nothing. When directly address with loud verbal stimuli she opens her eyes and makes eye contact but does not speak. She moves her extremities very slightly in response to commands. Extrem Other: No pitting edema of the legs Medical Decision Making Medical Decision Making MDM Narrative: The patient is an 88-year-old woman with a history of dementia. She is DNR/DNI according to her MOLST form. She lives at the [facility]. She was sent to the emergency room today because of a decreased level of alertness and a decrease in her usual interactivity that has come on over the last 2 days. Apparently this is behavior she has demonstrated in the past with UTIs and other infections. The patient is unable to give any history. The patient's exam is quite bland aside from her diminished level of alertness. Her abdomen is soft and seems nontender. Chest x-ray shows a question of airspace disease with air bronchograms in the medial right upper lobe. Urinalysis shows positive nitrites, 1+ leukocyte esterase and 6-10 white cells. Also 4+ bacteria. Last previous UTI had a culture that grew E coli with multiple resistances. White count is 11.2 with an unremarkable differential. CRP slightly elevated at 1.79. BUN slightly elevated at 25. I contacted the patient's daughter and discussed goals of care. The patient's daughter would like the patient to get antibiotics in case and infection is causing the patient's change in mental status. Since the patient had a fairly resistant E coli previously I have ordered 1 g of meropenem. The patient seems to have perked up slightly with IV fluids. Whether the primary problem today is a UTI or pneumonia is not entirely clear. The patient will be admitted to the hospitalist service. Lab Data 10/06/23 13:28 10/06/23 13:28 Labs: Lab Results 10/06/23 10/06/23 10/06/23 Range/Units 12:32 13:28 16:57 WBC 11.2 H (4.8-10.8) X10*3/uL RBC 4.44 (4.20-5.50) X10*6/uL Hgb 12.7 (12.0-16.0) g/dl Hct 38.6 (37.0-47.0) % MCV 86.9 (80.0-98.0) fL MCH 28.6 (27.0-33.0) pg MCHC 32.9 (31.0-35.0) g/dl RDW 15.3 (11.0-16.0) % Plt Count 278 D (160-400) X10*3/uL MPV 9.3 L (9.4-12.3) fL Immature Gran % (Auto) 0.6 H (0.0-0.4) % Neut % (Auto) 68.9 (45-73) % Lymph % (Auto) 14.5 L (20-40) % [place] % (Auto) 8.1 (2-11) % Eos % (Auto) 7.2 H (0-4) % Baso % (Auto) 0.7 (0-2) % Lymph # (Auto) 1.6 (1.2-4.9) X10*3/uL [place] # (Auto) 0.9 (0.1-1.2) X10*3/uL Eos # (Auto) 0.8 H (0.0-0.4) X10*3/uL Baso # (Auto) 0.1 (0.0-0.2) X10*3/uL Abs Immat Gran (auto) 0.07 H (0.00-0.03) X10*3/uL Absolute Neuts (auto) 7.7 (2.0-8.3) x10*3/uL Absolute Nucleated RBC 0.000 (0.0-0.012) X10*3/uL Nucleated RBC % (auto) 0.0 (0.0-0.2) /100WBC Sodium 137 (135-145) mmol/L Potassium 3.9 D (3.3-5.1) mmol/L Chloride 101 (96-108) mmol/L Carbon Dioxide 26 (22-29) mmol/L Anion Gap 14 (12-20) BUN 25 H (9-16) mg/dL Creatinine 0.94 (0.5-1.4) mg/dL Estim Creat Clear Calc 41.5 Estimated GFR 56 POC Glucose 88 (60-115) mg/dL Random Glucose 98 (60-115) mg/dL Lactic Acid 1.0 (0.5-2.0) mmol/L Calcium 9.8 D (8.4-10.2) mg/dL Total Bilirubin 0.4 (0.0-1.0) mg/dL AST 16 (5-31) U/L ALT 13 (0-31) U/L Alkaline Phosphatase 65 (39-117) U/L Troponin I High Sens 3.0 (<3.5-17.0) ng/L C-Reactive Protein 1.79 H (< or = 0.50) mg/dL B-Natriuretic Peptide 15 (<100) pg/mL Total Protein 7.9 (6.5-8.0) g/dL Albumin 4.1 (3.5-5.0) g/dL Urine Color Yellow Urine Appearance Clear Urine pH 5.5 (5.0-9.0) Ur Specific Carey 1.025 (1.005-1.025) Urine Protein Trace (Neg-Trace) mg/dL Urine Glucose (UA) Negative (Negative) mg/dL Urine Ketones 15 (Negative) mg/dL Urine Blood Negative (Negative) Urine Nitrite Positive H (Negative) Ur Leukocyte Esterase Small (1+) H (Negative) Urine RBC 0-2 (0-2) /HPF Urine WBC 6-10 H (0-5) /HPF Ur Squamous Epith Cells 0-2 (0-2) /HPF Urine Bacteria 4+ (None Seen) Hyaline Casts 0-2 (0-2) /LPF Discharge Plan Discharge Clinical Impression: Altered mental status, Urinary tract infection, Dementia Patient Disposition: Admitted As Inpatient Print Language: Irish
--- NOTE | 2023-10-06 13:00 | PC.NURSE ---
patient presented to ED only responsive to painful stimuli. patient will open eyes occasionally, jaw tremors. patient does not speak or answer questions. 22# placed in patient left hand by this RN, ems has #20 RAC.
[2023-10-06 13:35] LABS: Basophils Absolute Auto 0.1 X10*3/uL (0.0-0.2); Basophils Percent Auto 0.7 % (0-2); Eosinophils Absolute Auto 0.8 X10*3/uL (0.0-0.4); Eosinophils Percent Auto 7.2 % (0-4); Hematocrit 38.6 % (37.0-47.0); Hemoglobin 12.7 g/dl (12.0-16.0); Imm Gran Abs Auto 0.07 X10*3/uL (0.00-0.03); Imm Gran Pct Auto 0.6 % (0.0-0.4); Lymphocytes Absolute Auto 1.6 X10*3/uL (1.2-4.9); Lymphocytes Percent Auto 14.5 % (20-40); MANUAL DIFF FLAG NO; Mean Corpuscular HGB Conc 32.9 g/dl (31.0-35.0); Mean Corpuscular Hemoglobin 28.6 pg (27.0-33.0); Mean Corpuscular Volume 86.9 fL (80.0-98.0); Mean Platelet Volume 9.3 fL (9.4-12.3); Monocytes Absolute Auto 0.9 X10*3/uL (0.1-1.2); Monocytes Percent Auto 8.1 % (2-11); Neutrophils Absolute Auto 7.7 x10*3/uL (2.0-8.3); Neutrophils Percent Auto 68.9 % (45-73); Platelet Count 278 X10*3/uL (160-400); Red Blood Count 4.44 X10*6/uL (4.20-5.50); Red Cell Distribution Width 15.3 % (11.0-16.0); White Blood Count 11.2 X10*3/uL (4.8-10.8)
[2023-10-06 13:49] LABS: C Reactive Protein 1.79 mg/dL (< or = 0.50)
[2023-10-06 13:50] LABS: Alanine Aminotransferase 13 U/L (0-31); Albumin Level 4.1 g/dL (3.5-5.0); Alkaline Phosphatase 65 U/L (39-117); Anion Gap 14 (12-20); Aspartate Amino Transferase 16 U/L (5-31); Bilirubin Total 0.4 mg/dL (0.0-1.0); Blood Urea Nitrogen 25 mg/dL (9-16); Calcium 9.8 mg/dL (8.4-10.2); Carbon Dioxide 26 mmol/L (22-29); Chloride 101 mmol/L (96-108); Creatinine Clr Calc Pharmacy 41.5; Estimated Glomerular Filt Rate 56; Glucose Random 98 mg/dL (60-115); Potassium 3.9 mmol/L (3.3-5.1); Sodium 137 mmol/L (135-145); Total Protein 7.9 g/dL (6.5-8.0)
--- NOTE | 2023-10-06 14:47 | PHA.MEDREC ---
Pharmacy Consult ? Medication Reconciliation Pharmacy has completed the medication reconciliation. Med rec finished with list from Katty at [place].
[2023-10-06 15:15] LABS: B Type Natriuretic Peptide 15 pg/mL (<100)
[2023-10-06 15:16] VITALS: BP 122/50; PULSE 84; RESP 16; TEMP 37.3; O2SAT 91
--- NOTE | 2023-10-06 16:42 | PC.NURSE ---
straight cath done by this RN, patient tolerated well
[2023-10-06 17:07] LABS: Appearance Urine Clear; Color Urine Yellow; Glucose Urine UA Negative (Negative); Leukocyte Esterase Urine Small (1+) (Negative); Nitrite Urine Positive (Negative); PH 5.5 (5.0-9.0); Specific Gravity - Urine 1.025 (1.005-1.025); UMIC TRIGGER UACC YES; Urine Blood Negative (Negative); Urine Ketones 15 mg/dL (Negative); Urine Protein Trace mg/dL (Neg-Trace)
[2023-10-06 17:13] LABS: Bacteria Urine 4+ (None Seen); Hyaline Casts Urine 0-2 /LPF (0-2); RBC Urine 0-2 /HPF (0-2); Squamous Epithelial Cell Urine 0-2 /HPF (0-2); UACC Culture Trigger YES
[2023-10-06 19:03] VITALS: BP 130/41; PULSE 83; RESP 20; O2SAT 92
[2023-10-06] MEDS: Sodium Bicarbonate 8.4% 150 MEQ in Dextrose 5 % 850 ML 100 MEQ IV (19:28)
--- NOTE | 2023-10-06 19:39 | P.HPHOSP_ITS ---
History of Present Illness Date of Service: 10/06/23 Attending physician on admission: Joel Santana Chief Complaint: Altered mental status Pt is an 88-year-old female with a PMH significant for?COPD on home O2 p.r.n., mild persistent asthma, unspecified dementia with mood disturbance, GERD, CKD 3, and HLD who presents to the ED from [facility] for evaluation increasing AMS and lethargy x2 days. Patient apparently noted to have a fever and elevated white count at the facility. Also had UA and chest x-ray that were both negative. Patient apparently at baseline is fairly interactive, however has been mostly nonverbal the past few days. Staff at [facility] state this behavior consistent with previous UTIs. Patient seen and evaluated in her room where she is noted to be somnolent but arousable to verbal stimuli. Patient still nonverbal and unable to answer questions. Of note, patient previously admitted to the hospital on 08/01 for similar symptoms where urine culture was positive for E coli resistant to multiple antibiotics including ceftriaxone. Was susceptible to ertapenem and gentamicin. In the ED pt had elevated temp of 100.1, vitals otherwise WNL. Currently satting at 96% on RA. Labs were significant for leukocytosis of 11.2, otherwise grossly unremarkable and around baseline for patient. Stable H& H. No significant electrolyte abnormalities. Renal function around baseline. Hepatic function WNL. Troponin 3.0. C-reactive protein mildly elevated at 1.79. UA positive for nitrites, leukocyte esterase, and 6-10 wbc's with 4+ bacteria CXR showed interval resolution of small left pleural effusion and pulmonary venous congestion, but showed interval development of small right upper lobe airspace disease, and left lateral lung platelike atelectasis. CT?of head showed no acute intracranial hemorrhage or edematous territorial infarction, but showed moderate underlying microangiopathy. Also showed generalized cerebral volume loss. EKG demonstrated normal sinus rhythm without evidence of significant ST elevations or depressions. Pt was treated with 1 L IVF and meropenem. Pt will be admitted to the hospital for treatment and further evaluation of acute metabolic encephalopathy in the setting of acute UTI. Review of Systems 2 Review of Systems: Unable to obtain due to patient's mentation [facility] Medical History UTI (urinary tract infection) COVID COPD (chronic obstructive pulmonary disease) Dementia GERD (gastroesophageal reflux disease) Cholelithiasis Vitamin D deficiency Mild persistent asthma Unspecified dementia, unspecified severity, with mood disturbance Chronic kidney disease, stage 3 Chronic anemia Social History Household Members: Other Household Members Other:: From [place] Care Housing: Prison Do you presently have visiting nurse or other home services: No Unable to assess alcohol history related to: Unable to respond Alcohol intake: never Patient Tobacco Use Status: Tobacco use Unknown Advance Directives: Yes Advance Directives on File: Yes Advance Directives Date on File: 11/09/22 service: No Meds Allergies Allergy/AdvReac Type Severity Reaction Status Date / Time No Known Allergies Allergy Verified 10/06/23 12:21 Active Medications: Current Medications Acetaminophen (Acetaminophen 325 Mg Tablet) 650 mg PO Q6H PRN PRN Reason: Pain, Mild (Pain Scale 1-3), fever or headache Calcium Carbonate (Calcium Carbonate 750 Mg Tab.Chew) 750 mg PO Q4H PRN PRN Reason: Heartburn Enoxaparin Sodium (Enoxaparin Sodium 40 Mg/0.4 Ml Syringe) 40 mg SUBCUT Q24H [facility] Sodium Bicarbonate 150 meq/ (Dextrose) 1,000 mls @ 100 mls/hr IV .Q10H PADMAJA Last Admin: 10/06/23 19:28 Dose: 100 mls/hr Albumin Human (Kedbumin 25 %) 100 mls @ 100 mls/hr IV Q1H PADMAJA Stop: 10/06/23 20:44 Meropenem 1 gm/ Sodium (Chloride) 100 mls @ 200 mls/hr IV Q12H [facility] Magnesium Hydroxide (Milk Of Magnesia 30 Ml Oral.Susp) 30 ml PO DAILY PRN PRN Reason: Constipation Melatonin (Melatonin 3 Mg Tablet) 6 mg PO BEDTIME PRN PRN Reason: Insomnia Ondansetron HCl (Ondansetron Hcl 4 Mg/2 Ml Vial) 4 mg IVPUSH Q8H PRN PRN Reason: Nausea and Vomiting Sodium Chloride (0.9 % Sodium Chloride Flush 3 Ml Syringe) 3 ml IVFLUSH QSHIFT [facility] Home Medications ?Medication ?Instructions ?Recorded ?Confirmed ?Last Taken ?Type fluticasone 500 mcg-salmeterol 50 1 ea inhalation BID 11/02/22 10/06/23 Unknown History mcg/dose blistr powdr for inhalation (Advair Diskus) ipratropium 0.5 mg-albuterol 3 mg 3 ml inhalation Q4H PRN SOB 11/02/22 10/06/23 Unknown History (2.5 mg base)/3 mL nebulization soln sertraline 50 mg tablet 50 mg PO BEDTIME 11/02/22 10/06/23 Unknown History acetaminophen 650 mg rectal 650 mg [place] Q6H PRN pain or fever 11/03/22 10/06/23 Unknown History suppository bisacodyl 10 mg rectal suppository 10 mg [place] DAILY PRN Constipation 11/03/22 10/06/23 Unknown History cholecalciferol (vitamin D3) 25 25 mcg PO DAILY 11/03/22 10/06/23 Unknown History mcg (1,000 unit) tablet (Vitamin D3) ferrous sulfate 325 mg (65 mg 325 mg PO DAILY 11/03/22 10/06/23 Unknown History iron) tablet montelukast 10 mg tablet 10 mg PO BEDTIME Allergy Symptoms 11/03/22 10/06/23 Unknown History omeprazole 20 mg capsule,delayed 20 mg PO DAILY@0630 11/03/22 10/06/23 Unknown History release mirtazapine 7.5 mg tablet 15 mg PO BEDTIME 01/06/23 10/06/23 Unknown History acetaminophen 500 mg tablet 500 mg PO BID 02/12/23 10/06/23 Unknown History diclofenac sodium 1 % topical gel 4 g topical TID NECK PAIN 02/12/23 10/06/23 Unknown History (Voltaren Arthritis Pain) ipratropium 18 mcg-albuterol 103 2 spray inhalation Q4H PRN SOB 06/02/23 10/06/23 Unknown History mcg/actuation aerosol inhaler magnesium hydroxide 400 mg/5 mL 30 ml PO DAILY PRN Constipation 06/02/23 10/06/23 Unknown History oral suspension (Milk of Magnesia) budesonide 90 mcg/actuation breath 2 inh inhalation BID 08/02/23 10/06/23 Unknown History activated powder inhaler (Pulmicort Flexhaler) Physical Exam 2 Vital Signs and Narrative: Vital Signs: Last Vital Signs Temp 99.1 F 10/06/23 15:16 Pulse 83 10/06/23 19:03 Resp 20 10/06/23 19:03 BP 130/41 L 10/06/23 19:03 Pulse Ox 92 10/06/23 19:03 O2 Del Method Room Air 10/06/23 19:03 Oxygen Flow Rate 4 10/06/23 12:20 BMI result Body Mass Index 28.1 General: Somnolent but arousable to verbal stimuli, falling back asleep during exam, nonverbal. In no acute distress Resp: CTA bilaterally. No respiratory distress. CVS: S1, S2, RRR GI: +BS, NT, no distention Skin: Warm, dry Neuro: Cranial nerves II-XII grossly intact bilaterally. Motor grossly intact bilaterally Extremities: No edema Results Labs 10/06/23 13:28 10/06/23 13:28 Labs: Laboratory Results - last 24 hr 10/06/23 10/06/23 10/06/23 12:32 13:28 16:57 MCV 86.9 MCH 28.6 MCHC 32.9 RDW 15.3 Plt Count 278 D MPV 9.3 L Immature Gran % (Auto) 0.6 H Neut % (Auto) 68.9 Lymph % (Auto) 14.5 L [place] % (Auto) 8.1 Eos % (Auto) 7.2 H Baso % (Auto) 0.7 Lymph # (Auto) 1.6 [place] # (Auto) 0.9 Eos # (Auto) 0.8 H Baso # (Auto) 0.1 Abs Immat Gran (auto) 0.07 H Absolute Neuts (auto) 7.7 Absolute Nucleated RBC 0.000 Nucleated RBC % (auto) 0.0 Anion Gap 14 Estim Creat Clear Calc 41.5 Estimated GFR 56 POC Glucose 88 Random Glucose 98 Lactic Acid 1.0 Calcium 9.8 D Total Bilirubin 0.4 AST 16 ALT 13 Alkaline Phosphatase 65 Troponin I High Sens 3.0 C-Reactive Protein 1.79 H B-Natriuretic Peptide 15 Total Protein 7.9 Albumin 4.1 Urine Color Yellow Urine Appearance Clear Urine pH 5.5 Ur Specific [place] 1.025 Urine Protein Trace Urine Glucose (UA) Negative Urine Ketones 15 Urine Blood Negative Urine Nitrite Positive H Ur Leukocyte Esterase Small (1+) H Urine RBC 0-2 Urine WBC 6-10 H Ur Squamous Epith Cells 0-2 Urine Bacteria 4+ Hyaline Casts 0-2 Imaging Radiologist's Impressions: Impressions Chest X-Ray 10/06/23 13:00 IMPRESSION: 1. Interval resolution of small left pleural effusion and pulmonary venous congestion. 2. Interval development of small medial right upper lobe airspace disease. 3. Interval appearance of left lateral lung base horizontal plate like atelectasis. 4. Unchanged healed proximal left humeral shaft fracture with mild impaction. Electronically signed by: Stacey Panda MD 10/06/2023 04:55 PM EDT RP Head CT 10/06/23 14:07 IMPRESSION: 1. No evidence of acute intracranial hemorrhage or edematous territorial infarction. 2. Moderate underlying microangiopathy. 3. There is a degree of generalized cerebral volume loss with prominence of both the ventricles and sulcal spaces. However, there appears to be mildly disproportionate prominence of the ventricles. This may be due to disproportionate central volume loss; however, correlation with symptoms of potential superimposed normal pressure hydrocephalus is recommended. 4. Extensive sinonasal disease. Moderate bilateral mastoid effusions. Electronically signed by: Allen Burns DO 10/06/2023 04:41 PM EDT RP Assessment and Plan (1) Urinary tract infection: Status: Acute (2) Acute metabolic encephalopathy: Status: Acute Plan Pt is an 88-year-old female with a PMH significant for?COPD on home O2 p.r.n., mild persistent asthma, unspecified dementia with mood disturbance, GERD, CKD 3, and HLD who presents to the ED from [facility] for evaluation increasing AMS and lethargy x2 days. Pt will be admitted to the hospital for treatment and further evaluation of acute metabolic encephalopathy in the setting of acute UTI. Acute metabolic encephalopathy in the setting UTI Patient with lethargy, nonverbal, falling asleep during exam UA positive for nitrites, small leukocyte esterase, wbc's 6-10, and 4+ bacteria Previous urine culture on 08/02/2023 grew E coli resistant to ceftriaxone and others; susceptible to gentamicin and ertapenem Patient does not meet sepsis criteria: No fever, tachycardia, tachypnea, or leukocytosis; lactic acid WNL Will treat with Joanne panel, started 10/06/2023 Follow cultures Monitor mentation Diet Currently NPO given encephalopathy Diet at facility: Chopped texture, thin liquids, and positioned sitting upright for optimal swallow safety Dietary supplements: Ensure Clear and Magic Cup b.i.d. COPD Not in acute exacerbation Lungs CTA, pt satting at 96% on RA Continue home inhalers GERD Omeprazole Dementia/mood disorder Continue home meds DNR/DNI Attending:?Dr. Santana DVT Prophylaxis: Lovenox Patient will require hospitalization for at least 2 nights for treatment and further evaluation of acute metabolic encephalopathy likely in the setting of acute UTI. Given patient's altered mental status and previous UTI eyes resistant to multiple antibiotics, patient will require hospitalization for administration of IV antibiotics and close monitoring of mentation. Quality Stroke Does the patient have a stroke diagnosis?: No VTE Prior VTE?: No VTE Risk Level:: Medical - moderate - high VTE Device Contraindication: Treatment Not Indicated VTE Drug Contraindication: N/A - Med Ordered
--- NOTE | 2023-10-06 19:51 | PC.NURSE ---
bicarb drip stopped after provider stated he orded it on the wrong patient. rn made aware. no harm at this time.
[2023-10-06] MEDS: Lactated Ringers 1,000 ML 999 ML IV (20:19)
[2023-10-06] MEDS: Enoxaparin Sodium 40 MG/0.4 ML SYRINGE SUBCUT (20:19)
[2023-10-06 21:20] VITALS: BP 130/34; PULSE 87; RESP 19; TEMP 37.1; O2SAT 94
[2023-10-07 04:49] VITALS: BP 132/42; PULSE 84; RESP 21; TEMP 37.2; O2SAT 94
[2023-10-07 05:18] LABS: MANUAL DIFF FLAG NO
[2023-10-07 05:19] LABS: Basophils Absolute Auto 0.1 X10*3/uL (0.0-0.2); Basophils Percent Auto 0.6 % (0-2); Eosinophils Absolute Auto 0.4 X10*3/uL (0.0-0.4); Eosinophils Percent Auto 3.7 % (0-4); Hematocrit 40.9 % (37.0-47.0); Hemoglobin 13.5 g/dl (12.0-16.0); Imm Gran Abs Auto 0.06 X10*3/uL (0.00-0.03); Imm Gran Pct Auto 0.5 % (0.0-0.4); Lymphocytes Absolute Auto 1.8 X10*3/uL (1.2-4.9); Lymphocytes Percent Auto 15.6 % (20-40); Mean Corpuscular Hemoglobin 28.2 pg (27.0-33.0); Mean Corpuscular Volume 85.4 fL (80.0-98.0); Mean Platelet Volume 9.7 fL (9.4-12.3); Monocytes Absolute Auto 0.9 X10*3/uL (0.1-1.2); Monocytes Percent Auto 7.6 % (2-11); Neutrophils Absolute Auto 8.3 x10*3/uL (2.0-8.3); Platelet Count 256 X10*3/uL (160-400); Red Blood Count 4.79 X10*6/uL (4.20-5.50); Red Cell Distribution Width 15.2 % (11.0-16.0); White Blood Count 11.5 X10*3/uL (4.8-10.8)
[2023-10-07 05:39] LABS: Anion Gap 18 (12-20); Blood Urea Nitrogen 23 mg/dL (9-16); Calcium 9.8 mg/dL (8.4-10.2); Carbon Dioxide 20 mmol/L (22-29); Chloride 102 mmol/L (96-108); Creatinine Clr Calc Pharmacy 47.5; Estimated Glomerular Filt Rate > 60; Glucose Random 82 mg/dL (60-115); Sodium 136 mmol/L (135-145)
[2023-10-07 07:07] VITALS: BP 137/40; PULSE 86; RESP 20; TEMP 37.2; O2SAT 92
[2023-10-07] MEDS: 0.9 % Sodium Chloride Flush 3 ML SYRINGE IVFLUSH ×3 (07:10→21:01)
--- NOTE | 2023-10-07 09:43 | PC.NURSE ---
Pt arousable to verbal stimuli only. This RN reached out to MD Michel about holding PO meds d/t pt not being able to safely swallow. MD aware, no new orders at this time.
--- NOTE | 2023-10-07 10:42 | HO.PM.IMPN ---
Subjective Subjective Date of Service: 10/07/23 Interval History: follow-up on UTI metabolic encephalopathy she remains very confused, not that responsive and therefore keeping npo Physical Exam Vital Signs: Vital Signs: Last Vital Signs Temp 99.0 F 10/07/23 07:07 Pulse 86 10/07/23 07:07 Resp 20 10/07/23 07:07 BP 137/40 L 10/07/23 07:07 Pulse Ox 92 10/07/23 07:07 O2 Del Method Room Air 10/07/23 07:07 Oxygen Flow Rate 4 10/06/23 12:20 BMI result Body Mass Index 28.1 Const: Other: General:somnolent, easily aroused but not communicating Resp: CTA bilateral CVS: S1,S2,RRR GI: +BS, NT, no distention Skin: No rash Neuro: motor grossly intact Psych: appropriate affect Objective Data Active Medications Acetaminophen (Acetaminophen 325 Mg Tablet) 650 mg PO Q6H PRN PRN Reason: Pain, Mild (Pain Scale 1-3), fever or headache Acetaminophen (Acetaminophen Supp 650 Mg Supp.Rect) 650 mg DE Q6H PRN PRN Reason: pain or fever Albuterol/Ipratropium (Albuterol/Iprat 2.5/0.5mg 3 Ml Ampul.Neb) 3 ml INHALE Q4H PRN PRN Reason: Shortness of Breath Bisacodyl (Bisacodyl 10 Mg Supp.Rect) 10 mg DE DAILY PRN PRN Reason: Constipation Calcium Carbonate (Calcium Carbonate 750 Mg Tab.Chew) 750 mg PO Q4H PRN PRN Reason: Heartburn Docusate Sodium (Docusate Sodium 100 Mg Capsule) 100 mg PO DAILY PRN PRN Reason: Constipation Enoxaparin Sodium (Enoxaparin Sodium 40 Mg/0.4 Ml Syringe) 40 mg SUBCUT Q24H [facility] Last Admin: 10/06/23 20:19 Dose: 40 mg Documented By: DENISE Ferrous Sulfate (Ferrous Sulfate 324 Mg Tablet.Dr) 324 mg PO DAILY [facility] Last Admin: 10/07/23 09:43 Dose: Not Given Documented By: DEVEN Non-Admin Reason: See Note Meropenem 1 gm/ Sodium (Chloride) 100 mls @ 200 mls/hr IV Q12H [facility] Last Infusion: 10/07/23 09:43 Dose: Infused Documented By: DEVEN Magnesium Hydroxide (Milk Of Magnesia 30 Ml Oral.Susp) 30 ml PO DAILY PRN PRN Reason: Constipation Magnesium Hydroxide (Milk Of Magnesia 30 Ml Oral.Susp) 30 ml PO DAILY PRN PRN Reason: Constipation Melatonin (Melatonin 3 Mg Tablet) 6 mg PO BEDTIME PRN PRN Reason: Insomnia Mirtazapine (Mirtazapine 15 Mg Tablet) 15 mg PO BEDTIME [facility] Last Admin: 10/07/23 00:40 Dose: Not Given Documented By: DENISE Non-Admin Reason: NPO Montelukast Sodium (Montelukast Sodium 10 Mg Tablet) 10 mg PO BEDTIME [facility] Last Admin: 10/07/23 00:40 Dose: Not Given Documented By: DENISE Non-Admin Reason: NPO Non-Formulary Medication (Budesonide [Pulmicort Flexhaler]) 2 inhalation INHALE BID [facility] Omeprazole (Omeprazole 20 Mg Capsule.Dr) 20 mg PO DAILY@0630 [facility] Last Admin: 10/07/23 07:10 Dose: Not Given Documented By: DENISE Non-Admin Reason: NPO Ondansetron HCl (Ondansetron Hcl 4 Mg/2 Ml Vial) 4 mg IVPUSH Q8H PRN PRN Reason: Nausea and Vomiting Sertraline HCl (Sertraline Hcl 50 Mg Tablet) 50 mg PO BEDTIME [facility] Last Admin: 10/07/23 00:41 Dose: Not Given Documented By: DENISE Non-Admin Reason: NPO Sodium Chloride (0.9 % Sodium Chloride Flush 3 Ml Syringe) 3 ml IVFLUSH QSHIFT [facility] Last Admin: 10/07/23 08:17 Dose: 3 ml Documented By: DEVEN Vitamin D (Cholecalciferol (Vitamin D3) 25 Mcg Tablet) 25 mcg PO DAILY [facility] Last Admin: 10/07/23 09:43 Dose: Not Given Documented By: DEVEN Non-Admin Reason: See Note Labs 10/07/23 04:48 10/07/23 04:48 Labs: Laboratory Results - last 24 hr 10/06/23 10/06/23 10/06/23 12:32 13:28 16:57 MCV 86.9 MCH 28.6 MCHC 32.9 RDW 15.3 Plt Count 278 D MPV 9.3 L Immature Gran % (Auto) 0.6 H Neut % (Auto) 68.9 Lymph % (Auto) 14.5 L [place] % (Auto) 8.1 Eos % (Auto) 7.2 H Baso % (Auto) 0.7 Lymph # (Auto) 1.6 [place] # (Auto) 0.9 Eos # (Auto) 0.8 H Baso # (Auto) 0.1 Abs Immat Gran (auto) 0.07 H Absolute Neuts (auto) 7.7 Absolute Nucleated RBC 0.000 Nucleated RBC % (auto) 0.0 Anion Gap 14 Estim Creat Clear Calc 41.5 Estimated GFR 56 POC Glucose 88 Random Glucose 98 Lactic Acid 1.0 Calcium 9.8 D Total Bilirubin 0.4 AST 16 ALT 13 Alkaline Phosphatase 65 Troponin I High Sens 3.0 C-Reactive Protein 1.79 H B-Natriuretic Peptide 15 Total Protein 7.9 Albumin 4.1 Urine Color Yellow Urine Appearance Clear Urine pH 5.5 Ur Specific [place] 1.025 Urine Protein Trace Urine Glucose (UA) Negative Urine Ketones 15 Urine Blood Negative Urine Nitrite Positive H Ur Leukocyte Esterase Small (1+) H Urine RBC 0-2 Urine WBC 6-10 H Ur Squamous Epith Cells 0-2 Urine Bacteria 4+ Hyaline Casts 0-2 10/07/23 04:48 MCV 85.4 MCH 28.2 MCHC 33.0 RDW 15.2 Plt Count 256 MPV 9.7 Immature Gran % (Auto) 0.5 H Neut % (Auto) 72.0 Lymph % (Auto) 15.6 L [place] % (Auto) 7.6 Eos % (Auto) 3.7 Baso % (Auto) 0.6 Lymph # (Auto) 1.8 [place] # (Auto) 0.9 Eos # (Auto) 0.4 Baso # (Auto) 0.1 Abs Immat Gran (auto) 0.06 H Absolute Neuts (auto) 8.3 Absolute Nucleated RBC 0.000 Nucleated RBC % (auto) 0.0 Anion Gap 18 Estim Creat Clear Calc 47.5 Estimated GFR > 60 POC Glucose Random Glucose 82 Lactic Acid Calcium 9.8 Total Bilirubin AST ALT Alkaline Phosphatase Troponin I High Sens C-Reactive Protein B-Natriuretic Peptide Total Protein Albumin Urine Color Urine Appearance Urine pH Ur Specific [place] Urine Protein Urine Glucose (UA) Urine Ketones Urine Blood Urine Nitrite Ur Leukocyte Esterase Urine RBC Urine WBC Ur Squamous Epith Cells Urine Bacteria Hyaline Casts Assessment and Plan (1) Acute metabolic encephalopathy: Status: Acute (2) Dementia: Status: Acute (3) Urinary tract infection: Status: Acute Plan 88-year-old female with a PMH significant for?COPD on home O2 p.r.n., mild persistent asthma, unspecified dementia with mood disturbance, GERD, CKD 3, and HLD who presents to the ED from [facility] for evaluation increasing AMS and lethargy x2 days. admitted for treatment and further evaluation of acute metabolic encephalopathy in the setting of acute UTI. Acute metabolic encephalopathy in the setting UTI, remains confused -treat underlying uti -continue meropenem 10/05 has history of ESBL ecoli in july mild metabolic acidosis, appear chronic, monitor Diet Currently NPO given encephalopathy Diet at facility: Chopped texture, thin liquids, and positioned sitting upright for optimal swallow safety Dietary supplements: Ensure Clear and Magic Cup b.i.d. COPD Not in acute exacerbation Continue home inhalers GERD Omeprazole Dementia/mood disorder Continue home meds DNR/DNI DVT Prophylaxis: Lovenox need for inpti: metabolic encephalopathy d/t resistant uti and need iv abx as npo Quality Stroke Does the patient have a stroke diagnosis?: No VTE Prior VTE?: No VTE Risk Level:: Medical - moderate - high VTE Device Contraindication: Treatment Not Indicated VTE Drug Contraindication: N/A - Med Ordered
[2023-10-07 12:50] VITALS: BP 117/53; PULSE 79; RESP 16; TEMP 37.4; O2SAT 96
--- NOTE | 2023-10-07 13:06 | MHC.CM.PN ---
CM SPOKE TO PTS DAUGHTER/HCP, SUZANNE WILSON [phone] SHE CONFIRMS PT IS A LTC RESIDENT OF [facility] PT IS PRIMARILY BED BOUND, ALTHOUGH THEY DO TRANSFER HER TO A W/C AT TIMES HCP AND MOLST ON FILE PCP: CESAR PATEL IMM DELIVERED, COPY LEFT BEDSIDE PER SUZANNE'S REQUEST DCP: RETURN TO [facility] VIA BLS
[2023-10-07 15:12] VITALS: BP 144/62; PULSE 81; RESP 18; TEMP 36.3; O2SAT 93
[2023-10-07 20:00] VITALS: BP 142/65; PULSE 82; RESP 18; TEMP 36.8; O2SAT 95
[2023-10-07] MEDS: Enoxaparin Sodium 40 MG/0.4 ML SYRINGE SUBCUT (20:33)
[2023-10-08 03:17] VITALS: BP 149/77; PULSE 76; RESP 18; TEMP 36.8; O2SAT 94
[2023-10-08] MEDS: 0.9 % Sodium Chloride Flush 3 ML SYRINGE IVFLUSH ×2 (07:14→19:24)
[2023-10-08 07:37] VITALS: BP 128/68; RESP 16; TEMP 36.7; O2SAT 94
[2023-10-08] MEDS: Lactated Ringers 1,000 ML 100 ML IVCONT ×2 (08:34→18:30)
--- NOTE | 2023-10-08 08:57 | HO.PM.IMPN ---
Subjective Subjective Date of Service: 10/08/23 Interval History: pt remains confused, not communicating, not eating Physical Exam Vital Signs: Vital Signs: Last Vital Signs Temp 98.1 F 10/08/23 07:37 Pulse 76 10/08/23 03:17 Resp 16 10/08/23 07:37 BP 128/68 10/08/23 07:37 Pulse Ox 94 10/08/23 07:37 O2 Del Method Room Air 10/08/23 07:37 Oxygen Flow Rate 4 10/06/23 12:20 BMI result Body Mass Index 28.1 Const: Other: General:somnolent, easily aroused but not communicating Resp: CTA bilateral CVS: S1,S2,RRR GI: +BS, NT, no distention Skin: No rash Neuro: motor grossly intact Psych: appropriate affect Objective Data Active Medications Acetaminophen (Acetaminophen 325 Mg Tablet) 650 mg PO Q6H PRN PRN Reason: Pain, Mild (Pain Scale 1-3), fever or headache Acetaminophen (Acetaminophen Supp 650 Mg Supp.Rect) 650 mg [place] Q6H PRN PRN Reason: pain or fever Albuterol/Ipratropium (Albuterol/Iprat 2.5/0.5mg 3 Ml Ampul.Neb) 3 ml INHALE Q4H PRN PRN Reason: Shortness of Breath Bisacodyl (Bisacodyl 10 Mg Supp.Rect) 10 mg [place] DAILY PRN PRN Reason: Constipation Calcium Carbonate (Calcium Carbonate 750 Mg Tab.Chew) 750 mg PO Q4H PRN PRN Reason: Heartburn Docusate Sodium (Docusate Sodium 100 Mg Capsule) 100 mg PO DAILY PRN PRN Reason: Constipation Enoxaparin Sodium (Enoxaparin Sodium 40 Mg/0.4 Ml Syringe) 40 mg SUBCUT Q24H [facility] Last Admin: 10/07/23 20:33 Dose: 40 mg Documented By: TISHA Ferrous Sulfate (Ferrous Sulfate 324 Mg Tablet.Dr) 324 mg PO DAILY [facility] Last Admin: 10/08/23 08:50 Dose: Not Given Documented By: JESSICA Non-Admin Reason: NPO Meropenem 1 gm/ Sodium (Chloride) 100 mls @ 200 mls/hr IV Q12H [facility] Last Infusion: 10/08/23 08:41 Dose: Infused Documented By: JESSICA Lactated Ringer's (Lr) 1,000 mls @ 100 mls/hr IVCONT .Q10H [facility] Last Admin: 10/08/23 08:34 Dose: 100 mls/hr Documented By: JESSICA Magnesium Hydroxide (Milk Of Magnesia 30 Ml Oral.Susp) 30 ml PO DAILY PRN PRN Reason: Constipation Magnesium Hydroxide (Milk Of Magnesia 30 Ml Oral.Susp) 30 ml PO DAILY PRN PRN Reason: Constipation Melatonin (Melatonin 3 Mg Tablet) 6 mg PO BEDTIME PRN PRN Reason: Insomnia Mirtazapine (Mirtazapine 15 Mg Tablet) 15 mg PO BEDTIME [facility] Last Admin: 10/07/23 20:37 Dose: Not Given Documented By: TISHA Non-Admin Reason: NPO Montelukast Sodium (Montelukast Sodium 10 Mg Tablet) 10 mg PO BEDTIME [facility] Last Admin: 10/07/23 20:37 Dose: Not Given Documented By: TISHA Non-Admin Reason: NPO Non-Formulary Medication (Budesonide [Pulmicort Flexhaler]) 2 inhalation INHALE BID [facility] Omeprazole (Omeprazole 20 Mg Capsule.Dr) 20 mg PO DAILY@0630 [facility] Last Admin: 10/08/23 06:23 Dose: Not Given Documented By: TISHA Non-Admin Reason: NPO Ondansetron HCl (Ondansetron Hcl 4 Mg/2 Ml Vial) 4 mg IVPUSH Q8H PRN PRN Reason: Nausea and Vomiting Sertraline HCl (Sertraline Hcl 50 Mg Tablet) 50 mg PO BEDTIME [facility] Last Admin: 10/07/23 20:37 Dose: Not Given Documented By: TISHA Non-Admin Reason: NPO Sodium Chloride (0.9 % Sodium Chloride Flush 3 Ml Syringe) 3 ml IVFLUSH QSHIFT [facility] Last Admin: 10/08/23 07:14 Dose: 3 ml Documented By: JESSICA Vitamin D (Cholecalciferol (Vitamin D3) 25 Mcg Tablet) 25 mcg PO DAILY [facility] Last Admin: 10/08/23 08:50 Dose: Not Given Documented By: JESSICA Non-Admin Reason: NPO Labs 10/07/23 04:48 10/07/23 04:48 Microbiology Microbiology Results: Microbiology 10/06/23 15:51 Urine Culture - Final Urine Catheterized - Straight Catheter Escherichia coli 10/06/23 13:28 Blood Culture - Preliminary Blood - Venous No growth after 24 hours. 10/06/23 13:28 Blood Culture - Preliminary Blood - Venous No growth after 24 hours. Assessment and Plan (1) Acute metabolic encephalopathy: Status: Acute (2) Dementia: Status: Acute (3) Urinary tract infection: Status: Acute Plan 88-year-old female with a PMH significant for?COPD on home O2 p.r.n., mild persistent asthma, unspecified dementia with mood disturbance, GERD, CKD 3, and HLD who presents to the ED from [facility] for evaluation increasing AMS and lethargy x2 days. admitted for treatment and further evaluation of acute metabolic encephalopathy in the setting of acute UTI. Acute metabolic encephalopathy in the setting UTI, remains confused -treat underlying uti -continue meropenem 10/05, urine culture ESBL ecoli mild metabolic acidosis, appear chronic, monitor Diet Currently NPO given encephalopathy Diet at facility: Chopped texture, thin liquids, and positioned sitting upright for optimal swallow safety Dietary supplements: Ensure Clear and Magic Cup b.i.d. LR while NPO COPD Not in acute exacerbation Continue home inhalers GERD Omeprazole Dementia/mood disorder Continue home meds DNR/DNI DVT Prophylaxis: Lovenox need for inpti: metabolic encephalopathy d/t resistant uti and need iv abx as npo goals of care conversation started with daughter, including hospice care if not progressing well Quality Stroke Does the patient have a stroke diagnosis?: No VTE Prior VTE?: No VTE Risk Level:: Medical - moderate - high VTE Device Contraindication: Treatment Not Indicated VTE Drug Contraindication: N/A - Med Ordered
[2023-10-08 10:29] LABS: Hematocrit 41.6 % (37.0-47.0); Hemoglobin 13.6 g/dl (12.0-16.0); Mean Corpuscular HGB Conc 32.7 g/dl (31.0-35.0); Mean Corpuscular Hemoglobin 28.2 pg (27.0-33.0); Mean Corpuscular Volume 86.1 fL (80.0-98.0); Mean Platelet Volume 10.3 fL (9.4-12.3); Platelet Count 242 X10*3/uL (160-400); Red Blood Count 4.83 X10*6/uL (4.20-5.50); Red Cell Distribution Width 15.1 % (11.0-16.0); White Blood Count 11.5 X10*3/uL (4.8-10.8)
[2023-10-08 10:45] LABS: Anion Gap 16 (12-20); Blood Urea Nitrogen 24 mg/dL (9-16); Calcium 9.8 mg/dL (8.4-10.2); Carbon Dioxide 22 mmol/L (22-29); Chloride 103 mmol/L (96-108); Creatinine Clr Calc Pharmacy 51.3; Estimated Glomerular Filt Rate > 60; Glucose Random 71 mg/dL (60-115); Potassium 4.1 mmol/L (3.3-5.1); Sodium 137 mmol/L (135-145)
--- NOTE | 2023-10-08 11:59 | MHC.CM.PN ---
Per MD rounds patient not medically cleared for dc. May potentially transition to hospice. [facility] updated. CM will continue to follow.
--- NOTE | 2023-10-08 14:28 | MHC.SL.SWA ---
Speech Pathologist Impression: Risk of Aspiration, Oropharyngeal Dysphagia Risk of Aspiration Due to: Lethargy Reduced Cognition Dysphasia Diet Status: No Change Liquid Consistency and Strategies for Safe Swallow: Liquid Intake Recommendation: Thin Liquid Intake Strategies: Small Sips No Straws Solid Food Consistency: Dietary Recommendations: Grnd/Mech Altered (NDD2) Additional Modifications to Solid Foods: Patient seen for bedside swallow exam this morning. Note slow oral phase, presence of mild residuals, incomplete laryngeal excursion, mildly delayed swallow. Patient requires 1:1 feeding: check oral cavity periodically for pocketing, alternate bites of food with sips, ensure oral cavity is clear before giving next bite. Recommend start on GROUND/MECHANICALLY ALTERED solids (NDD2) and THIN liquids, with pills CRUSHED in PUREE. Oral Medication Intake: Crushed with Puree Please contact the pharmacy regarding appropriate crushable or liquid drug formulations that are available whenever modified delivery is recommended. Compensatory Strategies and Precautions to be Taken for Safe Swallow: Sitting Upright (90 deg) Double Swallow No Straw Small Bites and Sips Alternate Liquids/Solids Rate of Ingestion Change Oral Check Avoid Specific Foods Supervision While Eating and Drinking for Safe Swallow: Total Assistance (1:1) Foods to Avoid: Hard, tough to chew solids Swallowing Recommended Treatments: Compens. Strategy Educat. Recommendation for Speech: Inpatient Speech Therapy Comment: CROSS CUT SAW OPERATOR will continue to follow. Frequency/Duration: Date Range for Service Req: Timeline to reassess: Business Office Associate Clinican/Clinical Fellow: No Supervisory Statement: I have reviewed and agree with the student/clinical fellow's documentation: N/A Speech Language Pathologist: Elizabeth Gomes M.A., CCC-CROSS CUT SAW OPERATOR
[2023-10-08 15:16] VITALS: BP 136/69; PULSE 81; RESP 16; TEMP 36.5; O2SAT 94
[2023-10-08] MEDS: Mirtazapine 15 MG TABLET PO (19:23)
[2023-10-08] MEDS: Enoxaparin Sodium 40 MG/0.4 ML SYRINGE SUBCUT (19:23)
[2023-10-08] MEDS: Montelukast Sodium 10 MG TABLET PO (19:23)
[2023-10-08] MEDS: Sertraline HCL 50 MG TABLET PO (19:23)
[2023-10-08 19:49] VITALS: BP 140/73; PULSE 80; RESP 18; TEMP 36.6; O2SAT 94
[2023-10-09] MEDS: Lactated Ringers 1,000 ML 100 ML IVCONT (03:55)
[2023-10-09 04:00] VITALS: BP 147/66; PULSE 74; RESP 18; TEMP 36.2; O2SAT 94
[2023-10-09] MEDS: Omeprazole 20 MG CAPSULE.DR PO (05:55)
[2023-10-09] MEDS: 0.9 % Sodium Chloride Flush 3 ML SYRINGE IVFLUSH ×2 (07:50→16:39)
[2023-10-09] MEDS: Cholecalciferol (Vitamin D3) 25 MCG TABLET PO (07:54)
[2023-10-09] MEDS: Ferrous Sulfate 324 MG TABLET.DR PO (07:54)
[2023-10-09 08:00] VITALS: BP 165/78; PULSE 78; RESP 16; TEMP 36.5; O2SAT 93
--- NOTE | 2023-10-09 09:30 | HO.PM.IMPN ---
Subjective Subjective Date of Service: 10/09/23 Interval History: She is more alert today, not conversing Physical Exam Vital Signs: Vital Signs: Last Vital Signs Temp 97.7 F 10/09/23 08:00 Pulse 78 10/09/23 08:00 Resp 16 10/09/23 08:00 BP 165/78 H 10/09/23 08:00 Pulse Ox 93 10/09/23 08:00 O2 Del Method Room Air 10/09/23 08:00 Oxygen Flow Rate 4 10/06/23 12:20 BMI result Body Mass Index 28.1 Const: Other: General:somnolent, easily aroused but not communicating Resp: CTA bilateral CVS: S1,S2,RRR GI: +BS, NT, no distention Skin: No rash Neuro: motor grossly intact Psych: appropriate affect Objective Data Active Medications Acetaminophen (Acetaminophen 325 Mg Tablet) 650 mg PO Q6H PRN PRN Reason: Pain, Mild (Pain Scale 1-3), fever or headache Acetaminophen (Acetaminophen Supp 650 Mg Supp.Rect) 650 mg [place] Q6H PRN PRN Reason: pain or fever Albuterol/Ipratropium (Albuterol/Iprat 2.5/0.5mg 3 Ml Ampul.Neb) 3 ml INHALE Q4H PRN PRN Reason: Shortness of Breath Bisacodyl (Bisacodyl 10 Mg Supp.Rect) 10 mg [place] DAILY PRN PRN Reason: Constipation Calcium Carbonate (Calcium Carbonate 750 Mg Tab.Chew) 750 mg PO Q4H PRN PRN Reason: Heartburn Docusate Sodium (Docusate Sodium 100 Mg Capsule) 100 mg PO DAILY PRN PRN Reason: Constipation Enoxaparin Sodium (Enoxaparin Sodium 40 Mg/0.4 Ml Syringe) 40 mg SUBCUT Q24H [facility] Last Admin: 10/08/23 19:23 Dose: 40 mg Documented By: WILDER Ferrous Sulfate (Ferrous Sulfate 324 Mg Tablet.Dr) 324 mg PO DAILY [facility] Last Admin: 10/09/23 07:54 Dose: 324 mg Documented By: LISANDRO Meropenem 1 gm/ Sodium (Chloride) 100 mls @ 200 mls/hr IV Q12H [facility] Last Infusion: 10/09/23 08:33 Dose: Infused Documented By: LISANDRO Lactated Ringer's (Lr) 1,000 mls @ 100 mls/hr IVCONT .Q10H [facility] Last Admin: 10/09/23 03:55 Dose: 100 mls/hr Documented By: WILDER Magnesium Hydroxide (Milk Of Magnesia 30 Ml Oral.Susp) 30 ml PO DAILY PRN PRN Reason: Constipation Magnesium Hydroxide (Milk Of Magnesia 30 Ml Oral.Susp) 30 ml PO DAILY PRN PRN Reason: Constipation Melatonin (Melatonin 3 Mg Tablet) 6 mg PO BEDTIME PRN PRN Reason: Insomnia Mirtazapine (Mirtazapine 15 Mg Tablet) 15 mg PO BEDTIME [facility] Last Admin: 10/08/23 19:23 Dose: 15 mg Documented By: WILDER Montelukast Sodium (Montelukast Sodium 10 Mg Tablet) 10 mg PO BEDTIME [facility] Last Admin: 10/08/23 19:23 Dose: 10 mg Documented By: WILDER Non-Formulary Medication (Budesonide [Pulmicort Flexhaler]) 2 inhalation INHALE BID [facility] Omeprazole (Omeprazole 20 Mg Capsule.Dr) 20 mg PO DAILY@0630 [facility] Last Admin: 10/09/23 05:55 Dose: 20 mg Documented By: WILDER Ondansetron HCl (Ondansetron Hcl 4 Mg/2 Ml Vial) 4 mg IVPUSH Q8H PRN PRN Reason: Nausea and Vomiting Sertraline HCl (Sertraline Hcl 50 Mg Tablet) 50 mg PO BEDTIME [facility] Last Admin: 10/08/23 19:23 Dose: 50 mg Documented By: WILDER Sodium Chloride (0.9 % Sodium Chloride Flush 3 Ml Syringe) 3 ml IVFLUSH QSHIFT [facility] Last Admin: 10/09/23 07:50 Dose: 3 ml Documented By: LISANDRO Vitamin D (Cholecalciferol (Vitamin D3) 25 Mcg Tablet) 25 mcg PO DAILY [facility] Last Admin: 10/09/23 07:54 Dose: 25 mcg Documented By: LISANDRO Labs 10/08/23 10:08 10/08/23 10:07 Labs: Laboratory Results - last 24 hr 10/08/23 10/08/23 10:07 10:08 MCV 86.1 MCH 28.2 MCHC 32.7 RDW 15.1 Plt Count 242 MPV 10.3 Absolute Nucleated RBC 0.000 Nucleated RBC % (auto) 0.0 Anion Gap 16 Estim Creat Clear Calc 51.3 Estimated GFR > 60 Random Glucose 71 Calcium 9.8 Microbiology Microbiology Results: Microbiology 10/06/23 13:28 Blood Culture - Preliminary Blood - Venous No growth after 48 hours. 10/06/23 13:28 Blood Culture - Preliminary Blood - Venous No growth after 48 hours. 10/06/23 15:51 Urine Culture - Final Urine Catheterized - Straight Catheter Escherichia coli Assessment and Plan (1) Acute metabolic encephalopathy: Status: Acute (2) Dementia: Status: Acute (3) Urinary tract infection: Status: Acute Plan 88-year-old female with a PMH significant for?COPD on home O2 p.r.n., mild persistent asthma, unspecified dementia with mood disturbance, GERD, CKD 3, and HLD who presents to the ED from [facility] for evaluation increasing AMS and lethargy x2 days. admitted for treatment and further evaluation of acute metabolic encephalopathy in the setting of acute UTI. Acute metabolic encephalopathy in the setting UTI, remains confused -treat underlying uti -continue meropenem 10/05, urine culture ESBL ecoli -will need midline to complete 10 days of Luci or Ertapenem mild metabolic acidosis, appear chronic, monitor Diet REEL BLADE BENDER FURNACE TENDER recommends ground mechanical (NDD2) and thin liquid COPD Not in acute exacerbation Continue home inhalers GERD Omeprazole Dementia/mood disorder Continue home meds DNR/DNI DVT Prophylaxis: Lovenox need for inpti: metabolic encephalopathy d/t resistant uti and need iv abx as npo goals of care conversation started with daughter, including hospice care if not progressing well Quality Stroke Does the patient have a stroke diagnosis?: No VTE Prior VTE?: No VTE Risk Level:: Medical - moderate - high VTE Device Contraindication: Treatment Not Indicated VTE Drug Contraindication: N/A - Med Ordered
[2023-10-09 15:33] VITALS: BP 139/75; PULSE 79; RESP 18; TEMP 36.3; O2SAT 95
[2023-10-09 19:47] VITALS: BP 131/71; PULSE 84; RESP 18; TEMP 36.1; O2SAT 96
[2023-10-09] MEDS: Enoxaparin Sodium 40 MG/0.4 ML SYRINGE SUBCUT (20:34)
[2023-10-09] MEDS: Sertraline HCL 50 MG TABLET PO (20:35)
[2023-10-09] MEDS: Acetaminophen 325 MG TABLET 650 MG PO (20:35)
[2023-10-09] MEDS: Mirtazapine 15 MG TABLET PO (20:35)
[2023-10-09] MEDS: Montelukast Sodium 10 MG TABLET PO (20:35)
[2023-10-10 03:31] VITALS: BP 136/63; PULSE 75; RESP 18; TEMP 36.1; O2SAT 94
[2023-10-10] MEDS: Omeprazole 20 MG CAPSULE.DR PO (05:31)
[2023-10-10 08:00] VITALS: BP 132/61; PULSE 81; RESP 16; TEMP 36.9; O2SAT 94
[2023-10-10] MEDS: 0.9 % Sodium Chloride Flush 3 ML SYRINGE IVFLUSH ×3 (08:54→21:17)
[2023-10-10] MEDS: Ferrous Sulfate 324 MG TABLET.DR PO (08:55)
[2023-10-10] MEDS: Cholecalciferol (Vitamin D3) 25 MCG TABLET PO (08:55)
--- NOTE | 2023-10-10 12:48 | HO.PM.IMPN ---
Subjective Subjective Date of Service: 10/10/23 Interval History: seen and examined this AM non-verbal Physical Exam Vital Signs: Vital Signs: Last Vital Signs Temp 98.4 F 10/10/23 08:00 Pulse 81 10/10/23 08:00 Resp 16 10/10/23 08:00 BP 132/61 10/10/23 08:00 Pulse Ox 94 10/10/23 08:00 O2 Del Method Room Air 10/10/23 08:00 Oxygen Flow Rate 4 10/06/23 12:20 BMI result Body Mass Index 28.1 Const: Other: awake and alert, eyes open non verbal lungs clear, s1s2 abd soft/nt ext mild edema Objective Data Active Medications Acetaminophen (Acetaminophen 325 Mg Tablet) 650 mg PO Q6H PRN PRN Reason: Pain, Mild (Pain Scale 1-3), fever or headache Last Admin: 10/09/23 20:35 Dose: 650 mg Documented By: WILDER Acetaminophen (Acetaminophen Supp 650 Mg Supp.Rect) 650 mg [place] Q6H PRN PRN Reason: pain or fever Albuterol/Ipratropium (Albuterol/Iprat 2.5/0.5mg 3 Ml Ampul.Neb) 3 ml INHALE Q4H PRN PRN Reason: Shortness of Breath Bisacodyl (Bisacodyl 10 Mg Supp.Rect) 10 mg [place] DAILY PRN PRN Reason: Constipation Calcium Carbonate (Calcium Carbonate 750 Mg Tab.Chew) 750 mg PO Q4H PRN PRN Reason: Heartburn Docusate Sodium (Docusate Sodium 100 Mg Capsule) 100 mg PO DAILY PRN PRN Reason: Constipation Enoxaparin Sodium (Enoxaparin Sodium 40 Mg/0.4 Ml Syringe) 40 mg SUBCUT Q24H [facility] Last Admin: 10/09/23 20:34 Dose: 40 mg Documented By: WILDER Ferrous Sulfate (Ferrous Sulfate 324 Mg Tablet.Dr) 324 mg PO DAILY [facility] Last Admin: 10/10/23 08:55 Dose: 324 mg Documented By: LISANDRO Meropenem 1 gm/ Sodium (Chloride) 100 mls @ 200 mls/hr IV Q12H [facility] Last Infusion: 10/10/23 09:35 Dose: Infused Documented By: LISANDRO Magnesium Hydroxide (Milk Of Magnesia 30 Ml Oral.Susp) 30 ml PO DAILY PRN PRN Reason: Constipation Magnesium Hydroxide (Milk Of Magnesia 30 Ml Oral.Susp) 30 ml PO DAILY PRN PRN Reason: Constipation Melatonin (Melatonin 3 Mg Tablet) 6 mg PO BEDTIME PRN PRN Reason: Insomnia Mirtazapine (Mirtazapine 15 Mg Tablet) 15 mg PO BEDTIME [facility] Last Admin: 10/09/23 20:35 Dose: 15 mg Documented By: WILDER Montelukast Sodium (Montelukast Sodium 10 Mg Tablet) 10 mg PO BEDTIME [facility] Last Admin: 10/09/23 20:35 Dose: 10 mg Documented By: WILDER Omeprazole (Omeprazole 20 Mg Capsule.Dr) 20 mg PO DAILY@0630 [facility] Last Admin: 10/10/23 05:31 Dose: 20 mg Documented By: WILDER Ondansetron HCl (Ondansetron Hcl 4 Mg/2 Ml Vial) 4 mg IVPUSH Q8H PRN PRN Reason: Nausea and Vomiting Sertraline HCl (Sertraline Hcl 50 Mg Tablet) 50 mg PO BEDTIME [facility] Last Admin: 10/09/23 20:35 Dose: 50 mg Documented By: WILDER Sodium Chloride (0.9 % Sodium Chloride Flush 3 Ml Syringe) 3 ml IVFLUSH QSHIFT [facility] Last Admin: 10/10/23 08:54 Dose: 3 ml Documented By: LISANDRO Vitamin D (Cholecalciferol (Vitamin D3) 25 Mcg Tablet) 25 mcg PO DAILY [facility] Last Admin: 10/10/23 08:55 Dose: 25 mcg Documented By: LISANDRO Labs 10/08/23 10:08 10/08/23 10:07 Assessment and Plan (1) Acute metabolic encephalopathy: Status: Acute Plan 88-year-old female with a PMH significant for?COPD on home O2 p.r.n., mild persistent asthma, unspecified dementia with mood disturbance, GERD, CKD 3, and HLD who presents to the ED from [facility] for evaluation increasing AMS and lethargy x2 days. admitted for treatment and further evaluation of acute metabolic encephalopathy in the setting of acute UTI. Acute metabolic encephalopathy due to ESBL E coli UTI Continue meropenem, likely 10-14 days of abx mildine ordered mild metabolic acidosis, appear chronic, monitor Diet PROTECTIVE SIGNAL INSTALLER recommends ground mechanical (NDD2) and thin liquid COPD Not in acute exacerbation Continue home inhalers GERD Omeprazole Dementia/mood disorder Continue home meds DNR/DNI DVT Prophylaxis: Lovenox continues to improved, possible d/c in the next 24-48 hrs Quality Stroke Does the patient have a stroke diagnosis?: No VTE Prior VTE?: No VTE Risk Level:: Medical - moderate - high VTE Device Contraindication: Treatment Not Indicated VTE Drug Contraindication: N/A - Med Ordered
[2023-10-10 16:00] VITALS: BP 124/60; PULSE 89; RESP 14; TEMP 36.4; O2SAT 95
[2023-10-10 20:00] VITALS: BP 142/67; PULSE 93; RESP 20; TEMP 36.7; O2SAT 95
[2023-10-10] MEDS: Enoxaparin Sodium 40 MG/0.4 ML SYRINGE SUBCUT (21:15)
[2023-10-10] MEDS: Montelukast Sodium 10 MG TABLET PO (21:16)
[2023-10-10] MEDS: Mirtazapine 15 MG TABLET PO (21:17)
[2023-10-10] MEDS: Sertraline HCL 50 MG TABLET PO (21:17)
[2023-10-11 03:53] VITALS: BP 123/85; PULSE 77; RESP 18; TEMP 36.4; O2SAT 96
[2023-10-11] MEDS: Omeprazole 20 MG CAPSULE.DR PO (05:47)
[2023-10-11 06:56] VITALS: BP 136/70; PULSE 73; RESP 17; TEMP 36.6; O2SAT 93
[2023-10-11] MEDS: 0.9 % Sodium Chloride Flush 3 ML SYRINGE IVFLUSH (08:10)
[2023-10-11] MEDS: Ferrous Sulfate 324 MG TABLET.DR PO (08:10)
[2023-10-11] MEDS: Cholecalciferol (Vitamin D3) 25 MCG TABLET PO (08:10)
--- NOTE | 2023-10-11 12:50 | P.DS_ITS ---
DS: Providers Provider Date of Service: 10/11/23 Date of admission: 10/06/23 19:34 Date of discharge: 10/11/23 Primary care physician: Unknown Physician DS: Diagnosis Discharge Diagnosis (1) Acute metabolic encephalopathy: Status: Acute DS: Summary Hospital Course Hospital Course: admission hpi Chief Complaint: Altered mental status Pt is an 88-year-old female with a PMH significant for?COPD on home O2 p.r.n., mild persistent asthma, unspecified dementia with mood disturbance, GERD, CKD 3, and HLD who presents to the ED from [facility] for evaluation increasing AMS and lethargy x2 days. Patient apparently noted to have a fever and elevated white count at the facility. Also had UA and chest x-ray that were both negative. Patient apparently at baseline is fairly interactive, however has been mostly nonverbal the past few days. Staff at [facility] state this behavior consistent with previous UTIs. Patient seen and evaluated in her room where she is noted to be somnolent but arousable to verbal stimuli. Patient still non verbal and unable to answer questions. Of note, patient previously admitted to the hospital on 08/01 for similar symptoms where urine culture was positive for E coli resistant to multiple antibiotics including ceftriaxone. Was susceptible to ertapenem and gentamicin. In the ED pt had elevated temp of 100.1, vitals otherwise WNL. Currently satting at 96% on RA. Labs were significant for leukocytosis of 11.2, otherwise grossly unremarkable and around baseline for patient. Stable H& H. No significant electrolyte abnormalities. Renal function around baseline. Hepatic function WNL. Troponin 3.0. C-reactive protein mildly elevated at 1.79. UA positive for nitrites, leukocyte esterase, and 6-10 wbc's with 4+ bacteria CXR showed interval resolution of small left pleural effusion and pulmonary venous congestion, but showed interval development of small right upper lobe airspace disease, and left lateral lung platelike atelectasis. CT?of head showed no acute intracranial hemorrhage or edematous territorial infarction, but showed moderate underlying microangiopathy. Also showed generalized cerebral volume loss. EKG demonstrated normal sinus rhythm without evidence of significant ST elevations or depressions. Pt was treated with 1 L IVF and meropenem. Pt will be admitted to the hospital for treatment and further evaluation of acute metabolic encephalopathy in the setting of acute UTI. hospital course: Patient was admitted due altered mental status related to UTI, which turned out to be multi-drug resitant ESBL E.coli and is being treated with meropenen to be changed to eratapenem upon discharge for a total of 10 days. She presently afebrile. Metabolic encephalopathy has resolved and she's at her baseline confusional state mild metabolic acidosis, appear chronic, monitor Chronic dysphagia: seep, see TEXTILE SCRAP SALVAGER recommendation below Diet TEXTILE SCRAP SALVAGER recommends ground mechanical (NDD2) and thin liquid COPD Not in acute exacerbation Continue home inhalers GERD Omeprazole Dementia/mood disorder Continue home meds Time Attestation Discharge Coordination Time (in mins): 40 Quality: Safe Use of Opioids Does Pt have an Active Cancer Diagnosis on the Problem List?: No Quality: Stroke Does the patient have a stroke diagnosis?: No Physical Exam Vital Signs: Vital Signs: Last Vital Signs Temp 98 F 10/11/23 06:56 Pulse 73 10/11/23 06:56 Resp 17 10/11/23 06:56 BP 136/70 10/11/23 06:56 Pulse Ox 93 10/11/23 06:56 O2 Del Method Room Air 10/11/23 06:56 Oxygen Flow Rate 4 10/06/23 12:20 BMI result Body Mass Index 28.1 Const: Other: awake and alert, eyes open non verbal lungs clear, s1s2 abd soft/nt ext mild edema DS: Data Data Completed and Pending Completed studies during hospitalization [Text1]: Procedures Insertion of Infusion Device into Right Brachial Vein, Percutaneous Approach (08/02/23) Ultrasonography of Right Upper Extremity Veins, Guidance (08/02/23) Labs on day of discharge: Preliminary micro results at discharge 10/06/23 13:28 Blood Culture - Preliminary Blood - Venous No growth after 48 hours. 10/06/23 13:28 Blood Culture - Preliminary Blood - Venous No growth after 48 hours. Discharge Plan Discharge Anticipated Discharge Date/Time: 10/11/23 17:13 Patient Disposition: Xfer SNF Discharge Diagnosis: esbl uti, metabolic encephalopathy, dysphagia Referrals: Physician,Unknown J [Primary Care Provider] - 1 Week Discharge Medications: New ertapenem 1 gram recon soln 1 g IV Q24H Qty: 5 0RF Rx Instructions: next dose tomorrow 6 pm Continued ipratropium-albuterol 0.5 mg-3 mg(2.5 mg base)/3 mL solution for nebulization 3 ml inhalation Q4H PRN (Reason: SOB) Rx Instructions: Rinse mouth with water and spit after treatment. fluticasone propion-salmeterol [Advair Diskus] 500-50 mcg/dose blister with device 1 ea inhalation BID Rx Instructions: rinse mouth after use sertraline 50 mg tablet 50 mg PO BEDTIME acetaminophen 650 mg Suppository 650 mg IN Q6H PRN (Reason: pain or fever) Rx Instructions: For general discomfort/ temp 101 or greater ( max daily dose not to exceed 3 gm daily bisacodyl 10 mg Suppository 10 mg IN DAILY PRN (Reason: Constipation) Rx Instructions: daily for no BM if M.O.M INEFFECTIVE ferrous sulfate 325 mg (65 mg iron) Tablet 325 mg PO DAILY omeprazole 20 mg capsule,delayed release(DR/EC) 20 mg PO DAILY@0630 Rx Instructions: GIVE ONE TABLET BY MOUTH IN AM FOR PP1 montelukast 10 mg tablet 10 mg PO BEDTIME cholecalciferol (vitamin D3) [Vitamin D3] 25 mcg (1,000 unit) Tablet 25 mcg PO DAILY magnesium hydroxide [Milk of Magnesia] 400 mg/5 mL Suspension 30 ml PO DAILY PRN (Reason: Constipation) Rx Instructions: prn for no BM in 9 shifts (3 days), do not administer with dialysis ipratropium-albuterol 18-103 mcg/actuation Aerosol 2 spray INHALATION Q4H PRN (Reason: SOB) Rx Instructions: rinse mouth with water and spit after treatment docusate sodium 100 mg Capsule 100 mg PO DAILY PRN (Reason: Constipation) Qty: 30 0RF Pulmicort Flexhaler 90 mcg/actuation aerosol powdr breath activated 2 inh inhalation BID Rx Instructions: Rinse mouth with water and spit after treatment. mirtazapine 7.5 mg tablet 15 mg PO BEDTIME acetaminophen 500 mg Tablet 500 mg PO BID Rx Instructions: do not exceed 3 gm in 24 hours diclofenac sodium [Voltaren Arthritis Pain] 1 % Gel 4 g TOPICAL TID Discharge Orders: Discharge Order (Routine); Ordered 10/11/23 Ordered By: Caden Michel Diet: NDD2, thin liquid Activity on Discharge: As tolerated Stand Alone Forms: Patient Portal Discharge page Print Language: Turkish Care Plan Goals: recovery from uti and prevention of hospitalization Health Concerns: utis dysphagia metabolic encephalopathy dimentia Plan of Treatment: take Ertapenem for UTI SLD recomeendation for dyspahagia diet: Dysphasia Diet Status: No Change Liquid Consistency and Strategies for Safe Swallow: Liquid Intake Recommendation: Thin Liquid Intake Strategies: Small SipsNo Straws Solid Food Consistency: Dietary Recommendations: Grnd/Mech Altered (NDD2) Additional Modifications to Solid Foods: Patient seen for bedside swallow exam this morning. Note slow oral phase, presence of mild residuals, incomplete laryngeal excursion, mildly delayed swallow. Patient requires 1:1 feeding: check oral cavity periodically for pocketing, alternate bites of food with sips, ensure oral cavity is clear before giving next bite. Recommend start on GROUND/MECHANICALLY ALTERED solids (NDD2) and THIN liquids, with pills CRUSHED in PUREE. Oral Medication Intake: Crushed with Puree Please contact the pharmacy regarding appropriate crushable or liquid drug formulations that are available whenever modified delivery is recommended. Compensatory Strategies and Precautions to be Taken for Safe Swallow: Sitting Upright (90 deg) Double Swallow No Straw Small Bites and Sips Alternate Liquids/Solids Rate of Ingestion Change Oral Check Avoid Specific Foods Supervision While Eating and Drinking for Safe Swallow: Total Assistance (1:1) Foods to Avoid: Hard, tough to chew xavi Assessment: see above Discharge Date/Time: 10/11/23 20:09
[2023-10-11 13:31] LABS: Hematocrit 38.8 % (37.0-47.0); Hemoglobin 12.9 g/dl (12.0-16.0); Mean Corpuscular HGB Conc 33.2 g/dl (31.0-35.0); Mean Corpuscular Volume 84.2 fL (80.0-98.0); Mean Platelet Volume 9.1 fL (9.4-12.3); Platelet Count 307 X10*3/uL (160-400); Red Blood Count 4.61 X10*6/uL (4.20-5.50); Red Cell Distribution Width 14.9 % (11.0-16.0); White Blood Count 9.5 X10*3/uL (4.8-10.8)
[2023-10-11 13:47] LABS: Anion Gap 12 (12-20); Blood Urea Nitrogen 12 mg/dL (9-16); Calcium 9.1 mg/dL (8.4-10.2); Carbon Dioxide 24 mmol/L (22-29); Chloride 103 mmol/L (96-108); Creatinine Clr Calc Pharmacy 55.7; Estimated Glomerular Filt Rate > 60; Glucose Random 124 mg/dL (60-115); Potassium 3.5 mmol/L (3.3-5.1); Sodium 135 mmol/L (135-145)
--- NOTE | 2023-10-11 13:58 | MHC.SL.SWA ---
Speech Pathologist Impression: Risk of Aspiration, Oropharyngeal Dysphagia Risk of Aspiration Due to: Lethargy Reduced Cognition Dysphasia Diet Status: Downgrade Liquids to NTL Liquid Consistency and Strategies for Safe Swallow: Liquid Intake Recommendation: [place] Thick Liquid Intake Strategies: Small Sips No Straws Solid Food Consistency: Dietary Recommendations: Grnd/Mech Altered (NDD2) Additional Modifications to Solid Foods: Note slow oral phase, presence of mild residuals, incomplete laryngeal excursion, mildly delayed swallow. Coughing on thin liquid. Patient requires 1:1 feeding: check oral cavity periodically for pocketing, alternate bites of food with sips, ensure oral cavity is clear before giving next bite. Recommend GROUND/MECHANICALLY ALTERED solids (NDD2) and NECTAR THICK liquids, with pills CRUSHED in PUREE. Oral Medication Intake: Crushed with Puree Please contact the pharmacy regarding appropriate crushable or liquid drug formulations that are available whenever modified delivery is recommended. Compensatory Strategies and Precautions to be Taken for Safe Swallow: Sitting Upright (90 deg) No Straw Small Bites and Sips Alternate Liquids/Solids Rate of Ingestion Change Oral Check Avoid Specific Foods Supervision While Eating and Drinking for Safe Swallow: Total Assistance (1:1) Foods to Avoid: Hard, tough to chew solids Swallowing Recommended Treatments: Compens. Strategy Educat. Recommendation for Speech: Inpatient Speech Therapy Comment: PASSENGER RELATIONS REPRESENTATIVE will continue to follow. Frequency/Duration: Date Range for Service Req: Timeline to reassess: Doctor Of Naprapathy Clinican/Clinical Fellow: No Supervisory Statement: I have reviewed and agree with the student/clinical fellow's documentation: N/A Speech Language Pathologist: Elizabeth Gomes M.A., CCC-PASSENGER RELATIONS REPRESENTATIVE
--- NOTE | 2023-10-11 14:43 | MHC.CM.PN ---
Per MD patient medically cleared for dc back to LTC @ [facility]. Midline to be placed this afternoon to continue IV ertapenem on dc. Transport scheduled for 630 pm back to [facility]. , RN, patient and daughter aware. IMM delivered to daughter at bedside. Daughter requesting phone call from MD. aware.
[2023-10-11 15:42] VITALS: BP 129/60; PULSE 86; RESP 18; TEMP 36.1; O2SAT 96
--- NOTE | 2023-10-11 18:26 | HO.MIDLINE_ITS ---
Midline Insertion MIDLINE INSERTION Diagnosis: UTI Indication: 4 weeks of antibiotics Pertinent Labs: Reviewed Technique: Using sterile technique including cap and mask, glove and drape, the left arm was prepped and draped in the usual sterile fashion of full barrier technique with CHG. Using ultrasound guidance, the left basilic vein access was obtained in a single attempt by this RN after 2 attempts by Lady Mcelroy RN and Lucretia Liu RN. A 20 guage 8cm NON PASV Midline was positioned. The procedure was performed in S272. Ultrasound was used to document vein patency and for needle entry. A formal ultrasound picture was recorded. Vascular Entry Level Sales Associate has released the line for use and it is currently dressed with a StatLock, Tegaderm, and CHG disc. Verification has been performed for blood return and line patency. Arm Circumference: 33 cm Equipment: rd PowerGlide ST Midline catheter Catheter Type: 20 guage 8 cm Non PASV Midline Lot #: [id number]
[2023-10-11] MEDS: Ertapenem Sodium 1 GM in 0.9 % Sodium Chloride 50 ML IV (18:50)
[2023-10-11 18:57] VITALS: BP 141/68; PULSE 89; RESP 18; TEMP 36.4; O2SAT 95
== END 2023-10-11 20:09 | disposition skilled nursing facility (03) | DRG 689 ==
LOC: HO.ED 18:31 → HO.EDOVER 19:43 → HO.S3 10-07 11:32
PROVIDERS: Admitting Provider Student in an Organized Health Care Education/Training Program; Emergency Provider Emergency Medicine; PCP Family Medicine; Visit Provider Internal Medicine
DX: N39.0 Urinary tract infection, site not specified (principal); G93.41 Metabolic encephalopathy; F03.93 Unspecified dementia, unspecified severity, with mood disturbance; E87.20 Acidosis, unspecified; Z16.12 Extended spectrum beta lactamase (ESBL) resistance; Z16.24 Resistance to multiple antibiotics; J98.11 Atelectasis; Z66 Do not resuscitate; E78.5 Hyperlipidemia, unspecified; R13.10 Dysphagia, unspecified; N18.30 Chronic kidney disease, stage 3 unspecified; J44.9 Chronic obstructive pulmonary disease, unspecified; K21.9 Gastro-esophageal reflux disease without esophagitis; B96.20 Unspecified Escherichia coli [E. coli] as the cause of diseases classified elsewhere; J45.30 Mild persistent asthma, uncomplicated; Z87.440 Personal history of urinary (tract) infections; Z99.81 Dependence on supplemental oxygen; Z79.51 Long term (current) use of inhaled steroids; Z79.899 Other long term (current) drug therapy
CPT/HCPCS: 36410; 36415; 70450; 71045; 80048; 80053; 81001; 81003; 82947; 83605; 83880; 84484; 85025; 85027; 86140; 87040; 87086; 87088; 87186; 92526; 92610; 93005; 99285; C1894; J1335; J1650; J2185; J7120

== ENCOUNTER → 2023-10-06 19:34 | Outpatient (BNV) | payer MEDICARE, MEDICAID, SELFPAY | PROVIDERS: Admitting Provider Student in an Organized Health Care Education/Training Program; Emergency Provider Emergency Medicine; Visit Provider Student in an Organized Health Care Education/Training Program | DX: G93.41 Metabolic encephalopathy (principal) | CPT/HCPCS: 99222; 99231; 99232; 99239 ==